=== PATIENT | female | born 1950 | race Caucasian/White ===

== ENCOUNTER → 2018-01-22 14:17 | Outpatient (CLI) | payer MEDICARE, OTHER, SELFPAY ==
--- NOTE | 2018-01-22 | DI.CT.S_ITS ---
PROCEDURE: CT HEAD/BRAIN WO CON INDICATIONS: CONTUSION WITH INTACT SKIN SURFACE TECHNIQUE: Noncontrast 4.5 mm thick angled axial sections acquired from the foramen magnum to the vertex, with coronal and sagittal reformats. For radiation dose reduction, the following was used: automated exposure control, adjustment of mA and/or kV according to patient size. COMPARISON: [facility], CT, HEAD WITHOUT CONTRAST, 11/08/2010, 9:05. FINDINGS: Image quality: Excellent. CSF spaces: Basal cisterns are patent. No extra-axial fluid collections. The ventricles are symmetric in size and shape. Brain: No intracranial bleeds or masses. There is cerebral volume loss for age, with resultant ventricular and sulcal prominence. There are periventricular and deep white matter chronic small vessel ischemic changes. There is intracranial internal carotid artery atherosclerosis. Skull and face: Calvarium and visualized facial bones appear intact, without suspicious lesions. Sinuses: Visualized sinuses and mastoids are clear. IMPRESSION: No acute intracranial hemorrhage. No displaced calvarial fracture can be seen. Note is made of age-appropriate brain parenchymal volume loss and chronic small vessel ischemic changes. Dictated by: Shantanu Valera M.D. on 01/22/2018 at 13:45 Approved by: Shantanu Valera M.D. on 01/22/2018 at 13:46
--- NOTE | 2018-01-22 | DI.CT.S_ITS ---
PROCEDURE: CT FACIAL BONES WO CON INDICATIONS: CONTUSION WITH INTACT SKIN SURFACE TECHNIQUE: Noncontrast 2.5 mm thick axial images acquired from the mandible through the frontal sinuses, with coronal and sagittal reformatting. For radiation dose reduction, the following was used: automated exposure control, adjustment of mA and/or kV according to patient size. COMPARISON: [facility], CT, CT HEAD/BRAIN WO CON, 01/22/2018, 14:26. FINDINGS: Image quality: Excellent. Bones and teeth: Orbital wall on the left is intact but the floor of the right orbit has sustained a significant traumatic injury, with blowout fracture deviating the floor and inferior aspect of the medial wall of the right orbit inferiorly and slightly posteriorly into the right maxillary sinus. The right orbital floor is displaced inferiorly and medially and posteriorly, by a maximum of 8 mm in each direction. The right maxillary sinus cavity contains complete opacification by heterogeneous material some of which is high density and likely blood products in this clinical circumstance. Sinus kumar elsewhere show no fracture or deformity. Nasal bones and septum are intact. Visualized portions of the mandible demonstrate no fractures or subluxation. Zygomatic arches are intact. Pterygoid plates are intact. Visualized portions of the skull base and auditory canals are intact. Sinuses: Paranasal sinuses are aerated except that the right maxillary sinus, discussed above, without air-fluid levels, mucosal thickening, or mucoceles. Mastoid air cells are aerated. Soft tissues: No edema, masses, or fluid collections. No enlarged lymph nodes. No soft tissue lacerations or debris. Vascular: Visualized vascular structures appear normal in the absence of contrast. Bony vascular foramina and canals are intact. IMPRESSION: Significant orbital blowout fracture on the right involving the inferior aspect of the medial wall contiguously extending into the floor of the right orbit, deviated both inferiorly, posteriorly and slightly medially by up to 8 mm. Complete opacification of the right maxillary sinus by heterogeneous material including high density content indicates likelihood of blood products and clot within the sinus cavity. No additional traumatic injury to the facial bones is seen elsewhere. The right globe and lens appear intact. A retro-bulbar hemorrhage is not found at the right orbit. Dictated by: Frederic Ching M.D. on 01/22/2018 at 15:11 Approved by: Frederic Ching M.D. on 01/22/2018 at 15:20
== END ==
PROVIDERS: Family Provider Specialist; PCP Family Medicine; Visit Provider Family Medicine
DX: S00.93XA Contusion of unspecified part of head, initial encounter (principal)
CPT/HCPCS: 70450; 70486

== ENCOUNTER → 2018-09-30 09:13 | Outpatient (CLI) | payer MEDICARE, OTHER, SELFPAY ==
--- NOTE | 2018-09-30 | DI.CT.S_ITS ---
PROCEDURE: CT FACIAL BONES W CON INDICATIONS: RIGHT ORBITAL FRACTURE TECHNIQUE: After the administration of intravenous contrast, 2.5 mm axial sections acquired from the mid-neck to the frontal sinuses, with coronal and sagittal reformats. For radiation dose reduction, the following was used: automated exposure control, adjustment of mA and/or kV according to patient size. COMPARISON: [facility], CT, CT FACIAL BONES WO [facility], 01/22/2018, 14:26. FINDINGS: Image quality: Excellent. Soft tissues: No edema, masses, or fluid collections. No enlarged lymph nodes. Vascular: Visualized vascular structures appear patent throughout. Bony vascular foramina and canals appear normal. Bones: An old right orbital floor blow-out fracture is noted. There is slight inferior displacement of the orbital fat. No evidence for entrapment of the extraorbital muscles. No acute facial fractures. No bony erosions or destruction. Visualized portions of the skull base and auditory canals also appear normal. Sinuses: There is mild right extra sinus mucosal thickening. Mastoid air cells are aerated. IMPRESSION: 1. Old right orbital floor fracture. No evidence for entrapment of orbital contents. 2. Mild right maxillary sinus mucosal thickening. Dictated by: Gretta Hart M.D. on 09/30/2018 at 12:21 Approved by: Gretta Hart M.D. on 10/01/2018 at 8:04
== END ==
PROVIDERS: Family Provider Specialist; PCP Family Medicine; Visit Provider Family Medicine
DX: S02.31XD Fracture of orbital floor, right side, subsequent encounter for fracture with routine healing (principal); J32.0 Chronic maxillary sinusitis
CPT/HCPCS: 70487; Q9967

== ENCOUNTER → 2018-10-08 10:14 | Outpatient (CLI) | payer MEDICARE, OTHER, SELFPAY ==
--- NOTE | 2018-10-08 | DI.MG.S_ITS ---
BILATERAL DIGITAL SCREENING MAMMOGRAM 3D/2D WITH CAD: 10/08/2018 CLINICAL: Routine screening. Comparison is made to exams dated: 01/18/2017 mammogram, 09/06/2015 mammogram - [facility], and 08/16/2014 mammogram - [facility]. There are scattered fibroglandular elements in both breasts. Current study was also evaluated with a Computer Aided Detection (CAD) system. No significant masses, calcifications, or other findings are seen in either breast. There has been no significant interval change. IMPRESSION: NEGATIVE There is no mammographic evidence of malignancy. A 1 year screening mammogram is recommended. This exam was interpreted at Station ID: [id number]. NOTE: For mammograms, a report in lay terms will be sent to the patient. Approximately 15% of breast malignancies will not be visualized mammographically. In the management of a palpable breast mass, a negative mammogram must not discourage biopsy of a clinically suspicious lesion. Electronically Signed By: Gina moffett/jayleen:10/08/2018 11:07:11 copy to: Jef Hinds letter sent: Normal Exam ACR BI-RADS Category 1: Negative 3341F
== END ==
PROVIDERS: Family Provider Specialist; PCP Family Medicine; Visit Provider Specialist
DX: Z12.31 Encounter for screening mammogram for malignant neoplasm of breast (principal)
CPT/HCPCS: 77063; 77067

== ENCOUNTER → 2019-09-29 08:26 | Outpatient (CLI) | payer MEDICARE, OTHER, SELFPAY ==
[2019-09-29 09:18] LABS: Add Manual Diff / Slide Review NO; Basophils Absolute Auto 0 /uL (0-100); Basophils Percent Auto 0.8 % (0-2); Eosinophils Absolute Auto 500 /uL (0-450); Eosinophils Percent Auto 10.1 % (2-4); Hematocrit 39.8 % (36-46); Hemoglobin 13.5 g/dL (12.0-16.0); Lymphocytes Absolute Auto 1500 /uL (1100-4500); Lymphocytes Percent Auto 32.8 % (25-40); Mean Corpuscular Hemoglobin 30.1 PG (26-34); Mean Corpuscular Volume 88.4 fL (80-100); Monocytes Absolute Auto 500 /uL (0-900); Monocytes Percent Auto 10.2 % (3-14); Neutrophils Absolute Auto 2200 /uL (1500-7000); Neutrophils Percent Auto 46.1 % (50-75); Platelet Count 213 X10^3/uL (150-400); Red Cell Distribution Width 14.1 % (11.6-14.8); White Blood Cell Count 4.7 X10^3/uL (4.5-11.0)
[2019-09-29 09:29] LABS: Alanine Aminotransferase 15 IU/L (<35); Albumin 3.9 g/dL (3.5-5.0); Albumin Globulin Ratio 1.4 (1.0-2.8); Alkaline Phosphatase 73 U/L (38-126); Aspartate Aminotransferase 25 IU/L (14-36); BUN Creatinine Ratio 18.6 (6-22); Bilirubin Total 1.1 mg/dL (0.2-1.3); Blood Urea Nitrogen 13 mg/dL (7-17); Calcium 9.8 mg/dL (8.4-10.2); Carbon Dioxide 28 mmol/L (22-32); Chloride 109 mmol/L (98-107); Cholesterol 179 mg/dL (140-199); Estimated Glomerular Filt Rate > 60.0 mL/min (>60); Globulin 2.7 g/dL (1.7-4.1); Glucose 97 mg/dL (80-110); HDL Cholesterol 60 mg/dL (40-60); HEMOLYSIS < 15 (0-50); LDL Cholesterol Calculated 94 mg/dL (<100); Potassium 4.1 mmol/L (3.4-5.1); Sodium 142 mmol/L (137-145); Total Protein 6.6 g/dL (6.3-8.2); Triglycerides 126 mg/dL (35-150)
[2019-09-29 10:15] LABS: Vitamin B12 586 pg/mL (239-931)
[2019-09-29 14:50] LABS: Folate > 20.0 ng/mL (2.76-20.0)
== END ==
PROVIDERS: Family Provider Specialist; PCP Family Medicine; Visit Provider Family Medicine
DX: E78.00 Pure hypercholesterolemia, unspecified (principal); E78.5 Hyperlipidemia, unspecified; I80.00 Phlebitis and thrombophlebitis of superficial vessels of unspecified lower extremity; R03.0 Elevated blood-pressure reading, without diagnosis of hypertension; Z79.899 Other long term (current) drug therapy
CPT/HCPCS: 36415; 80053; 80061; 82607; 82746; 85025

== ENCOUNTER → 2019-10-12 10:55 | Outpatient (CLI) | payer MEDICARE, OTHER, SELFPAY ==
--- NOTE | 2019-10-12 | DI.MG.S_ITS ---
BILATERAL DIGITAL SCREENING MAMMOGRAM 3D/2D WITH CAD: 10/12/2019 CLINICAL: Routine screening. Comparison is made to exams dated: 10/08/2018 mammogram, 07/22/2017 mammogram, 01/29/2017 mammogram, and 01/18/2017 mammogram - [facility]. There are scattered fibroglandular elements in both breasts. Current study was also evaluated with a Computer Aided Detection (CAD) system. There is an oval low density focal asymmetry with an indistinct and circumscribed margin in the right breast at 10 o'clock anterior depth. No other significant masses, calcifications, or other findings are seen in either breast. IMPRESSION: INCOMPLETE: NEEDS ADDITIONAL IMAGING EVALUATION The oval low density focal asymmetry in the right breast is indeterminate. Mediolateral and spot compression views as well as additional views with possible ultrasound are recommended. This exam was interpreted at Station ID: [id number]. NOTE: For mammograms, a report in lay terms will be sent to the patient. Approximately 15% of breast malignancies will not be visualized mammographically. In the management of a palpable breast mass, a negative mammogram must not discourage biopsy of a clinically suspicious lesion. Electronically Signed By: Misbah barton/jayleen:10/12/2019 14:35:01 copy to: Jef Hinds letter sent: Additional Imaging Needed ACR BI-RADS Category 0: Incomplete 3340F
== END ==
PROVIDERS: Family Provider Specialist; PCP Family Medicine; Referring Provider Specialist; Visit Provider Specialist
DX: Z12.31 Encounter for screening mammogram for malignant neoplasm of breast (principal)
CPT/HCPCS: 77063; 77067

== ENCOUNTER → 2019-10-26 08:02 | Outpatient (CLI) | payer MEDICARE, OTHER, SELFPAY ==
--- NOTE | 2019-10-26 08:03 | DI.US.S_ITS ---
ULTRASOUND OF RIGHT BREAST: 10/26/2019 CLINICAL: Additional evaluation requested from prior study. Comparison is made to exams dated: 10/26/2019 mammogram, 10/12/2019 mammogram, 10/08/2018 mammogram, 01/18/2017 mammogram, 09/06/2015 mammogram - [facility], and 08/16/2014 mammogram - [facility]. Color flow and real-time ultrasound of the right breast were performed. Pastor scale images of the real-time examination were reviewed. There is a 0.4 cm x 0.2 cm x 0.1 cm oval mass with a circumscribed margin in the right breast at 3 o'clock middle depth 3 cm from the nipple. This oval mass is hypoechoic with no posterior acoustic shadowing or enhancement. Color flow imaging demonstrates that there is no vascularity present. There also is a 0.5 cm x 0.5 cm x 0.3 cm oval mass with a circumscribed margin in the right breast at 10 o'clock middle depth. This oval mass is hypoechoic. This correlates with mammography findings. Color flow imaging demonstrates that there is no vascularity present. IMPRESSION: PROBABLY BENIGN The 0.4 cm x 0.2 cm x 0.1 cm oval mass in the right breast at 3 o'clock middle depth resembles a lymph node and is probably benign. The 0.5 cm x 0.5 cm x 0.3 cm oval mass in the right breast at 10 o'clock middle depth resembles a lymph node and is probably benign. A follow-up right mammogram and an ultrasound in 6 months is recommended to demonstrate stability. This exam was interpreted at Station ID: [id number]. Electronically Signed By: Madi Reid M.D. at/:10/26/2019 17:44:43 copy to: Jef Hinds letter sent: Followup Recommended Ultrasound BI-RADS: 3 Probably benign
--- NOTE | 2019-10-26 08:03 | DI.MG.S_ITS ---
UNILATERAL RIGHT DIGITAL DIAGNOSTIC MAMMOGRAM 3D/2D: 10/26/2019 Comparison is made to exams dated: 10/12/2019 mammogram, 10/08/2018 mammogram, and 01/18/2017 mammogram - [facility]. There are scattered fibroglandular elements in right breast. There is a 0.5 cm low density focal asymmetry with an indistinct and circumscribed margin in the right breast at 10 o'clock anterior depth. This is less prominent and not definitely seen on the lateral view today. No other significant masses or calcifications are seen in the breast. IMPRESSION: INCOMPLETE: NEEDS ADDITIONAL IMAGING EVALUATION The 0.5 cm low density focal asymmetry in the right breast is indeterminate. An ultrasound is recommended. An ultrasound is recommended for further evaluation and is scheduled to immediately follow this study. This exam was interpreted at Station ID: [id number]. NOTE: For mammograms, a report in lay terms will be sent to the patient. Approximately 15% of breast malignancies will not be visualized mammographically. In the management of a palpable breast mass, a negative mammogram must not discourage biopsy of a clinically suspicious lesion. Electronically Signed By: Madi Reid M.D. aty/:10/26/2019 08:29:22 copy to: Jef MUNROE BI-RADS Category 0: Incomplete [id number]
== END ==
PROVIDERS: Family Provider Family Medicine; PCP Family Medicine; Referring Provider Specialist; Visit Provider Specialist
DX: R92.8 Other abnormal and inconclusive findings on diagnostic imaging of breast (principal); N63.15 Unspecified lump in the right breast, overlapping quadrants; N63.11 Unspecified lump in the right breast, upper outer quadrant
CPT/HCPCS: 76642; 77065; G0279

== ENCOUNTER 2019-11-19 08:15 | Outpatient (RCR) | payer MEDICARE, OTHER, SELFPAY ==
--- NOTE | 2019-10-30 17:54 | PT.OIE ---
Current Diagnoses Other specific arthropathies, not elsewhere classified, multiple sites (10/30/19) Pain in right hip (10/30/19) Pain in left knee (10/30/19) Past Surgical History (Last Reviewed 01/09/18 @ 17:39 by Ivan Alonso DO) Status post appendectomy Status post endometrial ablation Visit Care Team Role Provider Type Jef Hinds MD Attending Provider Physician Family Provider Primary Care Provider Referring Provider Specialty: Family Practice Address: [address] [place] [address], [address], [place], [address] Email: Physical Therapy Initial Evaluation PT-OP-A Visit Information Start: 10/30/19 17:07 Freq: Status: Active Protocol: Document 10/30/19 15:16 HH (Rec: 10/30/19 17:54 [email or web address]) Out-Patient Physical Therapy Visit Information Visit Information Visit Type Initial Evaluation Visit Start Time 15:16 Visit Stop Time 16:00 Total Visit Minutes 44 Visit Number 09/27 Number of MEDICAL OR SURGICAL INSTRUMENT MAKER Visits 0 Evaluation Information Evaluation Date 10/30/19 Precautions Precautions multiple falls varicose veins PT-OP-B Current Condition Start: 10/30/19 17:07 Freq: Status: Active Protocol: Document 10/30/19 15:16 HH (Rec: 10/30/19 17:54 [email or web address]) Current Condition History of Current Condition Onset Date a year ago Current Complaints B knee pain R>L, R hip pain, multiple falls History of Current Condition Pt is a 69yo female presented to the clinic with primariy c/ o multiple falls, B knee pain R>L and R hip pain. Pt reports she had falls 4-5 times a year that caused multiple injuries who caught her foot on the floor/ stairs. She broke her orbital bone from a fall last year, along with a concussion. Pt also stated her knee pain started a year ago and has been having difficulty bending and straighten her R knee. She reports she does has OA based on what her MD told her. Pt used to walk 2-3 miles 2 to 3 times a week and enjoy walking on the beach but not now since her hx of falls. (Pt 's last fall was 2 weeks ago) Treatment Goals Patient/Caregiver Goals 1. To be able to go for a 2-3 miles walk 2-3 times a week 2. To be able to walk on the beach again 3. To improve her balance Prior Functional Status Baseline Function- ADL's Independent Baseline Function- Mobility Independent Personal Factors Other Personal Factors That May Effect previous TBI Therapy/Recovery PT-OP-C Subjective Start: 10/30/19 17:07 Freq: Status: Active Protocol: Document 10/30/19 15:16 HH (Rec: 10/30/19 17:54 [email or web address]) OP-PT Subjective Patient Comments Patient Comments I dont know why i tripped my foot all the time. Patient Questionnaires Lower Extremity Functional Scale LEFS Score 61 LEFS Impairment 20 to 39% Impaired (Score 48- 62) OP-PT Pain Assessment Location B knee Pain Location Details knee medial joint line Intensity 4 Scale Used Numeric (1 - 10) Description Aching,Pressure Frequency Frequent Pain Aggravating Factors Activity,Exercise,Walking Pain Alleviating Factors Inactivity,Lying Supine PT-OP-D Balance Start: 10/30/19 17:07 Freq: Status: Active Protocol: Document 10/30/19 15:16 HH (Rec: 10/30/19 17:54 [email or web address]) Balance Tests Single Limb Standing Single Limb- Right 37 Single Limb- Left 35 Other Other Balance Tests Performed Pt reports unsteady and give out sensation while SLS on RLE PT-OP-F Manual Assessment Start: 10/30/19 17:07 Freq: Status: Active Protocol: Document 10/30/19 15:16 HH (Rec: 10/30/19 17:54 [email or web address]) Manual Assessments Soft Tissue Assessment Soft Tissue Mobility Assessment tenderness to pressure at R medial joint line PT-OP-G Mobility & Gait Start: 10/30/19 17:07 Freq: Status: Active Protocol: Document 10/30/19 15:16 HH (Rec: 10/30/19 17:54 [email or web address]) OP Gait Assessment Gait Deviations General Gait Pattern Decreased Stride Length, Decreased Feet Clearance Factors Limiting Gait Function Factors Limiting Gait Function Limited Range of Motion,Pain Comments Gait Comments Pt shows lack of full R knee extension during loarding response, along with decreased DF compared to L during initial contact. PT-OP-H Neuro Start: 10/30/19 17:07 Freq: Status: Active Protocol: Document 10/30/19 15:16 HH (Rec: 10/30/19 17:54 [email or web address]) Deep Tendon Reflex & Clonus Assessment Deep Tendon Reflex Bilateral Achilles Deep Tendon Reflex 2+ Normal Bilateral Patellar Deep Tendon Reflex 2+ Normal PT-OP-J Posture/Palpation/Skin Start: 10/30/19 17:07 Freq: Status: Active Protocol: Document 10/30/19 15:16 (Rec: 10/30/19 17:54 [email or web address]) Posture Evaluation Position Standing Evaluation View Anterior Weight Distribution Weight Shifted Left,Decreased Wt.Bear on (R) Knee Posture (R) Excess Flexion Ankle/Foot Posture (R) Pronated,(R) Forefoot Abducted Skin Assessment Edema Assessment Left Leg Edema Type Non-Pitting Edema Degree 2+ Edema Appearance Firm Subjective Edema Description Pain,Tightness Comments significant non-pitting edema above mid davis at L gastronemius complex. Pt reports she has cellulitis before and likes to wear compression socks PT-OP-K Range of Motion Start: 10/30/19 17:07 Freq: Status: Active Protocol: Document 10/30/19 15:16 (Rec: 10/30/19 17:54 [email or web address]) Hip Goniometric Range of Motion Hip Right Active Hip ROM WFL Yes Testing Position Supine Flexion w/Knee Flexed 100 Internal Rotation 30 External Rotation 35 Left Active Hip ROM WFL Yes Testing Position Supine Flexion w/Knee Flexed 110 Internal Rotation 37 External Rotation 35 Hip ROM Limitations Hip ROM Limitations Pain Comments reports of R hip pain during end range flexion, ER and IR Knee Goniometric Range of Motion Knee Left Knee ROM WFL Yes Patient Position Supine Flexion Active (degrees) 110 Extension Active (degrees) 0 Right Knee ROM WFL No Patient Position Supine Flexion Active (degrees) 100 Extension Active (degrees) 9 Knee ROM Limitations Knee ROM Limitations Soft Tissue Tightness,Pain, Swelling PT-OP-L Special Tests Start: 10/30/19 17:07 Freq: Status: Active Protocol: Document 10/30/19 15:16 (Rec: 10/30/19 17:54 [email or web address]) Special Tests Hip Special Tests FADDIR Test Results +VE R Comments pinching pain at end range Scour Test Test Results +VE R Comments pinching pain ROJELIO Test Results +VE R Comments pinching pain at end range Knee Special Tests Apley's Compression Test Results +VE R Comments medial joint line Varus- 25 Degrees Test Results -ve B Varus- 0 Degrees Test Results -ve B Valgus- 0 Degrees Test Results +VE R Comments medial joint line Valgus- 25 Degrees Test Results +VE R Comments medial joint line PT-OP-M Strength Start: 10/30/19 17:07 Freq: Status: Active Protocol: Document 10/30/19 15:16 (Rec: 10/30/19 17:54 [email or web address]) Hip Strength Hip Manual Muscle Testing Right Flexion (L2) 4+ Good+ Extension (S1) 4+ Good+ Abduction 4+ Good+ Adduction 4+ Good+ Left Flexion (L2) 4+ Good+ Extension (S1) 4+ Good+ Abduction 4+ Good+ Knee Strength Knee Manual Muscle Testing Right Flexion (S2) 4 Good Extension (L3) 4 Good Reason Not Measured Pain Left Flexion (S2) 4+ Good+ Extension (L3) 4+ Good+ Ankle/Foot Strength Ankle and Foot Manual Muscle Testing Right Dorsiflexion (L4) 4+ Good+ Plantarflexion (S1) 5 Normal Inversion 5 Normal Eversion (S1) 5 Normal Left Dorsiflexion (L4) 5 Normal Plantarflexion (S1) 5 Normal Inversion 5 Normal Eversion (S1) 5 Normal PT-OP-Q Treatments Start: 10/30/19 17:07 Freq: Status: Active Protocol: Document 10/30/19 15:16 (Rec: 10/30/19 17:54 [email or web address]) Therapeutic Exercises Sitting Exercises rolling pin Sitting Exercise Name R hamstrings, quad, L calf Comments self massage Self-Care/Home Management Treatment Education Patient Education Home Exercise Program,Joint Protection,Safety Other Education education to not wear tight sock which increases fluid accumulation at L lower leg. Also discussed the likelihood to develope PE. PT-OP-T Assessment and Plan Start: 10/30/19 17:07 Freq: Status: Active Protocol: Document 10/30/19 15:16 (Rec: 10/30/19 17:54 [email or web address]) Physical Therapy Assessment Rehab Potential Rehabilitation Potential Excellent Evaluation Complexity Number of Personal Factors/Comorbidities 1-2 Number of Body Systems Impaired 1-2 Clinical Presentation at Evaluation Stable Impairments Impairments Activity Tolerance,Balance, Edema,Functional Activities, Functional Mobility,Gait,Pain, Posture,ROM,Soft Tissue Mobility,Strength Goals falls Impairment Pt has multiple falls during the year Day Care Provider Goal (LTG) Pt will not have a fall/ close to fall episode > 2 months to reduce fall risks LTG Duration 8 weeks return to hobbies Impairment unable to walk 2-3 miles / on the beach Short Term Goal (STG) Pt will be able to walk 1 mile with knee pain no more than 3 /10 STG Duration 4 weeks Alf Goal (LTG) Pt will be able to walk 3 mile 2-3x/week with knee pain no more than 2/10, along being able to walk on the beach as well knee ROM Impairment pt's R knee AROM = 8-100 Short Term Goal (STG) pt will reach R knee AROM 5- 110 degrees. STG Duration 4 weeks Alf Goal (LTG) Pt will reach R knee AROM 3- 115 degrees to optimize her gait mechanics with reduce R foot drag. LTG Duration 8 weeks LEFS Impairment 61 Short Term Goal (STG) Pt scores will score 66 for LEFS STG Duration 4 weeks Alf Goal (LTG) pt will score >70 for LEFS to improve her quality of life. LTG Duration 8 weeks Assessment Summary Assessment Pt is a 69yo female presented to the clinic with primariy c/ o multiple falls, B knee pain R>L and R hip pain. Upon assessment, pt presents no neurologica symptoms for foot drop and she has close to symmetrical strength for hip, knee and ankles. However, pt has limited R knee extension who demonstrates reduced R heel strike/ R DF during initial contact/ loading response compared to L during gait analysis, which possibly contribute to her fall risks. Special tests including ROJELIO, FADDIR, scour and valgus stress tests shows positive findings which indicate OA pathology. In addition, pt has significant non pitting edema on L lower calf possibly due to her previous cellulitis/ use of compression socks. Educated pt to perform self massage in a proximal direction to reduce edema and muscle tightness. Pt will benefit from skilled therapy to address aforementioned impairments to improve her gait mechanics to reduce her fall risks. Physical Therapy Plan Frequency and Duration Frequency of Treatment 2x/Week Duration of Treatment 8 weeks Plan of Care Start Date 10/30/19 Plan of Care End Date 12/29/19 Therapeutic Interventions Therapeutic Interventions Balance Training,Gait Training ,Home Exercise Program,Joint Mobilizations,Manual Therapy, Neuromuscular Re-education, Patient/Caregiver Education, Self-Care/Home Management,Soft Tissue Mobilization,Taping, Therapeutic Activities, Therapeutic Exercises Modalities Cold Pack/Ice Massage,Electric Stimulation,Hot Packs, Infrared Therapy Next Visit Focus/Plan Next Note Type Treatment Note Next Visit Plan check LLE edema, manual therapy on pt's R HS, hip adductors TKE and flexion training, joint mob if needed HEP with images
--- NOTE | 2019-11-04 16:05 | PT.OTN ---
Current Diagnoses Other specific arthropathies, not elsewhere classified, multiple sites (11/04/19) Pain in right hip (11/04/19) Pain in left knee (11/04/19) Physical Therapy Treatment Note PT-OP-A Visit Information Start: 10/30/19 17:07 Freq: Status: Active Protocol: Document 11/04/19 15:18 HH (Rec: 11/04/19 16:05 [email or web address]) Out-Patient Physical Therapy Visit Information Visit Information Visit Type Treatment Note Visit Start Time 15:18 Visit Stop Time 16:00 Total Visit Minutes 42 Visit Number 10/28 Number of LINE INSTALLER Visits 0 PT-OP-B Current Condition Start: 10/30/19 17:07 Freq: Status: Active Protocol: Document 10/30/19 15:16 HH (Rec: 10/30/19 17:54 [email or web address]) Current Condition History of Current Condition Onset Date a year ago Current Complaints B knee pain R>L, R hip pain, multiple falls History of Current Condition Pt is a 69yo female presented to the clinic with primariy c/ o multiple falls, B knee pain R>L and R hip pain. Pt reports she had falls 4-5 times a year that caused multiple injuries who caught her foot on the floor/ stairs. She broke her orbital bone from a fall last year, along with a concussion. Pt also stated her knee pain started a year ago and has been having difficulty bending and straighten her R knee. She reports she does has OA based on what her MD told her. Pt used to walk 2-3 miles 2 to 3 times a week and enjoy walking on the beach but not now since her hx of falls. (Pt 's last fall was 2 weeks ago) Treatment Goals Patient/Caregiver Goals 1. To be able to go for a 2-3 miles walk 2-3 times a week 2. To be able to walk on the beach again 3. To improve her balance Prior Functional Status Baseline Function- ADL's Independent Baseline Function- Mobility Independent Personal Factors Other Personal Factors That May Effect previous TBI Therapy/Recovery PT-OP-C Subjective Start: 10/30/19 17:07 Freq: Status: Active Protocol: Document 11/04/19 15:18 HH (Rec: 11/04/19 16:05 [id number]) OP-PT Subjective Patient Comments Patient Comments My knee got abit sore after i walked quite a bit today. PT-OP-D Balance Start: 10/30/19 17:07 Freq: Status: Active Protocol: Document 10/30/19 15:16 HH (Rec: 10/30/19 17:54 [email or web address]) Balance Tests Single Limb Standing Single Limb- Right 37 Single Limb- Left 35 Other Other Balance Tests Performed Pt reports unsteady and give out sensation while SLS on RLE PT-OP-F Manual Assessment Start: 10/30/19 17:07 Freq: Status: Active Protocol: Document 10/30/19 15:16 HH (Rec: 10/30/19 17:54 [email or web address]) Manual Assessments Soft Tissue Assessment Soft Tissue Mobility Assessment tenderness to pressure at R medial joint line PT-OP-G Mobility & Gait Start: 10/30/19 17:07 Freq: Status: Active Protocol: Document 10/30/19 15:16 HH (Rec: 10/30/19 17:54 [email or web address]) OP Gait Assessment Gait Deviations General Gait Pattern Decreased Stride Length, Decreased Feet Clearance Factors Limiting Gait Function Factors Limiting Gait Function Limited Range of Motion,Pain Comments Gait Comments Pt shows lack of full R knee extension during loarding response, along with decreased DF compared to L during initial contact. PT-OP-H Neuro Start: 10/30/19 17:07 Freq: Status: Active Protocol: Document 10/30/19 15:16 HH (Rec: 10/30/19 17:54 [email or web address]) Deep Tendon Reflex & Clonus Assessment Deep Tendon Reflex Bilateral Achilles Deep Tendon Reflex 2+ Normal Bilateral Patellar Deep Tendon Reflex 2+ Normal PT-OP-J Posture/Palpation/Skin Start: 10/30/19 17:07 Freq: Status: Active Protocol: Document 10/30/19 15:16 HH (Rec: 10/30/19 17:54 [email or web address]) Posture Evaluation Position Standing Evaluation View Anterior Weight Distribution Weight Shifted Left,Decreased Wt.Bear on (R) Knee Posture (R) Excess Flexion Ankle/Foot Posture (R) Pronated,(R) Forefoot Abducted Skin Assessment Edema Assessment Left Leg Edema Type Non-Pitting Edema Degree 2+ Edema Appearance Firm Subjective Edema Description Pain,Tightness Comments significant non-pitting edema above mid davis at L gastronemius complex. Pt reports she has cellulitis before and likes to wear compression socks PT-OP-K Range of Motion Start: 10/30/19 17:07 Freq: Status: Active Protocol: Document 10/30/19 15:16 (Rec: 10/30/19 17:54 [email or web address]) Hip Goniometric Range of Motion Hip Right Active Hip ROM WFL Yes Testing Position Supine Flexion w/Knee Flexed 100 Internal Rotation 30 External Rotation 35 Left Active Hip ROM WFL Yes Testing Position Supine Flexion w/Knee Flexed 110 Internal Rotation 37 External Rotation 35 Hip ROM Limitations Hip ROM Limitations Pain Comments reports of R hip pain during end range flexion, ER and IR Knee Goniometric Range of Motion Knee Left Knee ROM WFL Yes Patient Position Supine Flexion Active (degrees) 110 Extension Active (degrees) 0 Right Knee ROM WFL No Patient Position Supine Flexion Active (degrees) 100 Extension Active (degrees) 9 Knee ROM Limitations Knee ROM Limitations Soft Tissue Tightness,Pain, Swelling PT-OP-L Special Tests Start: 10/30/19 17:07 Freq: Status: Active Protocol: Document 10/30/19 15:16 (Rec: 10/30/19 17:54 [email or web address]) Special Tests Hip Special Tests FADDIR Test Results +VE R Comments pinching pain at end range Scour Test Test Results +VE R Comments pinching pain ROJELIO Test Results +VE R Comments pinching pain at end range Knee Special Tests Apley's Compression Test Results +VE R Comments medial joint line Varus- 25 Degrees Test Results -ve B Varus- 0 Degrees Test Results -ve B Valgus- 0 Degrees Test Results +VE R Comments medial joint line Valgus- 25 Degrees Test Results +VE R Comments medial joint line PT-OP-M Strength Start: 10/30/19 17:07 Freq: Status: Active Protocol: Document 10/30/19 15:16 (Rec: 10/30/19 17:54 [email or web address]) Hip Strength Hip Manual Muscle Testing Right Flexion (L2) 4+ Good+ Extension (S1) 4+ Good+ Abduction 4+ Good+ Adduction 4+ Good+ Left Flexion (L2) 4+ Good+ Extension (S1) 4+ Good+ Abduction 4+ Good+ Knee Strength Knee Manual Muscle Testing Right Flexion (S2) 4 Good Extension (L3) 4 Good Reason Not Measured Pain Left Flexion (S2) 4+ Good+ Extension (L3) 4+ Good+ Ankle/Foot Strength Ankle and Foot Manual Muscle Testing Right Dorsiflexion (L4) 4+ Good+ Plantarflexion (S1) 5 Normal Inversion 5 Normal Eversion (S1) 5 Normal Left Dorsiflexion (L4) 5 Normal Plantarflexion (S1) 5 Normal Inversion 5 Normal Eversion (S1) 5 Normal PT-OP-Q Treatments Start: 10/30/19 17:07 Freq: Status: Active Protocol: Document 11/04/19 15:18 (Rec: 11/04/19 16:05 [id number]) Therapeutic Exercises Supine Exercises R TKE Supine Exercise Name towel under ankle Side right Reps/Minutes 5 sec hold x10 supine heel slide Supine Exercise Name with towel underneath Side right Reps/Minutes 12 x2 Sitting Exercises rolling pin Sitting Exercise Name R hamstrings, lateral quad, peroneals, L calf Comments self massage Standing Exercises marching in place Standing Exercise Name w/o support Side bilateral Comments with ankle DF Manual Therapy Treatment Soft Tissue Mobilization knee joint Body Location proximal stroke direction Mobilization Type Sustained Pressure,Trigger Point Release Intensity/Depth Moderate Body Position Supine Comments noticeable joint effusion peroneals Body Location bilateral Mobilization Type Rolling,Sustained Pressure, Trigger Point Release Intensity/Depth Moderate Body Position Prone L calf Body Location proximal stroke direction Mobilization Type Rolling,Sustained Pressure, Trigger Point Release Body Position Prone quads Body Location lateral quad Mobilization Type Sustained Pressure,Trigger Point Release Intensity/Depth Moderate Body Position Supine PT-OP-T Assessment and Plan Start: 10/30/19 17:07 Freq: Status: Active Protocol: Document 11/04/19 15:18 (Rec: 11/04/19 16:05 [id number]) Physical Therapy Assessment Goals falls Impairment Pt has multiple falls during the year Nursing Home Goal (LTG) Pt will not have a fall/ close to fall episode > 2 months to reduce fall risks LTG Duration 8 weeks return to hobbies Impairment unable to walk 2-3 miles / on the beach Short Term Goal (STG) Pt will be able to walk 1 mile with knee pain no more than 3 /10 STG Duration 4 weeks Nursing Home Goal (LTG) Pt will be able to walk 3 mile 2-3x/week with knee pain no more than 2/10, along being able to walk on the beach as well knee ROM Impairment pt's R knee AROM = 8-100 Short Term Goal (STG) pt will reach R knee AROM 5- 110 degrees. STG Duration 4 weeks Electric Meter Repairer Goal (LTG) Pt will reach R knee AROM 3- 115 degrees to optimize her gait mechanics with reduce R foot drag. LTG Duration 8 weeks LEFS Impairment 61 Short Term Goal (STG) Pt scores will score 66 for LEFS STG Duration 4 weeks Nursing Home Goal (LTG) pt will score >70 for LEFS to improve her quality of life. LTG Duration 8 weeks Assessment Summary Assessment Pt has significant improvements with active knee flexion and extension. There;s noticeable increased muscle tension in lateral quad and peroneals which limits pt's terminal knee ext. Pt was able to improve heel strike at the end of session Physical Therapy Plan Next Visit Focus/Plan Next Note Type Treatment Note Next Visit Plan check LLE edema, manual therapy on pt's R HS, hip adductors TKE and flexion training, joint mob if needed HEP with images
--- NOTE | 2019-11-06 16:05 | PT.OTN ---
Current Diagnoses Other specific arthropathies, not elsewhere classified, multiple sites (11/06/19) Pain in right hip (11/06/19) Pain in left knee (11/06/19) Physical Therapy Treatment Note PT-OP-A Visit Information Start: 10/30/19 17:07 Freq: Status: Active Protocol: Document 11/06/19 16:01 HH (Rec: 11/06/19 16:05 [email or web address]) Out-Patient Physical Therapy Visit Information Visit Information Visit Type Treatment Note Visit Start Time 15:12 Visit Stop Time 16:00 Total Visit Minutes 48 Visit Number 11/25 Number of CHEMICAL HANDLER Visits 0 PT-OP-B Current Condition Start: 10/30/19 17:07 Freq: Status: Active Protocol: Document 10/30/19 15:16 HH (Rec: 10/30/19 17:54 HH [email or web address]) Current Condition History of Current Condition Onset Date a year ago Current Complaints B knee pain R>L, R hip pain, multiple falls History of Current Condition Pt is a 69yo female presented to the clinic with primariy c/ o multiple falls, B knee pain R>L and R hip pain. Pt reports she had falls 4-5 times a year that caused multiple injuries who caught her foot on the floor/ stairs. She broke her orbital bone from a fall last year, along with a concussion. Pt also stated her knee pain started a year ago and has been having difficulty bending and straighten her R knee. She reports she does has OA based on what her MD told her. Pt used to walk 2-3 miles 2 to 3 times a week and enjoy walking on the beach but not now since her hx of falls. (Pt 's last fall was 2 weeks ago) Treatment Goals Patient/Caregiver Goals 1. To be able to go for a 2-3 miles walk 2-3 times a week 2. To be able to walk on the beach again 3. To improve her balance Prior Functional Status Baseline Function- ADL's Independent Baseline Function- Mobility Independent Personal Factors Other Personal Factors That May Effect previous TBI Therapy/Recovery PT-OP-C Subjective Start: 10/30/19 17:07 Freq: Status: Active Protocol: Document 11/06/19 16:01 HH (Rec: 11/06/19 16:05 [email or web address]) OP-PT Subjective Patient Comments Patient Comments My knee got sore from last time but my knee is getting straighter and walking better with my heel strike. Patient Reported Progress Improving PT-OP-D Balance Start: 10/30/19 17:07 Freq: Status: Active Protocol: Document 10/30/19 15:16 HH (Rec: 10/30/19 17:54 [email or web address]) Balance Tests Single Limb Standing Single Limb- Right 37 Single Limb- Left 35 Other Other Balance Tests Performed Pt reports unsteady and give out sensation while SLS on RLE PT-OP-F Manual Assessment Start: 10/30/19 17:07 Freq: Status: Active Protocol: Document 10/30/19 15:16 HH (Rec: 10/30/19 17:54 [email or web address]) Manual Assessments Soft Tissue Assessment Soft Tissue Mobility Assessment tenderness to pressure at R medial joint line PT-OP-G Mobility & Gait Start: 10/30/19 17:07 Freq: Status: Active Protocol: Document 10/30/19 15:16 HH (Rec: 10/30/19 17:54 [email or web address]) OP Gait Assessment Gait Deviations General Gait Pattern Decreased Stride Length, Decreased Feet Clearance Factors Limiting Gait Function Factors Limiting Gait Function Limited Range of Motion,Pain Comments Gait Comments Pt shows lack of full R knee extension during loarding response, along with decreased DF compared to L during initial contact. PT-OP-H Neuro Start: 10/30/19 17:07 Freq: Status: Active Protocol: Document 10/30/19 15:16 HH (Rec: 10/30/19 17:54 [email or web address]) Deep Tendon Reflex & Clonus Assessment Deep Tendon Reflex Bilateral Achilles Deep Tendon Reflex 2+ Normal Bilateral Patellar Deep Tendon Reflex 2+ Normal PT-OP-J Posture/Palpation/Skin Start: 10/30/19 17:07 Freq: Status: Active Protocol: Document 10/30/19 15:16 HH (Rec: 10/30/19 17:54 [email or web address]) Posture Evaluation Position Standing Evaluation View Anterior Weight Distribution Weight Shifted Left,Decreased Wt.Bear on (R) Knee Posture (R) Excess Flexion Ankle/Foot Posture (R) Pronated,(R) Forefoot Abducted Skin Assessment Edema Assessment Left Leg Edema Type Non-Pitting Edema Degree 2+ Edema Appearance Firm Subjective Edema Description Pain,Tightness Comments significant non-pitting edema above mid davis at L gastronemius complex. Pt reports she has cellulitis before and likes to wear compression socks PT-OP-K Range of Motion Start: 10/30/19 17:07 Freq: Status: Active Protocol: Document 10/30/19 15:16 (Rec: 10/30/19 17:54 [email or web address]) Hip Goniometric Range of Motion Hip Right Active Hip ROM WFL Yes Testing Position Supine Flexion w/Knee Flexed 100 Internal Rotation 30 External Rotation 35 Left Active Hip ROM WFL Yes Testing Position Supine Flexion w/Knee Flexed 110 Internal Rotation 37 External Rotation 35 Hip ROM Limitations Hip ROM Limitations Pain Comments reports of R hip pain during end range flexion, ER and IR Knee Goniometric Range of Motion Knee Left Knee ROM WFL Yes Patient Position Supine Flexion Active (degrees) 110 Extension Active (degrees) 0 Right Knee ROM WFL No Patient Position Supine Flexion Active (degrees) 100 Extension Active (degrees) 9 Knee ROM Limitations Knee ROM Limitations Soft Tissue Tightness,Pain, Swelling PT-OP-L Special Tests Start: 10/30/19 17:07 Freq: Status: Active Protocol: Document 10/30/19 15:16 (Rec: 10/30/19 17:54 [email or web address]) Special Tests Hip Special Tests FADDIR Test Results +VE R Comments pinching pain at end range Scour Test Test Results +VE R Comments pinching pain ROJELIO Test Results +VE R Comments pinching pain at end range Knee Special Tests Apley's Compression Test Results +VE R Comments medial joint line Varus- 25 Degrees Test Results -ve B Varus- 0 Degrees Test Results -ve B Valgus- 0 Degrees Test Results +VE R Comments medial joint line Valgus- 25 Degrees Test Results +VE R Comments medial joint line PT-OP-M Strength Start: 10/30/19 17:07 Freq: Status: Active Protocol: Document 10/30/19 15:16 (Rec: 10/30/19 17:54 [email or web address]) Hip Strength Hip Manual Muscle Testing Right Flexion (L2) 4+ Good+ Extension (S1) 4+ Good+ Abduction 4+ Good+ Adduction 4+ Good+ Left Flexion (L2) 4+ Good+ Extension (S1) 4+ Good+ Abduction 4+ Good+ Knee Strength Knee Manual Muscle Testing Right Flexion (S2) 4 Good Extension (L3) 4 Good Reason Not Measured Pain Left Flexion (S2) 4+ Good+ Extension (L3) 4+ Good+ Ankle/Foot Strength Ankle and Foot Manual Muscle Testing Right Dorsiflexion (L4) 4+ Good+ Plantarflexion (S1) 5 Normal Inversion 5 Normal Eversion (S1) 5 Normal Left Dorsiflexion (L4) 5 Normal Plantarflexion (S1) 5 Normal Inversion 5 Normal Eversion (S1) 5 Normal PT-OP-Q Treatments Start: 10/30/19 17:07 Freq: Status: Active Protocol: Document 11/06/19 16:01 (Rec: 11/06/19 16:05 [email or web address]) Cardio Equipment Recumbent Bicycle Duration (Minutes) 8 Resistance 1 Therapeutic Exercises Supine Exercises R TKE Supine Exercise Name towel under ankle Side right Reps/Minutes 5 sec hold x10 supine heel slide Supine Exercise Name with towel underneath Side right Reps/Minutes 12 x2 Manual Therapy Treatment Soft Tissue Mobilization knee joint Body Location proximal stroke direction Mobilization Type Sustained Pressure,Trigger Point Release Intensity/Depth Moderate Body Position Supine Comments noticeable joint effusion peroneals Body Location bilateral Mobilization Type Rolling,Sustained Pressure, Trigger Point Release Intensity/Depth Moderate Body Position Prone L calf Body Location proximal stroke direction Mobilization Type Rolling,Sustained Pressure, Trigger Point Release Body Position Prone quads Body Location lateral quad Mobilization Type Sustained Pressure,Trigger Point Release Intensity/Depth Moderate Body Position Supine PT-OP-T Assessment and Plan Start: 10/30/19 17:07 Freq: Status: Active Protocol: Document 11/06/19 16:01 (Rec: 11/06/19 16:05 [email or web address]) Physical Therapy Assessment Goals falls Impairment Pt has multiple falls during the year Correction Goal (LTG) Pt will not have a fall/ close to fall episode > 2 months to reduce fall risks LTG Duration 8 weeks return to hobbies Impairment unable to walk 2-3 miles / on the beach Short Term Goal (STG) Pt will be able to walk 1 mile with knee pain no more than 3 /10 STG Duration 4 weeks Correction Goal (LTG) Pt will be able to walk 3 mile 2-3x/week with knee pain no more than 2/10, along being able to walk on the beach as well knee ROM Impairment pt's R knee AROM = 8-100 Short Term Goal (STG) pt will reach R knee AROM 5- 110 degrees. STG Duration 4 weeks Internet Sales Manager Goal (LTG) Pt will reach R knee AROM 3- 115 degrees to optimize her gait mechanics with reduce R foot drag. LTG Duration 8 weeks LEFS Impairment 61 Short Term Goal (STG) Pt scores will score 66 for LEFS STG Duration 4 weeks Correction Goal (LTG) pt will score >70 for LEFS to improve her quality of life. LTG Duration 8 weeks Assessment Summary Assessment pt has reduced edema on L calf , better tolerance to pressure on quad and calves. Improved heel toe gait noticed before tx as well. Cont manual therapy on improved tkE and flexion. Pt's knee flexion was 2 finger tips away from L knee flexion. Added recumbent bike ex today.
--- NOTE | 2019-11-11 14:32 | PT.OTN ---
Current Diagnoses Other specific arthropathies, not elsewhere classified, multiple sites (11/11/19) Pain in right hip (11/11/19) Pain in left knee (11/11/19) Physical Therapy Treatment Note PT-OP-A Visit Information Start: 10/30/19 17:07 Freq: Status: Active Protocol: Document 11/11/19 13:47 HH (Rec: 11/11/19 14:32 [id number]) Out-Patient Physical Therapy Visit Information Visit Information Visit Type Treatment Note Visit Start Time 13:47 Visit Stop Time 14:30 Total Visit Minutes 43 Visit Number 12/26 Number of DIRECTOR APPAREL Visits 0 PT-OP-B Current Condition Start: 10/30/19 17:07 Freq: Status: Active Protocol: Document 10/30/19 15:16 HH (Rec: 10/30/19 17:54 HH [email or web address]) Current Condition History of Current Condition Onset Date a year ago Current Complaints B knee pain R>L, R hip pain, multiple falls History of Current Condition Pt is a 69yo female presented to the clinic with primariy c/ o multiple falls, B knee pain R>L and R hip pain. Pt reports she had falls 4-5 times a year that caused multiple injuries who caught her foot on the floor/ stairs. She broke her orbital bone from a fall last year, along with a concussion. Pt also stated her knee pain started a year ago and has been having difficulty bending and straighten her R knee. She reports she does has OA based on what her MD told her. Pt used to walk 2-3 miles 2 to 3 times a week and enjoy walking on the beach but not now since her hx of falls. (Pt 's last fall was 2 weeks ago) Treatment Goals Patient/Caregiver Goals 1. To be able to go for a 2-3 miles walk 2-3 times a week 2. To be able to walk on the beach again 3. To improve her balance Prior Functional Status Baseline Function- ADL's Independent Baseline Function- Mobility Independent Personal Factors Other Personal Factors That May Effect previous TBI Therapy/Recovery PT-OP-C Subjective Start: 10/30/19 17:07 Freq: Status: Active Protocol: Document 11/11/19 13:47 HH (Rec: 11/11/19 14:32 HH [id number]) OP-PT Subjective Patient Comments Patient Comments I have some soreness on my R knee recently but not painful. Getting out of bed and put weight on my R side does not hurt as much. But i do notice there's some tightness at my L calf. Patient Reported Progress Improving PT-OP-D Balance Start: 10/30/19 17:07 Freq: Status: Active Protocol: Document 10/30/19 15:16 HH (Rec: 10/30/19 17:54 [email or web address]) Balance Tests Single Limb Standing Single Limb- Right 37 Single Limb- Left 35 Other Other Balance Tests Performed Pt reports unsteady and give out sensation while SLS on RLE PT-OP-F Manual Assessment Start: 10/30/19 17:07 Freq: Status: Active Protocol: Document 10/30/19 15:16 HH (Rec: 10/30/19 17:54 [email or web address]) Manual Assessments Soft Tissue Assessment Soft Tissue Mobility Assessment tenderness to pressure at R medial joint line PT-OP-G Mobility & Gait Start: 10/30/19 17:07 Freq: Status: Active Protocol: Document 10/30/19 15:16 HH (Rec: 10/30/19 17:54 [email or web address]) OP Gait Assessment Gait Deviations General Gait Pattern Decreased Stride Length, Decreased Feet Clearance Factors Limiting Gait Function Factors Limiting Gait Function Limited Range of Motion,Pain Comments Gait Comments Pt shows lack of full R knee extension during loarding response, along with decreased DF compared to L during initial contact. PT-OP-H Neuro Start: 10/30/19 17:07 Freq: Status: Active Protocol: Document 10/30/19 15:16 HH (Rec: 10/30/19 17:54 [email or web address]) Deep Tendon Reflex & Clonus Assessment Deep Tendon Reflex Bilateral Achilles Deep Tendon Reflex 2+ Normal Bilateral Patellar Deep Tendon Reflex 2+ Normal PT-OP-J Posture/Palpation/Skin Start: 10/30/19 17:07 Freq: Status: Active Protocol: Document 10/30/19 15:16 HH (Rec: 10/30/19 17:54 [email or web address]) Posture Evaluation Position Standing Evaluation View Anterior Weight Distribution Weight Shifted Left,Decreased Wt.Bear on (R) Knee Posture (R) Excess Flexion Ankle/Foot Posture (R) Pronated,(R) Forefoot Abducted Skin Assessment Edema Assessment Left Leg Edema Type Non-Pitting Edema Degree 2+ Edema Appearance Firm Subjective Edema Description Pain,Tightness Comments significant non-pitting edema above mid davis at L gastronemius complex. Pt reports she has cellulitis before and likes to wear compression socks PT-OP-K Range of Motion Start: 10/30/19 17:07 Freq: Status: Active Protocol: Document 10/30/19 15:16 (Rec: 10/30/19 17:54 [email or web address]) Hip Goniometric Range of Motion Hip Right Active Hip ROM WFL Yes Testing Position Supine Flexion w/Knee Flexed 100 Internal Rotation 30 External Rotation 35 Left Active Hip ROM WFL Yes Testing Position Supine Flexion w/Knee Flexed 110 Internal Rotation 37 External Rotation 35 Hip ROM Limitations Hip ROM Limitations Pain Comments reports of R hip pain during end range flexion, ER and IR Knee Goniometric Range of Motion Knee Left Knee ROM WFL Yes Patient Position Supine Flexion Active (degrees) 110 Extension Active (degrees) 0 Right Knee ROM WFL No Patient Position Supine Flexion Active (degrees) 100 Extension Active (degrees) 9 Knee ROM Limitations Knee ROM Limitations Soft Tissue Tightness,Pain, Swelling PT-OP-L Special Tests Start: 10/30/19 17:07 Freq: Status: Active Protocol: Document 10/30/19 15:16 (Rec: 10/30/19 17:54 [email or web address]) Special Tests Hip Special Tests FADDIR Test Results +VE R Comments pinching pain at end range Scour Test Test Results +VE R Comments pinching pain ROJELIO Test Results +VE R Comments pinching pain at end range Knee Special Tests Apley's Compression Test Results +VE R Comments medial joint line Varus- 25 Degrees Test Results -ve B Varus- 0 Degrees Test Results -ve B Valgus- 0 Degrees Test Results +VE R Comments medial joint line Valgus- 25 Degrees Test Results +VE R Comments medial joint line PT-OP-M Strength Start: 10/30/19 17:07 Freq: Status: Active Protocol: Document 10/30/19 15:16 (Rec: 10/30/19 17:54 [email or web address]) Hip Strength Hip Manual Muscle Testing Right Flexion (L2) 4+ Good+ Extension (S1) 4+ Good+ Abduction 4+ Good+ Adduction 4+ Good+ Left Flexion (L2) 4+ Good+ Extension (S1) 4+ Good+ Abduction 4+ Good+ Knee Strength Knee Manual Muscle Testing Right Flexion (S2) 4 Good Extension (L3) 4 Good Reason Not Measured Pain Left Flexion (S2) 4+ Good+ Extension (L3) 4+ Good+ Ankle/Foot Strength Ankle and Foot Manual Muscle Testing Right Dorsiflexion (L4) 4+ Good+ Plantarflexion (S1) 5 Normal Inversion 5 Normal Eversion (S1) 5 Normal Left Dorsiflexion (L4) 5 Normal Plantarflexion (S1) 5 Normal Inversion 5 Normal Eversion (S1) 5 Normal PT-OP-Q Treatments Start: 10/30/19 17:07 Freq: Status: Active Protocol: Document 11/11/19 13:47 HH (Rec: 11/11/19 14:32 [id number]) Cardio Equipment Recumbent Bicycle Duration (Minutes) 8 Resistance 5 Therapeutic Exercises Supine Exercises R TKE Supine Exercise Name towel under ankle Side right Reps/Minutes 5 sec hold x10 supine heel slide Supine Exercise Name with towel underneath Side right Reps/Minutes 12 x2 Prone Exercises HS curl Side right Equipment Used 5lbs ankle weight Reps/Minutes 10 x 2 Standing Exercises R TKE Side right Equipment Used with level 1 band Reps/Minutes 10 x 2 Comments reports of pain at knee cap. Manual Therapy Treatment Soft Tissue Mobilization knee joint Body Location proximal stroke direction Mobilization Type Sustained Pressure,Trigger Point Release Intensity/Depth Moderate Body Position Supine Comments noticeable joint effusion peroneals Body Location bilateral Mobilization Type Rolling,Sustained Pressure, Trigger Point Release Intensity/Depth Moderate Body Position Prone L calf Body Location proximal stroke direction Mobilization Type Rolling,Sustained Pressure, Trigger Point Release Body Position Prone Comments noticed increased soft tissue tightness at gastrosoleus complex today. quads Body Location lateral quad Mobilization Type Sustained Pressure,Trigger Point Release Intensity/Depth Moderate Body Position Supine PT-OP-T Assessment and Plan Start: 10/30/19 17:07 Freq: Status: Active Protocol: Document 11/11/19 13:47 HH (Rec: 11/11/19 14:32 [id number]) Physical Therapy Assessment Goals falls Impairment Pt has multiple falls during the year [facility] Goal (LTG) Pt will not have a fall/ close to fall episode > 2 months to reduce fall risks LTG Duration 8 weeks return to hobbies Impairment unable to walk 2-3 miles / on the beach Short Term Goal (STG) Pt will be able to walk 1 mile with knee pain no more than 3 /10 STG Duration 4 weeks Nnp Goal (LTG) Pt will be able to walk 3 mile 2-3x/week with knee pain no more than 2/10, along being able to walk on the beach as well knee ROM Impairment pt's R knee AROM = 8-100 Short Term Goal (STG) pt will reach R knee AROM 5- 110 degrees. STG Duration 4 weeks Nnp Goal (LTG) Pt will reach R knee AROM 3- 115 degrees to optimize her gait mechanics with reduce R foot drag. LTG Duration 8 weeks LEFS Impairment 61 Short Term Goal (STG) Pt scores will score 66 for LEFS STG Duration 4 weeks Nnp Goal (LTG) pt will score >70 for LEFS to improve her quality of life. LTG Duration 8 weeks Assessment Summary Assessment Pt cont to improve. Her knee AROM went up to 5- 132 degrees . Pt does report pain with standing RTKE. Will cont focus on ROM and strengtehning.
--- NOTE | 2019-11-13 16:15 | PT.OTN ---
Current Diagnoses Other specific arthropathies, not elsewhere classified, multiple sites (11/13/19) Pain in right hip (11/13/19) Pain in left knee (11/13/19) Physical Therapy Treatment Note PT-OP-A Visit Information Start: 10/30/19 17:07 Freq: Status: Active Protocol: Document 11/13/19 15:22 HH (Rec: 11/13/19 16:15 [id number]) Out-Patient Physical Therapy Visit Information Visit Information Visit Type Treatment Note Visit Start Time 15:22 Visit Stop Time 16:02 Total Visit Minutes 40 Visit Number 01/25 Number of TOOL MAKER BENCH Visits 0 PT-OP-B Current Condition Start: 10/30/19 17:07 Freq: Status: Active Protocol: Document 10/30/19 15:16 HH (Rec: 10/30/19 17:54 [email or web address]) Current Condition History of Current Condition Onset Date a year ago Current Complaints B knee pain R>L, R hip pain, multiple falls History of Current Condition Pt is a 69yo female presented to the clinic with primariy c/ o multiple falls, B knee pain R>L and R hip pain. Pt reports she had falls 4-5 times a year that caused multiple injuries who caught her foot on the floor/ stairs. She broke her orbital bone from a fall last year, along with a concussion. Pt also stated her knee pain started a year ago and has been having difficulty bending and straighten her R knee. She reports she does has OA based on what her MD told her. Pt used to walk 2-3 miles 2 to 3 times a week and enjoy walking on the beach but not now since her hx of falls. (Pt 's last fall was 2 weeks ago) Treatment Goals Patient/Caregiver Goals 1. To be able to go for a 2-3 miles walk 2-3 times a week 2. To be able to walk on the beach again 3. To improve her balance Prior Functional Status Baseline Function- ADL's Independent Baseline Function- Mobility Independent Personal Factors Other Personal Factors That May Effect previous TBI Therapy/Recovery PT-OP-C Subjective Start: 10/30/19 17:07 Freq: Status: Active Protocol: Document 11/13/19 15:22 HH (Rec: 11/13/19 16:15 [id number]) OP-PT Subjective Patient Comments Patient Comments My right knee ached yesterday after last treatment and i wasnt able to walk with a nice heel strike. But im doing good today. Patient Reported Progress Same PT-OP-D Balance Start: 10/30/19 17:07 Freq: Status: Active Protocol: Document 10/30/19 15:16 HH (Rec: 10/30/19 17:54 [email or web address]) Balance Tests Single Limb Standing Single Limb- Right 37 Single Limb- Left 35 Other Other Balance Tests Performed Pt reports unsteady and give out sensation while SLS on RLE PT-OP-F Manual Assessment Start: 10/30/19 17:07 Freq: Status: Active Protocol: Document 10/30/19 15:16 HH (Rec: 10/30/19 17:54 [email or web address]) Manual Assessments Soft Tissue Assessment Soft Tissue Mobility Assessment tenderness to pressure at R medial joint line PT-OP-G Mobility & Gait Start: 10/30/19 17:07 Freq: Status: Active Protocol: Document 10/30/19 15:16 HH (Rec: 10/30/19 17:54 [email or web address]) OP Gait Assessment Gait Deviations General Gait Pattern Decreased Stride Length, Decreased Feet Clearance Factors Limiting Gait Function Factors Limiting Gait Function Limited Range of Motion,Pain Comments Gait Comments Pt shows lack of full R knee extension during loarding response, along with decreased DF compared to L during initial contact. PT-OP-H Neuro Start: 10/30/19 17:07 Freq: Status: Active Protocol: Document 10/30/19 15:16 HH (Rec: 10/30/19 17:54 [email or web address]) Deep Tendon Reflex & Clonus Assessment Deep Tendon Reflex Bilateral Achilles Deep Tendon Reflex 2+ Normal Bilateral Patellar Deep Tendon Reflex 2+ Normal PT-OP-J Posture/Palpation/Skin Start: 10/30/19 17:07 Freq: Status: Active Protocol: Document 10/30/19 15:16 HH (Rec: 10/30/19 17:54 [email or web address]) Posture Evaluation Position Standing Evaluation View Anterior Weight Distribution Weight Shifted Left,Decreased Wt.Bear on (R) Knee Posture (R) Excess Flexion Ankle/Foot Posture (R) Pronated,(R) Forefoot Abducted Skin Assessment Edema Assessment Left Leg Edema Type Non-Pitting Edema Degree 2+ Edema Appearance Firm Subjective Edema Description Pain,Tightness Comments significant non-pitting edema above mid davis at L gastronemius complex. Pt reports she has cellulitis before and likes to wear compression socks PT-OP-K Range of Motion Start: 10/30/19 17:07 Freq: Status: Active Protocol: Document 10/30/19 15:16 HH (Rec: 10/30/19 17:54 [email or web address]) Hip Goniometric Range of Motion Hip Right Active Hip ROM WFL Yes Testing Position Supine Flexion w/Knee Flexed 100 Internal Rotation 30 External Rotation 35 Left Active Hip ROM WFL Yes Testing Position Supine Flexion w/Knee Flexed 110 Internal Rotation 37 External Rotation 35 Hip ROM Limitations Hip ROM Limitations Pain Comments reports of R hip pain during end range flexion, ER and IR Knee Goniometric Range of Motion Knee Left Knee ROM WFL Yes Patient Position Supine Flexion Active (degrees) 110 Extension Active (degrees) 0 Right Knee ROM WFL No Patient Position Supine Flexion Active (degrees) 100 Extension Active (degrees) 9 Knee ROM Limitations Knee ROM Limitations Soft Tissue Tightness,Pain, Swelling PT-OP-L Special Tests Start: 10/30/19 17:07 Freq: Status: Active Protocol: Document 10/30/19 15:16 (Rec: 10/30/19 17:54 [email or web address]) Special Tests Hip Special Tests FADDIR Test Results +VE R Comments pinching pain at end range Scour Test Test Results +VE R Comments pinching pain ROJELIO Test Results +VE R Comments pinching pain at end range Knee Special Tests Apley's Compression Test Results +VE R Comments medial joint line Varus- 25 Degrees Test Results -ve B Varus- 0 Degrees Test Results -ve B Valgus- 0 Degrees Test Results +VE R Comments medial joint line Valgus- 25 Degrees Test Results +VE R Comments medial joint line PT-OP-M Strength Start: 10/30/19 17:07 Freq: Status: Active Protocol: Document 10/30/19 15:16 (Rec: 10/30/19 17:54 [email or web address]) Hip Strength Hip Manual Muscle Testing Right Flexion (L2) 4+ Good+ Extension (S1) 4+ Good+ Abduction 4+ Good+ Adduction 4+ Good+ Left Flexion (L2) 4+ Good+ Extension (S1) 4+ Good+ Abduction 4+ Good+ Knee Strength Knee Manual Muscle Testing Right Flexion (S2) 4 Good Extension (L3) 4 Good Reason Not Measured Pain Left Flexion (S2) 4+ Good+ Extension (L3) 4+ Good+ Ankle/Foot Strength Ankle and Foot Manual Muscle Testing Right Dorsiflexion (L4) 4+ Good+ Plantarflexion (S1) 5 Normal Inversion 5 Normal Eversion (S1) 5 Normal Left Dorsiflexion (L4) 5 Normal Plantarflexion (S1) 5 Normal Inversion 5 Normal Eversion (S1) 5 Normal PT-OP-Q Treatments Start: 10/30/19 17:07 Freq: Status: Active Protocol: Document 11/13/19 15:22 (Rec: 11/13/19 16:15 [id number]) Gym Equipment Shuttle Rebound leg press Exercise Details unilateral Reps/Duration #37 x 12 x 2 on R, #75 x 10 on L Comments pain for #50 lbs on R Therapeutic Exercises Supine Exercises supine heel slide Supine Exercise Name with towel underneath Side right Reps/Minutes 12 x2 Prone Exercises HS curl Side right Equipment Used 5lbs ankle weight Reps/Minutes 12 x2 Standing Exercises R TKE Side right Equipment Used with level 1 band Reps/Minutes 10 x 2 Comments reports of pain at knee Educate pt to stop before pain Manual Therapy Treatment Soft Tissue Mobilization knee joint Body Location proximal stroke direction Mobilization Type Sustained Pressure,Trigger Point Release Intensity/Depth Moderate Body Position Supine Comments noticeable joint effusion L calf Body Location proximal stroke direction Mobilization Type Rolling,Sustained Pressure, Trigger Point Release Body Position Prone Comments noticed increased soft tissue tightness at gastrosoleus complex today. quads Body Location lateral quad Mobilization Type Sustained Pressure,Trigger Point Release Intensity/Depth Moderate Body Position Supine PT-OP-T Assessment and Plan Start: 10/30/19 17:07 Freq: Status: Active Protocol: Document 11/13/19 15:22 (Rec: 11/13/19 16:15 [id number]) Physical Therapy Assessment Goals falls Impairment Pt has multiple falls during the year [facility] Goal (LTG) Pt will not have a fall/ close to fall episode > 2 months to reduce fall risks LTG Duration 8 weeks return to hobbies Impairment unable to walk 2-3 miles / [place] the beach Short Term Goal (STG) Pt will be able to walk 1 mile with knee pain no more than 3 /10 STG Duration 4 weeks Technical Applications Scientist Goal (LTG) Pt will be able to walk 3 mile 2-3x/week with knee pain no more than 2/10, along being [place] walk [place] the beach as well knee ROM Impairment pt's R knee AROM = 8-100 Short Term Goal (STG) pt will reach R knee AROM 5- 110 degrees. STG Duration 4 weeks Technical Applications Scientist Goal (LTG) Pt will reach R knee AROM 3- 115 degrees to optimize her gait mechanics with reduce R foot drag. LTG Duration 8 weeks LEFS Impairment 61 Short Term Goal (STG) Pt scores will score 66 for LEFS STG Duration 4 weeks [facility] Goal (LTG) pt will score >70 for LEFS to improve her quality of life. LTG Duration 8 weeks Assessment Summary Assessment Pt cont to improve with knee AROM with less discomfort. Cont HS curl, standing knee extension. Added leg press today for strengthening. Also educated her to do ROM ex before her daily walk to improve gait efficiency. Physical Therapy Plan Next Visit Focus/Plan Next Note Type Treatment Note Next Visit Plan L HS curl standing TKE recumbent bike leg press single leg activities. gait training
--- NOTE | 2019-11-19 09:06 | PT.OTN ---
Current Diagnoses Other specific arthropathies, not elsewhere classified, multiple sites (11/19/19) Pain in right hip (11/19/19) Pain in left knee (11/19/19) Physical Therapy Treatment Note PT-OP-A Visit Information Start: 10/30/19 17:07 Freq: Status: Active Protocol: Document 11/19/19 08:19 HH (Rec: 11/19/19 09:06 [id number]) Out-Patient Physical Therapy Visit Information Visit Information Visit Type Treatment Note Visit Start Time 08:19 Visit Stop Time 16:02 Total Visit Minutes 40 Visit Number 01/25 Number of BUCKET TURNER Visits 0 PT-OP-B Current Condition Start: 10/30/19 17:07 Freq: Status: Active Protocol: Document 10/30/19 15:16 HH (Rec: 10/30/19 17:54 [email or web address]) Current Condition History of Current Condition Onset Date a year ago Current Complaints B knee pain R>L, R hip pain, multiple falls History of Current Condition Pt is a 69yo female presented to the clinic with primariy c/ o multiple falls, B knee pain R>L and R hip pain. Pt reports she had falls 4-5 times a year that caused multiple injuries who caught her foot on the floor/ stairs. She broke her orbital bone from a fall last year, along with a concussion. Pt also stated her knee pain started a year ago and has been having difficulty bending and straighten her R knee. She reports she does has OA based on what her MD told her. Pt used to walk 2-3 miles 2 to 3 times a week and enjoy walking on the beach but not now since her hx of falls. (Pt 's last fall was 2 weeks ago) Treatment Goals Patient/Caregiver Goals 1. To be able to go for a 2-3 miles walk 2-3 times a week 2. To be able to walk on the beach again 3. 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 My knee is getting straighter and easier to walk normally. I did a 2miles walk yesterday and it does not bother me. Patient Reported Progress Improving PT-OP-D Balance Start: 10/30/19 17:07 Freq: Status: Active Protocol: Document 10/30/19 15:16 HH (Rec: 10/30/19 17:54 [email or web address]) Balance Tests Single Limb Standing Single Limb- Right 37 Single Limb- Left 35 Other Other Balance Tests Performed Pt reports unsteady and give out sensation while SLS on RLE PT-OP-F Manual Assessment Start: 10/30/19 17:07 Freq: Status: Active Protocol: Document 10/30/19 15:16 HH (Rec: 10/30/19 17:54 [email or web address]) Manual Assessments Soft Tissue Assessment Soft Tissue Mobility Assessment tenderness to pressure at R medial joint line PT-OP-G Mobility & Gait Start: 10/30/19 17:07 Freq: Status: Active Protocol: Document 10/30/19 15:16 HH (Rec: 10/30/19 17:54 [email or web address]) OP Gait Assessment Gait Deviations General Gait Pattern Decreased Stride Length, Decreased Feet Clearance Factors Limiting Gait Function Factors Limiting Gait Function Limited Range of Motion,Pain Comments Gait Comments Pt shows lack of full R knee extension during loarding response, along with decreased DF compared to L during initial contact. PT-OP-H Neuro Start: 10/30/19 17:07 Freq: Status: Active Protocol: Document 10/30/19 15:16 HH (Rec: 10/30/19 17:54 [email or web address]) Deep Tendon Reflex & Clonus Assessment Deep Tendon Reflex Bilateral Achilles Deep Tendon Reflex 2+ Normal Bilateral Patellar Deep Tendon Reflex 2+ Normal PT-OP-J Posture/Palpation/Skin Start: 10/30/19 17:07 Freq: Status: Active Protocol: Document 10/30/19 15:16 HH (Rec: 10/30/19 17:54 [email or web address]) Posture Evaluation Position Standing Evaluation View Anterior Weight Distribution Weight Shifted Left,Decreased Wt.Bear on (R) Knee Posture (R) Excess Flexion Ankle/Foot Posture (R) Pronated,(R) Forefoot Abducted Skin Assessment Edema Assessment Left Leg Edema Type Non-Pitting Edema Degree 2+ Edema Appearance Firm Subjective Edema Description Pain,Tightness Comments significant non-pitting edema above mid davis at L gastronemius complex. Pt reports she has cellulitis before and likes to wear compression socks PT-OP-K Range of Motion Start: 10/30/19 17:07 Freq: Status: Active Protocol: Document 10/30/19 15:16 (Rec: 10/30/19 17:54 [email or web address]) Hip Goniometric Range of Motion Hip Right Active Hip ROM WFL Yes Testing Position Supine Flexion w/Knee Flexed 100 Internal Rotation 30 External Rotation 35 Left Active Hip ROM WFL Yes Testing Position Supine Flexion w/Knee Flexed 110 Internal Rotation 37 External Rotation 35 Hip ROM Limitations Hip ROM Limitations Pain Comments reports of R hip pain during end range flexion, ER and IR Knee Goniometric Range of Motion Knee Left Knee ROM WFL Yes Patient Position Supine Flexion Active (degrees) 110 Extension Active (degrees) 0 Right Knee ROM WFL No Patient Position Supine Flexion Active (degrees) 100 Extension Active (degrees) 9 Knee ROM Limitations Knee ROM Limitations Soft Tissue Tightness,Pain, Swelling PT-OP-L Special Tests Start: 10/30/19 17:07 Freq: Status: Active Protocol: Document 10/30/19 15:16 (Rec: 10/30/19 17:54 [email or web address]) Special Tests Hip Special Tests FADDIR Test Results +VE R Comments pinching pain at end range Scour Test Test Results +VE R Comments pinching pain ROJELIO Test Results +VE R Comments pinching pain at end range Knee Special Tests Apley's Compression Test Results +VE R Comments medial joint line Varus- 25 Degrees Test Results -ve B Varus- 0 Degrees Test Results -ve B Valgus- 0 Degrees Test Results +VE R Comments medial joint line Valgus- 25 Degrees Test Results +VE R Comments medial joint line PT-OP-M Strength Start: 10/30/19 17:07 Freq: Status: Active Protocol: Document 10/30/19 15:16 (Rec: 10/30/19 17:54 [email or web address]) Hip Strength Hip Manual Muscle Testing Right Flexion (L2) 4+ Good+ Extension (S1) 4+ Good+ Abduction 4+ Good+ Adduction 4+ Good+ Left Flexion (L2) 4+ Good+ Extension (S1) 4+ Good+ Abduction 4+ Good+ Knee Strength Knee Manual Muscle Testing Right Flexion (S2) 4 Good Extension (L3) 4 Good Reason Not Measured Pain Left Flexion (S2) 4+ Good+ Extension (L3) 4+ Good+ Ankle/Foot Strength Ankle and Foot Manual Muscle Testing Right Dorsiflexion (L4) 4+ Good+ Plantarflexion (S1) 5 Normal Inversion 5 Normal Eversion (S1) 5 Normal Left Dorsiflexion (L4) 5 Normal Plantarflexion (S1) 5 Normal Inversion 5 Normal Eversion (S1) 5 Normal PT-OP-Q Treatments Start: 10/30/19 17:07 Freq: Status: Active Protocol: Document 11/19/19 08:19 (Rec: 11/19/19 09:06 [id number]) Cardio Equipment Recumbent Bicycle Duration (Minutes) 8 Resistance 6 Gym Equipment Shuttle Rebound leg press Exercise Details unilateral Reps/Duration 50# x 2 mins x 2set each side Comments no pain noted. Therapeutic Exercises Prone Exercises HS curl Prone Exercise Name pillow underneath thigh Side right Equipment Used 5lbs ankle weight Reps/Minutes 2 mins x 2 Standing Exercises R TKE Standing Exercise Name with alvaro, LLE step over and alternate Side bilateral Equipment Used with level 1 band Reps/Minutes 10 x 2 Comments reports of pain at knee Educate pt to stop before pain Manual Therapy Treatment Soft Tissue Mobilization knee joint Body Location proximal stroke direction Mobilization Type Sustained Pressure,Trigger Point Release Intensity/Depth Moderate Body Position Supine Comments noticeable joint effusion L calf Body Location proximal stroke direction Mobilization Type Rolling,Sustained Pressure, Trigger Point Release Body Position Prone Comments noticed increased soft tissue tightness at gastrosoleus complex today. quads Body Location lateral quad Mobilization Type Sustained Pressure,Trigger Point Release Intensity/Depth Moderate Body Position Supine PT-OP-T Assessment and Plan Start: 10/30/19 17:07 Freq: Status: Active Protocol: Document 11/19/19 08:19 (Rec: 11/19/19 09:06 [id number]) Physical Therapy Assessment Goals falls Impairment Pt has multiple falls during the year [employer] Goal (LTG) Pt will not have a fall/ close to fall episode > 2 months to reduce fall risks LTG Duration 8 weeks return to hobbies Impairment unable to walk 2-3 miles / on the beach Short Term Goal (STG) Pt will be able to walk 1 mile with knee pain no more than 3 /10 STG Duration 4 weeks Intermediate Goal (LTG) Pt will be able to walk 3 mile 2-3x/week with knee pain no more than 2/10, along being able to walk on the beach as well knee ROM Impairment pt's R knee AROM = 8-100 Short Term Goal (STG) pt will reach R knee AROM 5- 110 degrees. STG Duration 4 weeks Intermediate Goal (LTG) Pt will reach R knee AROM 3- 115 degrees to optimize her gait mechanics with reduce R foot drag. LTG Duration 8 weeks LEFS Impairment 61 Short Term Goal (STG) Pt scores will score 66 for LEFS STG Duration 4 weeks Intermediate Goal (LTG) pt will score >70 for LEFS to improve her quality of life. LTG Duration 8 weeks Assessment Summary Assessment Pt has significant improved tissue extensibility on L calf and reduced pain at end range AROM. She has improved activity tolerance and amb distance. Added step over with resistive band. Physical Therapy Plan Next Visit Focus/Plan Next Note Type Treatment Note Next Visit Plan L HS curl standing TKE recumbent bike leg press single leg activities. single leg balance gait training
--- NOTE | 2020-05-12 09:35 | PT.OPDS ---
Current Diagnoses Other specific arthropathies, not elsewhere classified, multiple sites (11/19/19) Pain in right hip (11/19/19) Pain in left knee (11/19/19) Visit Care Team Role Provider Type Jef Hinds MD Attending Provider Physician Family Provider Primary Care Provider Referring Provider Specialty: Family Practice Address: [address] [place] [address], [address], [place], [address] Email: Visit Number Visit Number 01/25 Discharge Summary PT-OP-T Assessment and Plan Start: 10/30/19 17:07 Freq: Status: Active Protocol: Document 05/12/20 09:34 (Rec: 05/12/20 09:35 [id number]) Physical Therapy Assessment Assessment Summary Assessment Pt was doing well during COVID and did not need therapy anymore. D/C from therapy
== END 2020-05-13 08:26 ==
LOC: PHYS 08:15
PROVIDERS: Family Provider Family Medicine; PCP Family Medicine; Referring Provider Family Medicine; Visit Provider Family Medicine
DX: M25.551 Pain in right hip (principal); M25.562 Pain in left knee; M12.89 Other specific arthropathies, not elsewhere classified, multiple sites
CPT/HCPCS: 97110; 97140; 97161; 97535

== ENCOUNTER → 2020-04-15 09:22 | Outpatient (CLI) | payer MEDICARE, OTHER, SELFPAY ==
--- NOTE | 2020-04-15 09:25 | DI.MG.S_ITS ---
UNILATERAL RIGHT DIGITAL DIAGNOSTIC MAMMOGRAM 3D/2D SHORT-TERM FOLLOW-UP: 04/15/2020 CLINICAL: Patient returns for a 6 month follow up of the right breast. Comparison is made to exams dated: 10/26/2019 mammogram, 10/12/2019 mammogram, and 10/08/2018 mammogram - [facility]. There are scattered fibroglandular elements in right breast. Unchanged 5 mm focal asymmetry in the right breast at 10 o'clock anterior depth. This is consistent with a benign intramammary lymph node. No other significant masses or calcifications are seen in the breast. IMPRESSION: BENIGN Unchanged benign intramammary lymph node. There is no mammographic evidence of malignancy. A 1 year screening mammogram is recommended. This exam was interpreted at Station ID: [id number]. NOTE: For mammograms, a report in lay terms will be sent to the patient. Approximately 15% of breast malignancies will not be visualized mammographically. In the management of a palpable breast mass, a negative mammogram must not discourage biopsy of a clinically suspicious lesion. Electronically Signed By: Xavi Virk M.D. jr/:04/15/2020 10:11:29 copy to: Jef Hinds letter sent: Normal Exam ACR BI-RADS Category 2: Benign Finding(s) [id number]
== END ==
PROVIDERS: Family Provider Family Medicine; PCP Family Medicine; Referring Provider Specialist; Visit Provider Specialist
DX: R92.8 Other abnormal and inconclusive findings on diagnostic imaging of breast (principal); N64.89 Other specified disorders of breast
CPT/HCPCS: 77065; G0279

== ENCOUNTER → 2020-04-15 09:27 | Outpatient (CLI) | payer MEDICARE, OTHER, SELFPAY | PROVIDERS: Family Provider Family Medicine; PCP Family Medicine; Referring Provider Orthopaedic Surgery; Visit Provider Orthopaedic Surgery | DX: Z01.818 Encounter for other preprocedural examination (principal) | CPT/HCPCS: 93005 ==

== ENCOUNTER → 2020-05-13 09:44 | Outpatient (CLI) | payer MEDICARE, OTHER, SELFPAY ==
[2020-05-13 11:36] LABS: Add Manual Diff / Slide Review NO; Basophils Absolute Auto 0 /uL (0-100); Basophils Percent Auto 0.5 % (0-2); Eosinophils Absolute Auto 100 /uL (0-450); Eosinophils Percent Auto 2.2 % (2-4); Hematocrit 40.7 % (36-46); Hemoglobin 13.2 g/dL (12.0-16.0); Lymphocytes Absolute Auto 1800 /uL (1100-4500); Lymphocytes Percent Auto 36.6 % (25-40); Mean Corpuscular HGB Conc 32.4 % (30-36); Mean Corpuscular Volume 89.6 fL (80-100); Monocytes Absolute Auto 500 /uL (0-900); Monocytes Percent Auto 9.7 % (3-14); Neutrophils Absolute Auto 2500 /uL (1500-7000); Platelet Count 194 X10^3/uL (150-400); Red Blood Cell Count 4.54 X10^6/uL (4.0-5.2); Red Cell Distribution Width 14.1 % (11.6-14.8); White Blood Cell Count 4.8 X10^3/uL (4.5-11.0)
[2020-05-13 12:00] LABS: Carbon Dioxide 28 mmol/L (22-32); Chloride 106 mmol/L (98-107); HEMOLYSIS < 15 (0-50); Potassium 4.3 mmol/L (3.4-5.1); Sodium 139 mmol/L (137-145)
== END ==
PROVIDERS: Family Provider Family Medicine; PCP Family Medicine; Referring Provider Orthopaedic Surgery; Visit Provider Orthopaedic Surgery
DX: M25.561 Pain in right knee (principal); E87.8 Other disorders of electrolyte and fluid balance, not elsewhere classified
CPT/HCPCS: 36415; 80051; 85025

== ENCOUNTER → 2020-06-13 13:37 | Outpatient (CLI) | payer MEDICARE, OTHER, SELFPAY ==
[2020-06-14 07:41] LABS: COVID19 Sendout Not Detected (Not Detect)
== END ==
PROVIDERS: Family Provider Family Medicine; PCP Family Medicine; Visit Provider Physician Assistant
DX: Z11.59 Encounter for screening for other viral diseases (principal)
CPT/HCPCS: 87635

== ENCOUNTER 2020-06-17 16:44 | Observation (INO) | payer MEDICARE, OTHER, SELFPAY ==
[2020-06-16] VITALS (12 sets, daily range): BP systolic 104–160; BP diastolic 56–83; PULSE 59–80; RESP 10–63; TEMP 35.6–36.6; O2SAT 97–100; BMI 30.3
--- NOTE | 2020-06-16 06:00 | DI.RAD.S_ITS ---
PROCEDURE: XR KNEE RT 1TO2V INDICATIONS: post op films TECHNIQUE: 2 I view(s) of the knee acquired. COMPARISON: [facility], , KNEE 3V LEFT, 12/20/2015, 13:27. FINDINGS: Bones: Patient is status post knee joint arthroplasty. Hardware components are in expected positions. Visualized bony structures are intact. Soft tissues: Overlying postoperative changes are noted. IMPRESSION: Status post total knee arthroplasty. Dictated by: Gina Harris M.D. on 06/16/2020 at 15:04 Approved by: Gina Harris M.D. on 06/16/2020 at 15:05
[2020-06-16] MEDS: PREGABALIN 75 MG CAPSULE PO (08:41)
[2020-06-16] MEDS: ACETAMINOPHEN 325 MG TABLET 975 MG PO (08:41)
[2020-06-16] MEDS: CELECOXIB 200 MG CAPSULE PO (08:41)
--- NOTE | 2020-06-16 09:51 | PM.PREOP ---
Pre-operative Note COVID-19 COVID-19 status: Negative Result date/Date tested (Pos, Neg/Pending): 06/13/20 Interval Note History & Physical reviewed/Exam performed by Physician: Yes Changes to H&P: No
--- NOTE | 2020-06-16 09:51 | PM.OP.1 ---
Operative Date/Time/Diagnoses Date of procedure: 06/16/20 Time of procedure: 12:37 Pre-op diagnosis: Right knee osteoarthritis Post-op diagnosis: same Procedure & Clinicians Procedure: Right total knee arthroplasty Same procedure as scheduled: Yes Indications: The patient presents today for total knee arthroplasty after failure of conservative treatment. The nature of the procedure including the risks and benefits, alternatives, postoperative course and expected outcome were discussed and all questions answered. Consent was obtained. Operative site confirmed and marked. Surgeon: Misbah Rowell Personnel Generalist Manager: Prudence Golden Anesthesia Type: General, Spinal, Peripheral nerve block and Local Operative Notes Closure Type: primary Specimen(s): none sent Prosthetic devices, grafts, tissues, transplants, or devices: [employer]ylee BCS: 5 femoral component, 5 tibial component, 9 mm BCS polyethylene tray and 35 x 7.5 mm round patella Applied: implant(s) Estimated Blood Loss (mL): 5 Blood products transfused: none Tourniquet time (min): 60 Procedure in detail: The patient was taken to the operative suite and placed under anesthesia. The patient was given prophylactic antibiotics prior to surgery. The patient was also given tranexamic acid, 1 g, just prior to surgery for postoperative hemostasis. The lateral knee was prepped and the joint injected with 20 mL of 1% Lidocaine with epinephrine. The knee was then prepped and draped in usual sterile fashion. The leg was exsanguinated with an Esmarch dressing and the tourniquet raised to 250 torr. A 15 cm anterior incision was made. Next a medial trivector arthrotomy was made. The extensor mechanism was marked to ensure accurate repair. Initial exposing dissection was carried out medially and laterally. The knee was then flexed and the intramedullary femoral guide rosa elena placed. The distal femoral cut was made in 6? of valgus at the +0 position. The femoral size was measured and the appropriate cutting block was then placed and the anterior, posterior and chamfer cuts made. The intramedullary tibial alignment rosa elena was then placed. The guide was set to remove approximately 10 mm from the less affected lateral side. The proximal tibial cut was then made with an oscillating saw. All meniscus and bony debris was then removed. Posterior femoral osteophytes removed with a curved osteotome. Flexion extension gaps were checked. No specific balancing was required other than routine exposure and removal of osteophytes. The soft tissues were then injected with a combination of 20 mL of half percent Marcaine with epinephrine and 20 mL of Exparel. The trial components were then placed. The knee was then extended and the patellar thickness was measured and a cut made removing approximately 7-8 mm of bone. The patella was then sized and drilled. Some excess lateral bone was excised and the patellofemoral ligament released. The knee went into full extension and flexion beyond 130?. There was excellent medial-lateral balance throughout motion. Patellar tracking was excellent. The trial components were removed and the knee was cleansed with Pulsavac irrigation and dried. The final components were cemented with high viscosity vacuum mixed bone cement with antibiotics. The joint was filled with a dilute Betadine solution. The knee was held in extension and the patellar clamped until the cement was adequately cured. The knee was then irrigated. The extensor mechanism was closed with 5 interrupted #1 Vicryl sutures and a running Quill suture at approximately 90 degrees of flexion. The joint was then injected with a combination of 1 g of tranexamic acid and 20 mL of quarter percent Marcaine with epinephrine. The subcutaneous tissue was closed with 2 0 Vicryl. The skin was closed with absorbable subcuticular sutures and surgical adhesive. An Aquacel dressing and Yan wrap were then applied. The patient tolerated the procedure well and was returned to recovery room in good condition. Complications: none Post-operative Condition: stable Disposition: PACU Plan for aftercare: [facility] Protocol.
[2020-06-16] MEDS: LACTATED RINGERS 1,000 ML 42 ML IV ×2 (10:00→12:09)
[2020-06-16] MEDS: MIDAZOLAM 2 MG/2 ML VIAL IV (10:22)
[2020-06-16] MEDS: fentaNYL 100 MCG/2 ML INJ 50 MCG IV (10:22)
--- NOTE | 2020-06-16 10:36 | SUR.PREOP ---
Block start time [1025] . Monitoring initiated and maintained throughout procedure. Oxygen and medications given per anesthesiologist instructions. Patient remained stable throughout procedure, no adverse reactions noted. Block end time [1035].
--- NOTE | 2020-06-16 10:41 | SUR.PREOP ---
Pt ready for surgery . She hooked up to monitor and is awaiting RN. pt vital signs are stable at pulse 52, \bP 126/70 and o2 sat 97 % on O2 at 2 liters. No complaints voiced.
[2020-06-16] MEDS: CEFAZOLIN 2 GM/100 ML FROZ.PIGGY IV ×2 (10:50→19:10)
--- NOTE | 2020-06-16 10:56 | SUR.OPER ---
Supine on padded OR bed. Pillow under head, arms secured on padded armboards <90 degree abduction. Safety belt across torso. Non-operative leg secured with tape over blanket over lower leg. Operative leg secured in DeMayo/Zac positioner. Foam padded brace at thigh of operative leg.
[2020-06-16] MEDS: LIDOCAINE 1% W/EPI 20 ML INJ (11:25)
[2020-06-16] MEDS: TRANEXAMIC ACID 1,000 MG VIAL 1000 MG INJ (11:30)
[2020-06-16] MEDS: SODIUM CHLORIDE IRRIG SOLUTION 250 ML, POVIDONE-IODINE SPONGE STICKS 1 APPLIC IRR (11:40)
[2020-06-16] MEDS: BUPIVACAINE 0.25% W/ EPI (PF) 40 ML, BUPIVACAINE LIPOSOME 266 MG, SODIUM CHLORIDE 0.9% ... INJ (11:40)
[2020-06-16] MEDS: BUPIVACAINE 0.25% W/ EPI (PF) 20 ML, TRANEXAMIC ACID 1,000 MG, SODIUM CHLORIDE 0.9% 10 ML INJ (11:41)
--- NOTE | 2020-06-16 13:47 | PC.NURSE ---
Day shift: Pt on AC unit from PACU at approx 1330. Oriented to room and call light. VS WNL. RA 98%. Denies chest pain. C/o headache and Pt is drinking coffee for that. Bed alarm is on.
[2020-06-16] MEDS: LACTATED RINGERS 1,000 ML 100 ML IV (14:23)
[2020-06-16] MEDS: IBUPROFEN 400 MG TABLET PO ×3 (14:28→20:35)
[2020-06-16] MEDS: ACETAMINOPHEN 325 MG TABLET 650 MG PO ×2 (14:28→20:35)
[2020-06-16] MEDS: OXYCODONE IR 5 MG TABLET PO ×2 (17:14→21:57)
[2020-06-16] MEDS: ASPIRIN EC 81 MG TABLET PO (20:35)
[2020-06-16] MEDS: DOCUSATE 100 MG CAPSULE PO (20:35)
[2020-06-17] VITALS (9 sets, daily range): BP systolic 95–132; BP diastolic 47–77; PULSE 59–93; RESP 16–20; TEMP 36.3–37; O2SAT 94–99
[2020-06-17] MEDS: LACTATED RINGERS 1,000 ML 100 ML IV (00:22)
[2020-06-17] MEDS: OXYCODONE IR 10 MG TABLET PO ×2 (01:10→08:25)
[2020-06-17] MEDS: IBUPROFEN 400 MG TABLET PO ×6 (01:10→20:58)
[2020-06-17] MEDS: CEFAZOLIN 2 GM/100 ML FROZ.PIGGY IV (03:16)
[2020-06-17 06:13] LABS: Hematocrit 35.3 % (36-46); Hemoglobin 11.6 g/dL (12.0-16.0)
[2020-06-17] MEDS: ASPIRIN EC 81 MG TABLET PO ×2 (08:25→20:58)
[2020-06-17] MEDS: ACETAMINOPHEN 325 MG TABLET 650 MG PO ×3 (08:25→20:57)
[2020-06-17] MEDS: DOCUSATE 100 MG CAPSULE PO ×2 (08:25→20:58)
[2020-06-17] MEDS: ATORVASTATIN 20 MG TABLET 10 MG PO (08:26)
--- NOTE | 2020-06-17 09:07 | PM.PN.1 ---
Subjective Subjective Date Patient Seen: 06/17/20 Time Patient Seen: 09:07 Interval history: 70 year old female who is POD#1 s/p right TKA with Dr. Rowell. Pain has been controlled with Oxycodone. She has been up to bedside commode. No nausea/vomiting. No complaints. Exam Vital Signs (past 8 hours): - 06/17/20 01:13 06/17/20 04:06 06/17/20 07:10 Temperature 97.7 F 97.3 F L 97.3 F L Pulse Rate 68 60 79 Respiratory Rate 16 16 19 Blood Pressure 114/67 97/55 L 107/59 L Pulse Oximetry 94 96 99 06/17/20 08:20 Temperature Pulse Rate 72 Respiratory Rate Blood Pressure 105/69 Pulse Oximetry Oxygen Delivery Method Room Air Oxygen Flow Rate 0 Narrative Exam Narrative: 70 year old female resting in bed, alert and oriented. Aquacel dressing in place is intact. Moderate drainage to distal incision so dressing removed. No active drainage with flexion/extension of the knee or palpation. New dressing applied. Sensation intact in distal extremity. Calf is soft. Objective Labs Result Diagrams: 06/17/20 05:42 Labs: Laboratory Results - last 24 hr 06/17/20 05:42 Hgb 11.6 L Hct 35.3 L Assessment & Plan Assessment & Plan narrative: Patient doing well after TKA. ASA 81mg BID for DVT prophylaxis. She will work with PT today. Discharge to home later today if cleared by PT.
--- NOTE | 2020-06-17 11:09 | PC.NURSE ---
Addendum entered by Alena Vora R.N. 06/17/20 15:41: On second PT session, patient became symptomatic wh OOB, systolic BP decrease to mid 80's, symptoms resolved at rest. LEAH Siddiqi made aware, order obtained for 1L Bolus Normal Saline and DC order cancelled until stable for discharge. Original Note: Day shift note: Patient c/o dizziness when up OOB with PT, BP decreased systolic high 80's and 90's. Prudence LYNN made aware. Patient sitting in chair post PT session, asymptomatic. BP 94/40 MAP 73, HR 74. Patient states her normal BP baseline is systolic 100-105. Encouraging PO fluid intake, Voiding, QS.
--- NOTE | 2020-06-17 11:31 | PT.IIE ---
Current Diagnoses Unilateral primary osteoarthritis, right knee (06/16/20) Surgery Performed Operation Date: 06/16/20 10:15 Actual Procedures p Total Knee Arthroplasty(Right) - Misbah Rowell MD Surgical History (Last Updated 06/09/20 @ 10:07 by Cathleen Dallas RN) Status post appendectomy Status post endometrial ablation Medical History (Last Updated 06/09/20 @ 10:10 by Cathleen Dallas RN) Arthritis (Acute) HLD (hyperlipidemia) (Acute) Nerve damage (Acute) Osteoarthritis (Acute) Uterine cyst (Acute) Varicose veins of both lower extremities (Acute) Physical Therapy Inpatient Evaluation/Re-Eval M1 PT/OT-IP Prior Functional Status Start: 06/17/20 08:24 Freq: NEEDED Status: Active Protocol: Document 06/17/20 11:10 DE (Rec: 06/17/20 11:19 DE [id number]) Medical Review Prior Functional Status Medical History Reviewed Yes Diet/Fluid Consistency Regular Communication WNL. No deficit noted. Able to make needs known. Mobility and Gait Prior to the surgery, pt reports she was IND for home and community ammbulation without any AD. Pt reports she was very active and able to walk a mile with her . Activities of Daily Living and IADL's Pt was IND for all ADLs. Prior Functional Level (Other details) Denies any falls within the last 6 months. Social History Household Members spouse Living Arrangements House Number of Floors (Floors) One Floor Number of Stairs To Enter/Railing? 2 steps inside the house with a grab bar on the R side going up. 0 ALTAF. Home Environment High Toilet,Built-In Shower Seat Home Equipment Front Wheel Walker,Straight Cane,Raised Toilet Seat w/ Armrests,Hand Held Shower,Grab Bars In Shower Employment Status Retired Additional Social History Comment Pt reports she has lots of family members live closeby who are able help if needed. Pt's daugher is going to stay at her home for 2 weeks to assist. M2 PT-IP Current Condition Start: 06/17/20 08:24 Freq: NEEDED Status: Active Protocol: Document 06/17/20 11:10 HH (Rec: 06/17/20 11:28 [id number]) Physical Therapy Current Condition Current Condition Evaluation Date 06/17/20 Treatment Diagnosis R TKA, difficulty in walking Onset Date 06/16/20 Weight Bearing Status Weight Bearing Status Weight Bear as Tolerated M3 PT-IP Subjective Start: 06/17/20 08:24 Freq: NEEDED Status: Active Protocol: Document 06/17/20 11:10 (Rec: 06/17/20 11:28 [id number]) Subjective Physical Therapy Visit Type Type Initial Evaluation Visit Start Time 09:15 Visit Stop Time 10:05 Total Visit Minutes 55 Notes attended session. co- tx with SPT Misbah Number of MISSION PLANNER Visits 0 Physical Therapy Visit Comments Patient Comments My R knee is sore today. Patient Goals To regain mobility and strength and be safe to return home with Therapy Pain Assessment Pain When Pain Assessed During Mobility Pain Present Pain Present Pain Reported Location Right Knee Intensity 7 Scale Used Jones-Stone (Faces) Description Aching,With Movement Pain Behaviors Facial Grimacing,Guarding Pain Management Techniques Timing of Activity with Medications M4 PT-IP Mobility and Gait Start: 06/17/20 08:24 Freq: NEEDED Status: Active Protocol: Document 06/17/20 11:10 (Rec: 06/17/20 11:28 [id number]) PT-Bed Mobility Assessment Supine to Sit Supine to Sit Minimal Assistance,Bedrails Scooting Scooting to Edge of Bed Contact Guard Assistance PT-Transfer Assessment Sit to and From Stand Sit to and from Stand Contact Guard Assistance,Use of Upper Extremities Equipment Transfer Assistive Device Gait Belt,Front Wheeled Walker Orthotic/Prosthetic Devices or Brace: No Transfers Transfer Destination Bed,Chair Transfer Technique Stand Step Pivot Transfer Ability Level of Assist Contact Guard Assistance,Use of Upper Extremities Comments Mobility Comments Pt was in bed upon PT and SPT arrival. at bedside. Pt c/o soreness at R knee. Practiced supine quad set to warm up but with increased pain noted. She then instructed to use L ankle to lift her RLE to R EOB. Pt used L bed rail to pull up to long sit position then pivoted herself to R side slowly. She was able to scoot to EOB CGA. Pt then stood up by pushing UEs off from bed with CGA. Pt stood with minimal WB on RLE d /t pain. Practiced lateral weight shift but pt then felt dizzy and requested to sit down. Her BP at 90/40, 88/44, 95/40 at 2mins interval. But she reported improved symptoms and agreed to stand up again and mobilize to bedside chair. Pt stood up with CGA then started step to pattern with FWW. Pt amb around the foot of bed slowly but safely with CGA. She then c/o increase dizziness and requested to sit down. Pt then needed verbal cues for sequencing for step pivot transfer to chair d/t increased disorientation. Pt sat down with UE to descend. She appeared somewhat pale and c/o hot flashes. Trendelenberg position initiated and BP was at 105/60 . Pt took approx 2 mins to reorient and symptoms resolved . Educated pt to sit upright for BP management. Call light placed within reach. Gait Assessment Gait Gait Assistance Required: Contact Guard Assist Distance (Feet) 8 Able to Maintain Weight Bearing Status Yes During Gait Assistive Devices Assistive Device Gait Belt,Front Wheeled Walker Orthotic/Prosthetic Devices or Brace: No Gait Deviations General Gait Pattern Antalgic,Decreased Stride Length,Decreased Feet Clearance,Step-to Gait Factors Limiting Gait Function Factors Limiting Gait Function Decreased Activity Tolerance, Decreased Strength,Limited Range of Motion,Pain,Poor Balance Comments Gait Comments see mobility comments. Stair Climbing Assessment Comments Stair Climbing Comments did not assess d/t hypotension PT-Balance Assessment Sitting Balance and Reactions Static Sitting Balance Ability Normal Dynamic Sitting Balance Ability Normal Standing Balance and Reactions Static Standing Balance Ability Good Dynamic Standing Balance Ability Fair Device Used FWW M5 PT-IP Objective Assessments Start: 06/17/20 08:24 Freq: NEEDED Status: Active Protocol: Document 06/17/20 11:10 (Rec: 06/17/20 11:28 [id number]) Orientation Orientation/Cognition Level of Alertness Alert Orientation Name,Age,Birthday,Month,Date, Year,Day of Week,Place, Situation Language Function Ability No Deficits Noted Safety Awareness Understands Safety Issues Memory Description No Deficits Noted Gross Range of Motion Upper Extremity ROM Assessment Within Functional Limits Lower Extremity ROM Assessment Right Impaired Impairments flexion up to 90degrees extension approx ~12-15 degrees Strength Upper Extremity Strength Assessment Within Functional Limits Lower Extremity Strength Assessment Right Impaired Hip 4/5 Knee 3-/5 Sensation Assessment Sensation Gross Sensation WNL Muscle Tone Muscle Tone WNL Yes M6 PT-IP Treatment Start: 06/17/20 08:24 Freq: NEEDED Status: Active Protocol: Document 06/17/20 11:10 (Rec: 06/17/20 11:28 [id number]) Physical Therapy Treatment Exercises Exercises Ankle Pumps,Gluteal Sets,Quad Sets,Heel Slides Education Education Provided Precautions,Weight Bearing Status,Post-Op Packet,Safety M7 PT-IP Assessment and Plan Start: 06/17/20 08:24 Freq: NEEDED Status: Active Protocol: Document 06/17/20 11:10 (Rec: 06/17/20 11:28 [id number]) PT Summary Assessment and Plan Potential Rehabilitation Potential Good Status of Condition at Evaluation Evolving Summary Impairments Pain,ROM,Strength,Balance,Bed Mobility,Transfers,Gait, Activity Tolerance Assessment Summary This is a low complexity evaluation for this 70yo female POD1 R TKA. pt's PLOF = completely independent and acitve without AD but amb with a limp d/t lack of R knee extension. Upon assessment, pt 's mobility was limited by pain and orthostatic hypotension. She was staying at 90s/40s during session and needed to initiate trendelenberg position in chair after ambulating 8 ft with FWW d/t close to pass out episode. Will cont assess pt's progress to determine d/ c planning. But expect pt to be dc home with dtr and assistance once she is medically stable. Goals Bed Mobility Goal Standby Assistance Transfer Goal Standby Assistance,Front Wheeled Walker Gait Goal Standby Assistance,Front Wheel Walker Gait Distance 100 Other Goals 2STE with R rail to living room Days to Meet Goals 3 Frequency of Treatment Frequency Of Treatment Twice a Day Treatment Plan Physical Therapy Treatment Plan Bed Mobility Training,Transfer Training,Gait Training, Therapeutic Exercise,Balance Retraining,Post Op Education, Discharge Planning,Hot or Cold Pack,Neuromuscular Re-ed Other Recommendations and Next Treatment check vitals Focus knee extension mobility as niya 2STE with R rail Recommendations To Nursing Amount of Assist Needed 1 Person Assist Discharge Recommendations PT Discharge Recommendations Home with Assistance, Outpatient PT Transportation Needs at Discharge Private Vehicle
[2020-06-17] MEDS: OXYCODONE IR 5 MG TABLET PO ×3 (12:48→21:47)
--- NOTE | 2020-06-17 13:48 | CM.IDA ---
Initial DCP Assessment Note Pt is a 70 yo female, resident of [place], now POD#1 from Rt knee surgery w/ Dr Rowell PCP: Jef Hinds Payer: [employer] Reviewed chart, pt discussed in multidisciplinary rounds this morning. Therapy has cleared pt for return home w/family to assist and pt has planned for home, DC order from Ortho has already been initiated this morning. Attempted to meet w/patient and she had just had a near syncopal episode and was resting. Patient still plans to return home w/her spouse. PT Sanju has cleared for home, need to complete afternoon session to know if patient would benefit from HH vs outpatient f/u No needs expected from DC planning team, will remain available in case patient would benefit from HH referral DAMARIS Tran
[2020-06-17] MEDS: SODIUM CHLORIDE 0.9% 1,000 ML 1000 ML IV (15:32)
[2020-06-17] MEDS: HYDROMORPHONE 2 MG TABLET PO (23:33)
[2020-06-18] MEDS: IBUPROFEN 400 MG TABLET PO ×4 (00:23→12:35)
[2020-06-18] MEDS: OXYCODONE IR 10 MG TABLET PO ×2 (05:08→09:53)
[2020-06-18 05:21] VITALS: BP 138/67; PULSE 81; RESP 16; TEMP 36.6; O2SAT 94
[2020-06-18 08:00] VITALS: BP 121/47; PULSE 74; RESP 18; TEMP 36.4; O2SAT 96
[2020-06-18 08:21] VITALS: PULSE 82; RESP 16; O2SAT 97
[2020-06-18] MEDS: ACETAMINOPHEN 325 MG TABLET 650 MG PO ×2 (09:52→12:34)
[2020-06-18] MEDS: DOCUSATE 100 MG CAPSULE PO (09:52)
[2020-06-18] MEDS: ASPIRIN EC 81 MG TABLET PO (09:52)
[2020-06-18] MEDS: ATORVASTATIN 20 MG TABLET 10 MG PO (09:53)
--- NOTE | 2020-06-18 10:14 | PM.DS.1 ---
History of Present Illness History of Present Illness Date Patient Seen: 06/18/20 Time Patient Seen: 10:14 Chief complaint: Total Right Knee Arthroplasty *OBP* Narrative: The patient presents today for total knee arthroplasty after failure of conservative treatment. The nature of the procedure including the risks and benefits, alternatives, postoperative course and expected outcome were discussed and all questions answered. Consent was obtained. Operative site confirmed and marked. Discharge Providers Provider Discharge Date: 06/18/20 Primary care physician: Jef Hinds MD Consults: 06/16/20 13:46 Consult to Discharge Planning Routine Comment: Consult to Physical Therapy Evaluate & Treat Comment: Physician Instructions: postop TKA protocol Consult to Respiratory Therapy Evaluate & Treat Comment: Physician Instructions: Evaluate and treat Discharge provider: Inna Linton PA-C Summary Hospital Course Discharge Diagnosis: s/p right total knee arthroplasty Hyperlipidemia Hospital Course: Ivana was admitted for right total knee arthroplasty with Dr. Rowell. Patient was hypotensive postop day 1. She had some pain control issues but is now well managed oxycodone 10 mg. She is eating and voiding prior to discharge. Dressing on knee with CDI. She worked with physical therapy throughout her stay. She has outpatient physical therapy set up. She has all her medications at home. Status at Discharge Functional status at discharge: uses cane/walker Exam Vital Signs (past 8 hours): - 06/18/20 05:21 06/18/20 08:00 06/18/20 08:21 Temperature 97.9 F 97.6 F Pulse Rate 81 74 82 Respiratory Rate 16 18 16 Blood Pressure 138/67 121/47 L Pulse Oximetry 94 96 97 Oxygen Delivery Method Room Air Oxygen Flow Rate 0 Narrative Exam Narrative: Patient lying in bed in no acute distress. She is alert oriented x3. Calves are soft, compressible, nontender bilaterally. She is able to actively dorsiflex and plantar flex. Dorsalis pedis pulses 2+. Sensation intact light touch throughout bilateral lower extremities. Dressing on the right knee is CDI. She has no complaints this morning. Objective Labs Result Diagrams: 06/17/20 05:42 Discharge Plan Discharge Plan Patient Disposition: Home Discharge comment: home after PT Discharge Med Rec/Prescriptions Prescriptions: New acetaminophen 325 mg Tablet 650 mg PO TID Qty: 40 RF: 0 aspirin 81 mg Tablet,Delayed Release (Dr/Ec) 81 mg PO BID Qty: 40 RF: 0 docusate sodium [DOK] 100 mg Capsule 100 mg PO BID Qty: 40 RF: 0 oxycodone 5 mg Tablet 5 mg PO Q3HR PRN (Reason: Pain, Moderate (4-6)) Qty: 60 RF: 0 Continued atorvastatin 10 mg tablet 10 mg PO QDAY RF: 0 calcium carbonate [Calcium 500] 500 mg calcium (1,250 mg) Tablet 1 tab PO QDAY RF: 0 EPINEPHRINE (ADRENACLICK) 0.3 mg IJ PRN PRN (Reason: Allergic reactions) RF: 0 ibuprofen 200 mg Tablet 200 mg PO Q6H PRN (Reason: Pain) RF: 0 Discontinued aspirin 81 MG tablet,delayed release (DR/EC) 81 mg PO QDAY Qty: 0 RF: 0 Follow up/Referrals: Misbah Rowell MD [Physician] - 2 Weeks (Please call Dr. Rowell's office to confirm/schedule your follow up appointment.) Jef Hinds MD [Primary Care Provider] - Discharge Orders: Discharge (Order); Ordered 06/18/20 Ordered By: Inna Linton Provider Discharge Instructions Diet: Regular Activity: Progress weight-bearing and activity as tolerated. Daily PE range of motion exercises. Cold/Heat Therapy: May ice the knee for 20 minutes at a time if needed for pain. Skin/Wound/Dressing Care Report to your healthcare provider any signs of infection, such as:: chills, fever, increased pain, unusual drainage and unusual redness Dressing: May leave dressing in place until follow-up. May shower over dressing. Visit Report/Discharge Packet Instructions: How to Choose and Use a Walker, DI for Knee Replacement, DI for Constipation, How to Prevent Falls, DI for Prescription Opioid Use Discharge Data Primary Care Provider: Jef Hinds Attending Provider: Misbah Rowell
--- NOTE | 2020-06-18 10:41 | PT.IPTN ---
Current Diagnoses Unilateral primary osteoarthritis, right knee (06/16/20) Surgery Performed Operation Date: 06/16/20 10:15 Actual Procedures p Total Knee Arthroplasty(Right) - Misbah Rowell MD Physical Therapy Treatment Note M2 PT-IP Current Condition Start: 06/17/20 08:24 Freq: NEEDED Status: Active Protocol: Document 06/17/20 11:10 HH (Rec: 06/17/20 11:28 HH [id number]) Physical Therapy Current Condition Current Condition Evaluation Date 06/17/20 Treatment Diagnosis R TKA, difficulty in walking Onset Date 06/16/20 Weight Bearing Status Weight Bearing Status Weight Bear as Tolerated M3 PT-IP Subjective Start: 06/17/20 08:24 Freq: NEEDED Status: Active Protocol: Document 06/18/20 10:18 KS (Rec: 06/18/20 11:58 KS [id number]) Subjective Physical Therapy Visit Type Type Treatment Note Visit Start Time 10:18 Visit Stop Time 10:41 Total Visit Minutes 23 Number of APPLIED EXERCISE PHYSIOLOGIST Visits 1 Physical Therapy Visit Comments Patient Comments Pt agreebale to work w/ therapy. Patient Goals To regain mobility and strength and be safe to return home with Therapy Pain Assessment Pain When Pain Assessed During Mobility Pain Present Pain Present Pain Reported Location Right Knee Scale Used no number given Description Aching,With Movement Pain Behaviors Guarding Pain Management Techniques Re-positioning,Timing of Activity with Medications M4 PT-IP Mobility and Gait Start: 06/17/20 08:24 Freq: NEEDED Status: Active Protocol: Document 06/18/20 10:18 KS (Rec: 06/18/20 11:58 KS [id number]) PT-Bed Mobility Assessment Supine to Sit Supine to Sit Standby Assistance,1 Person Assistance Sit to Supine Sit to Supine Standby Assistance,1 Person Assistance Scooting Scooting to Edge of Bed Standby Assistance PT-Transfer Assessment Sit to and From Stand Sit to and from Stand Standby Assistance,1 Person Assistance,Use of Upper Extremities Equipment Transfer Assistive Device Gait Belt,Front Wheeled Walker Orthotic/Prosthetic Devices or Brace: No Transfers Transfer Destination Bed Transfer Technique pt ambulated w/ FWW Transfer Ability Level of Assist Contact Guard Assistance,Use of Upper Extremities Comments Mobility Comments Pt in bed upon arrival from therapy. SBA for sup<>sit w/ HOB flat and SBA for scooting to EOB as well as sit<>stand w / FWW w/ cues to push off of bed when standing. Pt then ambulated ~50 ft to stairs and ascended/descended 3 steps w/ BUE using L rail for support and cues for sequencing SBA. Pt then ambulated additional 90ft w/ FWW and cues for quad activation and heel toe walking. She then returned to room and was able to get into bed SBA w/ use of gait belt to self assist RLE. Pt stated she has raised toilet and grab bar at home and her daughter will be providing assistance as needed. Pt has outpatient therapy set up for next week and agrees to complete LE strengthening exercises in post op folder. Pt states she feels ready to go home today. Gait Assessment Gait Gait Assistance Required: Standby Assistance,1 Person Assist Distance (Feet) 150 Able to Maintain Weight Bearing Status Yes During Gait Assistive Devices Assistive Device Gait Belt,Front Wheeled Walker Orthotic/Prosthetic Devices or Brace: No Gait Deviations General Gait Pattern Antalgic,Decreased Stride Length,Decreased Feet Clearance Factors Limiting Gait Function Factors Limiting Gait Function Decreased Activity Tolerance, Decreased Strength,Limited Range of Motion,Pain,Poor Balance Comments Gait Comments Please refer to mobility section for details. Stair Climbing Assessment Evaluation Level of Assist On Stairs Standby Assistance,1 Person Assistance Devices Stair Climbing Assistive Devices Left Railing Technique/Endurance Stair Climbing Direction Ascend and Descend Stair Climbing Technique Step to Step Number of Steps Climbed 3 Stair Climbing Set # Repetitions (reps) 1 Comments Stair Climbing Comments Pt ascended/descended 3 steps w/ L rail and SBA w/ cues for leg sequencing. Pt used BUE for support on L rail. PT-Balance Assessment Sitting Balance and Reactions Static Sitting Balance Ability Normal Dynamic Sitting Balance Ability Normal Standing Balance and Reactions Static Standing Balance Ability Good Dynamic Standing Balance Ability Good Device Used FWW M5 PT-IP Objective Assessments Start: 06/17/20 08:24 Freq: NEEDED Status: Active Protocol: Document 06/17/20 11:10 (Rec: 06/17/20 11:28 [id number]) Orientation Orientation/Cognition Level of Alertness Alert Orientation Name,Age,Birthday,Month,Date, Year,Day of Week,Place, Situation Language Function Ability No Deficits Noted Safety Awareness Understands Safety Issues Memory Description No Deficits Noted Gross Range of Motion Upper Extremity ROM Assessment Within Functional Limits Lower Extremity ROM Assessment Right Impaired Impairments flexion up to 90degrees extension approx ~12-15 degrees Strength Upper Extremity Strength Assessment Within Functional Limits Lower Extremity Strength Assessment Right Impaired Hip 4/5 Knee 3-/5 Sensation Assessment Sensation Gross Sensation WNL Muscle Tone Muscle Tone WNL Yes M6 PT-IP Treatment Start: 06/17/20 08:24 Freq: NEEDED Status: Active Protocol: Document 06/18/20 10:18 KS (Rec: 06/18/20 11:58 KS [id number]) Physical Therapy Treatment Exercises Exercises Ankle Pumps,Gluteal Sets,Quad Sets,Heel Slides Education Education Provided Precautions,Weight Bearing Status,Safety M7 PT-IP Assessment and Plan Start: 06/17/20 08:24 Freq: NEEDED Status: Active Protocol: Document 06/18/20 10:18 KS (Rec: 06/18/20 11:58 KS [id number]) PT Summary Assessment and Plan Potential Rehabilitation Potential Good Status of Condition at Evaluation Evolving Summary Impairments Pain,ROM,Strength,Balance,Bed Mobility,Transfers,Gait, Activity Tolerance Progress Towards Goals Progressing Toward Goals Assessment Summary Pt was SBA w/ cues for bed mobility, transfers, gait, and stair training this AM. She was able to tolerate ~150 ft ambulation w/ FWW w/ cues for quad activation and heel toe walking. She ascended/ descended # steps w/ L rail w/ BUE for support and performed bed mobility w/ SBA and LLE assisting RLE into bed, demonstrated use of gait belt for LLE self assist as well. Pt will benefit from outpatient rehab, which she has set up for next week. Pt stated she feels safe to return home w/ and daugther to support her if needed. Goals Bed Mobility Goal Standby Assistance Transfer Goal Standby Assistance,Front Wheeled Walker Gait Goal Standby Assistance,Front Wheel Walker Gait Distance 100 Other Goals 2STE with R rail to living room Days to Meet Goals 3 Frequency of Treatment Frequency Of Treatment Twice a Day Treatment Plan Physical Therapy Treatment Plan Bed Mobility Training,Transfer Training,Gait Training, Therapeutic Exercise,Balance Retraining,Post Op Education, Discharge Planning,Hot or Cold Pack,Neuromuscular Re-ed Other Recommendations and Next Treatment check vitals Focus knee extension mobility as niya 2STE with R rail Recommendations To Nursing Amount of Assist Needed 1 Person Assist Discharge Recommendations PT Discharge Recommendations Home with Assistance,Home Health,Outpatient PT Transportation Needs at Discharge Private Vehicle
--- NOTE | 2020-06-18 11:16 | CM.DPC ---
DCP Discharge Home Per Ortho PA, pt medically stable to d/c home today with no identified barriers to discharge. Per PT, recommending safe d/c home with assist and outpt PT. Per RN, no concerns noted at this time. Plan: Patient to d/c home today via spouse POV and outpt PT and no SW needs at this time. DAMARIS Caballero
[2020-06-18] MEDS: HYDROMORPHONE 2 MG TABLET PO (12:35)
--- NOTE | 2020-06-18 13:48 | PC.NURSE ---
Discharge: Pt feels ready to d/c home. Pain in control w/oxy. Worked with PT and was considered safe to go home. Understands her total knee precautions. Tolerates diet w/out problems. Vds w/out diff. No bm yet and reviewed information for constipation, exercise, diet, over the counter remedies. Rx given. Reviewed d/c packet. Questions answered. Pt d/c home via auto w/spouse. Voiced no concerns at the time of discharge.
== END 2020-06-18 12:35 | disposition home or self-care (01) ==
LOC: OR 06-20 07:39 → AC 06-20 07:39
PROVIDERS: Admitting Provider Orthopaedic Surgery; Family Provider Family Medicine; PCP Family Medicine; Referring Provider Orthopaedic Surgery; Visit Provider Orthopaedic Surgery
PROC: 0SRC0JZ Replacement of Right Knee Joint with Synthetic Substitute, Open Approach (ICD-10-PCS; CPT 27447; principal; 2020-06-16 10:15)
DX: M17.11 Unilateral primary osteoarthritis, right knee (principal); E66.9 Obesity, unspecified; E78.5 Hyperlipidemia, unspecified; Z68.30 Body mass index [BMI] 30.0-30.9, adult
CPT/HCPCS: 27447; 36415; 64450; 73560; 85014; 85018; 97110; 97116; 97161; 97530; C1776; G0378; C9290; J0690; J2250; J2704; J3010

== ENCOUNTER 2020-09-08 10:30 | Outpatient (RCR) | payer MEDICARE, OTHER, SELFPAY ==
--- NOTE | 2020-04-18 18:00 | PT.OIE ---
Current Diagnoses Unilateral primary osteoarthritis, right knee (04/18/20) Pain in right knee (04/18/20) Stiffness of right knee, not elsewhere classified (04/18/20) Muscle weakness (generalized) (04/18/20) Other abnormalities of gait and mobility (04/18/20) Past Surgical History (Last Reviewed 01/09/18 @ 17:39 by Ivan Alonso DO) Status post appendectomy Status post endometrial ablation Visit Care Team Role Provider Type Jef Hinds MD Family Provider Physician Primary Care Provider Specialty: Family Practice Address: [address], [address], [place], [address] Email: Misbah Rowell MD Attending Provider Physician Referring Provider Specialty: Orthopedic Surgery Address: [address] [place] [address], [id number] Email: [email or web address] Initial Evaluation PT-OP-A Visit Information Start: 04/18/20 10:34 Freq: Status: Active Protocol: Document 04/18/20 10:36 LRN (Rec: 04/18/20 11:24 LRN [id number]) Out-Patient Physical Therapy Visit Information Visit Information Visit Type Initial Evaluation Visit Start Time 10:36 Visit Stop Time 11:23 Total Visit Minutes 47 Visit Number 1 Evaluation Information Evaluation Date 04/18/20 Precautions Precautions History of falls, arthritis PT-OP-B Current Condition Start: 04/18/20 10:34 Freq: Status: Active Protocol: Document 04/18/20 10:36 LRN (Rec: 04/18/20 11:24 LRN [id number]) Current Condition History of Current Condition Onset Date Osteoarthritis for 1 yr, planned R TKA surgery 2019. Current Complaints R knee pain and weakness, PT for pre-op visit. History of Current Condition Pre-op PT vist for R TKA on . Doesn't have walker or raised toilet seat, but does have a cane. Not ever used a walker. Can't straighten the R knee all the way because it is blocked. Prior Treatments and Tests PT 4-5 sessions prior to COVID 19 Pandemic and achieved improved knee mobility, but because of the pandemic was not able to maintain improvements. Treatment Goals Patient/Caregiver Goals Pre-op information. Prior Functional Status Baseline Function- ADL's Independent Baseline Function- Mobility Independent Baseline Function- Gait Independent with mild limp due to limited R knee mobility. Baseline Function- Other Not able to get up/down on floor. Current Functional Impairments (Reported) Functional Limitations- ADL's R knee pain worsens as day progresses. Limited by rotation at the knee or walking uphill due to pain and instability with balance. 2 steps in house with history of catching R toe because not lifting high enough going up the steps. Can't lift leg to put pants on. Must use hands to transfer sit to stand. Functional Limitations- Mobility/Gait Walking is painful, only able to walk up to a mile on even ground and slow gait. Functional Limitations- Other Occasionally rolling over the knee gets stuck and is painful . Personal Factors Other Personal Factors That May Effect Has spouse at home to help Therapy/Recovery after surgery. PT-OP-C Subjective Start: 04/18/20 10:34 Freq: Status: Active Protocol: Document 04/18/20 10:36 LRN (Rec: 04/18/20 11:24 LRN [id number]) Patient Questionnaires Lower Extremity Functional Scale LEFS Score 27 LEFS Impairment 60 to 79% Impaired (Score 17- 31) OP-PT Pain Assessment Pain Assessment Grid Paper Pain Assessment Grid Completed Yes Location Right Knee Pain Location Details R knee medial joint line and anterior knee Intensity 5 Scale Used Numeric (0 - 10) Description Aching,Sharp Description- Other Ache constant Pain Duration Sharp stabbing pain if moves wrong, short in duration B knee Pain Location Details knee medial joint line and anterior knee PT-OP-D Balance Start: 04/18/20 10:36 Freq: Status: Active Protocol: Document 04/18/20 10:36 LRN (Rec: 04/18/20 11:24 LRN [id number]) Balance Tests Romberg Romberg 60 Single Limb Standing Single Limb- Right 27 Single Limb- Left 60 PT-OP-E Functional Tests Start: 04/18/20 10:36 Freq: Status: Active Protocol: Document 04/18/20 10:36 LRN (Rec: 04/18/20 11:24 LRN [id number]) Functional Tests Timed Up and Go (TUG) Score 16 Comments No AD, uses hands to sit<> stand TUG Impairment Rating 60 to <80% Impaired (Score 16- 17) PT-OP-F Manual Assessment Start: 04/18/20 10:36 Freq: Status: Active Protocol: Document 04/18/20 10:36 LRN (Rec: 04/18/20 20:09 LRN [id number]) Manual Assessments Soft Tissue Assessment Soft Tissue Mobility Assessment Tender to pressure at R medial joint line and anterior knee region. PT-OP-G Mobility & Gait Start: 04/18/20 10:36 Freq: Status: Active Protocol: Document 04/18/20 10:36 LRN (Rec: 04/18/20 20:09 LRN [id number]) OP Mobility Evaluation Bed Mobility Rolling Independent Supine to and from Sit Independent Transfers Sit to Stand Independent, holds her R leg out in front and uses hands to push off to stand, but not to sit. OP Gait Assessment Gait Gait Assistance Required: Independent Distance (Feet) 120 Able to Maintain Weight Bearing Status Yes During Gait Assistive Devices Assistive Device None Orthotic/Prosthetic Devices or Brace: No Gait Deviations General Gait Pattern Decreased Stride Length, Decreased Feet Clearance Factors Limiting Gait Function Factors Limiting Gait Function Limited Range of Motion,Pain Stair Climbing Evaluation Evaluation Level of Assist On Stairs Independent Devices Stair Climbing Assistive Devices None Technique/Endurance Stair Climbing Direction Ascend and Descend Stair Climbing Technique Step Over Step Number of Steps Climbed 4 Stair Climbing Set # Repetitions (reps) 2 PT-OP-K Range of Motion Start: 04/18/20 10:36 Freq: Status: Active Protocol: Document 04/18/20 10:36 LRN (Rec: 04/18/20 20:09 LR [id number]) Knee Goniometric Range of Motion Knee Left Patient Position Supine Flexion Active (degrees) 131 Extension Active (degrees) 0 Right Patient Position Supine Flexion Active (degrees) 117 Extension Active (degrees) 10 Knee ROM Limitations Knee ROM Limitations Contracture,Pain Comments R knee active ext (see above) lacks 10 deg's to neutral. PT-OP-M Strength Start: 04/18/20 10:34 Freq: Status: Active Protocol: Document 04/18/20 10:36 LRN (Rec: 04/18/20 20:09 LR [id number]) Hip Strength Hip Manual Muscle Testing Right Flexion (L2) 3 Fair Extension (S1) 5 Normal Abduction 5 Normal Adduction 5 Normal Left Flexion (L2) 3 Fair Extension (S1) 5 Normal Abduction 3 Fair Adduction 5 Normal Knee Strength Knee Manual Muscle Testing Left Flexion (S2) 5 Normal Extension (L3) 5 Normal Right Flexion (S2) 4+ Good+ Extension (L3) 3+ Fair+ Ankle/Foot Strength Ankle and Foot Manual Muscle Testing Right Reason Not Measured WFL Left Reason Not Measured WFL PT-OP-Q Treatments Start: 04/18/20 10:34 Freq: Status: Active Protocol: Document 04/18/20 10:36 LRN (Rec: 04/18/20 11:24 LRN [id number]) Self-Care/Home Management Treatment Education Patient Education Body Mechanics,Home Exercise Program,Joint Protection, Safety PT-OP-T Assessment and Plan Start: 04/18/20 10:34 Freq: Status: Active Protocol: Document 04/18/20 10:36 LRN (Rec: 04/18/20 20:09 LRN [id number]) Physical Therapy Assessment Rehab Potential Rehabilitation Potential Good Evaluation Complexity Number of Personal Factors/Comorbidities 1-2 Number of Body Systems Impaired 3 Clinical Presentation at Evaluation Stable Impairments Impairments Balance,Pain,ROM,Strength Goals Durable medical goods Impairment Pt lacks knowledge of appropriate Asst devices needed post-op Short Term Goal (STG) Pt will be educated in post op needs for ambulatory assistive device and raised toilet seat. STG Duration 04/18/20 (04/18/20: MET GOAL) HEP Impairment Pt lacks appropriate HEP pre- op & post-op R TKA. Short Term Goal (STG) Pt will be educated in a pre- op TKA home ex program. STG Duration 04/18/20 (04/18/20: MET GOAL) Prison Goal (LTG) Pt will be independent in a self care HEP for advancement in strength, ROM, balance of the RLE for safe and independent care and function. LTG Duration 07/17/20 Transfers Impairment Lacks proper knowledge of proper transfer sit to stand w /post-op condition. Short Term Goal (STG) Pt will be educated and independent w/proper transfer sit <> stand transfer appropriate for a post-op R TKA. STG Duration 04/18/20 (04/18/20: MET GOAL) Stair amb Impairment Pt has difficulty with stair ambulation without railing. Short Term Goal (STG) Pt will be educated in step to gait for safe post-op R TKA stair ambulation. STG Duration 04/18/20 (04/18/20: MET GOAL) Gait with walker Impairment Pt lacks knowledge of proper gait with FWW. Short Term Goal (STG) Pt will be able to demonstrate proper use of a walker with partial weightbearing in RLE for proper post-op gait with walker. STG Duration 04/18/20 (04/18/20: MET GOAL) Strength Impairment Decreased R knee strength (Ext 3+/5, Flex 4+/5) Short Term Goal (STG) Improve R knee strength post operatively to 4/5. STG Duration 07/08/20 Prison Goal (LTG) Improve R knee strength post operatively to 5/5 with pt able to ambulate stairs with a normal gait pattern without use of railing. LTG Duration 07/17/20 knee ROM Impairment R knee AROM = 10-117 Short Term Goal (STG) Improve R knee AROM 5-120 degrees. STG Duration 07/08/20 Prison Goal (LTG) Pt will reach R knee AROM 0- 125 degrees to improve her gait mechanics with reduced R foot drag and normal ambulation on stairs. LTG Duration 07/17/20 LEFS Impairment LEFS score of 27 Short Term Goal (STG) Pt will improve LEFS score to pre op score of 27/80. STG Duration 07/08/20 Plate Washer Goal (LTG) Pt will improve LEFS score > 30 to demonstrate improved functional ability. LTG Duration 07/17/20 Progress Towards Goals Progress Comments Pre-operative goals achieved. Assessment Summary Assessment Pt presents for pre-op R TKA evaluation and treatment. The pt has a good understanding of the durable medical equipment that she will need post surgery. She was able to demonstrate proper transfer from a chair and on/off of the plinth and a good understanding of SYD precautions. She showed good understanding of TKA exercises issued. She ambulates with a normal gait pattern but could demonstrate a step to gait as expected she will have immediately post-operatively, using a FWW. She ambulates safely on stairs with a step to gait, but may need spouse assist due to lack of railing at her stairs. The pt is expected to do well with post- op therapy although she is starting with a lack of R knee mobility and weakness. Th pt is expected to [facility] to [facility] for her post- op physical therapy and will make appointments tomorrow. Physical Therapy Plan Frequency and Duration Frequency of Treatment 2x/Week Plan of Care Start Date 04/18/20 Plan of Care End Date 07/17/20 Therapeutic Interventions Therapeutic Interventions Balance Training,Gait Training ,Home Exercise Program,Joint Mobilizations,Manual Therapy, Neuromuscular Re-education, Patient/Caregiver Education, Self-Care/Home Management,Soft Tissue Mobilization,Taping, Therapeutic Activities, Therapeutic Exercises Modalities Cold Pack/Ice Massage,Hot Packs Next Visit Focus/Plan Next Note Type Progress Note Next Visit Plan Assess post-op R TKA condition with goals updated for her post-op condition.
--- NOTE | 2020-04-20 18:12 | PT.OIE ---
Current Diagnoses Unilateral primary osteoarthritis, right knee (04/18/20) Pain in right knee (04/18/20) Stiffness of right knee, not elsewhere classified (04/18/20) Muscle weakness (generalized) (04/18/20) Other abnormalities of gait and mobility (04/18/20) Past Surgical History (Last Reviewed 01/09/18 @ 17:39 by Ivan Alonso DO) Status post appendectomy Status post endometrial ablation Visit Care Team Role Provider Type Jef Hinds MD Family Provider Physician Primary Care Provider Specialty: Family Practice Address: [address], [address], [place], [address] Email: Misbah Rowell MD Attending Provider Physician Referring Provider Specialty: Orthopedic Surgery Address: [address] [place] [address], [id number] Email: Physical Therapy Initial Evaluation PT-OP-A Visit Information Start: 04/18/20 10:34 Freq: Status: Active Protocol: Document 04/18/20 10:36 LRN (Rec: 04/18/20 11:24 LRN [id number]) Out-Patient Physical Therapy Visit Information Visit Information Visit Type Initial Evaluation Visit Start Time 10:36 Visit Stop Time 11:23 Total Visit Minutes 47 Visit Number 1 Evaluation Information Evaluation Date 04/18/20 Precautions Precautions History of falls, arthritis PT-OP-B Current Condition Start: 04/18/20 10:34 Freq: Status: Active Protocol: Document 04/18/20 10:36 LRN (Rec: 04/18/20 11:24 LRN [id number]) Current Condition History of Current Condition Onset Date Osteoarthritis for 1 yr, planned R TKA surgery 2019. Current Complaints R knee pain and weakness, PT for pre-op visit. History of Current Condition Pre-op PT vist for R TKA on . Doesn't have walker or raised toilet seat, but does have a cane. Not ever used a walker. Can't straighten the R knee all the way because it is blocked. Prior Treatments and Tests PT 4-5 sessions prior to COVID 19 Pandemic and achieved improved knee mobility, but because of the pandemic was not able to maintain improvements. Treatment Goals Patient/Caregiver Goals Pre-op information. Prior Functional Status Baseline Function- ADL's Independent Baseline Function- Mobility Independent Baseline Function- Gait Independent with mild limp due to limited R knee mobility. Baseline Function- Other Not able to get up/down on floor. Current Functional Impairments (Reported) Functional Limitations- ADL's R knee pain worsens as day progresses. Limited by rotation at the knee or walking uphill due to pain and instability with balance. 2 steps in house with history of catching R toe because not lifting high enough going up the steps. Can't lift leg to put pants on. Must use hands to transfer sit to stand. Functional Limitations- Mobility/Gait Walking is painful, only able to walk up to a mile on even ground and slow gait. Functional Limitations- Other Occasionally rolling over the knee gets stuck and is painful . Personal Factors Other Personal Factors That May Effect Has spouse at home to help Therapy/Recovery after surgery. PT-OP-C Subjective Start: 04/18/20 10:34 Freq: Status: Active Protocol: Document 04/18/20 10:36 LRN (Rec: 04/18/20 11:24 LRN [id number]) Patient Questionnaires Lower Extremity Functional Scale LEFS Score 27 LEFS Impairment 60 to 79% Impaired (Score 17- 31) OP-PT Pain Assessment Pain Assessment Grid Paper Pain Assessment Grid Completed Yes Location Right Knee Pain Location Details R knee medial joint line and anterior knee Intensity 5 Scale Used Numeric (0 - 10) Description Aching,Sharp Description- Other Ache constant Pain Duration Sharp stabbing pain if moves wrong, short in duration B knee Pain Location Details knee medial joint line and anterior knee PT-OP-D Balance Start: 04/18/20 10:36 Freq: Status: Active Protocol: Document 04/18/20 10:36 LRN (Rec: 04/18/20 11:24 LRN [id number]) Balance Tests Romberg Romberg 60 Single Limb Standing Single Limb- Right 27 Single Limb- Left 60 PT-OP-E Functional Tests Start: 04/18/20 10:36 Freq: Status: Active Protocol: Document 04/18/20 10:36 LRN (Rec: 04/18/20 11:24 LRN [id number]) Functional Tests Timed Up and Go (TUG) Score 16 Comments No AD, uses hands to sit<> stand TUG Impairment Rating 60 to <80% Impaired (Score 16- 17) PT-OP-F Manual Assessment Start: 04/18/20 10:36 Freq: Status: Active Protocol: Document 04/18/20 10:36 LRN (Rec: 04/18/20 20:09 LRN [id number]) Manual Assessments Soft Tissue Assessment Soft Tissue Mobility Assessment Tender to pressure at R medial joint line and anterior knee region. PT-OP-G Mobility & Gait Start: 04/18/20 10:36 Freq: Status: Active Protocol: Document 04/18/20 10:36 LRN (Rec: 04/18/20 20:09 LRN [id number]) OP Mobility Evaluation Bed Mobility Rolling Independent Supine to and from Sit Independent Transfers Sit to Stand Independent, holds her R leg out in front and uses hands to push off to stand, but not to sit. OP Gait Assessment Gait Gait Assistance Required: Independent Distance (Feet) 120 Able to Maintain Weight Bearing Status Yes During Gait Assistive Devices Assistive Device None Orthotic/Prosthetic Devices or Brace: No Gait Deviations General Gait Pattern Decreased Stride Length, Decreased Feet Clearance Factors Limiting Gait Function Factors Limiting Gait Function Limited Range of Motion,Pain Stair Climbing Evaluation Evaluation Level of Assist On Stairs Independent Devices Stair Climbing Assistive Devices None Technique/Endurance Stair Climbing Direction Ascend and Descend Stair Climbing Technique Step Over Step Number of Steps Climbed 4 Stair Climbing Set # Repetitions (reps) 2 PT-OP-K Range of Motion Start: 04/18/20 10:36 Freq: Status: Active Protocol: Document 04/18/20 10:36 LRN (Rec: 04/18/20 20:09 LR [id number]) Knee Goniometric Range of Motion Knee Left Patient Position Supine Flexion Active (degrees) 131 Extension Active (degrees) 0 Right Patient Position Supine Flexion Active (degrees) 117 Extension Active (degrees) 10 Knee ROM Limitations Knee ROM Limitations Contracture,Pain Comments R knee active ext (see above) lacks 10 deg's to neutral. PT-OP-M Strength Start: 04/18/20 10:34 Freq: Status: Active Protocol: Document 04/18/20 10:36 LRN (Rec: 04/18/20 20:09 LR [id number]) Hip Strength Hip Manual Muscle Testing Right Flexion (L2) 3 Fair Extension (S1) 5 Normal Abduction 5 Normal Adduction 5 Normal Left Flexion (L2) 3 Fair Extension (S1) 5 Normal Abduction 3 Fair Adduction 5 Normal Knee Strength Knee Manual Muscle Testing Left Flexion (S2) 5 Normal Extension (L3) 5 Normal Right Flexion (S2) 4+ Good+ Extension (L3) 3+ Fair+ Ankle/Foot Strength Ankle and Foot Manual Muscle Testing Right Reason Not Measured WFL Left Reason Not Measured WFL PT-OP-Q Treatments Start: 04/18/20 10:34 Freq: Status: Active Protocol: Document 04/18/20 10:36 LRN (Rec: 04/18/20 11:24 LRN [id number]) Self-Care/Home Management Treatment Education Patient Education Body Mechanics,Home Exercise Program,Joint Protection, Safety PT-OP-T Assessment and Plan Start: 04/18/20 10:34 Freq: Status: Active Protocol: Document 04/18/20 10:36 LRN (Rec: 04/18/20 20:09 LRN [id number]) Physical Therapy Assessment Rehab Potential Rehabilitation Potential Good Evaluation Complexity Number of Personal Factors/Comorbidities 1-2 Number of Body Systems Impaired 3 Clinical Presentation at Evaluation Stable Impairments Impairments Balance,Pain,ROM,Strength Goals Durable medical goods Impairment Pt lacks knowledge of appropriate Asst devices needed post-op Short Term Goal (STG) Pt will be educated in post op needs for ambulatory assistive device and raised toilet seat. STG Duration 04/18/20 (04/18/20: MET GOAL) HEP Impairment Pt lacks appropriate HEP pre- op & post-op R TKA. Short Term Goal (STG) Pt will be educated in a pre- op TKA home ex program. STG Duration 04/18/20 (04/18/20: MET GOAL) Nursing Home Goal (LTG) Pt will be independent in a self care HEP for advancement in strength, ROM, balance of the RLE for safe and independent care and function. LTG Duration 07/17/20 Transfers Impairment Lacks proper knowledge of proper transfer sit to stand w /post-op condition. Short Term Goal (STG) Pt will be educated and independent w/proper transfer sit <> stand transfer appropriate for a post-op R TKA. STG Duration 04/18/20 (04/18/20: MET GOAL) Stair amb Impairment Pt has difficulty with stair ambulation without railing. Short Term Goal (STG) Pt will be educated in step to gait for safe post-op R TKA stair ambulation. STG Duration 04/18/20 (04/18/20: MET GOAL) Gait with walker Impairment Pt lacks knowledge of proper gait with FWW. Short Term Goal (STG) Pt will be able to demonstrate proper use of a walker with partial weightbearing in RLE for proper post-op gait with walker. STG Duration 04/18/20 (04/18/20: MET GOAL) Strength Impairment Decreased R knee strength (Ext 3+/5, Flex 4+/5) Short Term Goal (STG) Improve R knee strength post operatively to 4/5. STG Duration 07/08/20 Nursing Home Goal (LTG) Improve R knee strength post operatively to 5/5 with pt able to ambulate stairs with a normal gait pattern without use of railing. LTG Duration 07/17/20 knee ROM Impairment R knee AROM = 10-117 Short Term Goal (STG) Improve R knee AROM 5-120 degrees. STG Duration 07/08/20 Nursing Home Goal (LTG) Pt will reach R knee AROM 0- 125 degrees to improve her gait mechanics with reduced R foot drag and normal ambulation on stairs. LTG Duration 07/17/20 LEFS Impairment LEFS score of 27 Short Term Goal (STG) Pt will improve LEFS score to pre op score of 27/80. STG Duration 07/08/20 Graphic Coordinator Goal (LTG) Pt will improve LEFS score > 30 to demonstrate improved functional ability. LTG Duration 07/17/20 Progress Towards Goals Progress Comments Pre-operative goals achieved. Assessment Summary Assessment Pt presents for pre-op R TKA evaluation and treatment. The pt has a good understanding of the durable medical equipment that she will need post surgery. She was able to demonstrate proper transfer from a chair and on/off of the plinth and a good understanding of SYD precautions. She showed good understanding of TKA exercises issued. She ambulates with a normal gait pattern but could demonstrate a step to gait as expected she will have immediately post-operatively, using a FWW. She ambulates safely on stairs with a step to gait, but may need spouse assist due to lack of railing at her stairs. The pt is expected to do well with post- op therapy although she is starting with a lack of R knee mobility and weakness. Th pt is expected to return to [facility] for her post- op physical therapy and will make appointments tomorrow. Physical Therapy Plan Frequency and Duration Frequency of Treatment 2x/Week Plan of Care Start Date 04/18/20 Plan of Care End Date 07/17/20 Therapeutic Interventions Therapeutic Interventions Balance Training,Gait Training ,Home Exercise Program,Joint Mobilizations,Manual Therapy, Neuromuscular Re-education, Patient/Caregiver Education, Self-Care/Home Management,Soft Tissue Mobilization,Taping, Therapeutic Activities, Therapeutic Exercises Modalities Cold Pack/Ice Massage,Hot Packs Next Visit Focus/Plan Next Note Type Progress Note Next Visit Plan Assess post-op R TKA condition with goals updated for her post-op condition.
--- NOTE | 2020-06-21 16:52 | PT.OIE ---
Current Diagnoses Unilateral primary osteoarthritis, right knee (06/21/20) Pain in right knee (06/21/20) Stiffness of right knee, not elsewhere classified (06/21/20) Muscle weakness (generalized) (06/21/20) Other abnormalities of gait and mobility (06/21/20) Past Medical History (Last Updated 06/09/20 @ 10:10 by Cathleen Dallas RN) Arthritis (Acute) HLD (hyperlipidemia) (Acute) Nerve damage (Acute) Osteoarthritis (Acute) Uterine cyst (Acute) Varicose veins of both lower extremities (Acute) Past Surgical History (Last Updated 06/09/20 @ 10:07 by Cathleen Dallas RN) Status post appendectomy Status post endometrial ablation Visit Care Team Role Provider Type Jef Hinds MD Family Provider Physician Primary Care Provider Specialty: Family Practice Address: [address] [place] [address], [address], [place], [address] Email: Misbah Rowell MD Attending Provider Physician Referring Provider Specialty: Orthopedic Surgery Address: [address] [place] [address], [address] Email: [email or web address] Physical Therapy Initial Evaluation PT-OP-A Visit Information Start: 04/18/20 10:34 Freq: Status: Active Protocol: Document 06/21/20 15:06 LRN (Rec: 06/21/20 16:52 LRN [id number]) Out-Patient Physical Therapy Visit Information Visit Information Visit Type Re-Evaluation Visit Start Time 15:06 Visit Stop Time 15:52 Total Visit Minutes 46 Visit Number 2 Evaluation Information Evaluation Date 06/21/20 Precautions Precautions History of falls, arthritis PT-OP-B Current Condition Start: 04/18/20 10:34 Freq: Status: Active Protocol: Document 06/21/20 15:06 LRN (Rec: 06/21/20 16:52 LRN [id number]) Current Condition History of Current Condition Onset Date 06/16/20 Current Complaints R knee swollen and achy pain after exercise History of Current Condition 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 Walking with FWW and can full WB on RLE for brief time. Prior Treatments and Tests Acute care PT. Future Testing and Treatments Planned Next MD visit 06/23/20. Treatment Goals Patient/Caregiver Goals Pt goal is to be able to walk without walker & hurting, possibly beach, 1 miles. STG: Gait independently without SBA. 2 Steps without assist with pole for UE support. Goal: Independent transfer in /out of bed. Drive independently Prior Functional Status Baseline Function- ADL's Independent Baseline Function- Mobility Independent Baseline Function- Gait Independent with mild limp due to limited R knee mobility. Baseline Function- Other Not able to get up/down on floor. Current Functional Impairments (Reported) Functional Limitations- ADL's Stairs one step at a time using a vertical pole. Dresses self, toilets self, Needs assist into bed after exercises. Functional Limitations- Mobility/Gait Walks with SBA around the house. Personal Factors Other Personal Factors That May Effect Dizziness on sitting from Therapy/Recovery supine. Age. Has spouse and daughter at home to help after surgery. PT-OP-C Subjective Start: 04/18/20 10:34 Freq: Status: Active Protocol: Document 06/21/20 15:06 LRN (Rec: 06/21/20 16:52 LRN [id number]) OP-PT Subjective Patient Comments Patient Comments After surgery the pain radiating up and down the leg is resolved and hip pain resolved. OP-PT Pain Assessment Location Right Knee Pain Location Details R knee generally Intensity 5 Scale Used Numeric (0 - 10) Description Aching Description- Other No pain when static positioning Other Pain Alleviating Factors 1 oxycodone every 5 hrs PT-OP-D Balance Start: 04/18/20 10:36 Freq: Status: Active Protocol: Document 06/21/20 15:06 LRN (Rec: 06/21/20 16:52 LRN [id number]) Balance Tests Single Limb Standing Single Limb- Right 1 sec Other Other Balance Tests Performed Standing balance: Rhomberg modified: Feet as close together as Valgus knees allow : 60 secs. PT-OP-E Functional Tests Start: 04/18/20 10:36 Freq: Status: Active Protocol: Document 06/21/20 15:06 LRN (Rec: 06/21/20 16:52 LRN [id number]) Functional Tests Timed Up and Go (TUG) Score 22 Comments FWW, use of hands to transfer TUG Impairment Rating 100% Impaired (Score 20) PT-OP-F Manual Assessment Start: 04/18/20 10:36 Freq: Status: Active Protocol: Document 06/21/20 15:06 LRN (Rec: 06/21/20 16:52 LRN [id number]) Manual Assessments Soft Tissue Assessment Soft Tissue Mobility Assessment Moderate plus swelling in R LE . No pitting edema noted. PT-OP-G Mobility & Gait Start: 04/18/20 10:36 Freq: Status: Active Protocol: Document 06/21/20 15:06 LRN (Rec: 06/21/20 16:52 LRN [id number]) OP Mobility Evaluation Bed Mobility Rolling Independent Supine to and from Sit Independent. Pt got dizzy on sitting. OP Gait Assessment Gait Gait Assistance Required: Standby Assistance Distance (Feet) 120 Able to Maintain Weight Bearing Status Yes During Gait Assistive Devices Assistive Device Front Wheeled Walker Gait Deviations General Gait Pattern Antalgic,Decreased Stride Length Factors Limiting Gait Function Factors Limiting Gait Function Decreased Activity Tolerance, Decreased Strength Stair Climbing Evaluation Evaluation Level of Assist On Stairs Standby Assistance Technique/Endurance Stair Climbing Direction Ascend and Descend Stair Climbing Technique Step to Step Comments Stair Climbing Comments Stair ability per patient and spouse. Assist of vertical pole. PT-OP-K Range of Motion Start: 04/18/20 10:36 Freq: Status: Active Protocol: Document 06/21/20 15:06 LRN (Rec: 06/21/20 16:52 LRN [id number]) Knee Goniometric Range of Motion Knee Left Knee ROM WFL Yes Patient Position Supine Flexion Active (degrees) 130 Extension Active (degrees) 0 Comments Sitting AROM: 0-114 deg's ( Flex limited by table supports ) Right Knee ROM WFL No Patient Position Supine Flexion Active (degrees) 96 Extension Active (degrees) 15 Comments Sitin-93 deg's AROM PT-OP-M Strength Start: 04/18/20 10:34 Freq: Status: Active Protocol: Document 06/21/20 15:06 LRN (Rec: 06/21/20 16:52 LRN [id number]) Hip Strength Hip Manual Muscle Testing Right Flexion (L2) 2 Poor Abduction 2 Poor Adduction 2 Poor Left Flexion (L2) 3 Fair Extension (S1) 5 Normal Abduction 3 Fair Adduction 5 Normal Knee Strength Knee Manual Muscle Testing Left Flexion (S2) 5 Normal Extension (L3) 5 Normal Right Flexion (S2) 3- Fair- Extension (L3) 2+ Poor+ Ankle/Foot Strength Ankle and Foot Manual Muscle Testing Right Comments WNL Left Comments WNL PT-OP-Q Treatments Start: 04/18/20 10:34 Freq: Status: Active Protocol: Document 06/21/20 15:06 LRN (Rec: 06/21/20 16:52 LRN [id number]) Therapeutic Exercises Supine Exercises SLR Supine Exercise Name Indep & Assisted SLR Side right Reps/Minutes 2' Quad Sets Supine Exercise Name Quad Sets Side right Reps/Minutes 2' Ankle Pumps Supine Exercise Name Ankle Pumps Side right Reps/Minutes 2' Self-Care/Home Management Treatment Education Other Education Discussed pt's questions she brought in regarding use of walker, how long will need to use walker, how much assist does she need. Swelling and normal responses of R knee with exercise. Discussed ex's what she needs to do and how often. Reviewed HEP (see exercise) PT-OP-T Assessment and Plan Start: 04/18/20 10:34 Freq: Status: Active Protocol: Document 06/21/20 15:06 LRN (Rec: 06/21/20 16:52 LRN [id number]) Physical Therapy Assessment Rehab Potential Rehabilitation Potential Good Evaluation Complexity Number of Personal Factors/Comorbidities 1-2 Number of Body Systems Impaired 4 or More Clinical Presentation at Evaluation Evolving Impairments Impairments Activity Tolerance,Balance, Functional Mobility,Gait,Pain, Posture,ROM,Soft Tissue Mobility,Strength,Transfers Goals TUG Impairment TUG score 22 secs, indicating 100% impaired Short Term Goal (STG) TUG score 16 secs (60< 80% impaired) STG Duration 08/01/20 Assisted Goal (LTG) TUG score of 11 secs (1<20% impaired) LTG Duration 09/19/20 HEP Impairment Pt lacks appropriate post-op R TKA HEP. Vice President Of Consulting Services Goal (LTG) Pt will be independent in a self care HEP for advancement in strength, ROM, balance of the RLE for safe and independent care and function. LTG Duration 09/19/20 Transfers Impairment Pt requires assist with transfers (sit<>stand & in/out of bed after exer) Short Term Goal (STG) Pt will be able to transfer in /out of bed after exercise without assist. STG Duration 07/11/20 [employer]ing [employer] Goal (LTG) Pt will be able to transfer up /down from a chair without use of UE's. LTG Duration 09/19/20 Stair amb Impairment Pt has step to step gait on stairs with use of hand pole assist Short Term Goal (STG) Pt will be independent & safe for step to step ambulation with use of a hand pole. STG Duration 07/11/20 [employer]ing [employer] Goal (LTG) Pt will be independent & safe with step over step ambulation with use of a hand pole. LTG Duration 09/19/20 Gait with walker Impairment Pt requires SBA with use of FWW Short Term Goal (STG) Pt will be independent walking with use of FWW. STG Duration 07/01/20 Assisted Goal (LTG) Pt will be able to walk without use assistive device safely. LTG Duration 09/19/20 Strength Impairment Decreased R knee strength (Ext 2+/5, Flex 3-/5) Short Term Goal (STG) Improve R knee strength to 4+/ 5 with pt able to ambulate without an assistive device and on stairs with a normal gait pattern without use of railing. STG Duration 08/01/20 Assisted Goal (LTG) Improve R knee strength post operatively to 5/5 with pt able to return to driving. LTG Duration 09/19/20 knee ROM Impairment R knee AROM: 15-96 Short Term Goal (STG) Improve R knee AROM 7-115 deg' s with pt able to start a self home program of ex on her recumbent stepper/bike. STG Duration 07/19/20 Assisted Goal (LTG) Improve R knee AROM to 0-125 deg's to improve gait mechanics on level and for a normal stairs gait pattern. LTG Duration 09/19/20 LEFS Impairment LEFS score Short Term Goal (STG) Pt will improve LEFS score to pre-op score of 27/80. STG Duration 07/17/20 Assisted Goal (LTG) Pt will improve LEFS score > 30 to demonstrate improved functional ability. LTG Duration 09/19/20 Assessment Summary Assessment Pt presents to therapy post operative R TKA surgery with SBA for gait with FWW, ability to lift leg onto plinth with difficulty, decreased R knee AROM and moderate plus swelling in the entire LE (no pitting edema noted). Temp of the leg is mildly increased. Pt does have pain with compression of the lower leg, but there is no redness or increase temperature and she has been being active with exercises and mobility; therefore pain is probably due to moderate plus swelling. Pt will benefit from skilled physical therapy to improve function and independence with gait and daily activities. Physical Therapy Plan Frequency and Duration Frequency of Treatment 2x/Week Plan of Care Start Date 06/21/20 Plan of Care End Date 09/19/20 Therapeutic Interventions Therapeutic Interventions Balance Training,Gait Training ,Home Exercise Program,Joint Mobilizations,Manual Therapy, Neuromuscular Re-education, Patient/Caregiver Education, Self-Care/Home Management,Soft Tissue Mobilization,Taping, Therapeutic Activities, Therapeutic Exercises Modalities Cold Pack/Ice Massage,Hot Packs Next Visit Focus/Plan Next Note Type Treatment Note Next Visit Plan Check on results of pt MD visit and monitor R lower leg for circulatory dysfunction ( Homans). Continue R TKA rehab . Start with teaching spouse lymphatic massage, end with ROM and strengthening exercises. Progress ROM, strength, and independence with gait, stairs and home program.
--- NOTE | 2020-06-23 15:00 | PT.OTN ---
Current Diagnoses Unilateral primary osteoarthritis, right knee (06/23/20) Pain in right knee (06/23/20) Stiffness of right knee, not elsewhere classified (06/23/20) Muscle weakness (generalized) (06/23/20) Other abnormalities of gait and mobility (06/23/20) Physical Therapy Treatment Note PT-OP-A Visit Information Start: 04/18/20 10:34 Freq: Status: Active Protocol: Document 06/23/20 14:16 LRN (Rec: 06/23/20 14:58 LRN [id number]) Out-Patient Physical Therapy Visit Information Visit Information Visit Type Treatment Note Visit Start Time 14:16 Visit Stop Time 14:56 Total Visit Minutes 40 Visit Number 3 Evaluation Information Evaluation Date 06/21/20 Precautions Precautions History of falls, arthritis PT-OP-B Current Condition Start: 04/18/20 10:34 Freq: Status: Active Protocol: Document 06/21/20 15:06 LRN (Rec: 06/21/20 16:52 LRN [id number]) Current Condition History of Current Condition Onset Date 06/16/20 Current Complaints R knee swollen and achy pain after exercise History of Current Condition 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 Walking with FWW and can full WB on RLE for brief time. Prior Treatments and Tests Acute care PT. Future Testing and Treatments Planned Next MD visit 06/23/20. Treatment Goals Patient/Caregiver Goals Pt goal is to be able to walk without walker & hurting, possibly beach, 1 miles. STG: Gait independently without SBA. 2 Steps without assist with pole for UE support. Goal: Independent transfer in /out of bed. Drive independently Prior Functional Status Baseline Function- ADL's Independent Baseline Function- Mobility Independent Baseline Function- Gait Independent with mild limp due to limited R knee mobility. Baseline Function- Other Not able to get up/down on floor. Current Functional Impairments (Reported) Functional Limitations- ADL's Stairs one step at a time using a vertical pole. Dresses self, toilets self, Needs assist into bed after exercises. Functional Limitations- Mobility/Gait Walks with SBA around the house. Personal Factors Other Personal Factors That May Effect Dizziness on sitting from Therapy/Recovery supine. Age. Has spouse and daughter at home to help after surgery. PT-OP-C Subjective Start: 08/10/20 10:34 Freq: Status: Active Protocol: Document 06/23/20 14:16 LRN (Rec: 06/23/20 14:58 LRN [id number]) OP-PT Subjective Patient Comments Patient Comments Saw MD today, got a new wrap, said everything looked good and healing well. Swelling is normal. Next appt with PA next week Tues to remove adhesives. PT-OP-D Balance Start: 04/18/20 10:36 Freq: Status: Active Protocol: Document 06/21/20 15:06 LRN (Rec: 06/21/20 16:52 LRN [id number]) Balance Tests Single Limb Standing Single Limb- Right 1 sec Other Other Balance Tests Performed Standing balance: Rhomberg modified: Feet as close together as Valgus knees allow : 60 secs. PT-OP-E Functional Tests Start: 04/18/20 10:36 Freq: Status: Active Protocol: Document 06/21/20 15:06 LRN (Rec: 06/21/20 16:52 LRN [id number]) Functional Tests Timed Up and Go (TUG) Score 22 Comments FWW, use of hands to transfer TUG Impairment Rating 100% Impaired (Score 20) PT-OP-F Manual Assessment Start: 04/18/20 10:36 Freq: Status: Active Protocol: Document 06/21/20 15:06 LRN (Rec: 06/21/20 16:52 LRN [id number]) Manual Assessments Soft Tissue Assessment Soft Tissue Mobility Assessment Moderate plus swelling in R LE . No pitting edema noted. PT-OP-G Mobility & Gait Start: 04/18/20 10:36 Freq: Status: Active Protocol: Document 06/21/20 15:06 LRN (Rec: 06/21/20 16:52 LRN [id number]) OP Mobility Evaluation Bed Mobility Rolling Independent Supine to and from Sit Independent. Pt got dizzy on sitting. OP Gait Assessment Gait Gait Assistance Required: Standby Assistance Distance (Feet) 120 Able to Maintain Weight Bearing Status Yes During Gait Assistive Devices Assistive Device Front Wheeled Walker Gait Deviations General Gait Pattern Antalgic,Decreased Stride Length Factors Limiting Gait Function Factors Limiting Gait Function Decreased Activity Tolerance, Decreased Strength Stair Climbing Evaluation Evaluation Level of Assist On Stairs Standby Assistance Technique/Endurance Stair Climbing Direction Ascend and Descend Stair Climbing Technique Step to Step Comments Stair Climbing Comments Stair ability per patient and spouse. Assist of vertical pole. PT-OP-K Range of Motion Start: 04/18/20 10:36 Freq: Status: Active Protocol: Document 06/23/20 14:16 LRN (Rec: 06/23/20 14:58 LRN [id number]) Knee Goniometric Range of Motion Knee Right Knee ROM WFL No Patient Position Supine Flexion Active (degrees) 99 Extension Active (degrees) 8 PT-OP-M Strength Start: 04/18/20 10:34 Freq: Status: Active Protocol: Document 06/21/20 15:06 LRN (Rec: 06/21/20 16:52 LRN [id number]) Hip Strength Hip Manual Muscle Testing Right Flexion (L2) 2 Poor Abduction 2 Poor Adduction 2 Poor Left Flexion (L2) 3 Fair Extension (S1) 5 Normal Abduction 3 Fair Adduction 5 Normal Knee Strength Knee Manual Muscle Testing Left Flexion (S2) 5 Normal Extension (L3) 5 Normal Right Flexion (S2) 3- Fair- Extension (L3) 2+ Poor+ Ankle/Foot Strength Ankle and Foot Manual Muscle Testing Right Comments WNL Left Comments WNL PT-OP-Q Treatments Start: 04/18/20 10:34 Freq: Status: Active Protocol: Document 06/23/20 14:16 LRN (Rec: 06/23/20 14:58 LRN [id number]) Therapeutic Exercises Supine Exercises BKFO Supine Exercise Name Benny BKFO Side bilateral Reps/Minutes 10x Comments 5x with lymph ex SLR Supine Exercise Name Indep & Assisted SLR Side right Reps/Minutes 5x Comments 5x with lymph ex.Extra time to determine max tolerance. Ankle Pumps Supine Exercise Name Ankle IV/EV Side right Reps/Minutes 10x Comments 5x with lymph ex. Extra time to deter tolerance R TKE Supine Exercise Name R SAQ Side right Reps/Minutes 11x Comments 5x with lymph ex. Extra time to deter tolerance supine heel slide Supine Exercise Name Heel slides Side right Reps/Minutes 10x Comments 5x with lymph ex Self-Care/Home Management Treatment Education Patient Education Home Exercise Program Other Education 20' of Educated, shown and performance of self care lymph massage program with training to spouse on pt's R LE. Activities Self-Care/Home Management Activities Issued & reviewed with pt & spouse, LE lymph massage, Lymph ex for s/p TKA, and Do's /Don'ts of lymph massage. PT-OP-T Assessment and Plan Start: 04/18/20 10:34 Freq: Status: Active Protocol: Document 06/23/20 14:16 LRN (Rec: 06/23/20 14:58 LRN [id number]) Physical Therapy Assessment Goals TUG Impairment TUG score 22 secs, indicating 100% impaired Short Term Goal (STG) TUG score 16 secs (60< 80% impaired) STG Duration 08/01/20 Supervisory Historian Goal (LTG) TUG score of 11 secs (1<20% impaired) LTG Duration 09/19/20 HEP Impairment Pt lacks appropriate post-op R TKA HEP. Supervisory Historian Goal (LTG) Pt will be independent in a self care HEP for advancement in strength, ROM, balance of the RLE for safe and independent care and function. LTG Duration 09/19/20 Transfers Impairment Pt requires assist with transfers (sit<>stand & in/out of bed after exer) Short Term Goal (STG) Pt will be able to transfer in /out of bed after exercise without assist. STG Duration 07/11/20 Supervisory Historian Goal (LTG) Pt will be able to transfer up /down from a chair without use of UE's. LTG Duration 09/19/20 Stair amb Impairment Pt has step to step gait on stairs with use of hand pole assist Short Term Goal (STG) Pt will be independent & safe for step to step ambulation with use of a hand pole. STG Duration 07/11/20 Supervisory Historian Goal (LTG) Pt will be independent & safe with step over step ambulation with use of a hand pole. LTG Duration 09/19/20 Gait with walker Impairment Pt requires SBA with use of FWW Short Term Goal (STG) Pt will be independent walking with use of FWW. STG Duration 07/01/20 Halfway Goal (LTG) Pt will be able to walk without use assistive device safely. LTG Duration 09/19/20 Strength Impairment Decreased R knee strength (Ext 2+/5, Flex 3-/5) Short Term Goal (STG) Improve R knee strength to 4+/ 5 with pt able to ambulate without an assistive device and on stairs with a normal gait pattern without use of railing. STG Duration 08/01/20 Halfway Goal (LTG) Improve R knee strength post operatively to 5/5 with pt able to return to driving. LTG Duration 09/19/20 knee ROM Impairment R knee AROM: 15-96 Short Term Goal (STG) Improve R knee AROM 7-115 deg' s with pt able to start a self home program of ex on her recumbent stepper/bike. STG Duration 07/19/20 Supervisory Historian Goal (LTG) Improve R knee AROM to 0-125 deg's to improve gait mechanics on level and for a normal stairs gait pattern. LTG Duration 09/19/20 LEFS Impairment LEFS score Short Term Goal (STG) Pt will improve LEFS score to pre-op score of 27/80. STG Duration 07/17/20 Supervisory Historian Goal (LTG) Pt will improve LEFS score > 30 to demonstrate improved functional ability. LTG Duration 09/19/20 Progress Towards Goals Progress Comments R knee AROM in supine improved from 15-96 to 8-99 deg's mobility. Assessment Summary Assessment Pt & spouse appear to have a good understanding of the home program of lymph massage to be started once the JAMEEL wrap, zipper bandage has been removed. Supine AROM improved . Physical Therapy Plan Frequency and Duration Frequency of Treatment 2x/Week Plan of Care Start Date 06/21/20 Plan of Care End Date 09/19/20 Next Visit Focus/Plan Next Note Type Treatment Note Next Visit Plan Continue R TKA rehab for ROM and strengthening exercises. Progress ROM, strength, and independence with gait, stairs and home program.
--- NOTE | 2020-06-27 16:12 | PT.OTN ---
Current Diagnoses Unilateral primary osteoarthritis, right knee (06/27/20) Pain in right knee (06/27/20) Stiffness of right knee, not elsewhere classified (06/27/20) Muscle weakness (generalized) (06/27/20) Other abnormalities of gait and mobility (06/27/20) Physical Therapy Treatment Note PT-OP-A Visit Information Start: 04/18/20 10:34 Freq: Status: Active Protocol: Document 06/27/20 15:06 LRN (Rec: 06/27/20 16:04 LRN [id number]) Out-Patient Physical Therapy Visit Information Visit Information Visit Type Treatment Note Visit Start Time 15:06 Visit Stop Time 15:45 Total Visit Minutes 39 Visit Number 4 Evaluation Information Evaluation Date 06/21/20 Precautions Precautions History of falls, arthritis PT-OP-B Current Condition Start: 04/18/20 10:34 Freq: Status: Active Protocol: Document 06/21/20 15:06 LRN (Rec: 06/21/20 16:52 LRN [id number]) Current Condition History of Current Condition Onset Date 06/16/20 Current Complaints R knee swollen and achy pain after exercise History of Current Condition 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 Walking with FWW and can full WB on RLE for brief time. Prior Treatments and Tests Acute care PT. Future Testing and Treatments Planned Next MD visit 06/23/20. Treatment Goals Patient/Caregiver Goals Pt goal is to be able to walk without walker & hurting, possibly beach, 1 miles. STG: Gait independently without SBA. 2 Steps without assist with pole for UE support. Goal: Independent transfer in /out of bed. Drive independently Prior Functional Status Baseline Function- ADL's Independent Baseline Function- Mobility Independent Baseline Function- Gait Independent with mild limp due to limited R knee mobility. Baseline Function- Other Not able to get up/down on floor. Current Functional Impairments (Reported) Functional Limitations- ADL's Stairs one step at a time using a vertical pole. Dresses self, toilets self, Needs assist into bed after exercises. Functional Limitations- Mobility/Gait Walks with SBA around the house. Personal Factors Other Personal Factors That May Effect Dizziness on sitting from Therapy/Recovery supine. Age. Has spouse and daughter at home to help after surgery. PT-OP-C Subjective Start: 08/10/20 10:34 Freq: Status: Active Protocol: Document 06/27/20 15:06 LRN (Rec: 06/27/20 16:04 LRN [id number]) OP-PT Subjective Patient Comments Patient Comments States the wrap was removed. Leg has not been cold. States she doesn't use the walker in her home, only outside. She has a cane. PT-OP-D Balance Start: 04/18/20 10:36 Freq: Status: Active Protocol: Document 06/21/20 15:06 LRN (Rec: 06/21/20 16:52 LRN [id number]) Balance Tests Single Limb Standing Single Limb- Right 1 sec Other Other Balance Tests Performed Standing balance: Rhomberg modified: Feet as close together as Valgus knees allow : 60 secs. PT-OP-E Functional Tests Start: 04/18/20 10:36 Freq: Status: Active Protocol: Document 06/27/20 15:06 LRN (Rec: 06/27/20 16:04 LRN [id number]) Functional Tests Timed Up and Go (TUG) Score 16.5 Comments Use of hands, no AD TUG Impairment Rating 60 to <80% Impaired (Score 16- 17) PT-OP-F Manual Assessment Start: 04/18/20 10:36 Freq: Status: Active Protocol: Document 06/21/20 15:06 LRN (Rec: 06/21/20 16:52 LRN [id number]) Manual Assessments Soft Tissue Assessment Soft Tissue Mobility Assessment Moderate plus swelling in R LE . No pitting edema noted. PT-OP-G Mobility & Gait Start: 04/18/20 10:36 Freq: Status: Active Protocol: Document 06/27/20 15:06 LRN (Rec: 06/27/20 16:04 LRN [id number]) OP Gait Assessment Gait Gait Assistance Required: Standby Assistance Able to Maintain Weight Bearing Status Yes During Gait Assistive Devices Assistive Device Straight Cane Gait Deviations General Gait Pattern Decreased Stride Length Factors Limiting Gait Function Factors Limiting Gait Function Incoordination Comments Gait Comments Pt is independent with use of FWW and tends to carry walker; therefore pt is more safe with SPC. Stair Climbing Evaluation Evaluation Level of Assist On Stairs Independent Devices Stair Climbing Assistive Devices Straight Cane,Right Railing Technique/Endurance Stair Climbing Direction Ascend Stair Climbing Technique Step Over Step Number of Steps Climbed 4 Comments Stair Climbing Comments Pt descends with L railing/SPC /Independent/Normal trunk positioning/Step to step gait. PT-OP-K Range of Motion Start: 04/18/20 10:36 Freq: Status: Active Protocol: Document 06/23/20 14:16 LRN (Rec: 06/23/20 14:58 LRN [id number]) Knee Goniometric Range of Motion Knee Right Knee ROM WFL No Patient Position Supine Flexion Active (degrees) 99 Extension Active (degrees) 8 PT-OP-M Strength Start: 04/18/20 10:34 Freq: Status: Active Protocol: Document 06/21/20 15:06 LRN (Rec: 06/21/20 16:52 LRN [id number]) Hip Strength Hip Manual Muscle Testing Right Flexion (L2) 2 Poor Abduction 2 Poor Adduction 2 Poor Left Flexion (L2) 3 Fair Extension (S1) 5 Normal Abduction 3 Fair Adduction 5 Normal Knee Strength Knee Manual Muscle Testing Left Flexion (S2) 5 Normal Extension (L3) 5 Normal Right Flexion (S2) 3- Fair- Extension (L3) 2+ Poor+ Ankle/Foot Strength Ankle and Foot Manual Muscle Testing Right Comments WNL Left Comments WNL PT-OP-Q Treatments Start: 04/18/20 10:34 Freq: Status: Active Protocol: Document 06/27/20 15:06 LRN (Rec: 06/27/20 16:04 LRN [id number]) Therapeutic Exercises Supine Exercises BKFO Side bilateral Reps/Minutes 10x, 5x Comments Pt needed training for proper movement/breathing w/ex SLR Supine Exercise Name Indep & Assisted SLR Side right Reps/Minutes 8x Comments Extra time for training of proper breathing Quad Sets Supine Exercise Name QS Equipment Used Hand towel roll under ankle Reps/Minutes 10 hold & 5 hold x 5 each R TKE Supine Exercise Name R SAQ Side right Reps/Minutes 10 x, 5x supine heel slide Supine Exercise Name Heel slides Side right Reps/Minutes 5 hold, 10x, 5x Gait Training Gait Activity Stair Ambulation Description Gait on Stairs Device Used 1 rail & with/without SPC Level of Assistance V. cuing Distance/Duration 8' Treatment Focus Normal trunk posture, proper use of cane, proper sequencing Comments Pt tended to turn to the 1 railing assisted side for ascending descending. Not able to keep trunk in neutral unless using cane. Pt took several practice runs before understanding proper turnk posture with step to step gait . Gait on level Description Gait with SPC, Gait without assistive device Device Used SPC, none Level of Assistance V. cuing Surface Level Distance/Duration 7' Treatment Focus Normal gait with use of SPC, Safe gait without AD Manual Therapy Treatment Soft Tissue Mobilization LE lymph massage Body Location LE lymph massage Mobilization Type Manual Lymphatic Drainage Body Position Supine Comments RLE elevated on bolster PT-OP-R Modalities Start: 04/18/20 10:34 Freq: Status: Active Protocol: Document 06/27/20 15:06 LRN (Rec: 06/27/20 16:04 LRN [id number]) Hot Pack/Cold Pack Treatment Cold Pack Patient Position Supine PT-OP-T Assessment and Plan Start: 04/18/20 10:34 Freq: Status: Active Protocol: Document 06/27/20 15:06 LRN (Rec: 06/27/20 16:04 LRN [id number]) Physical Therapy Assessment Goals TUG Impairment TUG score 22 secs, indicating 100% impaired Short Term Goal (STG) TUG score 16 secs (60< 80% impaired) STG Duration 08/01/20 (06/27/20: Improving TUG score 16.5 secs) Longterm Goal (LTG) TUG score of 11 secs (1<20% impaired) LTG Duration 09/19/20 HEP Impairment Pt lacks appropriate post-op R TKA HEP. Longterm Goal (LTG) Pt will be independent in a self care HEP for advancement in strength, ROM, balance of the RLE for safe and independent care and function. LTG Duration 09/19/20 Transfers Impairment Pt requires assist with transfers (sit<>stand & in/out of bed after exer) Short Term Goal (STG) Pt will be able to transfer in /out of bed after exercise without assist. STG Duration 07/11/20 Roller Turner Goal (LTG) Pt will be able to transfer up /down from a chair without use of UE's. LTG Duration 09/19/20 Stair amb Impairment Pt has step to step gait on stairs with use of hand pole assist Short Term Goal (STG) Pt will be independent & safe for step to step ambulation with use of a hand pole. STG Duration 07/11/20 (06/27/20: MET GOAL) Longterm Goal (LTG) Pt will be independent & safe with step over step ambulation with use of a hand pole. LTG Duration 09/19/20 Gait with walker Impairment Pt requires SBA with use of FWW Short Term Goal (STG) Pt will be independent walking with use of FWW. STG Duration 07/01/20 (06/27/20: MET GOAL ) Roller Turner Goal (LTG) Pt will be able to walk without use assistive device safely. LTG Duration 09/19/20 Strength Impairment Decreased R knee strength (Ext 2+/5, Flex 3-/5) Short Term Goal (STG) Improve R knee strength to 4+/ 5 with pt able to ambulate without an assistive device and on stairs with a normal gait pattern without use of railing. STG Duration 08/01/20 Longterm Goal (LTG) Improve R knee strength post operatively to 5/5 with pt able to return to driving. LTG Duration 09/19/20 knee ROM Impairment R knee AROM: 15-96 Short Term Goal (STG) Improve R knee AROM 7-115 deg' s with pt able to start a self home program of ex on her recumbent stepper/bike. STG Duration 07/19/20 Roller Turner Goal (LTG) Improve R knee AROM to 0-125 deg's to improve gait mechanics on level and for a normal stairs gait pattern. LTG Duration 09/19/20 LEFS Impairment LEFS score Short Term Goal (STG) Pt will improve LEFS score to pre-op score of 27/80. STG Duration 07/17/20 Longterm Goal (LTG) Pt will improve LEFS score > 30 to demonstrate improved functional ability. LTG Duration 09/19/20 Progress Towards Goals Progress Comments TUG score is 16.5 secs of 60< 80% impaired(previously was 22 secs, 100% impaired). Pt is independent with step to step gait on stairs ascending /descending with 1 rail, but with trunk turned to rail side . She feels much more stable with 1 rail and SPC and is able to ambulate down steps in normal trunk posture. Assessment Summary Assessment Pt progressing very well. She is having minimal pain although she is quite severe in swelling of the lower leg. Pt has a minimal to no palpable pedal pulse. Refilling of color in toes is good and she has no redness and increased temp in supine in the posterior lower leg. She has some redness around the healing incision as to be expected. Pt appeared to have a good understanding of gait with SPC, although review will be needed. Se is safe for ambulation without an assistive device in her home. SPC needed outside her home. Her stability with gait has improved per TUG scores. Physical Therapy Plan Frequency and Duration Frequency of Treatment 2x/Week Plan of Care Start Date 06/21/20 Plan of Care End Date 09/19/20 Next Visit Focus/Plan Next Note Type Treatment Note Next Visit Plan R TKA rehabilitation. Review/assess gait with SPC on level and stairs. Progress ROM & measure, add standing strengthening ex's, review gait w/cane, progress stairs and home program when appropriate. HEP: Benny BKFO, standing R knee ex's.
--- NOTE | 2020-06-30 14:16 | PT.OTN ---
Current Diagnoses Unilateral primary osteoarthritis, right knee (06/30/20) Pain in right knee (06/30/20) Stiffness of right knee, not elsewhere classified (06/30/20) Muscle weakness (generalized) (06/30/20) Other abnormalities of gait and mobility (06/30/20) Physical Therapy Treatment Note PT-OP-A Visit Information Start: 04/18/20 10:34 Freq: Status: Active Protocol: Document 06/30/20 13:35 LRN (Rec: 06/30/20 14:14 LRN [id number]) Out-Patient Physical Therapy Visit Information Visit Information Visit Type Treatment Note Visit Start Time 13:35 Visit Stop Time 14:14 Total Visit Minutes 39 Visit Number 5 Evaluation Information Evaluation Date 06/21/20 Precautions Precautions History of falls, arthritis PT-OP-B Current Condition Start: 04/18/20 10:34 Freq: Status: Active Protocol: Document 06/21/20 15:06 LRN (Rec: 06/21/20 16:52 LRN [id number]) Current Condition History of Current Condition Onset Date 06/16/20 Current Complaints R knee swollen and achy pain after exercise History of Current Condition 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 Walking with FWW and can full WB on RLE for brief time. Prior Treatments and Tests Acute care PT. Future Testing and Treatments Planned Next MD visit 06/23/20. Treatment Goals Patient/Caregiver Goals Pt goal is to be able to walk without walker & hurting, possibly beach, 1 miles. STG: Gait independently without SBA. 2 Steps without assist with pole for UE support. Goal: Independent transfer in /out of bed. Drive independently Prior Functional Status Baseline Function- ADL's Independent Baseline Function- Mobility Independent Baseline Function- Gait Independent with mild limp due to limited R knee mobility. Baseline Function- Other Not able to get up/down on floor. Current Functional Impairments (Reported) Functional Limitations- ADL's Stairs one step at a time using a vertical pole. Dresses self, toilets self, Needs assist into bed after exercises. Functional Limitations- Mobility/Gait Walks with SBA around the house. Personal Factors Other Personal Factors That May Effect Dizziness on sitting from Therapy/Recovery supine. Age. Has spouse and daughter at home to help after surgery. PT-OP-C Subjective Start: 08/10/20 10:34 Freq: Status: Active Protocol: Document 06/30/20 13:35 LRN (Rec: 06/30/20 14:14 LRN [id number]) OP-PT Subjective Patient Comments Patient Comments Tape is off of knee. States she was checked for circulation in the R lower leg and it was good. Saw LEAH Golden and was told her knee looks good. She is to watch the lateral bottom of the healed scar for increased readness. Doing LE lymph massage. PT-OP-D Balance Start: 04/18/20 10:36 Freq: Status: Active Protocol: Document 06/21/20 15:06 LRN (Rec: 06/21/20 16:52 LRN [id number]) Balance Tests Single Limb Standing Single Limb- Right 1 sec Other Other Balance Tests Performed Standing balance: Rhomberg modified: Feet as close together as Valgus knees allow : 60 secs. PT-OP-E Functional Tests Start: 04/18/20 10:36 Freq: Status: Active Protocol: Document 06/27/20 15:06 LRN (Rec: 06/27/20 16:04 LRN [id number]) Functional Tests Timed Up and Go (TUG) Score 16.5 Comments Use of hands, no AD TUG Impairment Rating 60 to <80% Impaired (Score 16- 17) PT-OP-F Manual Assessment Start: 04/18/20 10:36 Freq: Status: Active Protocol: Document 06/21/20 15:06 LRN (Rec: 06/21/20 16:52 LRN [id number]) Manual Assessments Soft Tissue Assessment Soft Tissue Mobility Assessment Moderate plus swelling in R LE . No pitting edema noted. PT-OP-G Mobility & Gait Start: 04/18/20 10:36 Freq: Status: Active Protocol: Document 06/27/20 15:06 LRN (Rec: 06/27/20 16:04 LRN [id number]) OP Gait Assessment Gait Gait Assistance Required: Standby Assistance Able to Maintain Weight Bearing Status Yes During Gait Assistive Devices Assistive Device Straight Cane Gait Deviations General Gait Pattern Decreased Stride Length Factors Limiting Gait Function Factors Limiting Gait Function Incoordination Comments Gait Comments Pt is independent with use of FWW and tends to carry walker; therefore pt is more safe with SPC. Stair Climbing Evaluation Evaluation Level of Assist On Stairs Independent Devices Stair Climbing Assistive Devices Straight Cane,Right Railing Technique/Endurance Stair Climbing Direction Ascend Stair Climbing Technique Step Over Step Number of Steps Climbed 4 Comments Stair Climbing Comments Pt descends with L railing/SPC /Independent/Normal trunk positioning/Step to step gait. PT-OP-K Range of Motion Start: 04/18/20 10:36 Freq: Status: Active Protocol: Document 06/30/20 13:35 LRN (Rec: 06/30/20 14:14 LRN [id number]) Knee Goniometric Range of Motion Knee Right Knee ROM WFL No Patient Position Supine Flexion Active (degrees) 110 Extension Active (degrees) 5 PT-OP-M Strength Start: 04/18/20 10:34 Freq: Status: Active Protocol: Document 06/21/20 15:06 LRN (Rec: 06/21/20 16:52 LRN [id number]) Hip Strength Hip Manual Muscle Testing Right Flexion (L2) 2 Poor Abduction 2 Poor Adduction 2 Poor Left Flexion (L2) 3 Fair Extension (S1) 5 Normal Abduction 3 Fair Adduction 5 Normal Knee Strength Knee Manual Muscle Testing Left Flexion (S2) 5 Normal Extension (L3) 5 Normal Right Flexion (S2) 3- Fair- Extension (L3) 2+ Poor+ Ankle/Foot Strength Ankle and Foot Manual Muscle Testing Right Comments WNL Left Comments WNL PT-OP-Q Treatments Start: 04/18/20 10:34 Freq: Status: Active Protocol: Document 06/30/20 13:35 LRN (Rec: 06/30/20 14:14 LRN [id number]) Cardio Equipment Recumbent Bicycle Duration (Minutes) 6 Resistance 0 Seat Position 7 Therapeutic Exercises Supine Exercises BKFO Supine Exercise Name Benny BKFO Side bilateral Reps/Minutes 10x 2 SLR Supine Exercise Name Indep SLR Side right Reps/Minutes 10x Comments Extra time for training of proper breathing Quad Sets Supine Exercise Name QS Equipment Used Hand towel roll under ankle Reps/Minutes 10 hold & 5 hold x 5 each R TKE Supine Exercise Name R SAQ Side right Reps/Minutes 10 x 2 supine heel slide Supine Exercise Name Heel slides on & off TBall Side right Reps/Minutes 5 hold, 10x each Standing Exercises Hip AD Standing Exercise Name Hip AD Side bilateral Reps/Minutes 5x each Comments Extra time to determine max rep Hip Ext Standing Exercise Name Hip Ext Side bilateral Reps/Minutes 5x each Comments Extra time to determine max rep Hip AB Standing Exercise Name Hip AB Side bilateral Reps/Minutes 10x each Comments Extra time for max tolerance marching in place Standing Exercise Name March Side bilateral Reps/Minutes 5x each Gait Training Gait Activity Stair Ambulation Description Gait on Stairs Device Used 1 rail & with/without SPC Level of Assistance V. cuing Distance/Duration 3' Treatment Focus Normal trunk posture, proper use of cane, proper sequencing Comments Pt tended to turn to the 1 railing assisted side for ascending descending. Not able to keep trunk in neutral unless using cane. Pt took several practice runs before understanding proper turnk posture with step to step gait . Gait on level Description Gait with SPC, Gait without assistive device Device Used SPC, none Level of Assistance V. cuing Surface Level Distance/Duration 5' Treatment Focus Normal gait with use of SPC, Safe gait without AD PT-OP-R Modalities Start: 04/18/20 10:34 Freq: Status: Active Protocol: Document 06/27/20 15:06 LRN (Rec: 06/27/20 16:04 LRN [id number]) Hot Pack/Cold Pack Treatment Cold Pack Patient Position Supine PT-OP-T Assessment and Plan Start: 04/18/20 10:34 Freq: Status: Active Protocol: Document 06/30/20 13:35 LRN (Rec: 06/30/20 14:14 LRN [id number]) Physical Therapy Assessment Goals TUG Impairment TUG score 22 secs, indicating 100% impaired Short Term Goal (STG) TUG score 16 secs (60< 80% impaired) STG Duration 08/01/20 (06/27/20: Improving TUG score 16.5 secs) Manager Of Procurement Goal (LTG) TUG score of 11 secs (1<20% impaired) LTG Duration 09/19/20 HEP Impairment Pt lacks appropriate post-op R TKA HEP. Manager Of Procurement Goal (LTG) Pt will be independent in a self care HEP for advancement in strength, ROM, balance of the RLE for safe and independent care and function. LTG Duration 09/19/20 Transfers Impairment Pt requires assist with transfers (sit<>stand & in/out of bed after exer) Short Term Goal (STG) Pt will be able to transfer in /out of bed after exercise without assist. STG Duration 07/11/20 Manager Of Procurement Goal (LTG) Pt will be able to transfer up /down from a chair without use of UE's. LTG Duration 09/19/20 Stair amb Impairment Pt has step to step gait on stairs with use of hand pole assist Short Term Goal (STG) Pt will be independent & safe for step to step ambulation with use of a hand pole. STG Duration 07/11/20 (06/27/20: MET GOAL) Correction Goal (LTG) Pt will be independent & safe with step over step ambulation with use of a hand pole. LTG Duration 09/19/20 Gait with walker Impairment Pt requires SBA with use of FWW Short Term Goal (STG) Pt will be independent walking with use of FWW. STG Duration 07/01/20 (06/27/20: MET GOAL ) Manager Of Procurement Goal (LTG) Pt will be able to walk without use assistive device safely. LTG Duration 09/19/20 Strength Impairment Decreased R knee strength (Ext 2+/5, Flex 3-/5) Short Term Goal (STG) Improve R knee strength to 4+/ 5 with pt able to ambulate without an assistive device and on stairs with a normal gait pattern without use of railing. STG Duration 08/01/20 Manager Of Procurement Goal (LTG) Improve R knee strength post operatively to 5/5 with pt able to return to driving. LTG Duration 09/19/20 knee ROM Impairment R knee AROM: 15-96 Short Term Goal (STG) Improve R knee AROM 7-115 deg' s with pt able to start a self home program of ex on her recumbent stepper/bike. STG Duration 07/19/20 Manager Of Procurement Goal (LTG) Improve R knee AROM to 0-125 deg's to improve gait mechanics on level and for a normal stairs gait pattern. LTG Duration 09/19/20 LEFS Impairment LEFS score Short Term Goal (STG) Pt will improve LEFS score to pre-op score of 27/80. STG Duration 07/17/20 Manager Of Procurement Goal (LTG) Pt will improve LEFS score > 30 to demonstrate improved functional ability. LTG Duration 09/19/20 Progress Towards Goals Progress Comments Improved R knee AROM: 5-110 Assessment Summary Assessment Pt needed stair training due to improper use of cane on stairs. Pt was able to amb correctly with a step to step gait after training. Pt gait pattern on level is slow but normal with use of cane. Physical Therapy Plan Frequency and Duration Frequency of Treatment 2x/Week Plan of Care Start Date 06/21/20 Plan of Care End Date 09/19/20 Next Visit Focus/Plan Next Note Type Treatment Note Next Visit Plan Cont R TKA rehabilitation. Add standing hamstring curl. Progress ROM & measure, review standing strengthening ex's, progress stairs and home program when appropriate. HEP: Benny BKFO, standing R knee ex's.
--- NOTE | 2020-07-05 16:28 | PT.OTN ---
Current Diagnoses Unilateral primary osteoarthritis, right knee (07/05/20) Pain in right knee (07/05/20) Stiffness of right knee, not elsewhere classified (07/05/20) Muscle weakness (generalized) (07/05/20) Other abnormalities of gait and mobility (07/05/20) Physical Therapy Treatment Note PT-OP-A Visit Information Start: 04/18/20 10:34 Freq: Status: Active Protocol: Document 07/05/20 12:12 LRN (Rec: 07/05/20 14:23 LRN [id number]) Out-Patient Physical Therapy Visit Information Visit Information Visit Type Treatment Note Visit Start Time 13:35 Visit Stop Time 14:17 Total Visit Minutes 42 Visit Number 6 Evaluation Information Evaluation Date 06/21/20 Precautions Precautions History of falls, arthritis PT-OP-B Current Condition Start: 04/18/20 10:34 Freq: Status: Active Protocol: Document 06/21/20 15:06 LRN (Rec: 06/21/20 16:52 LRN [id number]) Current Condition History of Current Condition Onset Date 06/16/20 Current Complaints R knee swollen and achy pain after exercise History of Current Condition 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 Walking with FWW and can full WB on RLE for brief time. Prior Treatments and Tests Acute care PT. Future Testing and Treatments Planned Next MD visit 06/23/20. Treatment Goals Patient/Caregiver Goals Pt goal is to be able to walk without walker & hurting, possibly beach, 1 miles. STG: Gait independently without SBA. 2 Steps without assist with pole for UE support. Goal: Independent transfer in /out of bed. Drive independently Prior Functional Status Baseline Function- ADL's Independent Baseline Function- Mobility Independent Baseline Function- Gait Independent with mild limp due to limited R knee mobility. Baseline Function- Other Not able to get up/down on floor. Current Functional Impairments (Reported) Functional Limitations- ADL's Stairs one step at a time using a vertical pole. Dresses self, toilets self, Needs assist into bed after exercises. Functional Limitations- Mobility/Gait Walks with SBA around the house. Personal Factors Other Personal Factors That May Effect Dizziness on sitting from Therapy/Recovery supine. Age. Has spouse and daughter at home to help after surgery. PT-OP-C Subjective Start: 08/10/20 10:34 Freq: Status: Active Protocol: Document 07/05/20 12:12 LRN (Rec: 07/05/20 14:23 LRN [id number]) OP-PT Subjective Patient Comments Patient Comments States she is fighting depression a little. States she is able to go full revolution on her home recumbent bike with the seat far back. Having pain in lateral L knee where swelling is still present. States this morning was the first time feet felt the same in her shoes, so notes swelling is down in the LLE. PT-OP-D Balance Start: 04/18/20 10:36 Freq: Status: Active Protocol: Document 06/21/20 15:06 LRN (Rec: 06/21/20 16:52 LRN [id number]) Balance Tests Single Limb Standing Single Limb- Right 1 sec Other Other Balance Tests Performed Standing balance: Rhomberg modified: Feet as close together as Valgus knees allow : 60 secs. PT-OP-E Functional Tests Start: 04/18/20 10:36 Freq: Status: Active Protocol: Document 06/27/20 15:06 LRN (Rec: 06/27/20 16:04 LRN [id number]) Functional Tests Timed Up and Go (TUG) Score 16.5 Comments Use of hands, no AD TUG Impairment Rating 60 to <80% Impaired (Score 16- 17) PT-OP-F Manual Assessment Start: 04/18/20 10:36 Freq: Status: Active Protocol: Document 06/21/20 15:06 LRN (Rec: 06/21/20 16:52 LRN [id number]) Manual Assessments Soft Tissue Assessment Soft Tissue Mobility Assessment Moderate plus swelling in R LE . No pitting edema noted. PT-OP-G Mobility & Gait Start: 04/18/20 10:36 Freq: Status: Active Protocol: Document 06/27/20 15:06 LRN (Rec: 06/27/20 16:04 LRN [id number]) OP Gait Assessment Gait Gait Assistance Required: Standby Assistance Able to Maintain Weight Bearing Status Yes During Gait Assistive Devices Assistive Device Straight Cane Gait Deviations General Gait Pattern Decreased Stride Length Factors Limiting Gait Function Factors Limiting Gait Function Incoordination Comments Gait Comments Pt is independent with use of FWW and tends to carry walker; therefore pt is more safe with SPC. Stair Climbing Evaluation Evaluation Level of Assist On Stairs Independent Devices Stair Climbing Assistive Devices Straight Cane,Right Railing Technique/Endurance Stair Climbing Direction Ascend Stair Climbing Technique Step Over Step Number of Steps Climbed 4 Comments Stair Climbing Comments Pt descends with L railing/SPC /Independent/Normal trunk positioning/Step to step gait. PT-OP-K Range of Motion Start: 04/18/20 10:36 Freq: Status: Active Protocol: Document 07/05/20 12:12 LRN (Rec: 07/05/20 14:23 LRN [id number]) Knee Goniometric Range of Motion Knee Right Knee ROM WFL No Patient Position Supine Flexion Active (degrees) 117 Flexion Passive (degrees) 117 Extension Active (degrees) 16 Extension Passive (degrees) 3 Comments R knee flexion on T-Ball passively is 95 deg's. PT-OP-M Strength Start: 04/18/20 10:34 Freq: Status: Active Protocol: Document 06/21/20 15:06 LRN (Rec: 06/21/20 16:52 LRN [id number]) Hip Strength Hip Manual Muscle Testing Right Flexion (L2) 2 Poor Abduction 2 Poor Adduction 2 Poor Left Flexion (L2) 3 Fair Extension (S1) 5 Normal Abduction 3 Fair Adduction 5 Normal Knee Strength Knee Manual Muscle Testing Left Flexion (S2) 5 Normal Extension (L3) 5 Normal Right Flexion (S2) 3- Fair- Extension (L3) 2+ Poor+ Ankle/Foot Strength Ankle and Foot Manual Muscle Testing Right Comments WNL Left Comments WNL PT-OP-Q Treatments Start: 04/18/20 10:34 Freq: Status: Active Protocol: Document 07/05/20 12:12 LRN (Rec: 07/05/20 14:23 LRN [id number]) Cardio Equipment Bicycle (Upright) Duration (Minutes) 6 Resistance 0 Seat Position 5 Therapeutic Exercises Supine Exercises R TKE Supine Exercise Name R SAQ Side right Reps/Minutes 10 x 2 supine heel slide Supine Exercise Name Heel slides on & off TBall Side right Reps/Minutes 5 hold, 10x each Standing Exercises Knee flex Standing Exercise Name Alternating Knee flex keeping knees somewhat together Side right Reps/Minutes 3' Hip AD Standing Exercise Name Hip AD Side bilateral Reps/Minutes 15x each Comments Extra time to determine max rep Hip Ext Standing Exercise Name Hip Ext Side bilateral Reps/Minutes 15x each Comments Extra time to determine max rep Hip AB Standing Exercise Name Hip AB Side bilateral Reps/Minutes 16x each Comments Extra time for max tolerance marching in place Standing Exercise Name March Side bilateral Reps/Minutes 20x each Gait Training Gait Activity Gait on level Description Gait without assistive device Device Used SPC, none Level of Assistance V. cuing Surface Level Distance/Duration 5' Treatment Focus Normal gait with use of SPC, Safe gait without AD Manual Therapy Treatment Soft Tissue Mobilization knee joint Body Location R knee scar and adjacent soft tissue Mobilization Type Myofascial Release,Other Intensity/Depth Superficial Body Position Supine Taping K-tape Body Location K-tape R knee Treatment Focus Decrease edema Type of Tape Kinesio Tape Skin Inspection Good Self-Care/Home Management Treatment Education Other Education Pt educated in self scar and soft tissue mob. Pt educated in proper removal of K-tape. Pt educated that tape can stay on for 5 days and in safe removal. Pt instructed in removal with signs of allergic reaction. PT-OP-R Modalities Start: 04/18/20 10:34 Freq: Status: Active Protocol: Document 06/27/20 15:06 LRN (Rec: 06/27/20 16:04 LRN [id number]) Hot Pack/Cold Pack Treatment Cold Pack Patient Position Supine PT-OP-T Assessment and Plan Start: 04/18/20 10:34 Freq: Status: Active Protocol: Document 07/05/20 12:12 LRN (Rec: 07/05/20 14:23 LRN [id number]) Physical Therapy Assessment Goals TUG Impairment TUG score 22 secs, indicating 100% impaired Short Term Goal (STG) TUG score 16 secs (60< 80% impaired) STG Duration 08/01/20 (06/27/20: Improving TUG score 16.5 secs) [facility] Goal (LTG) TUG score of 11 secs (1<20% impaired) LTG Duration 09/19/20 HEP Impairment Pt lacks appropriate post-op R TKA HEP. [facility] Goal (LTG) Pt will be independent in a self care HEP for advancement in strength, ROM, balance of the RLE for safe and independent care and function. LTG Duration 09/19/20 Transfers Impairment Pt requires assist with transfers (sit<>stand & in/out of bed after exer) Short Term Goal (STG) Pt will be able to transfer in /out of bed after exercise without assist. STG Duration 07/11/20 (07/05/20: MET GOAL) [facility] Goal (LTG) Pt will be able to transfer up /down from a chair without use of UE's. LTG Duration 09/19/20 Stair amb Impairment Pt has step to step gait on stairs with use of hand pole assist Short Term Goal (STG) Pt will be independent & safe for step to step ambulation with use of a hand pole. STG Duration 07/11/20 (06/27/20: MET GOAL) [facility] Goal (LTG) Pt will be independent & safe with step over step ambulation with use of a hand pole. LTG Duration 09/19/20 Gait with walker Impairment Pt requires SBA with use of FWW Short Term Goal (STG) Pt will be independent walking with use of FWW. STG Duration 07/01/20 (06/27/20: MET GOAL ) [facility] Goal (LTG) Pt will be able to walk without use assistive device safely. LTG Duration 09/19/20 Strength Impairment Decreased R knee strength (Ext 2+/5, Flex 3-/5) Short Term Goal (STG) Improve R knee strength to 4+/ 5 with pt able to ambulate without an assistive device and on stairs with a normal gait pattern without use of railing. STG Duration 08/01/20 Agricultural Service Worker Goal (LTG) Improve R knee strength post operatively to 5/5 with pt able to return to driving. LTG Duration 09/19/20 knee ROM Impairment R knee AROM: 15-96 Short Term Goal (STG) Improve R knee AROM 7-115 deg' s with pt able to start a self home program of ex on her recumbent stepper/bike. (07/05/20: Pt has started using her home recumbent bike. AROM is 15-117 deg's) STG Duration 07/19/20 (07/05/20: Improving) [facility] Goal (LTG) Improve R knee AROM to 0-125 deg's to improve gait mechanics on level and for a normal stairs gait pattern. LTG Duration 09/19/20 LEFS Impairment LEFS score Short Term Goal (STG) Pt will improve LEFS score to pre-op score of 27/80. STG Duration 07/17/20 Agricultural Service Worker Goal (LTG) Pt will improve LEFS score > 30 to demonstrate improved functional ability. LTG Duration 09/19/20 Progress Towards Goals Progress Comments Transfer short term goal: MET . Pt is able to transfer on/ off plinth table without assist for RLE. Assessment Summary Assessment Pt improving in strength as noted with increased tolerance of ex's. R knee AROM is improving. Physical Therapy Plan Frequency and Duration Frequency of Treatment 2x/Week Plan of Care Start Date 06/21/20 Plan of Care End Date 09/19/20 Next Visit Focus/Plan Next Note Type Treatment Note Next Visit Plan Cont R TKA rehabilitation. Improve medial quad strength for improved active knee extension ROM. HEP: Benny BKFO , standing R knee ex's. Progress ROM & measure, progress endurance of standing strengthening ex's, progress stairs and home program when appropriate.
--- NOTE | 2020-07-08 15:20 | PT.OTN ---
Current Diagnoses Unilateral primary osteoarthritis, right knee (07/08/20) Pain in right knee (07/08/20) Stiffness of right knee, not elsewhere classified (07/08/20) Muscle weakness (generalized) (07/08/20) Other abnormalities of gait and mobility (07/08/20) Physical Therapy Treatment Note PT-OP-A Visit Information Start: 04/18/20 10:34 Freq: Status: Active Protocol: Document 07/08/20 14:32 SP (Rec: 07/08/20 16:05 SP [id number]) Out-Patient Physical Therapy Visit Information Visit Information Visit Type Treatment Note Visit Start Time 14:32 Visit Stop Time 15:20 Total Visit Minutes 48 Visit Number 7 Number of [employer] INSTALLER Visits 1 PT-OP-B Current Condition Start: 04/18/20 10:34 Freq: Status: Active Protocol: Document 06/21/20 15:06 LRN (Rec: 06/21/20 16:52 LRN [id number]) Current Condition History of Current Condition Onset Date 06/16/20 Current Complaints R knee swollen and achy pain after exercise History of Current Condition 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 Walking with FWW and can full WB on RLE for brief time. Prior Treatments and Tests Acute care PT. Future Testing and Treatments Planned Next MD visit 06/23/20. Treatment Goals Patient/Caregiver Goals Pt goal is to be able to walk without walker & hurting, possibly beach, 1 miles. STG: Gait independently without SBA. 2 Steps without assist with pole for UE support. Goal: Independent transfer in /out of bed. Drive independently Prior Functional Status Baseline Function- ADL's Independent Baseline Function- Mobility Independent Baseline Function- Gait Independent with mild limp due to limited R knee mobility. Baseline Function- Other Not able to get up/down on floor. Current Functional Impairments (Reported) Functional Limitations- ADL's Stairs one step at a time using a vertical pole. Dresses self, toilets self, Needs assist into bed after exercises. Functional Limitations- Mobility/Gait Walks with SBA around the house. Personal Factors Other Personal Factors That May Effect Dizziness on sitting from Therapy/Recovery supine. Age. Has spouse and daughter at home to help after surgery. PT-OP-C Subjective Start: 04/18/20 10:34 Freq: Status: Active Protocol: Document 07/08/20 14:32 SP (Rec: 07/08/20 16:05 SP [id number]) OP-PT Subjective Patient Comments Patient Comments Pt arrived using SPC today in E. Pt reported was really sore for 2 days after last tx and sleeping was even harder, had to take the tape off due to too much pressure on her knee by end of day. PT-OP-D Balance Start: 04/18/20 10:36 Freq: Status: Active Protocol: Document 06/21/20 15:06 LRN (Rec: 06/21/20 16:52 LRN [id number]) Balance Tests Single Limb Standing Single Limb- Right 1 sec Other Other Balance Tests Performed Standing balance: Rhomberg modified: Feet as close together as Valgus knees allow : 60 secs. PT-OP-E Functional Tests Start: 04/18/20 10:36 Freq: Status: Active Protocol: Document 06/27/20 15:06 LRN (Rec: 06/27/20 16:04 LRN [id number]) Functional Tests Timed Up and Go (TUG) Score 16.5 Comments Use of hands, no AD TUG Impairment Rating 60 to <80% Impaired (Score 16- 17) PT-OP-F Manual Assessment Start: 04/18/20 10:36 Freq: Status: Active Protocol: Document 06/21/20 15:06 LRN (Rec: 06/21/20 16:52 LRN [id number]) Manual Assessments Soft Tissue Assessment Soft Tissue Mobility Assessment Moderate plus swelling in R LE . No pitting edema noted. PT-OP-G Mobility & Gait Start: 04/18/20 10:36 Freq: Status: Active Protocol: Document 06/27/20 15:06 LRN (Rec: 06/27/20 16:04 LRN [id number]) OP Gait Assessment Gait Gait Assistance Required: Standby Assistance Able to Maintain Weight Bearing Status Yes During Gait Assistive Devices Assistive Device Straight Cane Gait Deviations General Gait Pattern Decreased Stride Length Factors Limiting Gait Function Factors Limiting Gait Function Incoordination Comments Gait Comments Pt is independent with use of FWW and tends to carry walker; therefore pt is more safe with SPC. Stair Climbing Evaluation Evaluation Level of Assist On Stairs Independent Devices Stair Climbing Assistive Devices Straight Cane,Right Railing Technique/Endurance Stair Climbing Direction Ascend Stair Climbing Technique Step Over Step Number of Steps Climbed 4 Comments Stair Climbing Comments Pt descends with L railing/SPC /Independent/Normal trunk positioning/Step to step gait. PT-OP-K Range of Motion Start: 04/18/20 10:36 Freq: Status: Active Protocol: Document 07/08/20 14:32 SP (Rec: 07/08/20 16:09 SP [id number]) Knee Goniometric Range of Motion Knee Right Knee ROM WFL No Patient Position Supine Flexion Active (degrees) 120 Flexion Passive (degrees) 124 Extension Active (degrees) 1 Extension Passive (degrees) 2 Comments R knee slide on table flex, ext ankle on rolled towel PT-OP-M Strength Start: 04/18/20 10:34 Freq: Status: Active Protocol: Document 06/21/20 15:06 LRN (Rec: 06/21/20 16:52 LRN [id number]) Hip Strength Hip Manual Muscle Testing Right Flexion (L2) 2 Poor Abduction 2 Poor Adduction 2 Poor Left Flexion (L2) 3 Fair Extension (S1) 5 Normal Abduction 3 Fair Adduction 5 Normal Knee Strength Knee Manual Muscle Testing Left Flexion (S2) 5 Normal Extension (L3) 5 Normal Right Flexion (S2) 3- Fair- Extension (L3) 2+ Poor+ Ankle/Foot Strength Ankle and Foot Manual Muscle Testing Right Comments WNL Left Comments WNL PT-OP-Q Treatments Start: 04/18/20 10:34 Freq: Status: Active Protocol: Document 07/08/20 14:32 SP (Rec: 07/08/20 16:05 SP [id number]) Cardio Equipment Bicycle (Upright) Duration (Minutes) 6 Resistance 0 Seat Position 5 Other (requires hand step stool) Therapeutic Exercises Supine Exercises Quad Sets Supine Exercise Name QS Side right Equipment Used Hand towel roll under ankle Reps/Minutes 10 hold & 5 hold x 5 each & quick flick patella tracting supine heel slide Supine Exercise Name Heel slides on & off TBall Side right Reps/Minutes 5 hold, 10x each Comments cued slow pacing, for stability Prone Exercises HS curl Prone Exercise Name rolled towel underneath thigh Side right Equipment Used AROM Reps/Minutes x2 Comments stopped due to snapping at medial distal HS and gastroc Sitting Exercises rolling pin Sitting Exercise Name gental quad, adductor, ITB, HS and gastroc Equipment Used add HEP- gave HO Reps/Minutes 1 min total Comments good tolerance and found beneficial Standing Exercises resisted R knee flexion Standing Exercise Name intially ant knee recruitment discomfort, none post cues Side right Resistance TB #1 Equipment Used chair Reps/Minutes x10 Comments cued thigh fully supported ( deep & proper height), good feedback. Manual Therapy Treatment Soft Tissue Mobilization scar mob Body Location R knee Mobilization Type Other Intensity/Depth Moderate Body Position Supine Comments good tolerance: manual and instruction self. Joint Mobilizations patella mob Joint R Direction med, lat, inf, sup Grade I Body Position Supine Reps/Duration 1 min Taping K-tape Body Location K-tape R knee Treatment Focus Decrease edema Type of Tape Kinesio Tape Skin Inspection Good Comments basket weave superior lateral patella- slight/gentle stretch PT-OP-R Modalities Start: 04/18/20 10:34 Freq: Status: Active Protocol: Document 06/27/20 15:06 LRN (Rec: 06/27/20 16:04 LRN [id number]) Hot Pack/Cold Pack Treatment Cold Pack Patient Position Supine PT-OP-T Assessment and Plan Start: 04/18/20 10:34 Freq: Status: Active Protocol: Document 07/08/20 14:32 SP (Rec: 07/08/20 16:05 SP [id number]) Physical Therapy Assessment Goals TUG Impairment TUG score 22 secs, indicating 100% impaired Short Term Goal (STG) TUG score 16 secs (60< 80% impaired) STG Duration 08/01/20 (06/27/20: Improving TUG score 16.5 secs) M[employer] Reader Inspector Goal (LTG) TUG score of 11 secs (1<20% impaired) LTG Duration 09/19/20 HEP Impairment Pt lacks appropriate post-op R TKA HEP. [employer] Reader Inspector Goal (LTG) Pt will be independent in a self care HEP for advancement in strength, ROM, balance of the RLE for safe and independent care and function. LTG Duration 09/19/20 Transfers Impairment Pt requires assist with transfers (sit<>stand & in/out of bed after exer) Short Term Goal (STG) Pt will be able to transfer in /out of bed after exercise without assist. STG Duration 07/11/20 (07/05/20: MET GOAL) Group Home Goal (LTG) Pt will be able to transfer up /down from a chair without use of UE's. LTG Duration 09/19/20 Stair amb Impairment Pt has step to step gait on stairs with use of hand pole assist Short Term Goal (STG) Pt will be independent & safe for step to step ambulation with use of a hand pole. STG Duration 07/11/20 (06/27/20: MET GOAL) M[employer] Reader Inspector Goal (LTG) Pt will be independent & safe with step over step ambulation with use of a hand pole. LTG Duration 09/19/20 Gait with walker Impairment Pt requires SBA with use of FWW Short Term Goal (STG) Pt will be independent walking with use of FWW. STG Duration 07/01/20 (06/27/20: MET GOAL ) M[employer] Reader Inspector Goal (LTG) Pt will be able to walk without use assistive device safely. LTG Duration 09/19/20 Strength Impairment Decreased R knee strength (Ext 2+/5, Flex 3-/5) Short Term Goal (STG) Improve R knee strength to 4+/ 5 with pt able to ambulate without an assistive device and on stairs with a normal gait pattern without use of railing. STG Duration 08/01/20 Group Home Goal (LTG) Improve R knee strength post operatively to 5/5 with pt able to return to driving. LTG Duration 09/19/20 knee ROM Impairment R knee AROM: 15-96 Short Term Goal (STG) Improve R knee AROM 7-115 deg' s with pt able to start a self home program of ex on her recumbent stepper/bike. (07/05/20: Pt has started using her home recumbent bike. AROM is 15-117 deg's) STG Duration 07/19/20 (07/05/20: Improving) M[employer] Reader Inspector Goal (LTG) Improve R knee AROM to 0-125 deg's to improve gait mechanics on level and for a normal stairs gait pattern. LTG Duration 09/19/20 LEFS Impairment LEFS score Short Term Goal (STG) Pt will improve LEFS score to pre-op score of 27/80. STG Duration 07/17/20 Group Home Goal (LTG) Pt will improve LEFS score > 30 to demonstrate improved functional ability. LTG Duration 09/19/20 Assessment Summary Assessment Pt improving in R knee flexion gained 3 deg flexion AROM, 7 deg PROM flexion (slide foot on table with shoe donned), 2 deg extension AROM. Reviewed few HEP today. Focused on K taping and extra time spent problem solving snapping during R knee flexion/ext leg over ball. PT Germain assessed and reported possibly just gastroc/ HS tendons rolling over each other during eccentric return flex> ext foot propped on ball and prone eccentric flexion, Pt reported no pain just annoying and wasn't sure if should be concerned. No snapping during resisted seated HS curl and report of feeling good HS muscle work. Added rolling pin to adductors , quad, hs, calf end of tx for decreased tightness reported with good results. Basket weave lateral superior patella to allow lymph circulation, no adverse affects, very gentle/light tension/ stretch. Physical Therapy Plan Frequency and Duration Frequency of Treatment 2x/Week Plan of Care Start Date 06/21/20 Plan of Care End Date 09/19/20 Therapeutic Interventions Therapeutic Interventions Balance Training,Gait Training ,Home Exercise Program,Joint Mobilizations,Manual Therapy, Neuromuscular Re-education, Patient/Caregiver Education, Self-Care/Home Management,Soft Tissue Mobilization,Taping, Therapeutic Activities, Therapeutic Exercises Modalities Cold Pack/Ice Massage,Hot Packs Next Visit Focus/Plan Next Note Type Treatment Note Next Visit Plan Assess response to basket weave K taping, HS curl resistance and progress in ROM at home. Cont R TKA rehabilitation. Improve medial quad strength for improved active knee extension ROM. HEP: Benny BKFO , standing R knee ex's. Progress ROM & measure, progress endurance of standing strengthening ex's, progress stairs and home program when appropriate.
--- NOTE | 2020-07-12 14:32 | PT.OTN ---
Current Diagnoses Unilateral primary osteoarthritis, right knee (07/12/20) Pain in right knee (07/12/20) Stiffness of right knee, not elsewhere classified (07/12/20) Muscle weakness (generalized) (07/12/20) Other abnormalities of gait and mobility (07/12/20) Physical Therapy Treatment Note PT-OP-A Visit Information Start: 04/18/20 10:34 Freq: Status: Active Protocol: Document 07/12/20 13:49 SP (Rec: 07/12/20 16:13 SP [id number]) Out-Patient Physical Therapy Visit Information Visit Information Visit Type Treatment Note Visit Start Time 13:49 Visit Stop Time 14:32 Total Visit Minutes 43 Visit Number 8 Number of COORDINATE MEASURING MACHINE OPERATOR Visits 2 PT-OP-B Current Condition Start: 04/18/20 10:34 Freq: Status: Active Protocol: Document 06/21/20 15:06 LRN (Rec: 06/21/20 16:52 LRN [id number]) Current Condition History of Current Condition Onset Date 06/16/20 Current Complaints R knee swollen and achy pain after exercise History of Current Condition 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 Walking with FWW and can full WB on RLE for brief time. Prior Treatments and Tests Acute care PT. Future Testing and Treatments Planned Next MD visit 06/23/20. Treatment Goals Patient/Caregiver Goals Pt goal is to be able to walk without walker & hurting, possibly beach, 1 miles. STG: Gait independently without SBA. 2 Steps without assist with pole for UE support. Goal: Independent transfer in /out of bed. Drive independently Prior Functional Status Baseline Function- ADL's Independent Baseline Function- Mobility Independent Baseline Function- Gait Independent with mild limp due to limited R knee mobility. Baseline Function- Other Not able to get up/down on floor. Current Functional Impairments (Reported) Functional Limitations- ADL's Stairs one step at a time using a vertical pole. Dresses self, toilets self, Needs assist into bed after exercises. Functional Limitations- Mobility/Gait Walks with SBA around the house. Personal Factors Other Personal Factors That May Effect Dizziness on sitting from Therapy/Recovery supine. Age. Has spouse and daughter at home to help after surgery. PT-OP-C Subjective Start: 04/18/20 10:34 Freq: Status: Active Protocol: Document 07/12/20 13:49 SP (Rec: 07/12/20 16:13 SP [id number]) OP-PT Subjective Patient Comments Patient Comments Pt stated doing better, stiff today walking but can walk a little without cane. At times when walks though gets nervous because the R knee wants to bend backwards and hurts. Pt reported sees Dr Rowell this Saturday and will be asking why experiencing the tendon- like popping over medial distal gastroc/HS during eccentric knee flexion standing, prone and supine over ball. It doesn't hurt at first but does get irritating if doing to many reps. Pt stated basket weave taping stayed on until yesterday,not sure did anything but didn't make her knee hurt like prior taping. PT-OP-D Balance Start: 04/18/20 10:36 Freq: Status: Active Protocol: Document 06/21/20 15:06 LRN (Rec: 06/21/20 16:52 LRN [id number]) Balance Tests Single Limb Standing Single Limb- Right 1 sec Other Other Balance Tests Performed Standing balance: Rhomberg modified: Feet as close together as Valgus knees allow : 60 secs. PT-OP-E Functional Tests Start: 04/18/20 10:36 Freq: Status: Active Protocol: Document 06/27/20 15:06 LRN (Rec: 06/27/20 16:04 LRN [id number]) Functional Tests Timed Up and Go (TUG) Score 16.5 Comments Use of hands, no AD TUG Impairment Rating 60 to <80% Impaired (Score 16- 17) PT-OP-F Manual Assessment Start: 04/18/20 10:36 Freq: Status: Active Protocol: Document 06/21/20 15:06 LRN (Rec: 06/21/20 16:52 LRN [id number]) Manual Assessments Soft Tissue Assessment Soft Tissue Mobility Assessment Moderate plus swelling in R LE . No pitting edema noted. PT-OP-G Mobility & Gait Start: 04/18/20 10:36 Freq: Status: Active Protocol: Document 06/27/20 15:06 LRN (Rec: 06/27/20 16:04 LRN [id number]) OP Gait Assessment Gait Gait Assistance Required: Standby Assistance Able to Maintain Weight Bearing Status Yes During Gait Assistive Devices Assistive Device Straight Cane Gait Deviations General Gait Pattern Decreased Stride Length Factors Limiting Gait Function Factors Limiting Gait Function Incoordination Comments Gait Comments Pt is independent with use of FWW and tends to carry walker; therefore pt is more safe with SPC. Stair Climbing Evaluation Evaluation Level of Assist On Stairs Independent Devices Stair Climbing Assistive Devices Straight Cane,Right Railing Technique/Endurance Stair Climbing Direction Ascend Stair Climbing Technique Step Over Step Number of Steps Climbed 4 Comments Stair Climbing Comments Pt descends with L railing/SPC /Independent/Normal trunk positioning/Step to step gait. PT-OP-K Range of Motion Start: 04/18/20 10:36 Freq: Status: Active Protocol: Document 07/08/20 14:32 SP (Rec: 07/08/20 16:09 SP [id number]) Knee Goniometric Range of Motion Knee Right Knee ROM WFL No Patient Position Supine Flexion Active (degrees) 120 Flexion Passive (degrees) 124 Extension Active (degrees) 1 Extension Passive (degrees) 2 Comments R knee slide on table flex, ext ankle on rolled towel PT-OP-M Strength Start: 04/18/20 10:34 Freq: Status: Active Protocol: Document 06/21/20 15:06 LRN (Rec: 06/21/20 16:52 LRN [id number]) Hip Strength Hip Manual Muscle Testing Right Flexion (L2) 2 Poor Abduction 2 Poor Adduction 2 Poor Left Flexion (L2) 3 Fair Extension (S1) 5 Normal Abduction 3 Fair Adduction 5 Normal Knee Strength Knee Manual Muscle Testing Left Flexion (S2) 5 Normal Extension (L3) 5 Normal Right Flexion (S2) 3- Fair- Extension (L3) 2+ Poor+ Ankle/Foot Strength Ankle and Foot Manual Muscle Testing Right Comments WNL Left Comments WNL PT-OP-Q Treatments Start: 04/18/20 10:34 Freq: Status: Active Protocol: Document 07/12/20 13:49 SP (Rec: 07/12/20 16:13 SP [id number]) Cardio Equipment Bicycle (Upright) Duration (Minutes) 8 Resistance 2 Seat Position 5 Other able to get on normally today Therapeutic Exercises Supine Exercises SAQ Side right Equipment Used rolled towel under knee Reps/Minutes x10 2 sec hold Comments no pain small range Quad Sets Supine Exercise Name QS Side right Equipment Used Hand towel roll under ankle Reps/Minutes 10 hold & 5 hold x 5 each & quick flick patella tracting supine heel slide Supine Exercise Name Heel slides on table & off TBall Side right Reps/Minutes few reps then stopped due to unstable knee (hyper) extension feeling Comments decreased stability today Sitting Exercises LAQ Side right Resistance AROM Reps/Minutes x10 pause 1 sec end range Comments no pain, Mid quad tightening as would expect knee flexion Side right Resistance AROM Equipment Used on carpet w/ parachute material Reps/Minutes x15 Comments no pain or tendon popping resisted R knee flexion Sitting Exercise Name See standing prior tx. Resistance TB #1 Equipment Used chair Comments adverse reaction at home vs PT so stopped and come back to later Standing Exercises Knee flex Standing Exercise Name Alternating Knee flex keeping knees somewhat together Side right Reps/Minutes x5 Comments popping eccentric medial post R knee so stopped Hip AD Standing Exercise Name Hip AD Side right Reps/Minutes 15x Hip Ext Standing Exercise Name Hip Ext Side right Reps/Minutes 15x Hip AB Standing Exercise Name Hip AB Side right Reps/Minutes 15x marching in place Standing Exercise Name March Side right Reps/Minutes 20x Gait Training Gait Activity Gait on level Description Gait without assistive device Device Used SPC, none Level of Assistance V. cuing knee flexion, heel toe Surface Level Distance/Duration 50 ft Treatment Focus Normal gait with use of SPC Manual Therapy Treatment Soft Tissue Mobilization regrograde massage Body Location R knee Mobilization Type Myofascial Release,Other Intensity/Depth Moderate Body Position Supine Comments decrease pitting edema. scar mob Body Location R knee Mobilization Type Other Intensity/Depth Moderate Body Position Supine Comments good tolerance PT-OP-R Modalities Start: 04/18/20 10:34 Freq: Status: Active Protocol: Document 06/27/20 15:06 LRN (Rec: 06/27/20 16:04 LRN [id number]) Hot Pack/Cold Pack Treatment Cold Pack Patient Position Supine PT-OP-T Assessment and Plan Start: 04/18/20 10:34 Freq: Status: Active Protocol: Document 07/12/20 13:49 SP (Rec: 07/12/20 16:13 SP [id number]) Physical Therapy Assessment Goals TUG Impairment TUG score 22 secs, indicating 100% impaired Short Term Goal (STG) TUG score 16 secs (60< 80% impaired) STG Duration 08/01/20 (06/27/20: Improving TUG score 16.5 secs) Cans Vacuum Tester Goal (LTG) TUG score of 11 secs (1<20% impaired) LTG Duration 09/19/20 HEP Impairment Pt lacks appropriate post-op R TKA HEP. Cans Vacuum Tester Goal (LTG) Pt will be independent in a self care HEP for advancement in strength, ROM, balance of the RLE for safe and independent care and function. LTG Duration 09/19/20 Transfers Impairment Pt requires assist with transfers (sit<>stand & in/out of bed after exer) Short Term Goal (STG) Pt will be able to transfer in /out of bed after exercise without assist. STG Duration 07/11/20 (07/05/20: MET GOAL) Cans Vacuum Tester Goal (LTG) Pt will be able to transfer up /down from a chair without use of UE's. LTG Duration 09/19/20 Stair amb Impairment Pt has step to step gait on stairs with use of hand pole assist Short Term Goal (STG) Pt will be independent & safe for step to step ambulation with use of a hand pole. STG Duration 07/11/20 (06/27/20: MET GOAL) Assisted Goal (LTG) Pt will be independent & safe with step over step ambulation with use of a hand pole. LTG Duration 09/19/20 Gait with walker Impairment Pt requires SBA with use of FWW Short Term Goal (STG) Pt will be independent walking with use of FWW. STG Duration 07/01/20 (06/27/20: MET GOAL ) Assisted Goal (LTG) Pt will be able to walk without use assistive device safely. LTG Duration 09/19/20 Strength Impairment Decreased R knee strength (Ext 2+/5, Flex 3-/5) Short Term Goal (STG) Improve R knee strength to 4+/ 5 with pt able to ambulate without an assistive device and on stairs with a normal gait pattern without use of railing. STG Duration 08/01/20 Cans Vacuum Tester Goal (LTG) Improve R knee strength post operatively to 5/5 with pt able to return to driving. LTG Duration 09/19/20 knee ROM Impairment R knee AROM: 15-96 Short Term Goal (STG) Improve R knee AROM 7-115 deg' s with pt able to start a self home program of ex on her recumbent stepper/bike. (07/05/20: Pt has started using her home recumbent bike. AROM is 15-117 deg's) STG Duration 07/19/20 (07/05/20: Improving) Cans Vacuum Tester Goal (LTG) Improve R knee AROM to 0-125 deg's to improve gait mechanics on level and for a normal stairs gait pattern. LTG Duration 09/19/20 LEFS Impairment LEFS score Short Term Goal (STG) Pt will improve LEFS score to pre-op score of 27/80. STG Duration 07/17/20 Cans Vacuum Tester Goal (LTG) Pt will improve LEFS score > 30 to demonstrate improved functional ability. LTG Duration 09/19/20 Progress Towards Goals Progress Comments Pt unable to tolerate WB RLE during LLE standing ex for > 2 -3 reps due to increased pain but finds is helpful for strengthening durign those reps though, instructed ok to perform if limit to pain free. Assessment Summary Assessment Pt was not able to tolerated resisted HS curl with Tb #1 at home since last tx stating became painful even thought no popping so stopped, DC'd today for now. No concerns during AROM sitting, CKC supine so added to HEP along with post op review of LAQ, SAQ, quad set with towel roll under knee. Pt requested use of towel roll under knee to sleep better, feels unstable when sleeping like going in opposite direction. 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 Pt will follow up with ortho next week . Cued when leaving to walk knee flexion and heel toe with improvement in lateral lean performed when arrived, noted improved ROM and decreased swelling post manual and ex today and educated to perform self or ask to assist circulation return and elevate periodically. Physical Therapy Plan Frequency and Duration Frequency of Treatment 2x/Week Plan of Care Start Date 06/21/20 Plan of Care End Date 09/19/20 Therapeutic Interventions Therapeutic Interventions Balance Training,Gait Training ,Home Exercise Program,Joint Mobilizations,Manual Therapy, Neuromuscular Re-education, Patient/Caregiver Education, Self-Care/Home Management,Soft Tissue Mobilization,Taping, Therapeutic Activities, Therapeutic Exercises Modalities Cold Pack/Ice Massage,Hot Packs Next Visit Focus/Plan Next Note Type Treatment Note Next Visit Plan Assess response to manual retro grade massage for edema, AROM knee flexion no resistance and HEP review. Cont R TKA rehabilitation. Improve medial quad strength for improved active knee extension ROM. HEP: Benny BKFO , standing R knee ex's. Progress ROM & measure, progress endurance of standing strengthening ex's, progress stairs and home program when appropriate.
--- NOTE | 2020-07-14 14:31 | PT.OTN ---
Current Diagnoses Unilateral primary osteoarthritis, right knee (07/14/20) Pain in right knee (07/14/20) Stiffness of right knee, not elsewhere classified (07/14/20) Muscle weakness (generalized) (07/14/20) Other abnormalities of gait and mobility (07/14/20) Physical Therapy Treatment Note PT-OP-A Visit Information Start: 04/18/20 10:34 Freq: Status: Active Protocol: Document 07/14/20 13:48 SP (Rec: 07/14/20 16:22 SP [id number]) Out-Patient Physical Therapy Visit Information Visit Information Visit Type Treatment Note Visit Start Time 13:48 Visit Stop Time 14:31 Total Visit Minutes 43 Visit Number 9 Number of BOTTLER Visits 3 PT-OP-B Current Condition Start: 04/18/20 10:34 Freq: Status: Active Protocol: Document 06/21/20 15:06 LRN (Rec: 06/21/20 16:52 LRN [id number]) Current Condition History of Current Condition Onset Date 06/16/20 Current Complaints R knee swollen and achy pain after exercise History of Current Condition 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 Walking with FWW and can full WB on RLE for brief time. Prior Treatments and Tests Acute care PT. Future Testing and Treatments Planned Next MD visit 06/23/20. Treatment Goals Patient/Caregiver Goals Pt goal is to be able to walk without walker & hurting, possibly beach, 1 miles. STG: Gait independently without SBA. 2 Steps without assist with pole for UE support. Goal: Independent transfer in /out of bed. Drive independently Prior Functional Status Baseline Function- ADL's Independent Baseline Function- Mobility Independent Baseline Function- Gait Independent with mild limp due to limited R knee mobility. Baseline Function- Other Not able to get up/down on floor. Current Functional Impairments (Reported) Functional Limitations- ADL's Stairs one step at a time using a vertical pole. Dresses self, toilets self, Needs assist into bed after exercises. Functional Limitations- Mobility/Gait Walks with SBA around the house. Personal Factors Other Personal Factors That May Effect Dizziness on sitting from Therapy/Recovery supine. Age. Has spouse and daughter at home to help after surgery. PT-OP-C Subjective Start: 04/18/20 10:34 Freq: Status: Active Protocol: Document 07/14/20 13:48 SP (Rec: 07/14/20 16:22 SP [id number]) OP-PT Subjective Patient Comments Patient Comments Pt stated I am pretty sore today over front of R knee and occasionally medial R knee on proximal tibia and distal femur, not sure why. Pt stated see orthopedic PT-OP-D Balance Start: 04/18/20 10:36 Freq: Status: Active Protocol: Document 06/21/20 15:06 LRN (Rec: 06/21/20 16:52 LRN [id number]) Balance Tests Single Limb Standing Single Limb- Right 1 sec Other Other Balance Tests Performed Standing balance: Rhomberg modified: Feet as close together as Valgus knees allow : 60 secs. PT-OP-E Functional Tests Start: 04/18/20 10:36 Freq: Status: Active Protocol: Document 06/27/20 15:06 LRN (Rec: 06/27/20 16:04 LRN [id number]) Functional Tests Timed Up and Go (TUG) Score 16.5 Comments Use of hands, no AD TUG Impairment Rating 60 to <80% Impaired (Score 16- 17) PT-OP-F Manual Assessment Start: 04/18/20 10:36 Freq: Status: Active Protocol: Document 06/21/20 15:06 LRN (Rec: 06/21/20 16:52 LRN [id number]) Manual Assessments Soft Tissue Assessment Soft Tissue Mobility Assessment Moderate plus swelling in R LE . No pitting edema noted. PT-OP-G Mobility & Gait Start: 04/18/20 10:36 Freq: Status: Active Protocol: Document 06/27/20 15:06 LRN (Rec: 06/27/20 16:04 LRN [id number]) OP Gait Assessment Gait Gait Assistance Required: Standby Assistance Able to Maintain Weight Bearing Status Yes During Gait Assistive Devices Assistive Device Straight Cane Gait Deviations General Gait Pattern Decreased Stride Length Factors Limiting Gait Function Factors Limiting Gait Function Incoordination Comments Gait Comments Pt is independent with use of FWW and tends to carry walker; therefore pt is more safe with SPC. Stair Climbing Evaluation Evaluation Level of Assist On Stairs Independent Devices Stair Climbing Assistive Devices Straight Cane,Right Railing Technique/Endurance Stair Climbing Direction Ascend Stair Climbing Technique Step Over Step Number of Steps Climbed 4 Comments Stair Climbing Comments Pt descends with L railing/SPC /Independent/Normal trunk positioning/Step to step gait. PT-OP-K Range of Motion Start: 04/18/20 10:36 Freq: Status: Active Protocol: Document 07/08/20 14:32 SP (Rec: 07/08/20 16:09 SP [id number]) Knee Goniometric Range of Motion Knee Right Knee ROM WFL No Patient Position Supine Flexion Active (degrees) 120 Flexion Passive (degrees) 124 Extension Active (degrees) 1 Extension Passive (degrees) 2 Comments R knee slide on table flex, ext ankle on rolled towel PT-OP-M Strength Start: 04/18/20 10:34 Freq: Status: Active Protocol: Document 06/21/20 15:06 LRN (Rec: 06/21/20 16:52 LRN [id number]) Hip Strength Hip Manual Muscle Testing Right Flexion (L2) 2 Poor Abduction 2 Poor Adduction 2 Poor Left Flexion (L2) 3 Fair Extension (S1) 5 Normal Abduction 3 Fair Adduction 5 Normal Knee Strength Knee Manual Muscle Testing Left Flexion (S2) 5 Normal Extension (L3) 5 Normal Right Flexion (S2) 3- Fair- Extension (L3) 2+ Poor+ Ankle/Foot Strength Ankle and Foot Manual Muscle Testing Right Comments WNL Left Comments WNL PT-OP-Q Treatments Start: 04/18/20 10:34 Freq: Status: Active Protocol: Document 07/14/20 13:48 SP (Rec: 07/14/20 16:22 SP [id number]) Cardio Equipment Bicycle (Upright) Duration (Minutes) 8 Resistance 0 Seat Position 5 Other used stool to get on/off bike Gym Equipment Shuttle Recovery unilateral squat Details cued stop before full ext and >90 deg flexion Resistance 36# L, 25# R Shuttle Recovery Platform Stable Reps/Time x10 Bilateral Squats Details cued stop before full ext and >90 deg flexion Resistance 50>62# Shuttle Recovery Platform Stable Reps/Time x15 Therapeutic Exercises Standing Exercises sit to stand Standing Exercise Name UE use as needed for now Resistance 18 chair Reps/Minutes x3 Comments cue hip hinge, feet under pelvis calf raises Side bilateral Resistance AROM Equipment Used rail Reps/Minutes x10 Comments cued soft knee step up/down Standing Exercise Name hold after today until stronger, stable Side right Resistance AROM Equipment Used 6 step, //bar Reps/Minutes x5 Comments to much anterior knee pain concentric/eccentric Knee flex Standing Exercise Name Alternating Knee flex keeping knees somewhat together Side right Reps/Minutes x8 Comments popping eccentric medial post R knee not hurt but annoying R TKE Side bilateral Equipment Used evel 1 band Reps/Minutes 10 x 2 Comments cued not full extension and quad facilitaion pause PT-OP-R Modalities Start: 04/18/20 10:34 Freq: Status: Active Protocol: Document 06/27/20 15:06 LRN (Rec: 06/27/20 16:04 LRN [id number]) Hot Pack/Cold Pack Treatment Cold Pack Patient Position Supine PT-OP-T Assessment and Plan Start: 04/18/20 10:34 Freq: Status: Active Protocol: Document 07/14/20 13:48 SP (Rec: 07/14/20 16:22 SP [id number]) Physical Therapy Assessment Goals TUG Impairment TUG score 22 secs, indicating 100% impaired Short Term Goal (STG) TUG score 16 secs (60< 80% impaired) STG Duration 08/01/20 (06/27/20: Improving TUG score 16.5 secs) Custodial Goal (LTG) TUG score of 11 secs (1<20% impaired) LTG Duration 09/19/20 HEP Impairment Pt lacks appropriate post-op R TKA HEP. Custodial Goal (LTG) Pt will be independent in a self care HEP for advancement in strength, ROM, balance of the RLE for safe and independent care and function. LTG Duration 09/19/20 Transfers Impairment Pt requires assist with transfers (sit<>stand & in/out of bed after exer) Short Term Goal (STG) Pt will be able to transfer in /out of bed after exercise without assist. STG Duration 07/11/20 (07/05/20: MET GOAL) Pan Shaker Goal (LTG) Pt will be able to transfer up /down from a chair without use of UE's. LTG Duration 09/19/20 Stair amb Impairment Pt has step to step gait on stairs with use of hand pole assist Short Term Goal (STG) Pt will be independent & safe for step to step ambulation with use of a hand pole. STG Duration 07/11/20 (06/27/20: MET GOAL) Pan Shaker Goal (LTG) Pt will be independent & safe with step over step ambulation with use of a hand pole. LTG Duration 09/19/20 Gait with walker Impairment Pt requires SBA with use of FWW Short Term Goal (STG) Pt will be independent walking with use of FWW. STG Duration 07/01/20 (06/27/20: MET GOAL ) Custodial Goal (LTG) Pt will be able to walk without use assistive device safely. LTG Duration 09/19/20 Strength Impairment Decreased R knee strength (Ext 2+/5, Flex 3-/5) Short Term Goal (STG) Improve R knee strength to 4+/ 5 with pt able to ambulate without an assistive device and on stairs with a normal gait pattern without use of railing. STG Duration 08/01/20 Custodial Goal (LTG) Improve R knee strength post operatively to 5/5 with pt able to return to driving. LTG Duration 09/19/20 knee ROM Impairment R knee AROM: 15-96 Short Term Goal (STG) Improve R knee AROM 7-115 deg' s with pt able to start a self home program of ex on her recumbent stepper/bike. (07/05/20: Pt has started using her home recumbent bike. AROM is 15-117 deg's) STG Duration 07/19/20 (07/05/20: Improving) Pan Shaker Goal (LTG) Improve R knee AROM to 0-125 deg's to improve gait mechanics on level and for a normal stairs gait pattern. LTG Duration 09/19/20 LEFS Impairment LEFS score Short Term Goal (STG) Pt will improve LEFS score to pre-op score of 27/80. STG Duration 07/17/20 Custodial Goal (LTG) Pt will improve LEFS score > 30 to demonstrate improved functional ability. LTG Duration 09/19/20 Assessment Summary Assessment Pt still has swelling med/lat/superior R knee but improving, did also find a stitch in inferior surgical site, instructed to let physician take of at appt Saturday. Pt felt improvement in strength, little sore after sit to stands due increased knee flexion instructed to limit for knee comfort. Added TKE and calf raises to HEP with good results feedback. Stated to be cautious of knee pop/snapping feeling medial distal HS/ prox med gastroc area. Pt will discuss with ortho on Mon F/U appt. Pt improving gait quality no AD today, increase knee flexion normalizing phases. Physical Therapy Plan Frequency and Duration Frequency of Treatment 2x/Week Plan of Care Start Date 06/21/20 Plan of Care End Date 09/19/20 Therapeutic Interventions Therapeutic Interventions Balance Training,Gait Training ,Home Exercise Program,Joint Mobilizations,Manual Therapy, Neuromuscular Re-education, Patient/Caregiver Education, Self-Care/Home Management,Soft Tissue Mobilization,Taping, Therapeutic Activities, Therapeutic Exercises Modalities Cold Pack/Ice Massage,Hot Packs Next Visit Focus/Plan Next Note Type Treatment Note Next Visit Plan Assess reponse to TKE, calf raises, sit to stands, assessment of step ups but stopped due to WB anterior knee pain. Cont R TKA rehabilitation. Improve medial quad strength for improved active knee extension ROM. HEP: Benny BKFO , standing R knee ex's. Progress ROM & measure, progress endurance of standing strengthening ex's, progress stairs and home program when appropriate.
--- NOTE | 2020-07-19 16:18 | PT.OTN ---
Current Diagnoses Unilateral primary osteoarthritis, right knee (07/19/20) Pain in right knee (07/19/20) Stiffness of right knee, not elsewhere classified (07/19/20) Muscle weakness (generalized) (07/19/20) Other abnormalities of gait and mobility (07/19/20) Physical Therapy Treatment Note PT-OP-A Visit Information Start: 04/18/20 10:34 Freq: Status: Active Protocol: Document 07/19/20 15:09 LRN (Rec: 07/19/20 16:08 LRN [id number]) Out-Patient Physical Therapy Visit Information Visit Information Visit Type Progress Note Visit Start Time 15:09 Visit Stop Time 15:49 Total Visit Minutes 40 Visit Number 10 Evaluation Information Evaluation Date 06/21/20 Precautions Precautions History of falls, arthritis PT-OP-B Current Condition Start: 04/18/20 10:34 Freq: Status: Active Protocol: Document 06/21/20 15:06 LRN (Rec: 06/21/20 16:52 LRN [id number]) Current Condition History of Current Condition Onset Date 06/16/20 Current Complaints R knee swollen and achy pain after exercise History of Current Condition 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 Walking with FWW and can full WB on RLE for brief time. Prior Treatments and Tests Acute care PT. Future Testing and Treatments Planned Next MD visit 06/23/20. Treatment Goals Patient/Caregiver Goals Pt goal is to be able to walk without walker & hurting, possibly beach, 1 miles. STG: Gait independently without SBA. 2 Steps without assist with pole for UE support. Goal: Independent transfer in /out of bed. Drive independently Prior Functional Status Baseline Function- ADL's Independent Baseline Function- Mobility Independent Baseline Function- Gait Independent with mild limp due to limited R knee mobility. Baseline Function- Other Not able to get up/down on floor. Current Functional Impairments (Reported) Functional Limitations- ADL's Stairs one step at a time using a vertical pole. Dresses self, toilets self, Needs assist into bed after exercises. Functional Limitations- Mobility/Gait Walks with SBA around the house. Personal Factors Other Personal Factors That May Effect Dizziness on sitting from Therapy/Recovery supine. Age. Has spouse and daughter at home to help after surgery. PT-OP-C Subjective Start: 08/10/20 10:34 Freq: Status: Active Protocol: Document 07/19/20 15:09 LRN (Rec: 07/19/20 16:08 LRN [id number]) OP-PT Subjective Patient Comments Patient Comments Saw yesterday and was told to cont PT. No problems noted , everything looks good. Was told the popping behind the knee was just the ligaments getting into position. Patient Questionnaires Lower Extremity Functional Scale LEFS Score 45 LEFS Impairment 40 to 59% Impaired (Score 32- 47) OP-PT Pain Assessment Pain Assessment Grid Paper Pain Assessment Grid Completed Yes Location Right Knee Pain Location Details R medial knee Intensity 3 Scale Used Numeric (0 - 10) PT-OP-D Balance Start: 04/18/20 10:36 Freq: Status: Active Protocol: Document 06/21/20 15:06 LRN (Rec: 06/21/20 16:52 LRN [id number]) Balance Tests Single Limb Standing Single Limb- Right 1 sec Other Other Balance Tests Performed Standing balance: Rhomberg modified: Feet as close together as Valgus knees allow : 60 secs. PT-OP-E Functional Tests Start: 04/18/20 10:36 Freq: Status: Active Protocol: Document 07/19/20 15:09 LRN (Rec: 07/19/20 16:08 LRN [id number]) Functional Tests Timed Up and Go (TUG) Score 13 TUG Impairment Rating 20 to <40% Impaired (Score 12- 13) PT-OP-F Manual Assessment Start: 04/18/20 10:36 Freq: Status: Active Protocol: Document 06/21/20 15:06 LRN (Rec: 06/21/20 16:52 LRN [id number]) Manual Assessments Soft Tissue Assessment Soft Tissue Mobility Assessment Moderate plus swelling in R LE . No pitting edema noted. PT-OP-G Mobility & Gait Start: 04/18/20 10:36 Freq: Status: Active Protocol: Document 07/19/20 15:09 LRN (Rec: 07/19/20 16:08 LRN [id number]) OP Gait Assessment Gait Gait Assistance Required: Independent Assistive Devices Assistive Device None Gait Deviations General Gait Pattern Antalgic Factors Limiting Gait Function Factors Limiting Gait Function Decreased Strength,Limited Range of Motion,Pain Stair Climbing Evaluation Evaluation Level of Assist On Stairs Independent Devices Stair Climbing Assistive Devices Left Railing,Right Railing Technique/Endurance Stair Climbing Direction Ascend Stair Climbing Technique Step Over Step Number of Steps Climbed 4 PT-OP-K Range of Motion Start: 04/18/20 10:36 Freq: Status: Active Protocol: Document 07/19/20 15:09 LRN (Rec: 07/19/20 16:08 LRN [id number]) Knee Goniometric Range of Motion Knee Right Patient Position Supine Flexion Active (degrees) 116 Flexion Passive (degrees) 117 Extension Active (degrees) 5 Extension Passive (degrees) 4 Comments SAQ knee ext: lacking 5 degs. PT-OP-M Strength Start: 04/18/20 10:34 Freq: Status: Active Protocol: Document 06/21/20 15:06 LRN (Rec: 06/21/20 16:52 LRN [id number]) Hip Strength Hip Manual Muscle Testing Right Flexion (L2) 2 Poor Abduction 2 Poor Adduction 2 Poor Left Flexion (L2) 3 Fair Extension (S1) 5 Normal Abduction 3 Fair Adduction 5 Normal Knee Strength Knee Manual Muscle Testing Left Flexion (S2) 5 Normal Extension (L3) 5 Normal Right Flexion (S2) 3- Fair- Extension (L3) 2+ Poor+ Ankle/Foot Strength Ankle and Foot Manual Muscle Testing Right Comments WNL Left Comments WNL PT-OP-Q Treatments Start: 04/18/20 10:34 Freq: Status: Active Protocol: Document 07/19/20 15:09 LRN (Rec: 07/19/20 16:08 LRN [id number]) Cardio Equipment Bicycle (Upright) Duration (Minutes) 9 Resistance 0 Seat Position 5 Other used stool to get on/off bike Therapeutic Exercises Sitting Exercises LAQ Side right Resistance AROM Reps/Minutes x15 pause 1 sec end range Comments no pain, Mid quad tightening as would expect knee flexion Side right Resistance AROM Equipment Used on carpet w/ parachute material Reps/Minutes x15 Comments no pain or tendon popping Standing Exercises sit to stand Standing Exercise Name Sit to stand Side bilateral Reps/Minutes 5x calf raises Standing Exercise Name Heel raises Side bilateral Resistance AROM Equipment Used independent standing Reps/Minutes 28x R TKE Standing Exercise Name CKC knee ext Side bilateral Equipment Used Lev 1 band Reps/Minutes 13x Comments cued not full extension and quad facilitaion pause Gait Training Gait Activity Stair Ambulation Description Stair ambulation Device Used Railing Level of Assistance Mod self assist to pull self up stairs with R leg leading Distance/Duration 4 - 6 steps Treatment Focus Quad strengthening Comments Pt ambulates single steps on descent. Gait on level Description Gait 20' with turn 1/2 way Device Used None Level of Assistance No use of hands Surface Level Treatment Focus Stability with gait Comments TUG 13.3 secs. PT-OP-R Modalities Start: 04/18/20 10:34 Freq: Status: Active Protocol: Document 06/27/20 15:06 LRN (Rec: 06/27/20 16:04 LRN [id number]) Hot Pack/Cold Pack Treatment Cold Pack Patient Position Supine PT-OP-T Assessment and Plan Start: 04/18/20 10:34 Freq: Status: Active Protocol: Document 07/19/20 15:09 LRN (Rec: 07/19/20 16:08 LRN [id number]) Physical Therapy Assessment Rehab Potential Rehabilitation Potential Good Evaluation Complexity Number of Personal Factors/Comorbidities 1-2 Number of Body Systems Impaired 4 or More Clinical Presentation at Evaluation Evolving Impairments Impairments Activity Tolerance,Balance, Functional Mobility,Gait,Pain, Posture,ROM,Soft Tissue Mobility,Strength,Transfers Goals TUG Impairment TUG score 22 secs, indicating 100% impaired Short Term Goal (STG) TUG score 16 secs (60< 80% impaired) (07/19/20: TUG score is 13 secs) STG Duration 08/01/20 (07/19/20: MET GOAL ) Snf Goal (LTG) TUG score of 11 secs (1<20% impaired) LTG Duration 09/19/20 HEP Impairment Pt lacks appropriate post-op R TKA HEP. Generating Station Mechanic Goal (LTG) Pt will be independent in a self care HEP for advancement in strength, ROM, balance of the RLE for safe and independent care and function. LTG Duration 09/19/20 (07/19/20: Progressing) Transfers Impairment Pt requires assist with transfers (sit<>stand & in/out of bed after exer) Short Term Goal (STG) Pt will be able to transfer in /out of bed after exercise without assist. STG Duration 07/11/20 (07/05/20: MET GOAL) Generating Station Mechanic Goal (LTG) Pt will be able to transfer up /down from a chair without use of UE's. LTG Duration 09/19/20 (07/19/20: MET GOAL) Stair amb Impairment Pt has step to step gait on stairs with use of hand pole assist Short Term Goal (STG) Pt will be independent & safe for step to step ambulation with use of a hand pole. STG Duration 07/11/20 (06/27/20: MET GOAL) Generating Station Mechanic Goal (LTG) Pt will be independent & safe with step over step ambulation with use of a hand pole. LTG Duration 09/19/20 Gait with walker Impairment Pt requires SBA with use of FWW Short Term Goal (STG) Pt will be independent walking with use of FWW. STG Duration 07/01/20 (06/27/20: MET GOAL ) Snf Goal (LTG) Pt will be able to walk without use assistive device safely. LTG Duration 09/19/20 (07/19/20: MET GOAL ) Strength Impairment Decreased R knee strength (Ext 2+/5, Flex 3-/5) Short Term Goal (STG) Improve R knee strength to 4+/ 5 with pt able to ambulate without an assistive device and on stairs with a normal gait pattern without use of railing. (07/19/20: R knee ext: 3+/5, Flex 4+/5, pt able to walk without an assistive device, assist needed for ascending, single step for descending). STG Duration 08/01/20 (07/19/20: Improving) Snf Goal (LTG) Improve R knee strength post operatively to 5/5 with pt able to return to driving. LTG Duration 09/19/20 knee ROM Impairment R knee AROM: 15-96 Short Term Goal (STG) Improve R knee AROM 7-115 deg' s with pt able to start a self home program of ex on her recumbent stepper/bike. (07/19/20: Supine: AROM is 5- 116 deg's) STG Duration 07/19/20 (07/19/20: MET GOAL ) Generating Station Mechanic Goal (LTG) Improve R knee AROM to 0-125 deg's to improve gait mechanics on level and for a normal stairs gait pattern. LTG Duration 09/19/20 LEFS Impairment LEFS score Short Term Goal (STG) Pt will improve LEFS score to pre-op score of 27/80. (07/19/20: MET GOAL, LEFS score is 45/80) STG Duration 07/17/20 (07/19/20: MET GOAL ) Generating Station Mechanic Goal (LTG) Pt will improve LEFS score > 63 to demonstrate improved functional ability. LTG Duration 09/19/20 Progress Towards Goals Progress Comments TUG score 13.3 secs (20<40% impaired), was most recently assessed as 16 secs (60<80% impaired). R knee ROM snd strength is improving. Transfer & Gait with Walker: MET GOALS. Assessment Summary Assessment Anterior R knee pain limiting Knee ext, CKC knee ext strengthening and gait on stairs. R anterior knee pain appears to be due to swelling at the knee as her activity level has increased; therefore pt is to ice more at home. Pt decreased R knee AROM and strength is also limiting stair ambulation ability. Her stability with gait has improved per TUG score of 13.3 secs (was 22 secs). Pt will benefit from continuing R TKA rehab to return pt to normal gait on level and stairs and to improve R knee AROM and strength. Physical Therapy Plan Frequency and Duration Frequency of Treatment 2x/Week Plan of Care Start Date 06/21/20 Plan of Care End Date 09/19/20 Therapeutic Interventions Therapeutic Interventions Balance Training,Gait Training ,Home Exercise Program,Joint Mobilizations,Manual Therapy, Neuromuscular Re-education, Patient/Caregiver Education, Self-Care/Home Management,Soft Tissue Mobilization,Taping, Therapeutic Activities, Therapeutic Exercises Modalities Cold Pack/Ice Massage,Hot Packs Next Visit Focus/Plan Next Note Type Treatment Note Next Visit Plan Add/Assess tolerance to CKC knee ext on Shuttle recovery for strengthening for use of RLE for driving. Cont R TKA rehabilitation. Improve medial quad strength for improved active knee extension ROM (due to 5 deg ext lag). HEP: Benny BKFO, standing R knee ex's. Progress R knee ROM, strength & endurance with standing strengthening ex's, progress stairs and home program when appropriate. End Cryocuff if pt not heading straight home.
--- NOTE | 2020-07-22 08:57 | PT.OTN ---
Current Diagnoses Unilateral primary osteoarthritis, right knee (07/22/20) Pain in right knee (07/22/20) Stiffness of right knee, not elsewhere classified (07/22/20) Muscle weakness (generalized) (07/22/20) Other abnormalities of gait and mobility (07/22/20) Physical Therapy Treatment Note PT-OP-A Visit Information Start: 04/18/20 10:34 Freq: Status: Active Protocol: Document 07/22/20 08:15 LRN (Rec: 07/22/20 08:56 LRN [id number]) Out-Patient Physical Therapy Visit Information Visit Information Visit Type Treatment Note Visit Start Time 08:15 Visit Stop Time 08:55 Total Visit Minutes 40 Visit Number 11 Evaluation Information Evaluation Date 06/21/20 Precautions Precautions History of falls, arthritis PT-OP-B Current Condition Start: 04/18/20 10:34 Freq: Status: Active Protocol: Document 06/21/20 15:06 LRN (Rec: 06/21/20 16:52 LRN [id number]) Current Condition History of Current Condition Onset Date 06/16/20 Current Complaints R knee swollen and achy pain after exercise History of Current Condition 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 Walking with FWW and can full WB on RLE for brief time. Prior Treatments and Tests Acute care PT. Future Testing and Treatments Planned Next MD visit 06/23/20. Treatment Goals Patient/Caregiver Goals Pt goal is to be able to walk without walker & hurting, possibly beach, 1 miles. STG: Gait independently without SBA. 2 Steps without assist with pole for UE support. Goal: Independent transfer in /out of bed. Drive independently Prior Functional Status Baseline Function- ADL's Independent Baseline Function- Mobility Independent Baseline Function- Gait Independent with mild limp due to limited R knee mobility. Baseline Function- Other Not able to get up/down on floor. Current Functional Impairments (Reported) Functional Limitations- ADL's Stairs one step at a time using a vertical pole. Dresses self, toilets self, Needs assist into bed after exercises. Functional Limitations- Mobility/Gait Walks with SBA around the house. Personal Factors Other Personal Factors That May Effect Dizziness on sitting from Therapy/Recovery supine. Age. Has spouse and daughter at home to help after surgery. PT-OP-C Subjective Start: 08/10/20 10:34 Freq: Status: Active Protocol: Document 07/22/20 08:15 LRN (Rec: 07/22/20 08:56 LRN [id number]) OP-PT Subjective Patient Comments Patient Comments Pt states she drove to therapy and states she was feeling a little unconfident. R knee is stiff first in the morning, but it works out as she walks. Now she finds she can stand longer 1.5 hrs before sitting to rest (used to be 30'). PT-OP-D Balance Start: 04/18/20 10:36 Freq: Status: Active Protocol: Document 06/21/20 15:06 LRN (Rec: 06/21/20 16:52 LRN [id number]) Balance Tests Single Limb Standing Single Limb- Right 1 sec Other Other Balance Tests Performed Standing balance: Rhomberg modified: Feet as close together as Valgus knees allow : 60 secs. PT-OP-E Functional Tests Start: 04/18/20 10:36 Freq: Status: Active Protocol: Document 07/19/20 15:09 LRN (Rec: 07/19/20 16:08 LRN [id number]) Functional Tests Timed Up and Go (TUG) Score 13 TUG Impairment Rating 20 to <40% Impaired (Score 12- 13) PT-OP-F Manual Assessment Start: 04/18/20 10:36 Freq: Status: Active Protocol: Document 06/21/20 15:06 LRN (Rec: 06/21/20 16:52 LRN [id number]) Manual Assessments Soft Tissue Assessment Soft Tissue Mobility Assessment Moderate plus swelling in R LE . No pitting edema noted. PT-OP-G Mobility & Gait Start: 04/18/20 10:36 Freq: Status: Active Protocol: Document 07/19/20 15:09 LRN (Rec: 07/19/20 16:08 LRN [id number]) OP Gait Assessment Gait Gait Assistance Required: Independent Assistive Devices Assistive Device None Gait Deviations General Gait Pattern Antalgic Factors Limiting Gait Function Factors Limiting Gait Function Decreased Strength,Limited Range of Motion,Pain Stair Climbing Evaluation Evaluation Level of Assist On Stairs Independent Devices Stair Climbing Assistive Devices Left Railing,Right Railing Technique/Endurance Stair Climbing Direction Ascend Stair Climbing Technique Step Over Step Number of Steps Climbed 4 PT-OP-K Range of Motion Start: 04/18/20 10:36 Freq: Status: Active Protocol: Document 07/22/20 08:15 LRN (Rec: 07/22/20 08:56 LRN [id number]) Knee Goniometric Range of Motion Knee Right Patient Position Supine Flexion Active (degrees) 122 Flexion Passive (degrees) 122 Extension Active (degrees) 3 Comments SAQ knee ext: lacking 3 degs. PT-OP-M Strength Start: 04/18/20 10:34 Freq: Status: Active Protocol: Document 06/21/20 15:06 LRN (Rec: 06/21/20 16:52 LRN [id number]) Hip Strength Hip Manual Muscle Testing Right Flexion (L2) 2 Poor Abduction 2 Poor Adduction 2 Poor Left Flexion (L2) 3 Fair Extension (S1) 5 Normal Abduction 3 Fair Adduction 5 Normal Knee Strength Knee Manual Muscle Testing Left Flexion (S2) 5 Normal Extension (L3) 5 Normal Right Flexion (S2) 3- Fair- Extension (L3) 2+ Poor+ Ankle/Foot Strength Ankle and Foot Manual Muscle Testing Right Comments WNL Left Comments WNL PT-OP-Q Treatments Start: 04/18/20 10:34 Freq: Status: Active Protocol: Document 07/22/20 08:15 LRN (Rec: 07/22/20 08:56 LRN [id number]) Cardio Equipment Bicycle (Upright) Duration (Minutes) 10 Resistance 2 Seat Position 5 for 5' lowering to seat 4 for 5' Other used stool to get on/off bike Therapeutic Exercises Supine Exercises SAQ Supine Exercise Name SAQ Side right Resistance 1# Reps/Minutes 15x, 6x Comments Quad pain limits reps. Quad Sets Supine Exercise Name Quad Sets Side right Reps/Minutes 3', 10 hold x 6 supine heel slide Supine Exercise Name AAROM, AROM on T-Ball, Supine knee hangs Side right Equipment Used Strap for AAROM, Small Blue T- Ball for AROM. Reps/Minutes 7' Comments L knee flex - 122 deg's. Sitting Exercises LAQ Sitting Exercise Name Knee ext strengthening Side right Resistance 1# Reps/Minutes 10x 2, pause 1 sec end range Comments no pain knee flexion Sitting Exercise Name Knee flex strengthening Side right Resistance Lev 1 TB Reps/Minutes 10x 2 Comments no pain or tendon popping PT-OP-R Modalities Start: 04/18/20 10:34 Freq: Status: Active Protocol: Document 06/27/20 15:06 LRN (Rec: 06/27/20 16:04 LRN [id number]) Hot Pack/Cold Pack Treatment Cold Pack Patient Position Supine PT-OP-T Assessment and Plan Start: 04/18/20 10:34 Freq: Status: Active Protocol: Document 07/22/20 08:15 LRN (Rec: 07/22/20 08:56 LRN [id number]) Physical Therapy Assessment Goals HEP Impairment Pt lacks appropriate post-op R TKA HEP. Jail Goal (LTG) Pt will be independent in a self care HEP for advancement in strength, ROM, balance of the RLE for safe and independent care and function. LTG Duration 09/19/20 (07/19/20: Progressing) Transfers Impairment Pt requires assist with transfers (sit<>stand & in/out of bed after exer) Short Term Goal (STG) Pt will be able to transfer in /out of bed after exercise without assist. STG Duration 07/11/20 (07/05/20: MET GOAL) Jail Goal (LTG) Pt will be able to transfer up /down from a chair without use of UE's. LTG Duration 09/19/20 (07/19/20: MET GOAL) Stair amb Impairment Pt has step to step gait on stairs with use of hand pole assist Short Term Goal (STG) Pt will be independent & safe for step to step ambulation with use of a hand pole. STG Duration 07/11/20 (06/27/20: MET GOAL) Jail Goal (LTG) Pt will be independent & safe with step over step ambulation with use of a hand pole. LTG Duration 09/19/20 Gait with walker Impairment Pt requires SBA with use of FWW Short Term Goal (STG) Pt will be independent walking with use of FWW. STG Duration 07/01/20 (06/27/20: MET GOAL ) Product Builder Goal (LTG) Pt will be able to walk without use assistive device safely. LTG Duration 09/19/20 (07/19/20: MET GOAL ) Strength Impairment Decreased R knee strength (Ext 2+/5, Flex 3-/5) Short Term Goal (STG) Improve R knee strength to 4+/ 5 with pt able to ambulate without an assistive device and on stairs with a normal gait pattern without use of railing. (07/19/20: R knee ext: 3+/5, Flex 4+/5, pt able to walk without an assistive device, assist needed for ascending, single step for descending). STG Duration 08/01/20 (07/19/20: Improving) Product Builder Goal (LTG) Improve R knee strength post operatively to 5/5 with pt able to return to driving. LTG Duration 09/19/20 knee ROM Impairment R knee AROM: 15-96 Short Term Goal (STG) Improve R knee AROM 7-115 deg' s with pt able to start a self home program of ex on her recumbent stepper/bike. (07/19/20: Supine: AROM is 5- 116 deg's) STG Duration 07/19/20 (07/19/20: MET GOAL ) Product Builder Goal (LTG) Improve R knee AROM to 0-125 deg's to improve gait mechanics on level and for a normal stairs gait pattern. LTG Duration 09/19/20 LEFS Impairment LEFS score Short Term Goal (STG) Pt will improve LEFS score to pre-op score of 27/80. (07/19/20: MET GOAL, LEFS score is 45/80) STG Duration 07/17/20 (07/19/20: MET GOAL ) Product Builder Goal (LTG) Pt will improve LEFS score > 63 to demonstrate improved functional ability. LTG Duration 09/19/20 Progress Towards Goals Progress Comments R knee AROM improved to 3-122 deg's from 5-116 degs. Assessment Summary Assessment Improved R knee AROM. Strength tolerance is good with pt able to tolerate resistance with strengthening. Physical Therapy Plan Frequency and Duration Frequency of Treatment 2x/Week Plan of Care Start Date 06/21/20 Plan of Care End Date 09/19/20 Next Visit Focus/Plan Next Note Type Treatment Note Next Visit Plan After Bike & stretching, Add/ Assess tolerance to CKC knee ext on Shuttle recovery for strengthening for use of RLE for driving. Cont R TKA rehabilitation. Improve medial quad strength for improved active knee extension ROM (due to 3 deg ext lag). HEP: Benny BKFO, standing R knee ex's. Progress R knee ROM, strength & endurance with standing strengthening ex's, progress stairs and home program when appropriate. End Cryoc[employer] if pt not heading straight home.
--- NOTE | 2020-07-26 10:30 | PT.OTN ---
Current Diagnoses Unilateral primary osteoarthritis, right knee (07/26/20) Pain in right knee (07/26/20) Stiffness of right knee, not elsewhere classified (07/26/20) Muscle weakness (generalized) (07/26/20) Other abnormalities of gait and mobility (07/26/20) Physical Therapy Treatment Note PT-OP-A Visit Information Start: 04/18/20 10:34 Freq: Status: Active Protocol: Document 07/26/20 09:37 MA (Rec: 07/26/20 09:48 MA [id number]) Out-Patient Physical Therapy Visit Information Visit Information Visit Type Treatment Note Visit Start Time 08:58 Visit Stop Time 09:37 Total Visit Minutes 39 Visit Number 12 Number of SPLITTING MACHINE OPERATOR HELPER Visits 1 PT-OP-B Current Condition Start: 04/18/20 10:34 Freq: Status: Active Protocol: Document 06/21/20 15:06 LRN (Rec: 06/21/20 16:52 LRN [id number]) Current Condition History of Current Condition Onset Date 06/16/20 Current Complaints R knee swollen and achy pain after exercise History of Current Condition 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 Walking with FWW and can full WB on RLE for brief time. Prior Treatments and Tests Acute care PT. Future Testing and Treatments Planned Next MD visit 06/23/20. Treatment Goals Patient/Caregiver Goals Pt goal is to be able to walk without walker & hurting, possibly beach, 1 miles. STG: Gait independently without SBA. 2 Steps without assist with pole for UE support. Goal: Independent transfer in /out of bed. Drive independently Prior Functional Status Baseline Function- ADL's Independent Baseline Function- Mobility Independent Baseline Function- Gait Independent with mild limp due to limited R knee mobility. Baseline Function- Other Not able to get up/down on floor. Current Functional Impairments (Reported) Functional Limitations- ADL's Stairs one step at a time using a vertical pole. Dresses self, toilets self, Needs assist into bed after exercises. Functional Limitations- Mobility/Gait Walks with SBA around the house. Personal Factors Other Personal Factors That May Effect Dizziness on sitting from Therapy/Recovery supine. Age. Has spouse and daughter at home to help after surgery. PT-OP-C Subjective Start: 04/18/20 10:34 Freq: Status: Active Protocol: Document 07/26/20 09:37 MA (Rec: 07/26/20 09:48 MA [id number]) OP-PT Subjective Patient Comments Patient Comments Pt states she walked .5 mile on Saturday and was quite sore after. She has not been icing her knee anymore because there isn't much swelling. PT-OP-D Balance Start: 04/18/20 10:36 Freq: Status: Active Protocol: Document 06/21/20 15:06 LRN (Rec: 06/21/20 16:52 LRN [id number]) Balance Tests Single Limb Standing Single Limb- Right 1 sec Other Other Balance Tests Performed Standing balance: Rhomberg modified: Feet as close together as Valgus knees allow : 60 secs. PT-OP-E Functional Tests Start: 04/18/20 10:36 Freq: Status: Active Protocol: Document 07/19/20 15:09 LRN (Rec: 07/19/20 16:08 LRN [id number]) Functional Tests Timed Up and Go (TUG) Score 13 TUG Impairment Rating 20 to <40% Impaired (Score 12- 13) PT-OP-F Manual Assessment Start: 04/18/20 10:36 Freq: Status: Active Protocol: Document 06/21/20 15:06 LRN (Rec: 06/21/20 16:52 LRN [id number]) Manual Assessments Soft Tissue Assessment Soft Tissue Mobility Assessment Moderate plus swelling in R LE . No pitting edema noted. PT-OP-G Mobility & Gait Start: 04/18/20 10:36 Freq: Status: Active Protocol: Document 07/19/20 15:09 LRN (Rec: 07/19/20 16:08 LRN [id number]) OP Gait Assessment Gait Gait Assistance Required: Independent Assistive Devices Assistive Device None Gait Deviations General Gait Pattern Antalgic Factors Limiting Gait Function Factors Limiting Gait Function Decreased Strength,Limited Range of Motion,Pain Stair Climbing Evaluation Evaluation Level of Assist On Stairs Independent Devices Stair Climbing Assistive Devices Left Railing,Right Railing Technique/Endurance Stair Climbing Direction Ascend Stair Climbing Technique Step Over Step Number of Steps Climbed 4 PT-OP-K Range of Motion Start: 04/18/20 10:36 Freq: Status: Active Protocol: Document 07/22/20 08:15 LRN (Rec: 07/22/20 08:56 LRN [id number]) Knee Goniometric Range of Motion Knee Right Patient Position Supine Flexion Active (degrees) 122 Flexion Passive (degrees) 122 Extension Active (degrees) 3 Comments SAQ knee ext: lacking 3 degs. PT-OP-M Strength Start: 04/18/20 10:34 Freq: Status: Active Protocol: Document 06/21/20 15:06 LRN (Rec: 06/21/20 16:52 LRN [id number]) Hip Strength Hip Manual Muscle Testing Right Flexion (L2) 2 Poor Abduction 2 Poor Adduction 2 Poor Left Flexion (L2) 3 Fair Extension (S1) 5 Normal Abduction 3 Fair Adduction 5 Normal Knee Strength Knee Manual Muscle Testing Left Flexion (S2) 5 Normal Extension (L3) 5 Normal Right Flexion (S2) 3- Fair- Extension (L3) 2+ Poor+ Ankle/Foot Strength Ankle and Foot Manual Muscle Testing Right Comments WNL Left Comments WNL PT-OP-Q Treatments Start: 04/18/20 10:34 Freq: Status: Active Protocol: Document 07/26/20 09:37 MA (Rec: 07/26/20 09:48 MA [id number]) Cardio Equipment Recumbent Elliptical (Biodex) Duration (Minutes) 6 Resistance 2 Gym Equipment Shuttle Recovery unilateral squat Resistance 25lb Reps/Time 2x10 R Bilateral Squats Resistance 50 lb Reps/Time 1x10 Therapeutic Exercises Sitting Exercises LAQ Sitting Exercise Name Knee ext strengthening Side right Resistance 1# Reps/Minutes 10x 2, pause 1 sec end range Comments no pain knee flexion Sitting Exercise Name Knee flex strengthening Side right Resistance Lev 1 TB Reps/Minutes 10x 2 Comments no pain or tendon popping Standing Exercises step downs Standing Exercise Name eccentric lower Side right Equipment Used 4 step/2 step Reps/Minutes 2x5 Comments 4 had incresaed discomfrot over anterior kneecap so moved to 2 Gait Training Gait Activity Stair Ambulation Description 4 stairs Device Used Railing Level of Assistance SBA Distance/Duration 2x 6 steps Treatment Focus eccentric lower Comments reciprocal steps PT-OP-R Modalities Start: 04/18/20 10:34 Freq: Status: Active Protocol: Document 06/27/20 15:06 LRN (Rec: 06/27/20 16:04 LRN [id number]) Hot Pack/Cold Pack Treatment Cold Pack Patient Position Supine PT-OP-T Assessment and Plan Start: 04/18/20 10:34 Freq: Status: Active Protocol: Document 07/26/20 09:37 MA (Rec: 07/26/20 09:48 MA [id number]) Physical Therapy Assessment Goals TUG Impairment TUG score 22 secs, indicating 100% impaired Short Term Goal (STG) TUG score 16 secs (60< 80% impaired) (07/19/20: TUG score is 13 secs) STG Duration 08/01/20 (07/19/20: MET GOAL ) Snf Goal (LTG) TUG score of 11 secs (1<20% impaired) LTG Duration 09/19/20 HEP Impairment Pt lacks appropriate post-op R TKA HEP. Wheel And Pinion Inspector Goal (LTG) Pt will be independent in a self care HEP for advancement in strength, ROM, balance of the RLE for safe and independent care and function. LTG Duration 09/19/20 (07/19/20: Progressing) Transfers Impairment Pt requires assist with transfers (sit<>stand & in/out of bed after exer) Short Term Goal (STG) Pt will be able to transfer in /out of bed after exercise without assist. STG Duration 07/11/20 (07/05/20: MET GOAL) Wheel And Pinion Inspector Goal (LTG) Pt will be able to transfer up /down from a chair without use of UE's. LTG Duration 09/19/20 (07/19/20: MET GOAL) Stair amb Impairment Pt has step to step gait on stairs with use of hand pole assist Short Term Goal (STG) Pt will be independent & safe for step to step ambulation with use of a hand pole. STG Duration 07/11/20 (06/27/20: MET GOAL) Snf Goal (LTG) Pt will be independent & safe with step over step ambulation with use of a hand pole. LTG Duration 09/19/20 Gait with walker Impairment Pt requires SBA with use of FWW Short Term Goal (STG) Pt will be independent walking with use of FWW. STG Duration 07/01/20 (06/27/20: MET GOAL ) Snf Goal (LTG) Pt will be able to walk without use assistive device safely. LTG Duration 09/19/20 (07/19/20: MET GOAL ) Strength Impairment Decreased R knee strength (Ext 2+/5, Flex 3-/5) Short Term Goal (STG) Improve R knee strength to 4+/ 5 with pt able to ambulate without an assistive device and on stairs with a normal gait pattern without use of railing. (07/19/20: R knee ext: 3+/5, Flex 4+/5, pt able to walk without an assistive device, assist needed for ascending, single step for descending). STG Duration 08/01/20 (07/19/20: Improving) Snf Goal (LTG) Improve R knee strength post operatively to 5/5 with pt able to return to driving. LTG Duration 09/19/20 knee ROM Impairment R knee AROM: 15-96 Short Term Goal (STG) Improve R knee AROM 7-115 deg' s with pt able to start a self home program of ex on her recumbent stepper/bike. (07/19/20: Supine: AROM is 5- 116 deg's) STG Duration 07/19/20 (07/19/20: MET GOAL ) Snf Goal (LTG) Improve R knee AROM to 0-125 deg's to improve gait mechanics on level and for a normal stairs gait pattern. LTG Duration 09/19/20 LEFS Impairment LEFS score Short Term Goal (STG) Pt will improve LEFS score to pre-op score of 27/80. (07/19/20: MET GOAL, LEFS score is 45/80) STG Duration 07/17/20 (07/19/20: MET GOAL ) Snf Goal (LTG) Pt will improve LEFS score > 63 to demonstrate improved functional ability. LTG Duration 09/19/20 Assessment Summary Assessment Pt had good form on shuttle recover. Was aware that she needed to avoid a lateral tracking of her knee during flexion. During stair training pt tends to drop knee medially and adduct LLE due to R HS weakness. Worked on eccentric HS R with step downs off 4 step but pt had increased knee pain so moved to a 2 step. Physical Therapy Plan Frequency and Duration Frequency of Treatment 2x/Week Plan of Care Start Date 06/21/20 Plan of Care End Date 09/19/20 Next Visit Focus/Plan Next Note Type Treatment Note Next Visit Plan After bike continue with shuttle recovery 25# RLE. Work on exercises to improve descending RLE on stairs. Improve medial quad strength for achieving terminal knee extension
--- NOTE | 2020-07-29 16:33 | PT.OTN ---
Current Diagnoses Unilateral primary osteoarthritis, right knee (07/29/20) Pain in right knee (07/29/20) Stiffness of right knee, not elsewhere classified (07/29/20) Muscle weakness (generalized) (07/29/20) Other abnormalities of gait and mobility (07/29/20) Physical Therapy Treatment Note PT-OP-A Visit Information Start: 04/18/20 10:34 Freq: Status: Active Protocol: Document 07/29/20 09:05 LRN (Rec: 07/29/20 09:49 LRN [id number]) Out-Patient Physical Therapy Visit Information Visit Information Visit Type Treatment Note Visit Start Time 09:05 Visit Stop Time 09:46 Total Visit Minutes 41 Visit Number 13 Evaluation Information Evaluation Date 06/21/20 Precautions Precautions History of falls, arthritis PT-OP-B Current Condition Start: 04/18/20 10:34 Freq: Status: Active Protocol: Document 06/21/20 15:06 LRN (Rec: 06/21/20 16:52 LRN [id number]) Current Condition History of Current Condition Onset Date 06/16/20 Current Complaints R knee swollen and achy pain after exercise History of Current Condition 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 Walking with FWW and can full WB on RLE for brief time. Prior Treatments and Tests Acute care PT. Future Testing and Treatments Planned Next MD visit 06/23/20. Treatment Goals Patient/Caregiver Goals Pt goal is to be able to walk without walker & hurting, possibly beach, 1 miles. STG: Gait independently without SBA. 2 Steps without assist with pole for UE support. Goal: Independent transfer in /out of bed. Drive independently Prior Functional Status Baseline Function- ADL's Independent Baseline Function- Mobility Independent Baseline Function- Gait Independent with mild limp due to limited R knee mobility. Baseline Function- Other Not able to get up/down on floor. Current Functional Impairments (Reported) Functional Limitations- ADL's Stairs one step at a time using a vertical pole. Dresses self, toilets self, Needs assist into bed after exercises. Functional Limitations- Mobility/Gait Walks with SBA around the house. Personal Factors Other Personal Factors That May Effect Dizziness on sitting from Therapy/Recovery supine. Age. Has spouse and daughter at home to help after surgery. 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 Overall having a lot less pain. Has walked every other day ~1/2 mile and own pace. After biking pain across top and sides. Is sleeping better, not waking with every movement or if positioned in same place too long. Steps getting easier, can go up/down every other foot. PT-OP-D Balance Start: 04/18/20 10:36 Freq: Status: Active Protocol: Document 06/21/20 15:06 LRN (Rec: 06/21/20 16:52 LRN [id number]) Balance Tests Single Limb Standing Single Limb- Right 1 sec Other Other Balance Tests Performed Standing balance: Rhomberg modified: Feet as close together as Valgus knees allow : 60 secs. PT-OP-E Functional Tests Start: 04/18/20 10:36 Freq: Status: Active Protocol: Document 07/19/20 15:09 LRN (Rec: 07/19/20 16:08 LRN [id number]) Functional Tests Timed Up and Go (TUG) Score 13 TUG Impairment Rating 20 to <40% Impaired (Score 12- 13) PT-OP-F Manual Assessment Start: 04/18/20 10:36 Freq: Status: Active Protocol: Document 06/21/20 15:06 LRN (Rec: 06/21/20 16:52 LRN [id number]) Manual Assessments Soft Tissue Assessment Soft Tissue Mobility Assessment Moderate plus swelling in R LE . No pitting edema noted. PT-OP-G Mobility & Gait Start: 04/18/20 10:36 Freq: Status: Active Protocol: Document 07/19/20 15:09 LRN (Rec: 07/19/20 16:08 LRN [id number]) OP Gait Assessment Gait Gait Assistance Required: Independent Assistive Devices Assistive Device None Gait Deviations General Gait Pattern Antalgic Factors Limiting Gait Function Factors Limiting Gait Function Decreased Strength,Limited Range of Motion,Pain Stair Climbing Evaluation Evaluation Level of Assist On Stairs Independent Devices Stair Climbing Assistive Devices Left Railing,Right Railing Technique/Endurance Stair Climbing Direction Ascend Stair Climbing Technique Step Over Step Number of Steps Climbed 4 PT-OP-K Range of Motion Start: 04/18/20 10:36 Freq: Status: Active Protocol: Document 07/29/20 09:05 LRN (Rec: 07/29/20 16:32 LRN [id number]) Knee Goniometric Range of Motion Knee Right Patient Position Supine Flexion Active (degrees) 123 Extension Active (degrees) 3 Comments SAQ knee ext: lacking 3 degs. PT-OP-M Strength Start: 04/18/20 10:34 Freq: Status: Active Protocol: Document 06/21/20 15:06 LRN (Rec: 06/21/20 16:52 LRN [id number]) Hip Strength Hip Manual Muscle Testing Right Flexion (L2) 2 Poor Abduction 2 Poor Adduction 2 Poor Left Flexion (L2) 3 Fair Extension (S1) 5 Normal Abduction 3 Fair Adduction 5 Normal Knee Strength Knee Manual Muscle Testing Left Flexion (S2) 5 Normal Extension (L3) 5 Normal Right Flexion (S2) 3- Fair- Extension (L3) 2+ Poor+ Ankle/Foot Strength Ankle and Foot Manual Muscle Testing Right Comments WNL Left Comments WNL PT-OP-Q Treatments Start: 04/18/20 10:34 Freq: Status: Active Protocol: Document 07/29/20 09:05 LRN (Rec: 07/29/20 09:49 LRN [id number]) Cardio Equipment Bicycle (Upright) Duration (Minutes) 10 Resistance 2 Seat Position 5 for 5' lowering to seat 4 for 5' Other used stool to get on/off bike Therapeutic Exercises Supine Exercises Quad Sets Supine Exercise Name Quad Sets Side right Equipment Used Pillow under ankle Reps/Minutes 3', 10 hold x 6 supine heel slide Supine Exercise Name AAROM, AROM on T-Ball, Supine knee hangs Side right Equipment Used Strap for AAROM, Small Blue T- Ball for AROM. Reps/Minutes 7' Comments L knee flex - 122 deg's. Prone Exercises HS curl Prone Exercise Name Hamstring curl Side right Resistance 1# Reps/Minutes 10x, 5x without weight Sitting Exercises LAQ Sitting Exercise Name Knee ext strengthening Side right Resistance 1# Reps/Minutes 10x 2, pause 1 sec end range Comments no pain knee flexion Sitting Exercise Name Knee flex ROM & strengthening Side right Resistance Lev 1 TB Reps/Minutes 15x 1 Comments no pain or tendon popping Manual Therapy Treatment Soft Tissue Mobilization scar mob Body Location Scar and surrounding soft tissue mob Mobilization Type Myofascial Release,Strumming Intensity/Depth Superficial Body Position Supine Comments Very tight tissues in flexion Self-Care/Home Management Treatment Education Patient Education Home Exercise Program Activities Self-Care/Home Management Activities Reviewed with pt focus of HEP next week of end-range ext & flex and knee flex strengthening, gait step over step on stairs. PT-OP-R Modalities Start: 04/18/20 10:34 Freq: Status: Active Protocol: Document 06/27/20 15:06 LRN (Rec: 06/27/20 16:04 LRN [id number]) Hot Pack/Cold Pack Treatment Cold Pack Patient Position Supine PT-OP-T Assessment and Plan Start: 04/18/20 10:34 Freq: Status: Active Protocol: Document 07/29/20 09:05 LRN (Rec: 07/29/20 09:49 LRN [id number]) Physical Therapy Assessment Goals TUG Impairment TUG score 22 secs, indicating 100% impaired Short Term Goal (STG) TUG score 16 secs (60< 80% impaired) (07/19/20: TUG score is 13 secs) STG Duration 08/01/20 (07/19/20: MET GOAL ) Care Home Goal (LTG) TUG score of 11 secs (1<20% impaired) LTG Duration 09/19/20 HEP Impairment Pt lacks appropriate post-op R TKA HEP. Care Home Goal (LTG) Pt will be independent in a self care HEP for advancement in strength, ROM, balance of the RLE for safe and independent care and function. LTG Duration 09/19/20 (07/19/20: Progressing) Transfers Impairment Pt requires assist with transfers (sit<>stand & in/out of bed after exer) Short Term Goal (STG) Pt will be able to transfer in /out of bed after exercise without assist. STG Duration 07/11/20 (07/05/20: MET GOAL) Mineral Surveyor Goal (LTG) Pt will be able to transfer up /down from a chair without use of UE's. LTG Duration 09/19/20 (07/19/20: MET GOAL) Stair amb Impairment Pt has step to step gait on stairs with use of hand pole assist Short Term Goal (STG) Pt will be independent & safe for step to step ambulation with use of a hand pole. STG Duration 07/11/20 (06/27/20: MET GOAL) Care Home Goal (LTG) Pt will be independent & safe with step over step ambulation with use of a hand pole. LTG Duration 09/19/20 Gait with walker Impairment Pt requires SBA with use of FWW Short Term Goal (STG) Pt will be independent walking with use of FWW. STG Duration 07/01/20 (06/27/20: MET GOAL ) Care Home Goal (LTG) Pt will be able to walk without use assistive device safely. LTG Duration 09/19/20 (07/19/20: MET GOAL ) Strength Impairment Decreased R knee strength (Ext 2+/5, Flex 3-/5) Short Term Goal (STG) Improve R knee strength to 4+/ 5 with pt able to ambulate without an assistive device and on stairs with a normal gait pattern without use of railing. (07/19/20: R knee ext: 3+/5, Flex 4+/5, pt able to walk without an assistive device, assist needed for ascending, single step for descending). STG Duration 08/01/20 (07/19/20: Improving) Care Home Goal (LTG) Improve R knee strength post operatively to 5/5 with pt able to return to driving. LTG Duration 09/19/20 knee ROM Impairment R knee AROM: 15-96 Short Term Goal (STG) Improve R knee AROM 7-115 deg' s with pt able to start a self home program of ex on her recumbent stepper/bike. (07/19/20: Supine: AROM is 5- 116 deg's) STG Duration 07/19/20 (07/19/20: MET GOAL ) Care Home Goal (LTG) Improve R knee AROM to 0-125 deg's to improve gait mechanics on level and for a normal stairs gait pattern. (07/29/20: R knee AROM improved to 3-123 deg's) LTG Duration 09/19/20 (07/29/20: Improving) LEFS Impairment LEFS score Short Term Goal (STG) Pt will improve LEFS score to pre-op score of 27/80. (07/19/20: MET GOAL, LEFS score is 45/80) STG Duration 07/17/20 (07/19/20: MET GOAL ) Mineral Surveyor Goal (LTG) Pt will improve LEFS score > 63 to demonstrate improved functional ability. LTG Duration 09/19/20 Progress Towards Goals Progress Comments R knee AROM improved to 3-123 deg's from 3-122 degs. Assessment Summary Assessment Pt needs to focus on improving knee flex ROM and now strength. Physical Therapy Plan Frequency and Duration Frequency of Treatment 2x/Week Plan of Care Start Date 06/21/20 Plan of Care End Date 09/19/20 Next Visit Focus/Plan Next Note Type Treatment Note Next Visit Plan Add knee flex strengthening. Work on exercises (knee flexion ROM) to improve descending RLE on stairs. Improve medial quad strength for achieving terminal knee extension
--- NOTE | 2020-08-11 16:21 | PT.OTN ---
Current Diagnoses Unilateral primary osteoarthritis, right knee (08/11/20) Pain in right knee (08/11/20) Stiffness of right knee, not elsewhere classified (08/11/20) Muscle weakness (generalized) (08/11/20) Other abnormalities of gait and mobility (08/11/20) Physical Therapy Treatment Note PT-OP-A Visit Information Start: 04/18/20 10:34 Freq: Status: Active Protocol: Document 08/11/20 15:25 LRN (Rec: 08/11/20 16:20 LRN [id number]) Out-Patient Physical Therapy Visit Information Visit Information Visit Type Treatment Note Visit Start Time 15:25 Visit Stop Time 16:05 Total Visit Minutes 40 Visit Number 14 Evaluation Information Evaluation Date 06/21/20 Precautions Precautions History of falls, arthritis PT-OP-B Current Condition Start: 04/18/20 10:34 Freq: Status: Active Protocol: Document 06/21/20 15:06 LRN (Rec: 06/21/20 16:52 LRN [id number]) Current Condition History of Current Condition Onset Date 06/16/20 Current Complaints R knee swollen and achy pain after exercise History of Current Condition 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 Walking with FWW and can full WB on RLE for brief time. Prior Treatments and Tests Acute care PT. Future Testing and Treatments Planned Next MD visit 06/23/20. Treatment Goals Patient/Caregiver Goals Pt goal is to be able to walk without walker & hurting, possibly beach, 1 miles. STG: Gait independently without SBA. 2 Steps without assist with pole for UE support. Goal: Independent transfer in /out of bed. Drive independently Prior Functional Status Baseline Function- ADL's Independent Baseline Function- Mobility Independent Baseline Function- Gait Independent with mild limp due to limited R knee mobility. Baseline Function- Other Not able to get up/down on floor. Current Functional Impairments (Reported) Functional Limitations- ADL's Stairs one step at a time using a vertical pole. Dresses self, toilets self, Needs assist into bed after exercises. Functional Limitations- Mobility/Gait Walks with SBA around the house. Personal Factors Other Personal Factors That May Effect Dizziness on sitting from Therapy/Recovery supine. Age. Has spouse and daughter at home to help after surgery. PT-OP-C Subjective Start: 04/18/20 10:34 Freq: Status: Active Protocol: Document 08/11/20 15:25 LRN (Rec: 08/11/20 16:20 LRN [id number]) OP-PT Subjective Patient Comments Patient Comments Spouse notices she is walking faster. States she has most problem going down stairs. Waking at night due to knee pain when turning. PT-OP-D Balance Start: 04/18/20 10:36 Freq: Status: Active Protocol: Document 06/21/20 15:06 LRN (Rec: 06/21/20 16:52 LRN [id number]) Balance Tests Single Limb Standing Single Limb- Right 1 sec Other Other Balance Tests Performed Standing balance: Rhomberg modified: Feet as close together as Valgus knees allow : 60 secs. PT-OP-E Functional Tests Start: 04/18/20 10:36 Freq: Status: Active Protocol: Document 07/19/20 15:09 LRN (Rec: 07/19/20 16:08 LRN [id number]) Functional Tests Timed Up and Go (TUG) Score 13 TUG Impairment Rating 20 to <40% Impaired (Score 12- 13) PT-OP-F Manual Assessment Start: 04/18/20 10:36 Freq: Status: Active Protocol: Document 06/21/20 15:06 LRN (Rec: 06/21/20 16:52 LRN [id number]) Manual Assessments Soft Tissue Assessment Soft Tissue Mobility Assessment Moderate plus swelling in R LE . No pitting edema noted. PT-OP-G Mobility & Gait Start: 04/18/20 10:36 Freq: Status: Active Protocol: Document 07/19/20 15:09 LRN (Rec: 07/19/20 16:08 LRN [id number]) OP Gait Assessment Gait Gait Assistance Required: Independent Assistive Devices Assistive Device None Gait Deviations General Gait Pattern Antalgic Factors Limiting Gait Function Factors Limiting Gait Function Decreased Strength,Limited Range of Motion,Pain Stair Climbing Evaluation Evaluation Level of Assist On Stairs Independent Devices Stair Climbing Assistive Devices Left Railing,Right Railing Technique/Endurance Stair Climbing Direction Ascend Stair Climbing Technique Step Over Step Number of Steps Climbed 4 PT-OP-K Range of Motion Start: 04/18/20 10:36 Freq: Status: Active Protocol: Document 08/11/20 15:25 LRN (Rec: 08/11/20 16:20 LRN [id number]) Knee Goniometric Range of Motion Knee Right Patient Position Supine Flexion Active (degrees) 127 Comments PROM: Extension: Lacking 3 degs. Flex 126 deg's PT-OP-M Strength Start: 04/18/20 10:34 Freq: Status: Active Protocol: Document 06/21/20 15:06 LRN (Rec: 06/21/20 16:52 LRN [id number]) Hip Strength Hip Manual Muscle Testing Right Flexion (L2) 2 Poor Abduction 2 Poor Adduction 2 Poor Left Flexion (L2) 3 Fair Extension (S1) 5 Normal Abduction 3 Fair Adduction 5 Normal Knee Strength Knee Manual Muscle Testing Left Flexion (S2) 5 Normal Extension (L3) 5 Normal Right Flexion (S2) 3- Fair- Extension (L3) 2+ Poor+ Ankle/Foot Strength Ankle and Foot Manual Muscle Testing Right Comments WNL Left Comments WNL PT-OP-Q Treatments Start: 04/18/20 10:34 Freq: Status: Active Protocol: Document 08/11/20 15:25 LRN (Rec: 08/11/20 16:20 LRN [id number]) Cardio Equipment Bicycle (Upright) Duration (Minutes) 8 Resistance 2 Seat Position 5 for 4' lowering to seat 4 for 4' Other used stool to get on/off bike Therapeutic Exercises Supine Exercises supine heel slide Supine Exercise Name Assisted Heel slides Side right Equipment Used Strap for AAROM Reps/Minutes 7' Comments L knee flex ROM taken - 127 deg's. Prone Exercises HS curl Prone Exercise Name Hamstring curl Side right Resistance 0# Reps/Minutes 10x each with foot in neutral, IV, EV Comments Popping at medial posterior knee. Sitting Exercises LAQ Sitting Exercise Name Knee ext strengthening Side right Resistance 2#, 1# Reps/Minutes 15x each Comments no pain, R knee ROM taken knee flexion Sitting Exercise Name Knee flex strengthening Side right Resistance Lev 1 & Lev 2 TB Reps/Minutes 15x each Comments no pain or tendon popping PT-OP-R Modalities Start: 04/18/20 10:34 Freq: Status: Active Protocol: Document 06/27/20 15:06 LRN (Rec: 06/27/20 16:04 LRN [id number]) Hot Pack/Cold Pack Treatment Cold Pack Patient Position Supine PT-OP-T Assessment and Plan Start: 04/18/20 10:34 Freq: Status: Active Protocol: Document 08/11/20 15:25 LRN (Rec: 08/11/20 16:20 LRN [id number]) Physical Therapy Assessment Goals TUG Impairment TUG score 22 secs, indicating 100% impaired Short Term Goal (STG) TUG score 16 secs (60< 80% impaired) (07/19/20: TUG score is 13 secs) STG Duration 08/01/20 (07/19/20: MET GOAL ) Laboratory Veterinarian Goal (LTG) TUG score of 11 secs (1<20% impaired) LTG Duration 09/19/20 HEP Impairment Pt lacks appropriate post-op R TKA HEP. Laboratory Veterinarian Goal (LTG) Pt will be independent in a self care HEP for advancement in strength, ROM, balance of the RLE for safe and independent care and function. LTG Duration 09/19/20 (07/19/20: Progressing) Transfers Impairment Pt requires assist with transfers (sit<>stand & in/out of bed after exer) Short Term Goal (STG) Pt will be able to transfer in /out of bed after exercise without assist. STG Duration 07/11/20 (07/05/20: MET GOAL) Prison Goal (LTG) Pt will be able to transfer up /down from a chair without use of UE's. LTG Duration 09/19/20 (07/19/20: MET GOAL) Stair amb Impairment Pt has step to step gait on stairs with use of hand pole assist Short Term Goal (STG) Pt will be independent & safe for step to step ambulation with use of a hand pole. STG Duration 07/11/20 (06/27/20: MET GOAL) Prison Goal (LTG) Pt will be independent & safe with step over step ambulation with use of a hand pole. LTG Duration 09/19/20 Gait with walker Impairment Pt requires SBA with use of FWW Short Term Goal (STG) Pt will be independent walking with use of FWW. STG Duration 07/01/20 (06/27/20: MET GOAL ) Laboratory Veterinarian Goal (LTG) Pt will be able to walk without use assistive device safely. LTG Duration 09/19/20 (07/19/20: MET GOAL ) Strength Impairment Decreased R knee strength (Ext 2+/5, Flex 3-/5) Short Term Goal (STG) Improve R knee strength to 4+/ 5 with pt able to ambulate without an assistive device and on stairs with a normal gait pattern without use of railing. (07/19/20: R knee ext: 3+/5, Flex 4+/5, pt able to walk without an assistive device, assist needed for ascending, single step for descending). STG Duration 08/01/20 (07/19/20: Improving) Prison Goal (LTG) Improve R knee strength post operatively to 5/5 with pt able to return to driving. LTG Duration 09/19/20 knee ROM Impairment R knee AROM: 15-96 Short Term Goal (STG) Improve R knee AROM 7-115 deg' s with pt able to start a self home program of ex on her recumbent stepper/bike. (07/19/20: Supine: AROM is 5- 116 deg's) STG Duration 07/19/20 (07/19/20: MET GOAL ) Prison Goal (LTG) Improve R knee AROM to 0-125 deg's to improve gait mechanics on level and for a normal stairs gait pattern. (07/29/20: R knee AROM improved to 3-123 deg's) LTG Duration 09/19/20 (08/11/20: AROM 3- 127 degs) LEFS Impairment LEFS score Short Term Goal (STG) Pt will improve LEFS score to pre-op score of 27/80. (07/19/20: MET GOAL, LEFS score is 45/80) STG Duration 07/17/20 (07/19/20: MET GOAL ) Prison Goal (LTG) Pt will improve LEFS score > 63 to demonstrate improved functional ability. LTG Duration 09/19/20 Progress Towards Goals Progress Comments R knee AROM improved flexion to 127 deg's from 122 deg's. Ext lag of 3 degs still present. Assessment Summary Assessment Improved R knee flexion. Ext still limited. Good tolerance to strengthening. Physical Therapy Plan Frequency and Duration Frequency of Treatment 2x/Week Plan of Care Start Date 06/21/20 Plan of Care End Date 09/19/20 Next Visit Focus/Plan Next Note Type Treatment Note Next Visit Plan Progress R knee strengthening & medial Quad strength. Work on exercises (knee flexion ROM ) to improve descending RLE on stairs.
--- NOTE | 2020-08-16 15:54 | PT.OTN ---
Current Diagnoses Unilateral primary osteoarthritis, right knee (08/16/20) Pain in right knee (08/16/20) Stiffness of right knee, not elsewhere classified (08/16/20) Muscle weakness (generalized) (08/16/20) Other abnormalities of gait and mobility (08/16/20) Physical Therapy Treatment Note PT-OP-A Visit Information Start: 04/18/20 10:34 Freq: Status: Active Protocol: Document 08/16/20 15:03 LRN (Rec: 08/16/20 15:53 LRN [id number]) Out-Patient Physical Therapy Visit Information Visit Information Visit Type Treatment Note Visit Note 4 after PN Visit Start Time 15:03 Visit Stop Time 14:43 Total Visit Minutes 40 Visit Number 15 Evaluation Information Evaluation Date 06/21/20 Precautions Precautions History of falls, arthritis PT-OP-B Current Condition Start: 04/18/20 10:34 Freq: Status: Active Protocol: Document 06/21/20 15:06 LRN (Rec: 06/21/20 16:52 LRN [id number]) Current Condition History of Current Condition Onset Date 06/16/20 Current Complaints R knee swollen and achy pain after exercise History of Current Condition 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 Walking with FWW and can full WB on RLE for brief time. Prior Treatments and Tests Acute care PT. Future Testing and Treatments Planned Next MD visit 06/23/20. Treatment Goals Patient/Caregiver Goals Pt goal is to be able to walk without walker & hurting, possibly beach, 1 miles. STG: Gait independently without SBA. 2 Steps without assist with pole for UE support. Goal: Independent transfer in /out of bed. Drive independently Prior Functional Status Baseline Function- ADL's Independent Baseline Function- Mobility Independent Baseline Function- Gait Independent with mild limp due to limited R knee mobility. Baseline Function- Other Not able to get up/down on floor. Current Functional Impairments (Reported) Functional Limitations- ADL's Stairs one step at a time using a vertical pole. Dresses self, toilets self, Needs assist into bed after exercises. Functional Limitations- Mobility/Gait Walks with SBA around the house. Personal Factors Other Personal Factors That May Effect Dizziness on sitting from Therapy/Recovery supine. Age. Has spouse and daughter at home to help after surgery. PT-OP-C Subjective Start: 04/18/20 10:34 Freq: Status: Active Protocol: Document 08/16/20 15:03 LRN (Rec: 08/16/20 15:53 LRN [id number]) OP-PT Subjective Patient Comments Patient Comments States she had posterior R knee pain with prone knee flexion, was able to move ankle (rotated foot out) to minimize pain. States with supine knee flexion first few reps had catch pain in posterior knee. PT-OP-D Balance Start: 04/18/20 10:36 Freq: Status: Active Protocol: Document 06/21/20 15:06 LRN (Rec: 06/21/20 16:52 LRN [id number]) Balance Tests Single Limb Standing Single Limb- Right 1 sec Other Other Balance Tests Performed Standing balance: Rhomberg modified: Feet as close together as Valgus knees allow : 60 secs. PT-OP-E Functional Tests Start: 04/18/20 10:36 Freq: Status: Active Protocol: Document 07/19/20 15:09 LRN (Rec: 07/19/20 16:08 LRN [id number]) Functional Tests Timed Up and Go (TUG) Score 13 TUG Impairment Rating 20 to <40% Impaired (Score 12- 13) PT-OP-F Manual Assessment Start: 04/18/20 10:36 Freq: Status: Active Protocol: Document 06/21/20 15:06 LRN (Rec: 06/21/20 16:52 LRN [id number]) Manual Assessments Soft Tissue Assessment Soft Tissue Mobility Assessment Moderate plus swelling in R LE . No pitting edema noted. PT-OP-G Mobility & Gait Start: 04/18/20 10:36 Freq: Status: Active Protocol: Document 07/19/20 15:09 LRN (Rec: 07/19/20 16:08 LRN [id number]) OP Gait Assessment Gait Gait Assistance Required: Independent Assistive Devices Assistive Device None Gait Deviations General Gait Pattern Antalgic Factors Limiting Gait Function Factors Limiting Gait Function Decreased Strength,Limited Range of Motion,Pain Stair Climbing Evaluation Evaluation Level of Assist On Stairs Independent Devices Stair Climbing Assistive Devices Left Railing,Right Railing Technique/Endurance Stair Climbing Direction Ascend Stair Climbing Technique Step Over Step Number of Steps Climbed 4 PT-OP-K Range of Motion Start: 08/10/20 10:36 Freq: Status: Active Protocol: Document 08/16/20 15:03 LRN (Rec: 08/16/20 15:53 LRN [id number]) Knee Goniometric Range of Motion Knee Right Patient Position Supine Flexion Active (degrees) 127 Extension Active (degrees) 0 Comments Prior to ROM ex flexion was 127 degs. Sitting knee ext: 0 degs. PT-OP-M Strength Start: 04/18/20 10:34 Freq: Status: Active Protocol: Document 06/21/20 15:06 LRN (Rec: 06/21/20 16:52 LRN [id number]) Hip Strength Hip Manual Muscle Testing Right Flexion (L2) 2 Poor Abduction 2 Poor Adduction 2 Poor Left Flexion (L2) 3 Fair Extension (S1) 5 Normal Abduction 3 Fair Adduction 5 Normal Knee Strength Knee Manual Muscle Testing Left Flexion (S2) 5 Normal Extension (L3) 5 Normal Right Flexion (S2) 3- Fair- Extension (L3) 2+ Poor+ Ankle/Foot Strength Ankle and Foot Manual Muscle Testing Right Comments WNL Left Comments WNL PT-OP-Q Treatments Start: 04/18/20 10:34 Freq: Status: Active Protocol: Document 08/16/20 15:03 LRN (Rec: 08/16/20 15:53 LRN [id number]) Cardio Equipment Bicycle (Upright) Duration (Minutes) 9 Resistance 2>3 Seat Position 5 for 4' lowering to seat 4 for 5' Other used stool to get on/off bike Gym Equipment Cable Column (Body Solid) Leg Extension Details Seat : 2 holes showing, wheel @ hole 3 Resistance 10# Reps/Time 10x Leg Curl Details Seat : 2 holes showing, wheel @ hole 14 Resistance 20# Reps/Time 10x Shuttle Recovery unilateral squat Details Full and shallow squat Resistance 25#, 37# Shuttle Recovery Platform Stable Reps/Time 10x each Bilateral Squats Details Benny Squat Resistance 50 lb Shuttle Recovery Platform Stable Reps/Time 15x Therapeutic Exercises Supine Exercises supine heel slide Supine Exercise Name Assisted Heel slides Side right Equipment Used Strap for AAROM Reps/Minutes 7' Comments L knee flex ROM taken - 127 deg's. Prone Exercises HS curl Prone Exercise Name Hamstring curl w/end-range stretch Side right Resistance 0# Reps/Minutes 10x each with foot in neutral, IV, EV Comments Popping at medial posterior knee. Standing Exercises Shallow step lunge Standing Exercise Name SLS R during fwd lung LLE. Reps/Minutes 1' Self-Care/Home Management Treatment Education Patient Education Home Exercise Program Activities Self-Care/Home Management Activities I/S pt to practice SLS right to fwd lunge with LLE. PT-OP-R Modalities Start: 04/18/20 10:34 Freq: Status: Active Protocol: Document 06/27/20 15:06 LRN (Rec: 06/27/20 16:04 LRN [id number]) Hot Pack/Cold Pack Treatment Cold Pack Patient Position Supine PT-OP-T Assessment and Plan Start: 04/18/20 10:34 Freq: Status: Active Protocol: Document 08/16/20 15:03 LRN (Rec: 08/16/20 15:53 LRN [id number]) Physical Therapy Assessment Goals TUG Impairment TUG score 22 secs, indicating 100% impaired Short Term Goal (STG) TUG score 16 secs (60< 80% impaired) (07/19/20: TUG score is 13 secs) STG Duration 08/01/20 (07/19/20: MET GOAL ) Mcc Goal (LTG) TUG score of 11 secs (1<20% impaired) LTG Duration 09/19/20 HEP Impairment Pt lacks appropriate post-op R TKA HEP. Mcc Goal (LTG) Pt will be independent in a self care HEP for advancement in strength, ROM, balance of the RLE for safe and independent care and function. LTG Duration 09/19/20 (07/19/20: Progressing) Transfers Impairment Pt requires assist with transfers (sit<>stand & in/out of bed after exer) Short Term Goal (STG) Pt will be able to transfer in /out of bed after exercise without assist. STG Duration 07/11/20 (07/05/20: MET GOAL) Mcc Goal (LTG) Pt will be able to transfer up /down from a chair without use of UE's. LTG Duration 09/19/20 (07/19/20: MET GOAL) Stair amb Impairment Pt has step to step gait on stairs with use of hand pole assist Short Term Goal (STG) Pt will be independent & safe for step to step ambulation with use of a hand pole. STG Duration 07/11/20 (06/27/20: MET GOAL) Aerographer Goal (LTG) Pt will be independent & safe with step over step ambulation with use of a hand pole. LTG Duration 09/19/20 Gait with walker Impairment Pt requires SBA with use of FWW Short Term Goal (STG) Pt will be independent walking with use of FWW. STG Duration 07/01/20 (06/27/20: MET GOAL ) Aerographer Goal (LTG) Pt will be able to walk without use assistive device safely. LTG Duration 09/19/20 (07/19/20: MET GOAL ) Strength Impairment Decreased R knee strength (Ext 2+/5, Flex 3-/5) Short Term Goal (STG) Improve R knee strength to 4+/ 5 with pt able to ambulate without an assistive device and on stairs with a normal gait pattern without use of railing. (07/19/20: R knee ext: 3+/5, Flex 4+/5, pt able to walk without an assistive device, assist needed for ascending, single step for descending). STG Duration 08/01/20 (07/19/20: Improving) Aerographer Goal (LTG) Improve R knee strength post operatively to 5/5 with pt able to return to driving. LTG Duration 09/19/20 knee ROM Impairment R knee AROM: 15-96 Short Term Goal (STG) Improve R knee AROM 7-115 deg' s with pt able to start a self home program of ex on her recumbent stepper/bike. (07/19/20: Supine: AROM is 5- 116 deg's) STG Duration 07/19/20 (07/19/20: MET GOAL ) Aerographer Goal (LTG) Improve R knee AROM to 0-125 deg's to improve gait mechanics on level and for a normal stairs gait pattern. (07/29/20: R knee AROM improved to 3-123 deg's) LTG Duration 09/19/20 (08/11/20: AROM 3- 127 degs) LEFS Impairment LEFS score Short Term Goal (STG) Pt will improve LEFS score to pre-op score of 27/80. (07/19/20: MET GOAL, LEFS score is 45/80) STG Duration 07/17/20 (07/19/20: MET GOAL ) Aerographer Goal (LTG) Pt will improve LEFS score > 63 to demonstrate improved functional ability. LTG Duration 09/19/20 Progress Towards Goals Progress Comments Strengthening felt for 0-30 deg's R knee ext with new exercises. Assessment Summary Assessment Pt has full active R knee ext, no change with active R knee flexion. Weak with 0-45 deg's Ecc contraction R knee hindering step over step gait on stairs. Physical Therapy Plan Frequency and Duration Frequency of Treatment 2x/Week Plan of Care Start Date 06/21/20 Plan of Care End Date 09/19/20 Next Visit Focus/Plan Next Note Type Treatment Note Next Visit Plan Progress R knee strengthening & medial Quad strength. Work on exercises (knee flexion ROM increase a couple degrees) to improve descending RLE on stairs.
--- NOTE | 2020-08-18 16:22 | PT.OTN ---
Current Diagnoses Unilateral primary osteoarthritis, right knee (08/18/20) Pain in right knee (08/18/20) Stiffness of right knee, not elsewhere classified (08/18/20) Muscle weakness (generalized) (08/18/20) Other abnormalities of gait and mobility (08/18/20) Physical Therapy Treatment Note PT-OP-A Visit Information Start: 04/18/20 10:34 Freq: Status: Active Protocol: Document 08/18/20 15:03 LRN (Rec: 08/18/20 16:11 LRN [id number]) Out-Patient Physical Therapy Visit Information Visit Information Visit Type Treatment Note Visit Note 5 after PN Visit Start Time 15:03 Visit Stop Time 15:48 Total Visit Minutes 45 Visit Number 16 Evaluation Information Evaluation Date 06/21/20 Precautions Precautions History of falls, arthritis PT-OP-B Current Condition Start: 04/18/20 10:34 Freq: Status: Active Protocol: Document 06/21/20 15:06 LRN (Rec: 06/21/20 16:52 LRN [id number]) Current Condition History of Current Condition Onset Date 06/16/20 Current Complaints R knee swollen and achy pain after exercise History of Current Condition 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 Walking with FWW and can full WB on RLE for brief time. Prior Treatments and Tests Acute care PT. Future Testing and Treatments Planned Next MD visit 06/23/20. Treatment Goals Patient/Caregiver Goals Pt goal is to be able to walk without walker & hurting, possibly beach, 1 miles. STG: Gait independently without SBA. 2 Steps without assist with pole for UE support. Goal: Independent transfer in /out of bed. Drive independently Prior Functional Status Baseline Function- ADL's Independent Baseline Function- Mobility Independent Baseline Function- Gait Independent with mild limp due to limited R knee mobility. Baseline Function- Other Not able to get up/down on floor. Current Functional Impairments (Reported) Functional Limitations- ADL's Stairs one step at a time using a vertical pole. Dresses self, toilets self, Needs assist into bed after exercises. Functional Limitations- Mobility/Gait Walks with SBA around the house. Personal Factors Other Personal Factors That May Effect Dizziness on sitting from Therapy/Recovery supine. Age. Has spouse and daughter at home to help after surgery. PT-OP-C Subjective Start: 04/18/20 10:34 Freq: Status: Active Protocol: Document 08/18/20 15:03 LRN (Rec: 08/18/20 16:11 LRN [id number]) OP-PT Subjective Patient Comments Patient Comments Stiff this morning. States most difficult thing is that she can't stand as long as she 'd like to doing activities. Practicing going up/down stairs. Hurts across the knee . After last session her R knee was less sore rebecca up/ down stairs. R knee pain decreased after STM from 6-7 to 2-3/10. Patient Questionnaires Lower Extremity Functional Scale LEFS Score 42 LEFS Impairment 40 to 59% Impaired (Score 32- 47) PT-OP-D Balance Start: 04/18/20 10:36 Freq: Status: Active Protocol: Document 06/21/20 15:06 LRN (Rec: 06/21/20 16:52 LRN [id number]) Balance Tests Single Limb Standing Single Limb- Right 1 sec Other Other Balance Tests Performed Standing balance: Rhomberg modified: Feet as close together as Valgus knees allow : 60 secs. PT-OP-E Functional Tests Start: 04/18/20 10:36 Freq: Status: Active Protocol: Document 07/19/20 15:09 LRN (Rec: 07/19/20 16:08 LRN [id number]) Functional Tests Timed Up and Go (TUG) Score 13 TUG Impairment Rating 20 to <40% Impaired (Score 12- 13) PT-OP-F Manual Assessment Start: 04/18/20 10:36 Freq: Status: Active Protocol: Document 06/21/20 15:06 LRN (Rec: 06/21/20 16:52 LRN [id number]) Manual Assessments Soft Tissue Assessment Soft Tissue Mobility Assessment Moderate plus swelling in R LE . No pitting edema noted. PT-OP-G Mobility & Gait Start: 04/18/20 10:36 Freq: Status: Active Protocol: Document 07/19/20 15:09 LRN (Rec: 07/19/20 16:08 LRN [id number]) OP Gait Assessment Gait Gait Assistance Required: Independent Assistive Devices Assistive Device None Gait Deviations General Gait Pattern Antalgic Factors Limiting Gait Function Factors Limiting Gait Function Decreased Strength,Limited Range of Motion,Pain Stair Climbing Evaluation Evaluation Level of Assist On Stairs Independent Devices Stair Climbing Assistive Devices Left Railing,Right Railing Technique/Endurance Stair Climbing Direction Ascend Stair Climbing Technique Step Over Step Number of Steps Climbed 4 PT-OP-K Range of Motion Start: 04/18/20 10:36 Freq: Status: Active Protocol: Document 08/18/20 15:03 LRN (Rec: 08/18/20 16:11 LRN [id number]) Knee Goniometric Range of Motion Knee Right Patient Position Supine Flexion Active (degrees) 127 Extension Active (degrees) 0 Comments Sitting knee ext: WNL (0 deg's ) PT-OP-M Strength Start: 04/18/20 10:34 Freq: Status: Active Protocol: Document 06/21/20 15:06 LRN (Rec: 06/21/20 16:52 LRN [id number]) Hip Strength Hip Manual Muscle Testing Right Flexion (L2) 2 Poor Abduction 2 Poor Adduction 2 Poor Left Flexion (L2) 3 Fair Extension (S1) 5 Normal Abduction 3 Fair Adduction 5 Normal Knee Strength Knee Manual Muscle Testing Left Flexion (S2) 5 Normal Extension (L3) 5 Normal Right Flexion (S2) 3- Fair- Extension (L3) 2+ Poor+ Ankle/Foot Strength Ankle and Foot Manual Muscle Testing Right Comments WNL Left Comments WNL PT-OP-Q Treatments Start: 04/18/20 10:34 Freq: Status: Active Protocol: Document 08/18/20 15:03 LRN (Rec: 08/18/20 16:11 LRN [id number]) Cardio Equipment Bicycle (Upright) Duration (Minutes) 10 Resistance 2>3 Seat Position 4 Other used stool to get on/off bike Gym Equipment Cable Column (Body Solid) Leg Extension Details Seat : 2 holes showing, wheel @ hole 3 Resistance 10# Reps/Time 10x Leg Curl Details Seat : 2 holes showing, wheel @ hole 14 Resistance 22.5# Reps/Time 10x, 8x, 8x Shuttle Recovery unilateral squat Details 90/90 squat, & shallow squat Resistance 25#, 37# Shuttle Recovery Platform Stable Reps/Time 15x each wgt in 90/90, 25#x1 shallow squat due to pn limiting Bilateral Squats Details Benny Squat Resistance 50 lb Shuttle Recovery Platform Stable Reps/Time 15x Therapeutic Exercises Sitting Exercises LAQ Sitting Exercise Name knee ext Side right Comments ROM: full knee ext Gait Training Gait Activity Stair Ambulation Description Descending stairs Device Used 2 Railing Treatment Focus Control & painfree as possible Comments Pt had pain in supralateral patellar tendon rated 7/10, after STM was 3/10. Manual Therapy Treatment Soft Tissue Mobilization R Lateral Quad Body Location R supralateral patellar tendon Mobilization Type Cross-Friction,Strumming, Sustained Pressure Intensity/Depth Moderate Body Position Supine PT-OP-R Modalities Start: 04/18/20 10:34 Freq: Status: Active Protocol: Document 06/27/20 15:06 LRN (Rec: 06/27/20 16:04 LRN [id number]) Hot Pack/Cold Pack Treatment Cold Pack Patient Position Supine PT-OP-T Assessment and Plan Start: 04/18/20 10:34 Freq: Status: Active Protocol: Document 08/18/20 15:03 LRN (Rec: 08/18/20 16:11 LRN [id number]) Physical Therapy Assessment Goals TUG Impairment TUG score 22 secs, indicating 100% impaired Short Term Goal (STG) TUG score 16 secs (60< 80% impaired) (07/19/20: TUG score is 13 secs) STG Duration 08/01/20 (07/19/20: MET GOAL ) Longterm Goal (LTG) TUG score of 11 secs (1<20% impaired) LTG Duration 09/19/20 HEP Impairment Pt lacks appropriate post-op R TKA HEP. Longterm Goal (LTG) Pt will be independent in a self care HEP for advancement in strength, ROM, balance of the RLE for safe and independent care and function. LTG Duration 09/19/20 (07/19/20: Progressing) Transfers Impairment Pt requires assist with transfers (sit<>stand & in/out of bed after exer) Short Term Goal (STG) Pt will be able to transfer in /out of bed after exercise without assist. STG Duration 07/11/20 (07/05/20: MET GOAL) Longterm Goal (LTG) Pt will be able to transfer up /down from a chair without use of UE's. LTG Duration 09/19/20 (07/19/20: MET GOAL) Stair amb Impairment Pt has step to step gait on stairs with use of hand pole assist Short Term Goal (STG) Pt will be independent & safe for step to step ambulation with use of a hand pole. STG Duration 07/11/20 (06/27/20: MET GOAL) Ion Exchange Operator Goal (LTG) Pt will be independent & safe with step over step ambulation with use of a hand pole. LTG Duration 09/19/20 Gait with walker Impairment Pt requires SBA with use of FWW Short Term Goal (STG) Pt will be independent walking with use of FWW. STG Duration 07/01/20 (06/27/20: MET GOAL ) Ion Exchange Operator Goal (LTG) Pt will be able to walk without use assistive device safely. LTG Duration 09/19/20 (07/19/20: MET GOAL ) Strength Impairment Decreased R knee strength (Ext 2+/5, Flex 3-/5) Short Term Goal (STG) Improve R knee strength to 4+/ 5 with pt able to ambulate without an assistive device and on stairs with a normal gait pattern without use of railing. (07/19/20: R knee ext: 3+/5, Flex 4+/5, pt able to walk without an assistive device, assist needed for ascending, single step for descending). STG Duration 08/01/20 (07/19/20: Improving) Longterm Goal (LTG) Improve R knee strength post operatively to 5/5 with pt able to return to driving. LTG Duration 09/19/20 knee ROM Impairment R knee AROM: 15-96 Short Term Goal (STG) Improve R knee AROM 7-115 deg' s with pt able to start a self home program of ex on her recumbent stepper/bike. (07/19/20: Supine: AROM is 5- 116 deg's) STG Duration 07/19/20 (07/19/20: MET GOAL ) Ion Exchange Operator Goal (LTG) Improve R knee AROM to 0-125 deg's to improve gait mechanics on level and for a normal stairs gait pattern. (08/18/20: R knee AROM improved to 0-127 deg's) LTG Duration 09/19/20 (08/18/20: AROM 0- 127 degs) LEFS Impairment LEFS score Short Term Goal (STG) Pt will improve LEFS score to pre-op score of 27/80. (07/19/20: MET GOAL, LEFS score is 45/80) STG Duration 07/17/20 (07/19/20: MET GOAL ) Longterm Goal (LTG) Pt will improve LEFS score > 63 to demonstrate improved functional ability. LTG Duration 09/19/20 Progress Towards Goals Progress Comments Pt demonstrates full active R knee extension. R knee pain decreased from 6-7 /10 to 3-4/10 with descending of stairs after manual STM. ROM Goal: MET Assessment Summary Assessment Pt able to have full R knee ext in [facility] and [place]. 0-45 deg' s ecc knee ext is painful in supralateral patellar region due to tightness/trigger points. LEFS worse since last month (score was 45, now is 43, % impairment is the same) probably due to the increase in focus on ex strengthening in therapy; therefore more discomfort and less tolerance with activity as of late. Physical Therapy Plan Frequency and Duration Frequency of Treatment 2x/Week Plan of Care Start Date 06/21/20 Plan of Care End Date 09/19/20 Next Visit Focus/Plan Next Note Type Treatment Note Next Visit Plan Check R knee strength. Manual therapy to decrease R knee supralateral knee pain at patellar tendon and quad miuscle. Progress R knee strengthening & medial Quad (0-45 deg's) strength. Work on exercises to improve descending RLE on stairs.
--- NOTE | 2020-08-23 16:07 | PT.OTN ---
Current Diagnoses Unilateral primary osteoarthritis, right knee (08/23/20) Pain in right knee (08/23/20) Stiffness of right knee, not elsewhere classified (08/23/20) Muscle weakness (generalized) (08/23/20) Other abnormalities of gait and mobility (08/23/20) Physical Therapy Treatment Note PT-OP-A Visit Information Start: 04/18/20 10:34 Freq: Status: Active Protocol: Document 08/23/20 15:03 LRN (Rec: 08/23/20 16:05 LRN [id number]) Out-Patient Physical Therapy Visit Information Visit Information Visit Type Treatment Note Visit Note 6 after PN Visit Start Time 15:03 Visit Stop Time 15:47 Total Visit Minutes 44 Visit Number 17 Evaluation Information Evaluation Date 06/21/20 Precautions Precautions History of falls, arthritis PT-OP-B Current Condition Start: 04/18/20 10:34 Freq: Status: Active Protocol: Document 06/21/20 15:06 LRN (Rec: 06/21/20 16:52 LRN [id number]) Current Condition History of Current Condition Onset Date 06/16/20 Current Complaints R knee swollen and achy pain after exercise History of Current Condition 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 Walking with FWW and can full WB on RLE for brief time. Prior Treatments and Tests Acute care PT. Future Testing and Treatments Planned Next MD visit 06/23/20. Treatment Goals Patient/Caregiver Goals Pt goal is to be able to walk without walker & hurting, possibly beach, 1 miles. STG: Gait independently without SBA. 2 Steps without assist with pole for UE support. Goal: Independent transfer in /out of bed. Drive independently Prior Functional Status Baseline Function- ADL's Independent Baseline Function- Mobility Independent Baseline Function- Gait Independent with mild limp due to limited R knee mobility. Baseline Function- Other Not able to get up/down on floor. Current Functional Impairments (Reported) Functional Limitations- ADL's Stairs one step at a time using a vertical pole. Dresses self, toilets self, Needs assist into bed after exercises. Functional Limitations- Mobility/Gait Walks with SBA around the house. Personal Factors Other Personal Factors That May Effect Dizziness on sitting from Therapy/Recovery supine. Age. Has spouse and daughter at home to help after surgery. PT-OP-C Subjective Start: 04/18/20 10:34 Freq: Status: Active Protocol: Document 08/23/20 15:03 LRN (Rec: 08/23/20 16:05 LRN [id number]) OP-PT Subjective Patient Comments Patient Comments Woke this morning with R Hip is sore. Every once in a while I twist wrong an it gets sore. PT-OP-D Balance Start: 04/18/20 10:36 Freq: Status: Active Protocol: Document 06/21/20 15:06 LRN (Rec: 06/21/20 16:52 LRN [id number]) Balance Tests Single Limb Standing Single Limb- Right 1 sec Other Other Balance Tests Performed Standing balance: Rhomberg modified: Feet as close together as Valgus knees allow : 60 secs. PT-OP-E Functional Tests Start: 04/18/20 10:36 Freq: Status: Active Protocol: Document 07/19/20 15:09 LRN (Rec: 07/19/20 16:08 LRN [id number]) Functional Tests Timed Up and Go (TUG) Score 13 TUG Impairment Rating 20 to <40% Impaired (Score 12- 13) PT-OP-F Manual Assessment Start: 04/18/20 10:36 Freq: Status: Active Protocol: Document 06/21/20 15:06 LRN (Rec: 06/21/20 16:52 LRN [id number]) Manual Assessments Soft Tissue Assessment Soft Tissue Mobility Assessment Moderate plus swelling in R LE . No pitting edema noted. PT-OP-G Mobility & Gait Start: 04/18/20 10:36 Freq: Status: Active Protocol: Document 07/19/20 15:09 LRN (Rec: 07/19/20 16:08 LRN [id number]) OP Gait Assessment Gait Gait Assistance Required: Independent Assistive Devices Assistive Device None Gait Deviations General Gait Pattern Antalgic Factors Limiting Gait Function Factors Limiting Gait Function Decreased Strength,Limited Range of Motion,Pain Stair Climbing Evaluation Evaluation Level of Assist On Stairs Independent Devices Stair Climbing Assistive Devices Left Railing,Right Railing Technique/Endurance Stair Climbing Direction Ascend Stair Climbing Technique Step Over Step Number of Steps Climbed 4 PT-OP-K Range of Motion Start: 04/18/20 10:36 Freq: Status: Active Protocol: Document 12/15/20 15:03 LRN (Rec: 12/15/20 16:05 LRN [id number]) Knee Goniometric Range of Motion Knee Right Patient Position Supine Flexion Active (degrees) 123 Flexion Passive (degrees) 127 Extension Active (degrees) 0 Comments s/p therapy knee flexion is 127 deg's PT-OP-M Strength Start: 04/18/20 10:34 Freq: Status: Active Protocol: Document 08/23/20 15:03 LRN (Rec: 08/23/20 16:05 LRN [id number]) Knee Strength Knee Manual Muscle Testing Right Flexion (S2) 5 Normal Extension (L3) 5 Normal Comments Functionally weak with stair ambulation PT-OP-Q Treatments Start: 04/18/20 10:34 Freq: Status: Active Protocol: Document 08/23/20 15:03 LRN (Rec: 08/23/20 16:05 LRN [id number]) Cardio Equipment Bicycle (Upright) Duration (Minutes) 10 Resistance 3 Seat Position 4 Other used stool to get on/off bike Gym Equipment Cable Column (Body Solid) Leg Extension Details Seat : 2 holes showing, wheel @ hole 3 Resistance 15# Reps/Time 10x Leg Curl Details Seat : 2 holes showing, wheel @ hole 14 Resistance 30# Reps/Time 10x Shuttle Recovery unilateral squat Details R LE Step descending ROM squat Resistance 25#, 37# Shuttle Recovery Platform Stable Reps/Time 10x, 10x 2, respectively Bilateral Squats Details Benny Squat Resistance 62#, 50# Shuttle Recovery Platform Stable Reps/Time 10x, 10x 2 ,respectively Therapeutic Exercises Supine Exercises supine heel slide Supine Exercise Name Heel slides Equipment Used Belt to assist flex Reps/Minutes 3' Standing Exercises Ecc Squats Standing Exercise Name R SLS (stair hgt) squat, both legs to return Side right Reps/Minutes 1' sit to stand Standing Exercise Name Sit to Stand Reps/Minutes 10x step up/down Standing Exercise Name Step up/downs Side bilateral Reps/Minutes 10x each Gait Training Gait Activity Stair Ambulation Description Descending stairs Device Used 2 Railing Treatment Focus Control & painfree as possible Comments Pt had pain in supralateral patellar tendon and lateral quad PT-OP-R Modalities Start: 04/18/20 10:34 Freq: Status: Active Protocol: Document 06/27/20 15:06 LRN (Rec: 06/27/20 16:04 LRN [id number]) Hot Pack/Cold Pack Treatment Cold Pack Patient Position Supine PT-OP-T Assessment and Plan Start: 04/18/20 10:34 Freq: Status: Active Protocol: Document 08/23/20 15:03 LRN (Rec: 08/23/20 16:05 LRN [id number]) Physical Therapy Assessment Goals TUG Impairment TUG score 22 secs, indicating 100% impaired Short Term Goal (STG) TUG score 16 secs (60< 80% impaired) (07/19/20: TUG score is 13 secs) STG Duration 08/01/20 (07/19/20: MET GOAL ) Biofuels Processing Technician Goal (LTG) TUG score of 11 secs (1<20% impaired) LTG Duration 09/19/20 HEP Impairment Pt lacks appropriate post-op R TKA HEP. Biofuels Processing Technician Goal (LTG) Pt will be independent in a self care HEP for advancement in strength, ROM, balance of the RLE for safe and independent care and function. LTG Duration 09/19/20 (07/19/20: Progressing) Transfers Impairment Pt requires assist with transfers (sit<>stand & in/out of bed after exer) Short Term Goal (STG) Pt will be able to transfer in /out of bed after exercise without assist. STG Duration 07/11/20 (07/05/20: MET GOAL) Biofuels Processing Technician Goal (LTG) Pt will be able to transfer up /down from a chair without use of UE's. LTG Duration 09/19/20 (07/19/20: MET GOAL) Stair amb Impairment Pt has step to step gait on stairs with use of hand pole assist Short Term Goal (STG) Pt will be independent & safe for step to step ambulation with use of a hand pole. STG Duration 07/11/20 (06/27/20: MET GOAL) Snf Goal (LTG) Pt will be independent & safe with step over step ambulation with use of a hand pole. LTG Duration 09/19/20 Gait with walker Impairment Pt requires SBA with use of FWW Short Term Goal (STG) Pt will be independent walking with use of FWW. STG Duration 07/01/20 (06/27/20: MET GOAL ) Snf Goal (LTG) Pt will be able to walk without use assistive device safely. LTG Duration 09/19/20 (07/19/20: MET GOAL ) Strength Impairment Decreased R knee strength (Ext 2+/5, Flex 3-/5) Short Term Goal (STG) Improve R knee strength to 4+/ 5 with pt able to ambulate without an assistive device and on stairs with a normal gait pattern without use of railing. (07/19/20: R knee ext: 3+/5, Flex 4+/5, pt able to walk without an assistive device, assist needed for ascending, single step for descending). STG Duration 08/01/20 (07/19/20: Normal strength but not able to amb stairs normally) Snf Goal (LTG) Improve R knee strength post operatively to 5/5 with pt able to return to driving. LTG Duration 09/19/20 (08/23/20: MET GOSL ) knee ROM Impairment R knee AROM: 15-96 Short Term Goal (STG) Improve R knee AROM 7-115 deg' s with pt able to start a self home program of ex on her recumbent stepper/bike. (07/19/20: Supine: AROM is 5- 116 deg's) STG Duration 07/19/20 (07/19/20: MET GOAL ) Snf Goal (LTG) Improve R knee AROM to 0-125 deg's to improve gait mechanics on level and for a normal stairs gait pattern. (08/18/20: R knee AROM improved to 0-127 deg's) LTG Duration 09/19/20 (08/23/20: AROM 0- 123->125 degs) LEFS Impairment LEFS score Short Term Goal (STG) Pt will improve LEFS score to pre-op score of 27/80. (07/19/20: MET GOAL, LEFS score is 45/80) STG Duration 07/17/20 (07/19/20: MET GOAL ) Snf Goal (LTG) Pt will improve LEFS score > 63 to demonstrate improved functional ability. LTG Duration 09/19/20 Progress Towards Goals Progress Comments R knee strength improved. MMT is normal with resisted break testing, initially was flex 4 +/5, ext 3+/5. Assessment Summary Assessment R LE Quad weakness causing difficulty with descending stairs. She tolerated increasing resistance on Shuttle recovery with some increase in R lateral quad pain. Physical Therapy Plan Frequency and Duration Frequency of Treatment 2x/Week Plan of Care Start Date 06/21/20 Plan of Care End Date 09/19/20 Next Visit Focus/Plan Next Note Type Treatment Note Next Visit Plan Issue balance HEP. Manual therapy to decrease R knee supralateral knee pain at patellar tendon and quad muscle. Assess TUG. Progress R knee quad ECC>Con strengthening.
--- NOTE | 2020-08-30 11:15 | PT.OTN ---
Current Diagnoses Unilateral primary osteoarthritis, right knee (08/30/20) Pain in right knee (08/30/20) Stiffness of right knee, not elsewhere classified (08/30/20) Muscle weakness (generalized) (08/30/20) Other abnormalities of gait and mobility (08/30/20) Physical Therapy Treatment Note PT-OP-A Visit Information Start: 04/18/20 10:34 Freq: Status: Active Protocol: Document 08/30/20 10:30 SP (Rec: 08/30/20 11:29 SP [id number]) Out-Patient Physical Therapy Visit Information Visit Information Visit Type Treatment Note Visit Note 7 after PN Visit Start Time 10:30 Visit Stop Time 11:15 Total Visit Minutes 45 Visit Number 18 Number of PROGRAM ARCHITECT Visits 1 Precautions Precautions History of falls, arthritis PT-OP-B Current Condition Start: 04/18/20 10:34 Freq: Status: Active Protocol: Document 06/21/20 15:06 LRN (Rec: 06/21/20 16:52 LRN [id number]) Current Condition History of Current Condition Onset Date 06/16/20 Current Complaints R knee swollen and achy pain after exercise History of Current Condition 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 Walking with FWW and can full WB on RLE for brief time. Prior Treatments and Tests Acute care PT. Future Testing and Treatments Planned Next MD visit 06/23/20. Treatment Goals Patient/Caregiver Goals Pt goal is to be able to walk without walker & hurting, possibly beach, 1 miles. STG: Gait independently without SBA. 2 Steps without assist with pole for UE support. Goal: Independent transfer in /out of bed. Drive independently Prior Functional Status Baseline Function- ADL's Independent Baseline Function- Mobility Independent Baseline Function- Gait Independent with mild limp due to limited R knee mobility. Baseline Function- Other Not able to get up/down on floor. Current Functional Impairments (Reported) Functional Limitations- ADL's Stairs one step at a time using a vertical pole. Dresses self, toilets self, Needs assist into bed after exercises. Functional Limitations- Mobility/Gait Walks with SBA around the house. Personal Factors Other Personal Factors That May Effect Dizziness on sitting from Therapy/Recovery supine. Age. Has spouse and daughter at home to help after surgery. PT-OP-C Subjective Start: 04/18/20 10:34 Freq: Status: Active Protocol: Document 08/30/20 10:30 SP (Rec: 08/30/20 11:29 SP [id number]) OP-PT Subjective Patient Comments Patient Comments Pt reported doing well and making good progress. Patient Reported Progress Improving PT-OP-D Balance Start: 04/18/20 10:36 Freq: Status: Active Protocol: Document 06/21/20 15:06 LRN (Rec: 06/21/20 16:52 LRN [id number]) Balance Tests Single Limb Standing Single Limb- Right 1 sec Other Other Balance Tests Performed Standing balance: Rhomberg modified: Feet as close together as Valgus knees allow : 60 secs. PT-OP-E Functional Tests Start: 04/18/20 10:36 Freq: Status: Active Protocol: Document 07/19/20 15:09 LRN (Rec: 07/19/20 16:08 LRN [id number]) Functional Tests Timed Up and Go (TUG) Score 13 TUG Impairment Rating 20 to <40% Impaired (Score 12- 13) PT-OP-F Manual Assessment Start: 04/18/20 10:36 Freq: Status: Active Protocol: Document 06/21/20 15:06 LRN (Rec: 06/21/20 16:52 LRN [id number]) Manual Assessments Soft Tissue Assessment Soft Tissue Mobility Assessment Moderate plus swelling in R LE . No pitting edema noted. PT-OP-G Mobility & Gait Start: 04/18/20 10:36 Freq: Status: Active Protocol: Document 07/19/20 15:09 LRN (Rec: 07/19/20 16:08 LRN [id number]) OP Gait Assessment Gait Gait Assistance Required: Independent Assistive Devices Assistive Device None Gait Deviations General Gait Pattern Antalgic Factors Limiting Gait Function Factors Limiting Gait Function Decreased Strength,Limited Range of Motion,Pain Stair Climbing Evaluation Evaluation Level of Assist On Stairs Independent Devices Stair Climbing Assistive Devices Left Railing,Right Railing Technique/Endurance Stair Climbing Direction Ascend Stair Climbing Technique Step Over Step Number of Steps Climbed 4 PT-OP-K Range of Motion Start: 04/18/20 10:36 Freq: Status: Active Protocol: Document 08/23/20 15:03 LRN (Rec: 08/23/20 16:05 LRN [id number]) Knee Goniometric Range of Motion Knee Right Patient Position Supine Flexion Active (degrees) 123 Flexion Passive (degrees) 127 Extension Active (degrees) 0 Comments s/p therapy knee flexion is 127 deg's PT-OP-M Strength Start: 04/18/20 10:34 Freq: Status: Active Protocol: Document 08/23/20 15:03 LRN (Rec: 08/23/20 16:05 LRN [id number]) Knee Strength Knee Manual Muscle Testing Right Flexion (S2) 5 Normal Extension (L3) 5 Normal Comments Functionally weak with stair ambulation PT-OP-Q Treatments Start: 04/18/20 10:34 Freq: Status: Active Protocol: Document 08/30/20 10:30 SP (Rec: 08/30/20 11:29 SP [id number]) Therapeutic Exercises Standing Exercises SLS cone taps Side right Equipment Used 4 cones front and front other leg cross, rail contact PRN Reps/Minutes 4 cones x5 reps, 2 sets alternate BLE Comments cue for upright posture and knee alignment with and behind mid foot Ecc Squats Standing Exercise Name R SLS (stair hgt) squat, both legs to return Side right Reps/Minutes 1' Comments didnt get to today, perform next tx Shallow step lunge Standing Exercise Name SLS R during fwd lung LLE. Reps/Minutes 1' Comments didnt get to today, perform next tx step downs Standing Exercise Name eccentric lower Side right Equipment Used 4 back/2 step forward Reps/Minutes 2x10 each LE each step Comments cued hip hinge, glut facilitation and decrease anterior knee pressure step up/down Standing Exercise Name Step up/downs Side bilateral Reps/Minutes 10x each Comments occasional cue for knee alignment with and behind mid foot Manual Therapy Treatment Soft Tissue Mobilization R Lateral Quad Body Location R supralateral patellar tendon Mobilization Type Myofascial Release Intensity/Depth Moderate Body Position Supine scar mob Body Location Scar and surrounding soft tissue mob Mobilization Type Myofascial Release,Strumming Intensity/Depth Superficial Body Position Supine Comments more rope like superior than PT-OP-R Modalities Start: 04/18/20 10:34 Freq: Status: Active Protocol: Document 06/27/20 15:06 LRN (Rec: 06/27/20 16:04 LRN [id number]) Hot Pack/Cold Pack Treatment Cold Pack Patient Position Supine PT-OP-T Assessment and Plan Start: 04/18/20 10:34 Freq: Status: Active Protocol: Document 08/30/20 10:30 SP (Rec: 08/30/20 11:29 SP [id number]) Physical Therapy Assessment Goals TUG Impairment TUG score 22 secs, indicating 100% impaired Short Term Goal (STG) TUG score 16 secs (60< 80% impaired) (07/19/20: TUG score is 13 secs) STG Duration 08/01/20 (07/19/20: MET GOAL ) Lunchroom Attendant Goal (LTG) TUG score of 11 secs (1<20% impaired) 08/30/20 Goal Met: 7.47 sec LTG Duration 09/19/20 HEP Impairment Pt lacks appropriate post-op R TKA HEP. Lunchroom Attendant Goal (LTG) Pt will be independent in a self care HEP for advancement in strength, ROM, balance of the RLE for safe and independent care and function. LTG Duration 09/19/20 (07/19/20: Progressing) Transfers Impairment Pt requires assist with transfers (sit<>stand & in/out of bed after exer) Short Term Goal (STG) Pt will be able to transfer in /out of bed after exercise without assist. STG Duration 07/11/20 (07/05/20: MET GOAL) Lunchroom Attendant Goal (LTG) Pt will be able to transfer up /down from a chair without use of UE's. LTG Duration 09/19/20 (07/19/20: MET GOAL) Stair amb Impairment Pt has step to step gait on stairs with use of hand pole assist Short Term Goal (STG) Pt will be independent & safe for step to step ambulation with use of a hand pole. STG Duration 07/11/20 (06/27/20: MET GOAL) Lunchroom Attendant Goal (LTG) Pt will be independent & safe with step over step ambulation with use of a hand pole. LTG Duration 09/19/20 Gait with walker Impairment Pt requires SBA with use of FWW Short Term Goal (STG) Pt will be independent walking with use of FWW. STG Duration 07/01/20 (06/27/20: MET GOAL ) Correction Goal (LTG) Pt will be able to walk without use assistive device safely. LTG Duration 09/19/20 (07/19/20: MET GOAL ) Strength Impairment Decreased R knee strength (Ext 2+/5, Flex 3-/5) Short Term Goal (STG) Improve R knee strength to 4+/ 5 with pt able to ambulate without an assistive device and on stairs with a normal gait pattern without use of railing. (07/19/20: R knee ext: 3+/5, Flex 4+/5, pt able to walk without an assistive device, assist needed for ascending, single step for descending). STG Duration 08/01/20 (07/19/20: Normal strength but not able to amb stairs normally) Lunchroom Attendant Goal (LTG) Improve R knee strength post operatively to 5/5 with pt able to return to driving. LTG Duration 09/19/20 (08/23/20: MET GOSL ) knee ROM Impairment R knee AROM: 15-96 Short Term Goal (STG) Improve R knee AROM 7-115 deg' s with pt able to start a self home program of ex on her recumbent stepper/bike. (07/19/20: Supine: AROM is 5- 116 deg's) STG Duration 07/19/20 (07/19/20: MET GOAL ) Correction Goal (LTG) Improve R knee AROM to 0-125 deg's to improve gait mechanics on level and for a normal stairs gait pattern. (08/18/20: R knee AROM improved to 0-127 deg's) LTG Duration 09/19/20 (08/23/20: AROM 0- 123->125 degs) LEFS Impairment LEFS score Short Term Goal (STG) Pt will improve LEFS score to pre-op score of 27/80. (07/19/20: MET GOAL, LEFS score is 45/80) STG Duration 07/17/20 (07/19/20: MET GOAL ) Correction Goal (LTG) Pt will improve LEFS score > 63 to demonstrate improved functional ability. LTG Duration 09/19/20 Assessment Summary Assessment Reassessed TUG goal MET. Performed manual and educated self scar mobility and MFR STMs to supra and lateral R knee. R quad, glut and abd weakness, cuing required cuing for proper knee alignment knee with and behind toes, good self corrections during HEP review and initated SLS cone tap and forward eccentric step down. Physical Therapy Plan Frequency and Duration Frequency of Treatment 2x/Week Plan of Care Start Date 06/21/20 Plan of Care End Date 09/19/20 Therapeutic Interventions Therapeutic Interventions Balance Training,Gait Training ,Home Exercise Program,Joint Mobilizations,Manual Therapy, Neuromuscular Re-education, Patient/Caregiver Education, Self-Care/Home Management,Soft Tissue Mobilization,Taping, Therapeutic Activities, Therapeutic Exercises Modalities Cold Pack/Ice Massage,Hot Packs Next Visit Focus/Plan Next Note Type Treatment Note Next Visit Plan Assess SLS balance HEP initated last tx. Next tx reassess AROM. Continue Manual therapy to decrease R knee supralateral knee pain at patellar tendon and quad muscle PRN. Progress R knee quad ECC>Con strengthening.
--- NOTE | 2020-09-06 16:02 | PT.OTN ---
Current Diagnoses Unilateral primary osteoarthritis, right knee (09/06/20) Pain in right knee (09/06/20) Stiffness of right knee, not elsewhere classified (09/06/20) Muscle weakness (generalized) (09/06/20) Other abnormalities of gait and mobility (09/06/20) Physical Therapy Treatment Note PT-OP-A Visit Information Start: 04/18/20 10:34 Freq: Status: Active Protocol: Document 09/06/20 15:00 LRN (Rec: 09/06/20 15:57 LRN [id number]) Out-Patient Physical Therapy Visit Information Visit Information Visit Type Treatment Note Visit Note 8 after PN Visit Start Time 15:00 Visit Stop Time 15:41 Total Visit Minutes 41 Visit Number 19 Number of SWIM COACH Visits 1 Evaluation Information Evaluation Date 06/21/20 Precautions Precautions History of falls, arthritis PT-OP-B Current Condition Start: 04/18/20 10:34 Freq: Status: Active Protocol: Document 06/21/20 15:06 LRN (Rec: 06/21/20 16:52 LRN [id number]) Current Condition History of Current Condition Onset Date 06/16/20 Current Complaints R knee swollen and achy pain after exercise History of Current Condition 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 Walking with FWW and can full WB on RLE for brief time. Prior Treatments and Tests Acute care PT. Future Testing and Treatments Planned Next MD visit 06/23/20. Treatment Goals Patient/Caregiver Goals Pt goal is to be able to walk without walker & hurting, possibly beach, 1 miles. STG: Gait independently without SBA. 2 Steps without assist with pole for UE support. Goal: Independent transfer in /out of bed. Drive independently Prior Functional Status Baseline Function- ADL's Independent Baseline Function- Mobility Independent Baseline Function- Gait Independent with mild limp due to limited R knee mobility. Baseline Function- Other Not able to get up/down on floor. Current Functional Impairments (Reported) Functional Limitations- ADL's Stairs one step at a time using a vertical pole. Dresses self, toilets self, Needs assist into bed after exercises. Functional Limitations- Mobility/Gait Walks with SBA around the house. Personal Factors Other Personal Factors That May Effect Dizziness on sitting from Therapy/Recovery supine. Age. Has spouse and daughter at home to help after surgery. PT-OP-C Subjective Start: 04/18/20 10:34 Freq: Status: Active Protocol: Document 09/06/20 15:00 LRN (Rec: 09/06/20 15:57 LRN [id number]) OP-PT Subjective Patient Comments Patient Comments Swells up on outside. States it has gotten a lot better. Starting to not feel so tired. States she is able to ambulate stairs with alternating gait holding ont a hand pole. PT-OP-D Balance Start: 04/18/20 10:36 Freq: Status: Active Protocol: Document 06/21/20 15:06 LRN (Rec: 06/21/20 16:52 LRN [id number]) Balance Tests Single Limb Standing Single Limb- Right 1 sec Other Other Balance Tests Performed Standing balance: Rhomberg modified: Feet as close together as Valgus knees allow : 60 secs. PT-OP-E Functional Tests Start: 04/18/20 10:36 Freq: Status: Active Protocol: Document 07/19/20 15:09 LRN (Rec: 07/19/20 16:08 LRN [id number]) Functional Tests Timed Up and Go (TUG) Score 13 TUG Impairment Rating 20 to <40% Impaired (Score 12- 13) PT-OP-F Manual Assessment Start: 04/18/20 10:36 Freq: Status: Active Protocol: Document 06/21/20 15:06 LRN (Rec: 06/21/20 16:52 LRN [id number]) Manual Assessments Soft Tissue Assessment Soft Tissue Mobility Assessment Moderate plus swelling in R LE . No pitting edema noted. PT-OP-G Mobility & Gait Start: 04/18/20 10:36 Freq: Status: Active Protocol: Document 07/19/20 15:09 LRN (Rec: 07/19/20 16:08 LRN [id number]) OP Gait Assessment Gait Gait Assistance Required: Independent Assistive Devices Assistive Device None Gait Deviations General Gait Pattern Antalgic Factors Limiting Gait Function Factors Limiting Gait Function Decreased Strength,Limited Range of Motion,Pain Stair Climbing Evaluation Evaluation Level of Assist On Stairs Independent Devices Stair Climbing Assistive Devices Left Railing,Right Railing Technique/Endurance Stair Climbing Direction Ascend Stair Climbing Technique Step Over Step Number of Steps Climbed 4 PT-OP-K Range of Motion Start: 04/18/20 10:36 Freq: Status: Active Protocol: Document 09/06/20 15:00 LRN (Rec: 09/06/20 15:57 LRN [id number]) Knee Goniometric Range of Motion Knee Left Patient Position Supine Flexion Active (degrees) 131 Right Patient Position Supine Flexion Active (degrees) 126 Flexion Passive (degrees) 130 Extension Active (degrees) 0 PT-OP-M Strength Start: 04/18/20 10:34 Freq: Status: Active Protocol: Document 09/06/20 15:00 LRN (Rec: 09/06/20 15:57 LRN [id number]) Knee Strength Knee Manual Muscle Testing Right Flexion (S2) 5 Normal Extension (L3) 5 Normal Comments Mildly functionally weak with stair ambulation. PT-OP-Q Treatments Start: 04/18/20 10:34 Freq: Status: Active Protocol: Document 09/06/20 15:00 LRN (Rec: 09/06/20 15:57 LRN [id number]) Cardio Equipment Bicycle (Upright) Duration (Minutes) 10 Resistance 3 Seat Position 4 Therapeutic Exercises Supine Exercises supine heel slide Supine Exercise Name Heel slides active Reps/Minutes 3' Standing Exercises SLS cone taps Side right Equipment Used 4 cones front and front other leg cross, rail contact PRN Reps/Minutes 4 cones x5 reps, 2 sets with each leg Comments cue for upright posture and knee alignment with and behind mid foot Ecc Squats Standing Exercise Name R SLS (stair hgt) squat, both legs to return Side right Reps/Minutes 1' Comments Minimal time w/ex due to pt fatigue Shallow step lunge Standing Exercise Name SLS R during fwd lung LLE. Reps/Minutes 3' step downs Standing Exercise Name eccentric lower Side right Equipment Used 4 back/2 step forward Reps/Minutes 2x10 each LE each step Comments cued hip hinge, glut facilitation and decrease anterior knee pressure step up/down Standing Exercise Name Step up/downs Side bilateral Reps/Minutes 10x each Comments FAST PACE Manual Therapy Treatment Soft Tissue Mobilization R Lateral Quad Body Location Checked R supralateral patellar tendon Mobilization Type Myofascial Release Intensity/Depth Moderate Body Position Supine scar mob Body Location Scar and surrounding soft tissue mob Mobilization Type Myofascial Release,Strumming Intensity/Depth Superficial Body Position Supine Comments focused more on inferior scar PT-OP-R Modalities Start: 04/18/20 10:34 Freq: Status: Active Protocol: Document 06/27/20 15:06 LRN (Rec: 06/27/20 16:04 LRN [id number]) Hot Pack/Cold Pack Treatment Cold Pack Patient Position Supine PT-OP-T Assessment and Plan Start: 04/18/20 10:34 Freq: Status: Active Protocol: Document 09/06/20 15:00 LRN (Rec: 09/06/20 15:57 LRN [id number]) Physical Therapy Assessment Goals TUG Impairment TUG score 22 secs, indicating 100% impaired Short Term Goal (STG) TUG score 16 secs (60< 80% impaired) (07/19/20: TUG score is 13 secs) STG Duration 08/01/20 (07/19/20: MET GOAL ) Penitentiary Goal (LTG) TUG score of 11 secs (1<20% impaired) 08/30/20 Goal Met: 7.47 sec LTG Duration 09/19/20 (08/30/20: MET GOAL ) HEP Impairment Pt lacks appropriate post-op R TKA HEP. Penitentiary Goal (LTG) Pt will be independent in a self care HEP for advancement in strength, ROM, balance of the RLE for safe and independent care and function. LTG Duration 09/19/20 (07/19/20: Progressing) Transfers Impairment Pt requires assist with transfers (sit<>stand & in/out of bed after exer) Short Term Goal (STG) Pt will be able to transfer in /out of bed after exercise without assist. STG Duration 07/11/20 (07/05/20: MET GOAL) Penitentiary Goal (LTG) Pt will be able to transfer up /down from a chair without use of UE's. LTG Duration 09/19/20 (07/19/20: MET GOAL) Stair amb Impairment Pt has step to step gait on stairs with use of hand pole assist Short Term Goal (STG) Pt will be independent & safe for step to step ambulation with use of a hand pole. STG Duration 07/11/20 (06/27/20: MET GOAL) Penitentiary Goal (LTG) Pt will be independent & safe with step over step ambulation with use of a hand pole. LTG Duration 09/19/20 (09/06/20: MET GOAL ) Gait with walker Impairment Pt requires SBA with use of FWW Short Term Goal (STG) Pt will be independent walking with use of FWW. STG Duration 07/01/20 (06/27/20: MET GOAL ) Penitentiary Goal (LTG) Pt will be able to walk without use assistive device safely. LTG Duration 09/19/20 (07/19/20: MET GOAL ) Strength Impairment Decreased R knee strength (Ext 2+/5, Flex 3-/5) Short Term Goal (STG) Improve R knee strength to 4+/ 5 with pt able to ambulate without an assistive device and on stairs with a normal gait pattern without use of railing. (09/06/20: R knee strength: 5 /5, pt able to walk without an assistive device, ambs stairs with step over step gait). STG Duration 08/01/20 (09/06/20: MET GOAL ) Penitentiary Goal (LTG) Improve R knee strength post operatively to 5/5 with pt able to return to driving. LTG Duration 09/19/20 (08/23/20: MET GOSL ) knee ROM Impairment R knee AROM: 15-96 Short Term Goal (STG) Improve R knee AROM 7-115 deg' s with pt able to start a self home program of ex on her recumbent stepper/bike. (07/19/20: Supine: AROM is 5- 116 deg's) STG Duration 07/19/20 (07/19/20: MET GOAL ) Penitentiary Goal (LTG) Improve R knee AROM to 0-125 deg's to improve gait mechanics on level and for a normal stairs gait pattern. (09/06/20: R knee AROM improved to 0-126 deg's) LTG Duration 09/19/20 (09/06/20: MET GOAL ) LEFS Impairment LEFS score Short Term Goal (STG) Pt will improve LEFS score to pre-op score of 27/80. (07/19/20: MET GOAL, LEFS score is 45/80) STG Duration 07/17/20 (07/19/20: MET GOAL ) Penitentiary Goal (LTG) Pt will improve LEFS score > 63 to demonstrate improved functional ability. LTG Duration 09/19/20 Progress Towards Goals Progress Comments Stair Amb LTG: MET Strength STG: MET R Knee ROM LTG: MET Assessment Summary Assessment Improved R knee AROM, strength & stair ambulation ability. Goals met as noted above. Pt need reivew of home balance ex 's and now has good understanding of after review . Lower end of well healed scar is decreased in mobility. Physical Therapy Plan Frequency and Duration Frequency of Treatment 2x/Week Plan of Care Start Date 06/21/20 Plan of Care End Date 09/19/20 Next Visit Focus/Plan Next Note Type Discharge Summary Next Visit Plan Reassess LEFS & R knee flex AROM, & review HEP (focus ECC> Con strengthening). DC to HEP if ROM goal still met.
--- NOTE | 2020-09-08 11:22 | PT.OTN ---
Current Diagnoses Unilateral primary osteoarthritis, right knee (09/08/20) Pain in right knee (09/08/20) Stiffness of right knee, not elsewhere classified (09/08/20) Muscle weakness (generalized) (09/08/20) Other abnormalities of gait and mobility (09/08/20) Physical Therapy Treatment Note PT-OP-A Visit Information Start: 04/18/20 10:34 Freq: Status: Active Protocol: Document 09/08/20 10:34 LRN (Rec: 09/08/20 11:17 LRN [id number]) Out-Patient Physical Therapy Visit Information Visit Information Visit Type Treatment Note Visit Start Time 10:34 Visit Stop Time 11:06 Total Visit Minutes 32 Visit Number 20 Evaluation Information Evaluation Date 06/21/20 Precautions Precautions History of falls, arthritis PT-OP-B Current Condition Start: 04/18/20 10:34 Freq: Status: Active Protocol: Document 06/21/20 15:06 LRN (Rec: 06/21/20 16:52 LRN [id number]) Current Condition History of Current Condition Onset Date 06/16/20 Current Complaints R knee swollen and achy pain after exercise History of Current Condition 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 Walking with FWW and can full WB on RLE for brief time. Prior Treatments and Tests Acute care PT. Future Testing and Treatments Planned Next MD visit 06/23/20. Treatment Goals Patient/Caregiver Goals Pt goal is to be able to walk without walker & hurting, possibly beach, 1 miles. STG: Gait independently without SBA. 2 Steps without assist with pole for UE support. Goal: Independent transfer in /out of bed. Drive independently Prior Functional Status Baseline Function- ADL's Independent Baseline Function- Mobility Independent Baseline Function- Gait Independent with mild limp due to limited R knee mobility. Baseline Function- Other Not able to get up/down on floor. Current Functional Impairments (Reported) Functional Limitations- ADL's Stairs one step at a time using a vertical pole. Dresses self, toilets self, Needs assist into bed after exercises. Functional Limitations- Mobility/Gait Walks with SBA around the house. Personal Factors Other Personal Factors That May Effect Dizziness on sitting from Therapy/Recovery supine. Age. Has spouse and daughter at home to help after surgery. PT-OP-C Subjective Start: 04/18/20 10:34 Freq: Status: Active Protocol: Document 09/08/20 10:34 LRN (Rec: 09/08/20 11:17 LRN [id number]) OP-PT Subjective Patient Comments Patient Comments ................ Patient Questionnaires Lower Extremity Functional Scale LEFS Score 76 LEFS Impairment 1 to 19% Impaired (Score 63-79 ) PT-OP-D Balance Start: 04/18/20 10:36 Freq: Status: Active Protocol: Document 06/21/20 15:06 LRN (Rec: 06/21/20 16:52 LRN [id number]) Balance Tests Single Limb Standing Single Limb- Right 1 sec Other Other Balance Tests Performed Standing balance: Rhomberg modified: Feet as close together as Valgus knees allow : 60 secs. PT-OP-E Functional Tests Start: 04/18/20 10:36 Freq: Status: Active Protocol: Document 07/19/20 15:09 LRN (Rec: 07/19/20 16:08 LRN [id number]) Functional Tests Timed Up and Go (TUG) Score 13 TUG Impairment Rating 20 to <40% Impaired (Score 12- 13) PT-OP-F Manual Assessment Start: 04/18/20 10:36 Freq: Status: Active Protocol: Document 06/21/20 15:06 LRN (Rec: 06/21/20 16:52 LRN [id number]) Manual Assessments Soft Tissue Assessment Soft Tissue Mobility Assessment Moderate plus swelling in R LE . No pitting edema noted. PT-OP-G Mobility & Gait Start: 04/18/20 10:36 Freq: Status: Active Protocol: Document 07/19/20 15:09 LRN (Rec: 07/19/20 16:08 LRN [id number]) OP Gait Assessment Gait Gait Assistance Required: Independent Assistive Devices Assistive Device None Gait Deviations General Gait Pattern Antalgic Factors Limiting Gait Function Factors Limiting Gait Function Decreased Strength,Limited Range of Motion,Pain Stair Climbing Evaluation Evaluation Level of Assist On Stairs Independent Devices Stair Climbing Assistive Devices Left Railing,Right Railing Technique/Endurance Stair Climbing Direction Ascend Stair Climbing Technique Step Over Step Number of Steps Climbed 4 PT-OP-K Range of Motion Start: 04/18/20 10:36 Freq: Status: Active Protocol: Document 09/08/20 10:34 LRN (Rec: 09/08/20 11:17 LRN [id number]) Knee Goniometric Range of Motion Knee Left Knee ROM WFL Yes Patient Position Supine Flexion Active (degrees) 131 Extension Active (degrees) 0 Right Knee ROM WFL No Patient Position Supine Flexion Active (degrees) 128 Flexion Passive (degrees) 130 Extension Active (degrees) 0 PT-OP-M Strength Start: 04/18/20 10:34 Freq: Status: Active Protocol: Document 09/06/20 15:00 LRN (Rec: 09/06/20 15:57 LRN [id number]) Knee Strength Knee Manual Muscle Testing Right Flexion (S2) 5 Normal Extension (L3) 5 Normal Comments Mildly functionally weak with stair ambulation. PT-OP-Q Treatments Start: 04/18/20 10:34 Freq: Status: Active Protocol: Document 09/08/20 10:34 LRN (Rec: 09/08/20 11:17 LRN [id number]) Cardio Equipment Bicycle (Upright) Duration (Minutes) 10 Resistance 3 Seat Position 4 Therapeutic Exercises Supine Exercises supine heel slide Supine Exercise Name Heel slides active Reps/Minutes 3' Neuro Re-Education Treatment Balance Activities Corner balance exercises Details Feet together, toes up/down & review november () Reps/Duration 4' Tandem stance Details Tandem stance: Arms out to side, by side, across chest Reps/Duration 8' Comments R foot in front/arms across chest: 1 minute (more difficult) R foot behind/arms across chest: 1 minute Feet together Details Feet together, arms in different positions Reps/Duration 2' Self-Care/Home Management Treatment Education Patient Education Home Exercise Program Activities Self-Care/Home Management Activities HEP issued & reviewed for balance exercises (tandem, SLS & corner exercises) PT-OP-R Modalities Start: 04/18/20 10:34 Freq: Status: Active Protocol: Document 06/27/20 15:06 LRN (Rec: 06/27/20 16:04 LRN [id number]) Hot Pack/Cold Pack Treatment Cold Pack Patient Position Supine PT-OP-T Assessment and Plan Start: 04/18/20 10:34 Freq: Status: Active Protocol: Document 09/08/20 10:34 LRN (Rec: 09/08/20 11:17 LRN [id number]) Physical Therapy Assessment Goals TUG Impairment TUG score 22 secs, indicating 100% impaired Short Term Goal (STG) TUG score 16 secs (60< 80% impaired) (07/19/20: TUG score is 13 secs) STG Duration 08/01/20 (07/19/20: MET GOAL ) Certified Composites Technician Goal (LTG) TUG score of 11 secs (1<20% impaired) 08/30/20 Goal Met: 7.47 sec LTG Duration 09/19/20 (08/30/20: MET GOAL ) HEP Impairment Pt lacks appropriate post-op R TKA HEP. Certified Composites Technician Goal (LTG) Pt will be independent in a self care HEP for advancement in strength, ROM, balance of the RLE for safe and independent care and function. LTG Duration 09/19/20 (09/08/20: MET GOAL ) Transfers Impairment Pt requires assist with transfers (sit<>stand & in/out of bed after exer) Short Term Goal (STG) Pt will be able to transfer in /out of bed after exercise without assist. STG Duration 07/11/20 (07/05/20: MET GOAL) Retirement Goal (LTG) Pt will be able to transfer up /down from a chair without use of UE's. LTG Duration 09/19/20 (07/19/20: MET GOAL) Stair amb Impairment Pt has step to step gait on stairs with use of hand pole assist Short Term Goal (STG) Pt will be independent & safe for step to step ambulation with use of a hand pole. STG Duration 07/11/20 (06/27/20: MET GOAL) Retirement Goal (LTG) Pt will be independent & safe with step over step ambulation with use of a hand pole. LTG Duration 09/19/20 (09/06/20: MET GOAL ) Gait with walker Impairment Pt requires SBA with use of FWW Short Term Goal (STG) Pt will be independent walking with use of FWW. STG Duration 07/01/20 (06/27/20: MET GOAL ) Certified Composites Technician Goal (LTG) Pt will be able to walk without use assistive device safely. LTG Duration 09/19/20 (07/19/20: MET GOAL ) Strength Impairment Decreased R knee strength (Ext 2+/5, Flex 3-/5) Short Term Goal (STG) Improve R knee strength to 4+/ 5 with pt able to ambulate without an assistive device and on stairs with a normal gait pattern without use of railing. (09/06/20: R knee strength: 5 /5, pt able to walk without an assistive device, ambs stairs with step over step gait). STG Duration 08/01/20 (09/06/20: MET GOAL ) Certified Composites Technician Goal (LTG) Improve R knee strength post operatively to 5/5 with pt able to return to driving. LTG Duration 09/19/20 (08/23/20: MET GOAL ) knee ROM Impairment R knee AROM: 15-96 Short Term Goal (STG) Improve R knee AROM 7-115 deg' s with pt able to start a self home program of ex on her recumbent stepper/bike. (07/19/20: Supine: AROM is 5- 116 deg's) STG Duration 07/19/20 (07/19/20: MET GOAL ) Certified Composites Technician Goal (LTG) Improve R knee AROM to 0-125 deg's to improve gait mechanics on level and for a normal stairs gait pattern. (09/06/20: R knee AROM improved to 0-126 deg's) LTG Duration 09/19/20 (09/06/20: MET GOAL ) LEFS Impairment LEFS score Short Term Goal (STG) Pt will improve LEFS score to pre-op score of 27/80. (07/19/20: MET GOAL, LEFS score is 45/80) STG Duration 07/17/20 (07/19/20: MET GOAL ) Retirement Goal (LTG) Pt will improve LEFS score > 63 to demonstrate improved functional ability. LTG Duration 09/19/20 (09/08/20: MET GOAL) Progress Towards Goals Progress Comments LEFS GOAL MET. Much improved function per LEFS score of 76 of 80 (was 42). HEP GOAL MET. Assessment Summary Assessment Overall much improved function with gait and stair ambulation (see LEFS results). All Goals met; therefore pt appropriate for DC to self care HEP. Physical Therapy Plan Discharge Physical Therapy Discharge Reasons Goals Met Discharge Comments Pt did very well with therapy and has been placed on an independent HEP to maintain her ROM and to improve her R knee strength & balance ability. Thank you for your referral.
== END 2020-09-16 14:39 ==
LOC: PHYS 10:30
PROVIDERS: Family Provider Family Medicine; PCP Family Medicine; Referring Provider Orthopaedic Surgery; Visit Provider Orthopaedic Surgery
DX: M17.11 Unilateral primary osteoarthritis, right knee (principal); M62.81 Muscle weakness (generalized); M25.561 Pain in right knee; M25.661 Stiffness of right knee, not elsewhere classified; R26.89 Other abnormalities of gait and mobility
CPT/HCPCS: 97110; 97112; 97116; 97140; 97161; 97162; 97535

== ENCOUNTER → 2021-04-17 15:17 | Outpatient (CLI) | payer MEDICARE, OTHER, SELFPAY ==
[2020-06-16 14:06] VITALS: BMI 30.3
--- NOTE | 2021-04-17 | DI.MG.S_ITS ---
BILATERAL DIGITAL SCREENING MAMMOGRAM 3D/2D WITH CAD: 04/17/2021 CLINICAL: Routine screening. Comparison is made to exams dated: 04/15/2020 mammogram, 10/26/2019 mammogram, 10/12/2019 mammogram, 10/08/2018 mammogram, and 01/18/2017 mammogram - [facility]. There are scattered fibroglandular elements in both breasts. Current study was also evaluated with a Computer Aided Detection (CAD) system. No significant masses, calcifications, or other findings are seen in either breast. There has been no significant interval change. IMPRESSION: NEGATIVE There is no mammographic evidence of malignancy. A 1 year screening mammogram is recommended. This exam was interpreted at Station ID: [id number]. NOTE: For mammograms, a report in lay terms will be sent to the patient. Approximately 15% of breast malignancies will not be visualized mammographically. In the management of a palpable breast mass, a negative mammogram must not discourage biopsy of a clinically suspicious lesion. Electronically Signed By: Meir au/jayleen:04/17/2021 16:17:03 copy to: Jef Hinds letter sent: Normal Exam ACR BI-RADS Category 1: Negative [id number]
== END ==
PROVIDERS: Family Provider Family Medicine; PCP Family Medicine; Referring Provider Family Medicine; Visit Provider Family Medicine
DX: Z12.31 Encounter for screening mammogram for malignant neoplasm of breast (principal)
CPT/HCPCS: 77063; 77067

== ENCOUNTER → 2021-11-28 07:53 | Outpatient (CLI) | payer MEDICARE, OTHER, SELFPAY ==
[2020-06-16 14:06] VITALS: BMI 30.3
[2021-11-28 09:22] LABS: Add Manual Diff / Slide Review NO; Basophils Absolute Auto 0 /uL (0-100); Basophils Percent Auto 0.4 % (0-2); Eosinophils Absolute Auto 200 /uL (0-450); Eosinophils Percent Auto 3.1 % (2-4); Hematocrit 40.3 % (36-46); Hemoglobin 13.6 g/dL (12.0-16.0); Lymphocytes Absolute Auto 1900 /uL (1100-4500); Lymphocytes Percent Auto 39.4 % (25-40); Mean Corpuscular HGB Conc 33.8 % (30-36); Mean Corpuscular Hemoglobin 29.8 PG (26-34); Mean Corpuscular Volume 88.2 fL (80-100); Monocytes Absolute Auto 400 /uL (0-900); Neutrophils Absolute Auto 2400 /uL (1500-7000); Neutrophils Percent Auto 49.1 % (50-75); Platelet Count 199 X10^3/uL (150-400); Red Blood Cell Count 4.57 X10^6/uL (4.0-5.2); Red Cell Distribution Width 14.4 % (11.6-14.8); White Blood Cell Count 4.8 X10^3/uL (4.5-11.0)
[2021-11-28 09:45] LABS: Alanine Aminotransferase 16 IU/L (<35); Albumin 4.1 g/dL (3.5-5.0); Albumin Globulin Ratio 1.7 (1.0-2.8); Alkaline Phosphatase 76 U/L (38-126); Aspartate Aminotransferase 26 IU/L (14-36); BUN Creatinine Ratio 15.9 (6-22); Bilirubin Total 1.3 mg/dL (0.2-1.3); Blood Urea Nitrogen 11 mg/dL (7-17); Calcium 10.2 mg/dL (8.4-10.2); Carbon Dioxide 24 mmol/L (22-32); Chloride 108 mmol/L (98-107); Cholesterol 198 mg/dL (140-199); Estimated Glomerular Filt Rate > 60.0 mL/min (>60); Globulin 2.4 g/dL (1.7-4.1); Glucose 101 mg/dL (80-110); HDL Cholesterol 81 mg/dL (40-60); HEMOLYSIS < 15 (0-50); LDL Cholesterol Calculated 86 mg/dL (<100); Potassium 4.5 mmol/L (3.4-5.1); Sodium 141 mmol/L (137-145); Total Protein 6.5 g/dL (6.3-8.2); Triglycerides 156 mg/dL (35-150)
[2021-11-28 10:16] LABS: Thyroid Stimulating Hormone 2.21 uIU/mL (0.47-4.68)
[2021-11-29 07:37] LABS: Vitamin B12 770 pg/mL (239-931)
== END ==
PROVIDERS: Family Provider Family Medicine; PCP Family Medicine; Referring Provider Family Medicine; Visit Provider Family Medicine
DX: E78.5 Hyperlipidemia, unspecified (principal); E78.00 Pure hypercholesterolemia, unspecified; Z79.899 Other long term (current) drug therapy; M54.50 Low back pain, unspecified; R03.0 Elevated blood-pressure reading, without diagnosis of hypertension
CPT/HCPCS: 36415; 80053; 80061; 82306; 82607; 84443; 85025

== ENCOUNTER 2022-03-13 14:37 | Emergency (ER) | payer MEDICARE, OTHER, SELFPAY ==
[2020-06-16 14:06] VITALS: BMI 30.3
[2022-03-13 14:41] VITALS: BP 128/59; PULSE 81; RESP 16; TEMP 36.7; O2SAT 98; BMI 30.1
--- NOTE | 2022-03-13 14:50 | DI.CT.S_ITS ---
PROCEDURE: CT HEAD/BRAIN WO CON INDICATIONS: Fall, hit head on curb. Lacertion right forhead. Headache TECHNIQUE: Noncontrast 4.5 mm thick angled axial sections acquired from the foramen magnum to the vertex, with coronal and sagittal reformats. For radiation dose reduction, the following was used: automated exposure control, adjustment of mA and/or kV according to patient size. COMPARISON: [facility], CT, CT HEAD/BRAIN WO CON, 01/22/2018, 14:26. FINDINGS: Image quality: Excellent. CSF spaces: Basal cisterns are patent. No extra-axial fluid collections. Ventricles are normal in size and shape. Brain: No midline shift. No intracranial masses or hemorrhage. Right basal ganglia calcification is unchanged. No area of hypodensity in a large vascular distribution to suggest acute infarction. Periventricular hypodensity consistent with chronic microvascular ischemic change. Age-related parenchymal loss. Skull and face: Calvarium and visualized facial bones are intact, without suspicious lesions. Soft tissue gas at the right frontal temporal region, (2/13). Sinuses: Visualized sinuses and mastoids are clear. IMPRESSION: No acute intracranial abnormality. Right frontal temporal scalp laceration. Dictated by: Kenton Murphy M.D. on 03/13/2022 at 15:28 Approved by: Kenton Murphy M.D. on 03/13/2022 at 15:30
--- NOTE | 2022-03-13 14:51 | PC.NURSE ---
Pressure dressing applied to laceration on forehead. Small amount of bleeding in triage
--- NOTE | 2022-03-13 17:58 | ED.WOUNDLAC ---
HPI - Wound/Laceration <GONZALES Craig - Last Filed: 03/13/22 18:48> General Chief Complaint: Wound/Laceration Stated Complaint: FALL HIT HEAD Time Seen by Provider: 03/13/22 16:09 History of Present Illness HPI narrative: This is a 72-year-old female presents to the emergency department complaining of laceration to her right face, forehead, states that she tripped on the curb while she was gardening today and fell forward and her glasses cut the right side of her face. She denies any eye pain, denies any eye pain with eye movement, she has three small laceration/puncture wounds to her right eyebrow/temporal region without any injury within her orbital rim. She denies any loss of consciousness, states that she started to get a headache a few hours afterwards. She denies any neck pain, denies any nausea vomiting, denies any other injury. She states that her tetanus is up-to-date, she denies being on any blood thinners, states that she takes a baby aspirin daily. Related Data Home Medications Medication Instructions Recorded Confirmed atorvastatin 10 mg tablet 10 mg PO QDAY 01/09/18 06/16/20 calcium carbonate 500 mg calcium 1 tab PO QDAY 01/09/18 06/16/20 (1,250 mg) tablet (Calcium 500) EPINEPHRINE (ADRENACLICK) 0.3 mg IJ PRN PRN Allergic 06/09/20 06/09/20 reactions ibuprofen 200 mg tablet 200 mg PO Q6H PRN Pain 06/09/20 06/16/20 Previous Rx's Medication Instructions Recorded acetaminophen 325 mg tablet 650 mg PO TID #40 tabs 06/17/20 aspirin 81 mg tablet,delayed 81 mg PO BID #40 tabs 06/17/20 release docusate sodium 100 mg capsule 100 mg PO BID #40 caps 06/17/20 (DOK) oxycodone 5 mg tablet 5 mg PO Q3HR PRN Pain, Moderate 06/17/20 (4-6) #60 tabs Allergies Allergy/AdvReac Type Severity Reaction Status Date / Time bee venom protein (honey bee) Allergy Unknown Anaphylaxis Verified 03/13/22 14:44 [BEE VENOM PROTEIN (HONEY BEE)] azithromycin AdvReac Severe vomiting Verified 03/13/22 14:44 Review of Systems <GONZALES Craig - Last Filed: 03/13/22 18:48> Review of Systems Narrative: General: denies fever, chills Head/Neck: Endorses mild headache, denies wanting any medications for it, denies neck pain Eyes: denies visual changes, eye pain or eye pain with eye movement. Cardio: denies chest pain, palpitations Respiratory: denies shortness of breath, cough GI: denies abdominal pain, nausea, vomiting, or diarrhea : denies dysuria, hematuria or flank pain MSK: denies new joint pain, muscle weakness or swelling Skin: Laceration and small puncture wounds to the right side of her face above her right eyebrow and lateral to right eye Neuro: denies numbness, tingling, dizziness Patient History <GONZALES Craig - Last Filed: 03/13/22 18:48> Medical History Arthritis HLD (hyperlipidemia) Nerve damage Osteoarthritis Uterine cyst Varicose veins of both lower extremities Surgical History Status post appendectomy Status post endometrial ablation Social History household members: spouse Smoking Status: Never smoker alcohol intake: current Smoking Status: Never smoker alcohol intake frequency: 0-2 drinks per day Substance Use Type: does not use Exam <GONZALES Craig - Last Filed: 03/13/22 18:48> Narrative Exam Narrative: Independently reviewed vitals signs and nursing notes. General: Awake, alert, nontoxic, no cardiorespiratory distress Head/Neck: Ecchymosis and traumatic injury to the right aspect of her face above her right eyebrow and lateral to her right eye and temporal region. Neck supple without C-spine tenderness to palpation, full range of motion, two small puncture wounds and one laceration approximately 1 cm, bleeding is controlled with pressure no tenderness to bilateral mastoids Eyes: EOMI, conjunctiva normal, per oral, Nose: nares patent, no rhinorrhea Mouth/Throat: moist mucus membranes Cardio: Regular rate and rhythm, no peripheral edema Respiratory: respirations unlabored without wheezing, stridor, or rales. No retractions, hypoxia or tachypnea GI: Abdomen soft, nontender to palpation x4 quadrants, no guarding or rebound tenderness MSK: Moves all extremities, neurovascularly intact, range of motion without deficit Skin: Normal capillary refill, no rash Neuro: Normal speech and cognition, normal gait Initial Vital Signs Initial Vital Signs: Vital Signs Temperature 98.0 F 03/13/22 14:41 Pulse Rate 81 03/13/22 14:41 Respiratory Rate 16 03/13/22 14:41 Blood Pressure 128/59 L 03/13/22 14:41 Pulse Oximetry 98 03/13/22 14:41 Oxygen Delivery Method 03/13/22 14:41 <Raeann Laguerre DO - Last Filed: 03/15/22 13:17> Initial Vital Signs Initial Vital Signs: Vital Signs Temperature 98.0 F 03/13/22 14:41 Pulse Rate 81 03/13/22 14:41 Respiratory Rate 16 03/13/22 14:41 Blood Pressure 128/59 L 03/13/22 14:41 Pulse Oximetry 98 03/13/22 14:41 Oxygen Delivery Method 03/13/22 14:41 Procedures <GONZALES Craig - Last Filed: 03/13/22 18:48> Laceration Repair Laceration 1: Side (If applicable): right Size (cm): 2 Description: linear and irregular Depth: simple, single layer Local Anesthetic: lidocaine 1% and with epi Amount of anesthesia used (mL): 2 Pre-repair: wound explored, irrigated extensively and deep structures intact Skin layer closed with: nylon Skin layer suture size: 6-0 Number of sutures: 6 Technique: simple, interrupted Scores <GONZALES Craig - Last Filed: 03/13/22 18:48> [facility] Head Rule Age <16 years old: No Patient on blood thinners: No Seizure after injury: No Exclusion: Patient NOT Excluded, Proceed to next steps GCS < 15 at 2 hr post trauma: No Suspected open or depressed skull fracture: No Any sign of basilar skull fracture (hemotympanum, raccoon eyes, Payne's sign, CSF susan-/rhinorrhea): No Two or more episodes of vomiting: No Age greater or equal to 65 years: Yes Retrograde amnesia to the event greater or equal to 30 min: No Dangerous Mechanism (pedestrian vs. mv, occupant ejected from mv, fall from >3 ft or > 5 stairs): No Recommendation: Consider CT. The [facility] Head CT Rule cannot rule out need for Imaging. <Raeann Laguerre DO - Last Filed: 03/15/22 13:17> [facility] Head Rule Exclusion: Patient NOT Excluded, Proceed to next steps Recommendation: Consider CT. The [facility] Head CT Rule cannot rule out need for Imaging. Course <GONZALES Craig - Last Filed: 03/13/22 18:48> Orders Ordered: Discontinued Medications Acetaminophen (Acetaminophen 325 Mg Tablet) 975 mg PO NOW ONE Stop: 03/13/22 16:11 Last Admin: 03/13/22 16:25 Dose: Not Given Documented By: JOHN Bacitracin (Bacitracin Oint 0.9 Gm Pckt) 1 applic TOP NOW ONE Stop: 03/13/22 16:51 Vital Signs Vital signs: Vital Signs - 8 hr 03/13/22 14:41 Temperature 98.0 F Pulse Rate 81 Respiratory Rate 16 Blood Pressure 128/59 L Pulse Oximetry 98 Oxygen Delivery Method Room Air <Raeann Laguerre DO - Last Filed: 03/15/22 13:17> Orders Ordered: Discontinued Medications Acetaminophen (Acetaminophen 325 Mg Tablet) 975 mg PO NOW ONE Stop: 03/13/22 16:11 Last Admin: 03/13/22 16:25 Dose: Not Given Documented By: JOHN Bacitracin (Bacitracin Oint 0.9 Gm Pckt) 1 applic TOP NOW ONE Stop: 03/13/22 16:51 Vital Signs Vital signs: Vital Signs - 8 hr 03/13/22 14:41 Temperature 98.0 F Pulse Rate 81 Respiratory Rate 16 Blood Pressure 128/59 L Pulse Oximetry 98 Oxygen Delivery Method Room Air MDM - Wound/Laceration <GONZALES Craig - Last Filed: 03/13/22 18:48> Imaging Data CT scan - head: Radiologist's Impression: PROCEDURE:? CT HEAD/BRAIN WO CON ? INDICATIONS:? Fall, hit head on curb. Lacertion right forhead. Headache ? TECHNIQUE:? Noncontrast 4.5 mm thick angled axial sections acquired from the foramen magnum to the vertex, with coronal and sagittal reformats.? For radiation dose reduction, the following was used:? automated exposure control, adjustment of mA and/or kV according to patient size.? ? COMPARISON:? [facility], CT, CT HEAD/BRAIN WO HUNTER, 01/22/2018, 14:26. ? FINDINGS:? Image quality:? Excellent.? ? CSF spaces:? Basal cisterns are patent.? No extra-axial fluid collections.? Ventricles are normal in size and shape.? ? Brain:? No midline shift.? No intracranial masses or hemorrhage.? Right basal ganglia calcification is unchanged.? No area of hypodensity in a large vascular distribution to suggest acute infarction. Periventricular hypodensity consistent with chronic microvascular ischemic change. Age-related parenchymal loss. ? Skull and face:? Calvarium and visualized facial bones are intact, without suspicious lesions.? Soft tissue gas at the right frontal temporal region, (10/22).? ? Sinuses:? Visualized sinuses and mastoids are clear.? ? IMPRESSION:? No acute intracranial abnormality. ? Right frontal temporal scalp laceration.? ? Dictated by: Kenton Murphy M.D. on 03/13/2022 at 15:28 ? ? Approved by: Kenton Murphy M.D. on 03/13/2022 at 15:30 ? [facility] Narrative Medical decision making narrative: This is a pleasant 72-year-old female who presents to the emergency department from [facility] after she tripped on the curb while gardening earlier today falling forward striking the right side of her face and forehead on aggregate. She was wearing glasses at the time which appear to have cause two puncture wounds and a laceration to the temporal region of her face, outside of the orbital rim and slightly above her right eyebrow. She does not have any vision changes, eye pain or eye pain with eye movement. She takes a baby aspirin daily but no anticoagulants, has not had any mental status changes, endorses a headache which has recently come on, did not have any nausea vomiting, altered mentation, weakness or other changes. She denies any dizziness, sensitivity to light or sound, denies any nausea. Her tetanus is up-to-date, she was offered Tylenol but declined. Head CT obtained per nexus criteria, did not show any acute intracranial abnormality, it showed a right frontal temporal scalp laceration. Wound was thoroughly cleansed with normal saline and irrigated, two puncture wounds required one or two sutures, and the larger laceration of 1 cm required for. She has a total of six 6.0 Ethilon sutures for laceration repair without hematoma, or other deep injury. EOMs are intact, kat, no neuro deficits on exam, patient is ambulatory with steady gait. She was given strict return precautions. She understands our sutures removed in five days, take Tylenol as needed for headache, concussion symptoms were discussed, patient understands to limit activities until she is symptom-free to follow-up with her primary doctor if she continues to have any abnormal symptoms. Patient is appropriate and amenable to discharge home. Vital signs are stable on repeat examination is unremarkable. Patient has been informed of results. Patient has been given strict return to ER precautions for any new or worsening symptoms. Patient understands to follow up closely with outpatient providers as instructed. Patient understands plan and agrees to discharge home. All questions and concerns answered at this time. Discharge Plan Departure Patient Disposition: Home Clinical Impression: Head injury Qualifiers: Encounter type: initial encounter Qualified Code(s): S09.90XA - Unspecified injury of head, initial encounter Face lacerations Qualifiers: Encounter type: initial encounter Qualified Code(s): S01.81XA - Laceration without foreign body of other part of head, initial encounter Fall Qualifiers: Encounter type: initial encounter Qualified Code(s): W19.XXXA - Unspecified fall, initial encounter Instructions: Concussion, DI for Laceration Repair, Closed Head Injury Activity Restrictions/Additional Instructions: *You have been diagnosed with close head injury with small lacerations to your right temporal region. Please have the sutures removed in five days. Use a damp cloth to moisten the sutures prior to removing. Please use cool compresses for the next 24-48 hours to help you swelling. Use Tylenol or ibuprofen or both every 6 hours as needed for your headache. Please drink plenty of water, apply an antibiotic ointment and Band-Aid to keep your wound covered. Return to the emergency department if you develop nausea vomiting, worsening headache, weakness, eye pain or eye pain with eye movement. Thank you for trusting us with your care, I hope you feel better, your CT scan did not show any brain hemorrhage however if you develop worsening headache, please do not hesitate to come back to the emergency department. *What to do: *Please continue to take your regular medications as directed. [ ] New medication prescriptions sent to your pharmacy: [ ] [ ] New medication written as a paper prescription [x] No new medications given *Please follow up with your primary care provider in 2-3 days, call for an appointment. Let them know you were seen in the Emergency Department and that we asked that you be seen for follow-up. We will electronically transmit a record of today's note if your PCP is in our system *If you do not have a primary care provider please contact [phone] to establish care with one of the [facility] primary care providers. *Return to Emergency Department if you should have any new, worsening or concerning symptoms, such as [fever greater than 101F, chills, worsening pain, persistent vomiting or other bothersome symptoms] Prescriptions: No Action atorvastatin 10 mg tablet 10 mg PO QDAY calcium carbonate [Calcium 500] 500 mg calcium (1,250 mg) Tablet 1 tab PO QDAY EPINEPHRINE (ADRENACLICK) 0.3 mg IJ PRN PRN (Reason: Allergic reactions) ibuprofen 200 mg Tablet 200 mg PO Q6H PRN (Reason: Pain) acetaminophen 325 mg Tablet 650 mg PO TID Qty: 40 0RF aspirin 81 mg Tablet,Delayed Release (Dr/Ec) 81 mg PO BID Qty: 40 0RF docusate sodium [DOK] 100 mg Capsule 100 mg PO BID Qty: 40 0RF oxycodone 5 mg Tablet 5 mg PO Q3HR PRN (Reason: Pain, Moderate (4-6)) Qty: 60 0RF Referrals: Jef Hinds MD [Primary Care Provider] - Visit Report Forms: Patient Portal/API <Raeann Laguerre DO - Last Filed: 03/15/22 13:17> [facility] Abel[facility] Attestation: I was immediately available in the department for consultation. Documentation has been reviewed. I agree with assessment and plan.
== END 2022-03-13 16:53 | disposition home or self-care (01) ==
PROVIDERS: Emergency Provider Nurse Practitioner Critical Care Medicine; Family Provider Family Medicine; PCP Family Medicine
DX: S01.81XA Laceration without foreign body of other part of head, initial encounter (principal); W19.XXXA Unspecified fall, initial encounter
CPT/HCPCS: 12011; 70450; 99282; 99284

== ENCOUNTER → 2022-04-02 13:39 | Outpatient (CLI) | payer MEDICARE, OTHER, SELFPAY ==
[2020-06-16 14:06] VITALS: BMI 30.3
--- NOTE | 2022-04-02 | DI.MRI.S_ITS ---
PROCEDURE: MR HEAD/BRAIN WO CON INDICATIONS: Altered mental status, unspecified TECHNIQUE: Non-contrast axial T1 spin echo, axial T2 fast spin echo, sagittal and axial FLAIR, coronal T2 fast spin echo, axial gradient echo, axial diffusion and ADC through the brain. COMPARISON: Located Within [facility], CT, CT HEAD/BRAIN WO CON, 03/13/2022, 14:56. FINDINGS: Image quality: Excellent. CSF spaces: Ventricles appear symmetric in size and shape. Basal cisterns are patent. No extra-axial fluid collections. Brain: No intracranial bleeds or mass effects. There is cerebral volume loss for age. There are periventricular and deep white matter chronic small vessel ischemic changes. Brainstem appears normal. Diffusion-weighted images show no acute ischemic insults. No chronic ischemic insults. Normal intravascular flow voids are present. Skull and face: Calvarial bone marrow is normal in signal. Orbits are normal. Sinuses: Sinuses and mastoids are clear. IMPRESSION: 1. Mild volume loss and small vessel ischemic disease. 2. No acute process. No recent infarct. Dictated by: Vinec Ibrahim M.D. on 04/02/2022 at 14:35 Approved by: Vince Ibrahim M.D. on 04/02/2022 at 14:35
== END ==
PROVIDERS: Family Provider Family Medicine; PCP Family Medicine; Referring Provider Family Medicine; Visit Provider Family Medicine
DX: R41.82 Altered mental status, unspecified (principal)
CPT/HCPCS: 70551

== ENCOUNTER → 2022-04-23 13:55 | Outpatient (CLI) | payer MEDICARE, OTHER, SELFPAY ==
[2020-06-16 14:06] VITALS: BMI 30.3
--- NOTE | 2022-04-23 | DI.MG.S_ITS ---
BILATERAL DIGITAL SCREENING MAMMOGRAM 3D/2D WITH CAD: 04/23/2022 CLINICAL: Routine screening. Comparison is made to exams dated: 04/17/2021 mammogram, 04/15/2020 mammogram, 10/26/2019 mammogram, 10/12/2019 mammogram, and 10/08/2018 mammogram - . There are scattered fibroglandular elements in both breasts. Current study was also evaluated with a Computer Aided Detection (CAD) system. No significant masses, calcifications, or other findings are seen in either breast. There has been no significant interval change. IMPRESSION: NEGATIVE There is no mammographic evidence of malignancy. A 1 year screening mammogram is recommended. Based on the Tyrer Cuzick model (a risk assessment model) the patient's lifetime risk is 5.5% and her 10 year risk is 4.9%. According to the ACR, ACS, and NCCN guidelines, an annual breast MRI exam along with mammogram is recommended if the patient's lifetime risk is 20% or greater. This exam was interpreted at Station ID: [id number]. NOTE: For mammograms, a report in lay terms will be sent to the patient. Approximately 15% of breast malignancies will not be visualized mammographically. In the management of a palpable breast mass, a negative mammogram must not discourage biopsy of a clinically suspicious lesion. Electronically Signed By: Kenton iniguez/[email or web address]:04/23/2022 14:51:25 copy to: Jef Hinds letter sent: Normal Exam ACR BI-RADS Category 1: Negative [id number]
== END ==
PROVIDERS: Family Provider Family Medicine; PCP Family Medicine; Referring Provider Family Medicine; Visit Provider Family Medicine
DX: Z12.31 Encounter for screening mammogram for malignant neoplasm of breast (principal)
CPT/HCPCS: 77063; 77067

== ENCOUNTER → 2022-08-26 13:41 | Outpatient (CLI) | payer MEDICARE, OTHER, SELFPAY ==
[2020-06-16 14:06] VITALS: BMI 30.3
== END ==
PROVIDERS: Family Provider Family Medicine; PCP Family Medicine; Visit Provider Nurse Practitioner Family
DX: R30.0 Dysuria (principal)
CPT/HCPCS: 87077; 87086; 87186

== ENCOUNTER → 2023-01-26 09:40 | Outpatient (CLI) | payer MEDICARE, OTHER, SELFPAY ==
[2020-06-16 14:06] VITALS: BMI 30.3
--- NOTE | 2023-01-26 09:42 | DI.RAD.S_ITS ---
PROCEDURE: XR ABDOMEN MIN 2V INDICATIONS: Possible constipation TECHNIQUE: 2 views of the abdomen were acquired. COMPARISON: None. FINDINGS: Surgical changes and devices: None. Bowel: No pneumoperitoneum. The bowel gas pattern is normal. Soft tissues: No masses; visualized solid organ contours appear normal in size. No suspicious abdominal calcifications. Bones: No suspicious bony abnormalities. IMPRESSION: No acute process. Dictated by: Vince Ibrahim M.D. on 01/26/2023 at 8:59 Approved by: Vince Ibrahim M.D. on 01/26/2023 at 8:59
== END ==
PROVIDERS: Family Provider Family Medicine; PCP Family Medicine; Referring Provider Nurse Practitioner Family; Visit Provider Nurse Practitioner Family
DX: K59.00 Constipation, unspecified (principal)
CPT/HCPCS: 74019

== ENCOUNTER 2023-03-01 10:20 | Emergency (ER) | payer MEDICARE, OTHER, SELFPAY ==
[2020-06-16 14:06] VITALS: BMI 30.3
[2023-03-01] VITALS (18 sets, daily range): BP systolic 137–174; BP diastolic 63–81; PULSE 51–76; RESP 12–18; TEMP 36.9; O2SAT 96–100; BMI 28.0
--- NOTE | 2023-03-01 10:29 | DI.RAD.S_ITS ---
PROCEDURE: XR TIBIA FUBULA RT 2V INDICATIONS: fall with R tibfib deformity TECHNIQUE: 2 views of the tibia and fibula were acquired. COMPARISON: None. FINDINGS: Bones: Oblique fractures through the proximal fibular and distal tibial diaphysis is present with lateral displacement of both fracture fragments. Total right knee prosthesis in place. Soft tissues: No suspicious soft tissue calcifications or masses. IMPRESSION: Oblique displaced fractures proximal fibula and distal tibial diaphysis Approved by: Saul Lopez M.D. on 03/01/2023 at 11:02
--- NOTE | 2023-03-01 10:29 | ED_ITS ---
HPI - Fall General Chief Complaint: Fall Stated Complaint: Fall Time Seen by Provider: 03/01/23 10:29 Source: patient, EMS, RN notes reviewed and old records reviewed Mode of arrival: EMS Limitations: no limitations History of Present Illness HPI Narrative: This is a 73-year-old female with history of dyslipidemia who presents with right lower extremity pain and deformity after a fall. Patient was gardening she states she fell backwards onto her buttocks but her right foot got stuck under a rock and stayed upright when she fell backwards. She states she did land on her but she has a little bit of pain in her hip but the majority of her pain is above her ankle in the tib-fib region. Patient states a little bit of tingling. No numbness. Painful for her try to move her leg at all. She denies hitting her head, denies neck or back pain, no chest pain or shortness of breath, no nausea or vomiting no other GI or urinary symptoms. No bowel or bladder incontinence. Patient denies any numbness tingling or weakness otherwise. She states she takes atorvastatin daily she denies being on any other daily blood thinners. Patient states she is had prior appendectomy and right knee surgery. Allergic to bee venom and azithromycin makes her nauseated. Patient denies tobacco, alcohol or illicit. She lives on [facility] with her . Dr. Hinds is her primary care. Related Data Home Medications Medication Instructions Recorded Confirmed atorvastatin 10 mg tablet 10 mg PO QDAY 01/09/18 08/26/22 calcium carbonate 500 mg calcium 1 tab PO QDAY 01/09/18 08/26/22 (1,250 mg) tablet (Calcium 500) EPINEPHRINE (ADRENACLICK) 0.3 mg IJ PRN PRN Allergic 06/09/20 08/26/22 reactions ibuprofen 200 mg tablet 200 mg PO Q6H PRN Pain 06/09/20 08/26/22 Previous Rx's Medication Instructions Recorded acetaminophen 325 mg tablet 650 mg PO TID #40 tabs 06/17/20 aspirin 81 mg tablet,delayed 81 mg PO BID #40 tabs 06/17/20 release docusate sodium 100 mg capsule 100 mg PO BID #40 caps 06/17/20 (DOK) oxycodone 5 mg tablet 5 mg PO Q3HR PRN Pain, Moderate 06/17/20 (4-6) #60 tabs phenazopyridine 200 mg tablet 200 mg PO TID 6 doses #6 tabs 08/26/22 (Pyridium) sodium sul 1.479 gram-potas ch See Rx Instructions PO PER PKG DIR 01/21/23 0.188 gram-magnes sul 0.225 gram #24 tabs tablet (Sutab) magnesium citrate (Citrate of 150 ml PO ONCE #296 mL 01/26/23 Magnesia oral) Allergies Allergy/AdvReac Type Severity Reaction Status Date / Time bee venom protein (honey bee) Allergy Unknown Anaphylaxis Verified 08/26/22 13:44 [BEE VENOM PROTEIN (HONEY BEE)] azithromycin AdvReac Severe vomiting Verified 08/26/22 13:44 Review of Systems Review of Systems ROS Unobtainable: All systems reviewed & are unremarkable except as noted in HPI and below Patient History Medical History Arthritis HLD (hyperlipidemia) Nerve damage Osteoarthritis Uterine cyst Varicose veins of both lower extremities Surgical History Status post appendectomy Status post endometrial ablation Social History household members: spouse Smoking Status: Never smoker alcohol intake: current Smoking Status: Never smoker alcohol intake frequency: 0-2 drinks per day Substance Use Type: does not use Exam Narrative Exam Narrative: GEN: Patient appears in moderate distress. HEAD: No evidence of trauma, no raccoon/Payne sign. NECK: Nontender, painless range of motion, trachea midline Negative Nexus criteria, there is no midline line tenderness, distracting injury, altered mental status, neuro deficit, recent EtOH. EYES: PERRLA, EOMI ENT: External inspection normal, trachea is midline, Nares are clear, no dental or oral injury, airway is normal and with normal occlusion, No bony tenderness RESP: Chest is nontender and has symmetric movement, no ecchymosis, breath sounds are normal no crackles, wheezes or rales CVS: Heart sounds are normal, no murmur noted, No JVD. ABG/GI: Nontender, soft, normal bowel sounds, no distention, no organomegaly, pelvic rock is negative NEURO: Oriented AOx3, neuro is grossly intact, sensation and motor is normal all 4 extremities moving, cranial nerves II through XII are intact, GCS is 15 PSYCH: Normal mood and affect SKIN: Intact, warm and dry, no crepitus and without decubitus BACK: No CVA tenderness, no vertebral tenderness, no step-off's, no crepitus EXT: Atraumatic, left hip nontender, patient has some mild tenderness over the right greater trochanter. Patient has obvious discomfort at the lower davis and foot appears slightly inverted. Patient has sensation to light touch 2+ pulses bilaterally. Patient does not have any tenderness of the toes foot or at the lateral or medial malleoli. Nontender over the knee, upper thigh. Patient has a small amount of contusion over the anterior davis. No lacerations or obvious open skin. All other extremities normal color and temperature, normal range of motion of extremities with normal tendon exam, 2+ pulses in all four extremities Initial Vital Signs Initial Vital Signs: Vital Signs Temperature 98.4 F 03/01/23 10:26 Pulse Rate 61 03/01/23 10:26 Respiratory Rate 16 03/01/23 10:26 Blood Pressure 174/76 H 03/01/23 10:26 Pulse Oximetry 100 03/01/23 10:26 Oxygen Delivery Method Room Air 03/01/23 10:26 Procedures Orthopedic Splinting/Casting Injury #1: Side: right Lower Extremity Injury Location: lower leg Lower Extremity Immobilizer: posterior splint and stirrup splint Post splinting neuro exam: intact Post splinting vascular exam: intact Placed by: Provider Course Orders Ordered: ED Orders 03/01/23 10:29 XR tibia fibula RT 2V Stat 03/01/23 10:30 XR hip w pel if done RT 2V Stat Discontinued Medications Hydromorphone HCl (Hydromorphone 1 Mg Inj) 1 mg IV NOW ONE Stop: 03/01/23 11:49 Last Admin: 03/01/23 12:02 Dose: 1 mg Documented By: MARGARITO Morphine Sulfate (Morphine 4 Mg/Ml Inj) 4 mg IV NOW ONE Stop: 03/01/23 10:34 Last Admin: 03/01/23 10:39 Dose: 4 mg Documented By: MARGARITO Ondansetron HCl (Ondansetron 4 Mg/2 Ml Inj) 4 mg IV Q6HR PRN PRN Reason: Nausea And Vomiting Last Admin: 03/01/23 10:39 Dose: 4 mg Documented By: MARGARITO Oxycodone/Acetaminophen (Oxycodone/Acetaminophen 5/325 Tablet) 2 tab PO NOW ONE Stop: 03/01/23 13:54 Last Admin: 03/01/23 13:55 Dose: 2 tab Documented By: MARGARITO Vital Signs Vital signs: Vital Signs - 8 hr 03/01/23 11:00 03/01/23 11:00 03/01/23 11:34 Pulse Rate 57 L 58 L Respiratory Rate 18 Blood Pressure 157/81 H Pulse Oximetry 97 99 03/01/23 11:48 03/01/23 11:48 03/01/23 12:00 Pulse Rate 59 L 70 Respiratory Rate Blood Pressure 167/76 H Pulse Oximetry 99 98 03/01/23 12:04 03/01/23 12:04 03/01/23 12:30 Pulse Rate 65 Respiratory Rate Blood Pressure 148/72 H 137/63 Pulse Oximetry 98 03/01/23 12:30 03/01/23 13:00 03/01/23 13:01 Pulse Rate 55 L 63 Respiratory Rate Blood Pressure 148/68 H Pulse Oximetry 96 99 03/01/23 13:01 03/01/23 13:30 03/01/23 13:30 Pulse Rate 51 L 54 L Respiratory Rate Blood Pressure 153/67 H Pulse Oximetry 99 100 03/01/23 14:00 03/01/23 14:00 03/01/23 14:30 Pulse Rate 58 L 55 L Respiratory Rate Blood Pressure 156/72 H Pulse Oximetry 97 97 03/01/23 14:31 03/01/23 14:31 03/01/23 15:00 Pulse Rate 52 L 65 Respiratory Rate Blood Pressure 138/65 Pulse Oximetry 98 96 03/01/23 15:01 03/01/23 15:01 Pulse Rate 76 Respiratory Rate Blood Pressure 151/71 H Pulse Oximetry 96 MDM - Fall Lab Data Labs: Urine Dip Bedside Urine Glucose Negative Bedside Urine Bilirubin - Negative Bedside Urine Ketone - Negative Urine Specific [place] 1.010 Bedside Urine Occult Blood - Negative Bedside Urine pH 7.5 Bedside Urine Protein - Negative Bedside Urine Urobilinogen - Negative Bedside Urine Nitrite - Negative Bedside Urine Leukocytes - Negative Esterase Imaging Data Extremity x-ray #1: Radiologist's Impression: Close Hip X-Ray (Signed) Saul Lopez - 03/01/23 Tibia/Fibula X-Ray (Signed) Lopez,Saul - 03/01/23 Abdomen X-Ray (Signed) IbrahimAlfredokelli - 01/26/23 Mammogram Screening (Signed) Call,Kenton - 04/23/22 Brain MRI (Signed) Vince Ibrahim - 04/02/[address] (Signed) Call,Kenton - 03/13/22 Mammogram Screening (Signed) Meir Garcia - 04/17/21 Knee X-Ray (Signed) DonnelljustoGina - 06/16/20 Mammogram Diagnostic (Signed) Xavi Virk - 04/15/20 Mammogram Diagnostic (Signed) Madi Reid - 10/26/19 Breast Ultrasound (Signed) Madi Reid - 10/26/19 Mammogram Screening (Signed) FatimaMisbah page - 10/12/19 Mammogram Screening (Signed) Annalisa Harrisah - 10/08/[address] (Cancelled) 09/30/[address] (Signed) Jose Hart - 09/30/[address] (Signed) Shantanu Valera - 01/22/[address] (Signed) Frederic Ching - 01/22/18 [place] [address] XRay Report Signed Patient: Ivana Wooten MR#: [id number] : 1950 Acct:[id number] Age/Sex: 73 / F Date of Service: 03/01/23 Loc: ED Accession Number: [id number] ?? Procedure: XR hip w pel if done RT 2V Ordering Provider: Nikki Sapp D.O. PROCEDURE:? XR HIP W PEL IF DONE RT 2V ? INDICATIONS:? fall with R hip pain ? TECHNIQUE:? 2 views of the hip were acquired.? ? COMPARISON:? [facility], [facility], [id number] W PEL IF PERFORMED, 12/20/2015, 13:27. ? FINDINGS:? ? Bones:? No fractures or dislocations.? No suspicious bony lesions.? The visualized pelvic ring appears intact.? Bilateral acetabular arthritic changes noted ? Soft tissues:? No suspicious soft tissue calcifications or masses.? ? IMPRESSION:? ? Arthritic changes without fracture or dislocation ? ? Dictated by: Saul Lopez M.D. on 03/01/2023 at 11:02 ? ? Approved by: Saul Lopez M.D. on 03/01/2023 at 11:03?? Extremity x-ray #2: Radiologist's Impression: [address] [address] XRay Report Signed Patient: Ivana Wooten MR#: [id number] : 1950 Acct:[id number] Age/Sex: 73 / F Date of Service: 03/01/23 Loc: ED Accession Number: [id number] ?? Procedure: XR tibia fibula RT 2V Ordering Provider: Nikki Sapp D.O. PROCEDURE:? XR TIBIA FUBULA RT 2V ? INDICATIONS:? fall with R tibfib deformity ? TECHNIQUE:? 2 views of the tibia and fibula were acquired.? ? COMPARISON:? None. ? FINDINGS:? ? Bones:? Oblique fractures through the proximal fibular and distal tibial diaphysis is present with lateral displacement of both fracture fragments.? Total right knee prosthesis in place. ? Soft tissues:? No suspicious soft tissue calcifications or masses.? ? IMPRESSION:? ? Oblique displaced fractures proximal fibula and distal tibial diaphysis ? ? ? Approved by: Saul Lopez M.D. on 03/01/2023 at 11:02 MDM Narrative Medical decision making narrative: Patient placed in posterior and sugar tong splint by myself and nursing. Patient neurovascularly intact pre and post. Tolerated procedure well. Discussed with Dr. Fox, orthopedic surgery he did review images. Recommends transfer to higher level of care secondary to proximity to prosthetic knee. Spoke with Dr. Huyen Esteban [facility] Emergency [facility] accepts for ED to ED transfer to [facility] for tib/fib fracture with proximity to prosthetic joint fibular fracture. Patient neurovascularly intact splint in place. Patient has been tolerating with pain medications. Discharge Plan Departure Patient Disposition: [facility] Clinical Impression: Fracture of tibia and fibula Prescriptions: No Action phenazopyridine [Pyridium] 200 mg tablet 200 mg PO TID 0 Days Qty: 6 0RF magnesium citrate [Citrate of Magnesia] Solution 150 ml PO ONCE Qty: 296 0RF Rx Instructions: as a single dose Sutab 1.479-0.188- 0.225 gram tablet See Rx Instructions PO PER PKG DIR Qty: 24 0RF Rx Instructions: Take as directed by Physician atorvastatin 10 mg tablet 10 mg PO QDAY calcium carbonate [Calcium 500] 500 mg calcium (1,250 mg) Tablet 1 tab PO QDAY EPINEPHRINE (ADRENACLICK) 0.3 mg IJ PRN PRN (Reason: Allergic reactions) ibuprofen 200 mg Tablet 200 mg PO Q6H PRN (Reason: Pain) acetaminophen 325 mg Tablet 650 mg PO TID Qty: 40 0RF aspirin 81 mg Tablet,Delayed Release (Dr/Ec) 81 mg PO BID Qty: 40 0RF docusate sodium [DOK] 100 mg Capsule 100 mg PO BID Qty: 40 0RF oxycodone 5 mg Tablet 5 mg PO Q3HR PRN (Reason: Pain, Moderate (4-6)) Qty: 60 0RF Referrals: Sondra Fox MD [Physician] - Jef Hinds MD [Primary Care Provider] - Stand Alone Forms: Patient Portal/API
--- NOTE | 2023-03-01 10:30 | DI.RAD.S_ITS ---
PROCEDURE: XR HIP W PEL IF DONE RT 2V INDICATIONS: fall with R hip pain TECHNIQUE: 2 views of the hip were acquired. COMPARISON: [facility], [facility], [id number] W PEL IF PERFORMED, 12/20/2015, 13:27. FINDINGS: Bones: No fractures or dislocations. No suspicious bony lesions. The visualized pelvic ring appears intact. Bilateral acetabular arthritic changes noted Soft tissues: No suspicious soft tissue calcifications or masses. IMPRESSION: Arthritic changes without fracture or dislocation Dictated by: Saul Lopez M.D. on 03/01/2023 at 11:02 Approved by: Saul Lopez M.D. on 03/01/2023 at 11:03
[2023-03-01] MEDS: MORPHINE 4 MG/ML INJ IV (10:39)
[2023-03-01] MEDS: ONDANSETRON 4 MG/2 ML INJ IV (10:39)
--- NOTE | 2023-03-01 10:49 | PC.NURSE ---
right lower limb is in a field splint from ems and the patient is fearful of moving it due to intense pain. She was able to wiggle her toes and report sensation in toes. Dorsalis pedis pulse present, regular in rhythm.
[2023-03-01] MEDS: HYDROMORPHONE 1 MG INJ IV (12:02)
[2023-03-01] MEDS: OXYCODONE/ACETAMINOPHEN 5/325 TABLET 2 TAB PO (13:55)
== END 2023-03-01 15:30 | disposition short-term general hospital (02) ==
PROVIDERS: Emergency Provider Emergency Medicine; Family Provider Family Medicine; PCP Family Medicine
DX: S82.451A Displaced comminuted fracture of shaft of right fibula, initial encounter for closed fracture (principal); S82.401A Unspecified fracture of shaft of right fibula, initial encounter for closed fracture; W18.30XA Fall on same level, unspecified, initial encounter; Y93.H2 Activity, gardening and landscaping
CPT/HCPCS: 29515; 73502; 73590; 81003; 96374; 96375; 99284; J1170; J2270; J2405

== ENCOUNTER 2023-04-19 10:39 | Emergency (ER) | payer MEDICARE, OTHER, SELFPAY ==
[2020-06-16 14:06] VITALS: BMI 30.3
[2023-04-19] VITALS (14 sets, daily range): BP systolic 122–163; BP diastolic 62–76; PULSE 77–95; RESP 12–53; TEMP 36.8; O2SAT 93–99; BMI 28.4
[2023-04-19 11:02] LABS: Add Manual Diff / Slide Review NO; Basophils Absolute Auto 0 /uL (0-100); Basophils Percent Auto 0.4 % (0-2); Eosinophils Absolute Auto 0 /uL (0-450); Hematocrit 40.1 % (36-46); Hemoglobin 13.3 g/dL (12.0-16.0); Lymphocytes Absolute Auto 1000 /uL (1100-4500); Lymphocytes Percent Auto 12.5 % (25-40); Mean Corpuscular HGB Conc 33.1 % (30-36); Mean Corpuscular Hemoglobin 29.4 PG (26-34); Mean Corpuscular Volume 88.7 fL (80-100); Monocytes Absolute Auto 500 /uL (0-900); Monocytes Percent Auto 5.8 % (3-14); Neutrophils Absolute Auto 6500 /uL (1500-7000); Neutrophils Percent Auto 81.3 % (50-75); Platelet Count 304 X10^3/uL (150-400); Red Blood Cell Count 4.52 X10^6/uL (4.0-5.2); Red Cell Distribution Width 15.2 % (11.6-14.8)
[2023-04-19 11:15] LABS: Alanine Aminotransferase 19 IU/L (<35); Albumin Globulin Ratio 1.4 (1.0-2.8); Alkaline Phosphatase 137 U/L (38-126); Aspartate Aminotransferase 26 IU/L (14-36); BUN Creatinine Ratio 17.2 (6-22); Bilirubin Total 1.1 mg/dL (0.2-1.3); Blood Urea Nitrogen 10 mg/dL (7-17); Calcium 9.7 mg/dL (8.4-10.2); Carbon Dioxide 27 mmol/L (22-32); Chloride 103 mmol/L (98-107); Estimated Glomerular Filt Rate > 60 mL/min (>60); Globulin 2.9 g/dL (1.7-4.1); Glucose 129 mg/dL (80-110); HEMOLYSIS < 15 (0-50); Lipase 60 U/L (23-300); Potassium 3.8 mmol/L (3.4-5.1); Sodium 137 mmol/L (137-145); Total Protein 6.9 g/dL (6.3-8.2)
[2023-04-19 11:32] LABS: Amorphous Sediment Urine 2+; Bacteria Urine None Seen; RBC Urine None Seen (0-5/HPF); Squamous Epithelial Cell Urine 1-5 /HPF (0-5/HPF); WBC Urine None Seen (0-5/HPF)
--- NOTE | 2023-04-19 11:59 | ED.ABDPAIN ---
HPI - Abdominal Pain <Ronna Tyler PA-C - Last Filed: 04/19/23 18:14> General Chief Complaint: Abdominal Pain Stated Complaint: lower abd pain T-1 Time Seen by Provider: 04/19/23 11:56 Source: patient Mode of arrival: Ambulatory History of Present Illness HPI narrative: Patient is a 73-year-old female who presents with sudden onset of abdominal pain at 10:00 p.m. last night. This was associated with 5 episodes of vomiting overnight and chills. She has no urinary symptoms. History of appendectomy, no other abdominal surgeries. She does have a history of right ovarian cyst, seen by Dr. Mendez for this in the past. She is not had any diarrhea, no chronic constipation. [place] like she need to have a bowel movement last night but was unable. Did eat crab several times over the past few days, but her ate the same crab and is not feeling sick. Her pain is currently 4/10, but was as severe as 8/10 last night. The pain does not radiate. Related Data Home Medications Medication Instructions Recorded Confirmed atorvastatin 10 mg tablet 10 mg PO QDAY 01/09/18 08/26/22 calcium carbonate 500 mg calcium 1 tab PO QDAY 01/09/18 08/26/22 (1,250 mg) tablet (Calcium 500) EPINEPHRINE (ADRENACLICK) 0.3 mg IJ PRN PRN Allergic 06/09/20 08/26/22 reactions ibuprofen 200 mg tablet 200 mg PO Q6H PRN Pain 06/09/20 08/26/22 Previous Rx's Medication Instructions Recorded acetaminophen 325 mg tablet 650 mg PO TID #40 tabs 06/17/20 aspirin 81 mg tablet,delayed 81 mg PO BID #40 tabs 06/17/20 release docusate sodium 100 mg capsule 100 mg PO BID #40 caps 06/17/20 (DOK) oxycodone 5 mg tablet 5 mg PO Q3HR PRN Pain, Moderate 06/17/20 (4-6) #60 tabs phenazopyridine 200 mg tablet 200 mg PO TID 6 doses #6 tabs 08/26/22 (Pyridium) sodium sul 1.479 gram-potas ch See Rx Instructions PO PER PKG DIR 01/21/23 0.188 gram-magnes sul 0.225 gram #24 tabs tablet (Sutab) magnesium citrate (Citrate of 150 ml PO ONCE #296 mL 01/26/23 Magnesia oral) hydrocodone 5 mg-acetaminophen 325 1 tab PO Q6H PRN pain #20 tabs 04/19/23 mg tablet hydrocodone 5 mg-acetaminophen 325 1 tab PO Q6H PRN pain (scale score 04/19/23 mg tablet 7-10) #20 tabs ondansetron 4 mg disintegrating 4 mg PO Q6H PRN nausea and 04/19/23 tablet vomiting #10 tabs Allergies Allergy/AdvReac Type Severity Reaction Status Date / Time bee venom protein (honey bee) Allergy Unknown Anaphylaxis Verified 04/19/23 10:55 [BEE VENOM PROTEIN (HONEY BEE)] azithromycin AdvReac Severe vomiting Verified 04/19/23 10:55 Review of Systems <Ronna Tyler PA-C - Last Filed: 04/19/23 18:14> Review of Systems ROS Unobtainable: All systems reviewed & are unremarkable except as noted in HPI and below Patient History <Ronna Tyler PA-C - Last Filed: 04/19/23 18:14> Medical History Arthritis HLD (hyperlipidemia) Nerve damage Osteoarthritis Uterine cyst Varicose veins of both lower extremities Surgical History Status post appendectomy Status post endometrial ablation Social History household members: spouse Smoking Status: Never smoker alcohol intake: current Smoking Status: Never smoker alcohol intake frequency: 0-2 drinks per day Substance Use Type: does not use Exam <Ronna Tyler PA-C - Last Filed: 04/19/23 18:14> Narrative Exam Narrative: GENERAL: 73 year old patient appears stated age. Well-developed patient, in mild distress. NEURO: AOx3. CARDIOVASCULAR: Regular rate and rhythm without murmurs, gallops, or rubs. RESPIRATORY: Clear to auscultation. Breath sounds equal bilaterally. No wheezes, rales, or rhonchi. GASTROINTESTINAL: Active bowel tones. Abdomen soft, mild distension, tender over bilateral lower quadrants, right greater than left. EXTREMITIES: No edema or joint tenderness. SKIN: No rash or erythema of visible areas Initial Vital Signs Initial Vital Signs: Vital Signs Temperature 98.3 F 04/19/23 10:49 Pulse Rate 95 H 04/19/23 10:49 Respiratory Rate 20 04/19/23 10:49 Blood Pressure 160/73 H 04/19/23 10:49 Pulse Oximetry 98 04/19/23 10:49 Oxygen Delivery Method Room Air 04/19/23 10:49 <Nikki Sapp DO - Last Filed: 04/19/23 19:18> Initial Vital Signs Initial Vital Signs: Vital Signs Temperature 98.3 F 04/19/23 10:49 Pulse Rate 95 H 04/19/23 10:49 Respiratory Rate 20 04/19/23 10:49 Blood Pressure 160/73 H 04/19/23 10:49 Pulse Oximetry 98 04/19/23 10:49 Oxygen Delivery Method Room Air 04/19/23 10:49 Course <Ronna Tyler PA-C - Last Filed: 04/19/23 18:14> Orders Ordered: ED Orders 04/19/23 10:55 Complete Blood Count AUTO DIFF Stat Comprehensive Metabolic Panel Stat Lipase Stat 04/19/23 11:07 EKG-12 Lead Stat 04/19/23 11:15 Urine Culture Stat Urine Microscopic Stat 04/19/23 12:09 CT abdomen pelvis w con Stat 04/19/23 13:56 US pelvic complete Stat 04/19/23 16:24 Human Epididymis Prot 4 Routine 04/19/23 16:52 Cancer Antigen 125 Stat Discontinued Medications Morphine Sulfate (Morphine 2 Mg/Ml Inj) 2 mg IV NOW ONE Stop: 04/19/23 14:34 Last Admin: 04/19/23 14:40 Dose: 2 mg Documented By: BENIGNO Ondansetron HCl (Ondansetron 4 Mg Odt) 4 mg PO NOW PRN PRN Reason: Nausea And Vomiting Ondansetron HCl (Ondansetron 4 Mg/2 Ml Inj) 4 mg IV NOW PRN PRN Reason: Nausea And Vomiting Consultations Consultation #1: Dr. Mendez, gynecology. Dr. Mendez is familiar with this patient, recommends pelvic ultrasound to evaluate for torsion and for characteristics of this cystic lesion. If not a torsed ovary, would recommend drawing labs including a CA 125 and HC4 and follow-up with [facility] for ongoing workup for malignancy. Time: 13:55 Vital Signs Vital signs: Vital Signs - 8 hr 04/19/23 11:30 04/19/23 11:30 04/19/23 12:00 Pulse Rate 79 Respiratory Rate 53 H Blood Pressure 145/65 H 137/66 Pulse Oximetry 96 Oxygen Delivery Method 04/19/23 12:00 04/19/23 13:00 04/19/23 13:00 Pulse Rate 80 81 Respiratory Rate 24 12 Blood Pressure 148/67 H Pulse Oximetry 96 96 Oxygen Delivery Method 04/19/23 13:30 04/19/23 13:30 04/19/23 14:00 Pulse Rate 86 Respiratory Rate 18 Blood Pressure 133/62 122/66 Pulse Oximetry 96 Oxygen Delivery Method 04/19/23 14:00 04/19/23 14:43 04/19/23 14:44 Pulse Rate 87 91 H 88 Respiratory Rate 15 16 Blood Pressure Pulse Oximetry 97 93 99 Oxygen Delivery Method 04/19/23 14:44 04/19/23 15:00 04/19/23 15:00 Pulse Rate 77 Respiratory Rate 14 Blood Pressure 159/76 H 133/65 Pulse Oximetry 95 Oxygen Delivery Method Room Air 04/19/23 15:30 04/19/23 15:30 04/19/23 16:00 Pulse Rate 80 82 Respiratory Rate 14 15 Blood Pressure 132/63 Pulse Oximetry 93 95 Oxygen Delivery Method 04/19/23 16:00 04/19/23 16:30 04/19/23 16:30 Pulse Rate 82 Respiratory Rate 19 Blood Pressure 140/67 134/67 Pulse Oximetry 96 Oxygen Delivery Method Room Air <Nikki Sapp, - Last Filed: 04/19/23 19:18> Orders Ordered: ED Orders 04/19/23 10:55 Complete Blood Count AUTO DIFF Stat Comprehensive Metabolic Panel Stat Lipase Stat 04/19/23 11:07 EKG-12 Lead Stat 04/19/23 11:15 Urine Culture Stat Urine Microscopic Stat 04/19/23 12:09 CT abdomen pelvis w con Stat 04/19/23 13:56 US pelvic complete Stat 04/19/23 16:24 Human Epididymis Prot 4 Routine 04/19/23 16:52 Cancer Antigen 125 Stat Discontinued Medications Morphine Sulfate (Morphine 2 Mg/Ml Inj) 2 mg IV NOW ONE Stop: 04/19/23 14:34 Last Admin: 04/19/23 14:40 Dose: 2 mg Documented By: BENIGNO Ondansetron HCl (Ondansetron 4 Mg Odt) 4 mg PO NOW PRN PRN Reason: Nausea And Vomiting Ondansetron HCl (Ondansetron 4 Mg/2 Ml Inj) 4 mg IV NOW PRN PRN Reason: Nausea And Vomiting Vital Signs Vital signs: Vital Signs - 8 hr 04/19/23 11:30 04/19/23 11:30 04/19/23 12:00 Pulse Rate 79 Respiratory Rate 53 H Blood Pressure 145/65 H 137/66 Pulse Oximetry 96 Oxygen Delivery Method 04/19/23 12:00 04/19/23 13:00 04/19/23 13:00 Pulse Rate 80 81 Respiratory Rate 24 12 Blood Pressure 148/67 H Pulse Oximetry 96 96 Oxygen Delivery Method 04/19/23 13:30 04/19/23 13:30 04/19/23 14:00 Pulse Rate 86 Respiratory Rate 18 Blood Pressure 133/62 122/66 Pulse Oximetry 96 Oxygen Delivery Method 04/19/23 14:00 04/19/23 14:43 04/19/23 14:44 Pulse Rate 87 91 H 88 Respiratory Rate 15 16 Blood Pressure Pulse Oximetry 97 93 99 Oxygen Delivery Method 04/19/23 14:44 04/19/23 15:00 04/19/23 15:00 Pulse Rate 77 Respiratory Rate 14 Blood Pressure 159/76 H 133/65 Pulse Oximetry 95 Oxygen Delivery Method Room Air 04/19/23 15:30 04/19/23 15:30 04/19/23 16:00 Pulse Rate 80 82 Respiratory Rate 14 15 Blood Pressure 132/63 Pulse Oximetry 93 95 Oxygen Delivery Method 04/19/23 16:00 04/19/23 16:30 04/19/23 16:30 Pulse Rate 82 Respiratory Rate 19 Blood Pressure 140/67 134/67 Pulse Oximetry 96 Oxygen Delivery Method Room Air MDM - Abdominal Pain <Ronna Tyler PA-C - Last Filed: 04/19/23 18:14> Lab Data 04/19/23 10:55 04/19/23 10:55 Labs: Lab Results 04/19/23 04/19/23 04/19/23 Range/Units 10:55 10:55 11:15 WBC 8.0 (4.5-11.0) X10^3/uL RBC 4.52 (4.0-5.2) X10^6/uL Hgb 13.3 (12.0-16.0) g/dL Hct 40.1 (36-46) % MCV 88.7 (80-100) fL MCH 29.4 (26-34) PG MCHC 33.1 (30-36) % RDW 15.2 H (11.6-14.8) % Plt Count 304 (150-400) X10^3/uL Neut % (Auto) 81.3 H (50-75) % Lymph % (Auto) 12.5 L (25-40) % [place] % (Auto) 5.8 (3-14) % Eos % (Auto) 0.0 L (2-4) % Baso % (Auto) 0.4 (0-2) % Neut # (Auto) 6500 (4798-2490) /uL Lymph # (Auto) 1000 L (4770-3504) /uL [place] # (Auto) 500 (0-900) /uL Eos # (Auto) 0 (0-450) /uL Baso # (Auto) 0 (0-100) /uL Sodium 137 (137-145) mmol/L Potassium 3.8 (3.4-5.1) mmol/L Chloride 103 (98-107) mmol/L Carbon Dioxide 27 (22-32) mmol/L BUN 10 (7-17) mg/dL Creatinine 0.58 (0.52-1.04) mg/dL Estimated GFR > 60 (>60) mL/min BUN/Creatinine Ratio 17.2 (6-22) Glucose 129 H (80-110) mg/dL Calcium 9.7 (8.4-10.2) mg/dL Total Bilirubin 1.1 (0.2-1.3) mg/dL AST 26 (14-36) IU/L ALT 19 (<35) IU/L Alkaline Phosphatase 137 H (38-126) U/L Total Protein 6.9 (6.3-8.2) g/dL Albumin 4.0 (3.5-5.0) g/dL Globulin 2.9 (1.7-4.1) g/dL Albumin/Globulin Ratio 1.4 (1.0-2.8) Lipase 60 (23-300) U/L CA 125 Antigen (0-35) U/mL Urine RBC None seen (0-5/HPF) Urine WBC None seen (0-5/HPF) Ur Squamous Epith Cells 1-5 /hpf (0-5/HPF) Amorphous Sediment 2+ Urine Bacteria None seen (None) 04/19/23 Range/Units 16:52 WBC (4.5-11.0) X10^3/uL RBC (4.0-5.2) X10^6/uL Hgb (12.0-16.0) g/dL Hct (36-46) % MCV (80-100) fL MCH (26-34) PG MCHC (30-36) % RDW (11.6-14.8) % Plt Count (150-400) X10^3/uL Neut % (Auto) (50-75) % Lymph % (Auto) (25-40) % [place] % (Auto) (3-14) % Eos % (Auto) (2-4) % Baso % (Auto) (0-2) % Neut # (Auto) (0235-8192) /uL Lymph # (Auto) (5093-9868) /uL [place] # (Auto) (0-900) /uL Eos # (Auto) (0-450) /uL Baso # (Auto) (0-100) /uL Sodium (137-145) mmol/L Potassium (3.4-5.1) mmol/L Chloride (98-107) mmol/L Carbon Dioxide (22-32) mmol/L BUN (7-17) mg/dL Creatinine (0.52-1.04) mg/dL Estimated GFR (>60) mL/min BUN/Creatinine Ratio (6-22) Glucose (80-110) mg/dL Calcium (8.4-10.2) mg/dL Total Bilirubin (0.2-1.3) mg/dL AST (14-36) IU/L ALT (<35) IU/L Alkaline Phosphatase (38-126) U/L Total Protein (6.3-8.2) g/dL Albumin (3.5-5.0) g/dL Globulin (1.7-4.1) g/dL Albumin/Globulin Ratio (1.0-2.8) Lipase (23-300) U/L CA 125 Antigen < 5.5 (0-35) U/mL Urine RBC (0-5/HPF) Urine WBC (0-5/HPF) Ur Squamous Epith Cells (0-5/HPF) Amorphous Sediment Urine Bacteria (None) Point of care testing: Urine Dip Bedside Urine Bilirubin - Negative Bedside Urine Ketone - Negative Urine Specific [place] 1.010 Bedside Urine Occult Blood - Negative Bedside Urine pH 8.0 Bedside Urine Protein - Negative Bedside Urine Urobilinogen 0.2 Bedside Urine Nitrite - Negative Bedside Urine Leukocytes + 70 Esterase MDM Narrative Medical decision making narrative: Multiple etiologies for patient's symptoms considered including, but not limited to: Diverticulitis, viral gastroenteritis, ovarian torsion, PID, small-bowel obstruction, malignancy. CT shows pelvic cystic structure, Dr. Mendez consulted. She had seen the patient several years ago for a right ovarian cyst and notes that it is larger today, she recommends ultrasound to rule out torsion. Ultrasound without evidence of torsion, notes large right ovarian cyst. Patient requires further evaluation for malignancy. Labs drawn for cancer screening, pain controlled with IV morphine, and patient passed p.o. challenge prior to discharge. Discharged with ondansetron for nausea and [place] for severe pain. Advised to call Gynecology Clinic on Saturday to set up follow-up. Return to ER if unable to tolerate fluids or food, or pain out of control, or if develops fever. Patient's symptoms improved over duration of stay with above-stated therapies. Findings and discharge diagnosis discussed with patient/family followed by verbalization of understanding Return precautions discussed with patient/family whom verbalize understanding of diagnosis and plan <Nikki Sapp, DO - Last Filed: 04/19/23 19:18> Lab Data Labs: Lab Results 04/19/23 04/19/23 04/19/23 Range/Units 10:55 10:55 11:15 WBC 8.0 (4.5-11.0) X10^3/uL RBC 4.52 (4.0-5.2) X10^6/uL Hgb 13.3 (12.0-16.0) g/dL Hct 40.1 (36-46) % MCV 88.7 (80-100) fL MCH 29.4 (26-34) PG MCHC 33.1 (30-36) % RDW 15.2 H (11.6-14.8) % Plt Count 304 (150-400) X10^3/uL Neut % (Auto) 81.3 H (50-75) % Lymph % (Auto) 12.5 L (25-40) % [place] % (Auto) 5.8 (3-14) % Eos % (Auto) 0.0 L (2-4) % Baso % (Auto) 0.4 (0-2) % Neut # (Auto) 6500 (2906-6445) /uL Lymph # (Auto) 1000 L (2607-7471) /uL [place] # (Auto) 500 (0-900) /uL Eos # (Auto) 0 (0-450) /uL Baso # (Auto) 0 (0-100) /uL Sodium 137 (137-145) mmol/L Potassium 3.8 (3.4-5.1) mmol/L Chloride 103 (98-107) mmol/L Carbon Dioxide 27 (22-32) mmol/L BUN 10 (7-17) mg/dL Creatinine 0.58 (0.52-1.04) mg/dL Estimated GFR > 60 (>60) mL/min BUN/Creatinine Ratio 17.2 (6-22) Glucose 129 H (80-110) mg/dL Calcium 9.7 (8.4-10.2) mg/dL Total Bilirubin 1.1 (0.2-1.3) mg/dL AST 26 (14-36) IU/L ALT 19 (<35) IU/L Alkaline Phosphatase 137 H (38-126) U/L Total Protein 6.9 (6.3-8.2) g/dL Albumin 4.0 (3.5-5.0) g/dL Globulin 2.9 (1.7-4.1) g/dL Albumin/Globulin Ratio 1.4 (1.0-2.8) Lipase 60 (23-300) U/L CA 125 Antigen (0-35) U/mL Urine RBC None seen (0-5/HPF) Urine WBC None seen (0-5/HPF) Ur Squamous Epith Cells 1-5 /hpf (0-5/HPF) Amorphous Sediment 2+ Urine Bacteria None seen (None) 04/19/23 Range/Units 16:52 WBC (4.5-11.0) X10^3/uL RBC (4.0-5.2) X10^6/uL Hgb (12.0-16.0) g/dL Hct (36-46) % MCV (80-100) fL MCH (26-34) PG MCHC (30-36) % RDW (11.6-14.8) % Plt Count (150-400) X10^3/uL Neut % (Auto) (50-75) % Lymph % (Auto) (25-40) % [place] % (Auto) (3-14) % Eos % (Auto) (2-4) % Baso % (Auto) (0-2) % Neut # (Auto) (0867-1710) /uL Lymph # (Auto) (0950-6359) /uL [place] # (Auto) (0-900) /uL Eos # (Auto) (0-450) /uL Baso # (Auto) (0-100) /uL Sodium (137-145) mmol/L Potassium (3.4-5.1) mmol/L Chloride (98-107) mmol/L Carbon Dioxide (22-32) mmol/L BUN (7-17) mg/dL Creatinine (0.52-1.04) mg/dL Estimated GFR (>60) mL/min BUN/Creatinine Ratio (6-22) Glucose (80-110) mg/dL Calcium (8.4-10.2) mg/dL Total Bilirubin (0.2-1.3) mg/dL AST (14-36) IU/L ALT (<35) IU/L Alkaline Phosphatase (38-126) U/L Total Protein (6.3-8.2) g/dL Albumin (3.5-5.0) g/dL Globulin (1.7-4.1) g/dL Albumin/Globulin Ratio (1.0-2.8) Lipase (23-300) U/L CA 125 Antigen < 5.5 (0-35) U/mL Urine RBC (0-5/HPF) Urine WBC (0-5/HPF) Ur Squamous Epith Cells (0-5/HPF) Amorphous Sediment Urine Bacteria (None) Point of care testing: Urine Dip Bedside Urine Bilirubin - Negative Bedside Urine Ketone - Negative Urine Specific [place] 1.010 Bedside Urine Occult Blood - Negative Bedside Urine pH 8.0 Bedside Urine Protein - Negative Bedside Urine Urobilinogen 0.2 Bedside Urine Nitrite - Negative Bedside Urine Leukocytes + 70 Esterase Discharge Plan Departure Patient Disposition: Home Clinical Impression: Right ovarian cyst Instructions: DI for Acute Abdominal Pain Activity Restrictions/Additional Instructions: *You have been diagnosed with right ovarian cyst. I have prescribed you nausea medicine and pain medicine to be used in addition to Tylenol. Please call the gynecology clinic on Saturday and request a follow up appointment, state that you were seen in the emergency room. Dr. Mendez knows that you were here. If you can not eat and drink, or if your pain is out of control, or if you develop a fever or other concerning symptoms, please return to the emergency department for reassessment. Your screening blood work for ovarian cancer was collected today and will be available to your follow-up provider. *What to do: *Please continue to take your regular medications as directed. [x] New medication prescriptions sent to your pharmacy: [facility] [ ] New medication written as a paper prescription [ ] No new medications given *Please follow up with your primary care provider in 2-3 days, call for an appointment. Let them know you were seen in the Emergency Department and that we ask that you be seen in follow up. We will electronically transmit a record of today's note if your PCP is in our system *If you do not have a primary care provider please contact the [facility] Resource line at [phone]. They will ask some questions about your medical history and help get you set up with a doctor in the community. *Return to Emergency Department if you should have any new, worsening or concerning symptoms, such as [fever greater than 101 F, shaking chills, worsening pain, persistent vomiting or other bothersome symptoms] Prescriptions: New ondansetron 4 mg tablet,disintegrating 4 mg PO Q6H PRN (Reason: nausea and vomiting) Qty: 10 0RF hydrocodone-acetaminophen 5-325 mg tablet 1 tab PO Q6H PRN (Reason: pain (scale score 7-10)) Qty: 20 0RF hydrocodone-acetaminophen 5-325 mg tablet 1 tab PO Q6H PRN (Reason: pain) Qty: 20 0RF No Action phenazopyridine [Pyridium] 200 mg tablet 200 mg PO TID 0 Days Qty: 6 0RF magnesium citrate [Citrate of Magnesia] Solution 150 ml PO ONCE Qty: 296 0RF Rx Instructions: as a single dose Sutab 1.479-0.188- 0.225 gram tablet See Rx Instructions PO PER PKG DIR Qty: 24 0RF Rx Instructions: Take as directed by Physician atorvastatin 10 mg tablet 10 mg PO QDAY calcium carbonate [Calcium 500] 500 mg calcium (1,250 mg) Tablet 1 tab PO QDAY EPINEPHRINE (ADRENACLICK) 0.3 mg IJ PRN PRN (Reason: Allergic reactions) ibuprofen 200 mg Tablet 200 mg PO Q6H PRN (Reason: Pain) acetaminophen 325 mg Tablet 650 mg PO TID Qty: 40 0RF aspirin 81 mg Tablet,Delayed Release (Dr/Ec) 81 mg PO BID Qty: 40 0RF docusate sodium [DOK] 100 mg Capsule 100 mg PO BID Qty: 40 0RF oxycodone 5 mg Tablet 5 mg PO Q3HR PRN (Reason: Pain, Moderate (4-6)) Qty: 60 0RF Referrals: Elinor Mendez MD [Physician] - Jef Hinds MD [Primary Care Provider] - Stand Alone Forms: Patient Portal/API <Nikki Sapp DO - Last Filed: 04/19/23 19:18> Cosign ED Attending Cosignature Attestation: I was immediately available in the department for consultation. Documentation has been reviewed. Case was discussed. CT imaging was reviewed, OBGYN recommendations were appreciated patient had pelvic ultrasound here shows large ovarian cyst, no torsion. Patient did have labs sent with CA 125, ect. Patient discharged with plan for follow up with OBGYN urgently.
--- NOTE | 2023-04-19 12:09 | DI.CT.S_ITS ---
PROCEDURE: CT ABDOMEN PELVIS W CON INDICATIONS: lower abd pain with nausea TECHNIQUE: After the administration of intravenous contrast, axial sections acquired from the lung bases to the pubic symphysis. Coronal and sagittal reformats were performed. For radiation dose reduction, the following was used: automated exposure control, adjustment of mA and/or kV according to patient size. COMPARISON: None. FINDINGS: Image quality: Excellent. Lung bases: Unremarkable. Heart: No significant findings. ABDOMEN: Liver: Unremarkable. Gallbladder: Unremarkable. Biliary ducts: Unremarkable. Pancreas: Unremarkable. Spleen: Unremarkable. Adrenal Glands: Unremarkable. Kidneys and Ureters: Unremarkable. Stomach and Bowel: Diverticulosis without evidence of diverticulitis. Peritoneum: No abnormal intraperitoneal fluid. No free air. Ventral Wall: No hernias. Abdominal Nodes: No retroperitoneal or mesenteric adenopathy by size criteria. Vessels: Aorta and inferior vena cava are normal in size. PELVIS: Pelvic Organs: The uterus is present. There is a thick-walled cystic structure anteriorly in the pelvis immediately superior to the bladder. This structure measures approximately 8.8 x 7.4 x 7.0 cm. It does not have an appearance suggesting abscess, but may potentially represent a cystic lesion of the ovary. Differential diagnosis includes benign and malignant causes. The presence of subjacent ascites, relatively mild, raises the question of potential leaking of contents into the surrounding peritoneum.. Bladder: Unremarkable. Pelvic Nodes: No enlarged lymph nodes. Miscellaneous: No hernias are seen. Bones: Mild lumbar degenerative change. No compression fractures. No lytic or blastic bony lesions. IMPRESSION: 1. There is a thick-walled pelvic cystic structure measuring 8.8 cm in maximum dimension. Subjacent to the structure, there is a small amount of pelvic ascites. 2. Sigmoid diverticulosis without evidence of diverticulitis. Comment: The cystic structure is potentially ovarian in nature. Differential diagnosis includes benign and malignant causes. The presence of subjacent fluid raises the question of possible leakage of contents into the surrounding peritoneum. Comment: It may be helpful to repeat this study on a nonemergent basis with both oral and intravenous contrast. Dictated by: Will Quintana M.D. on 04/19/2023 at 13:04 Approved by: Will Quintana M.D. on 04/19/2023 at 13:11
--- NOTE | 2023-04-19 13:56 | DI.US.S_ITS ---
PROCEDURE: US PELVIC COMPLETE INDICATIONS: RIGHT OVARIAN CYST ON CT; POSSIBLE TORSION TECHNIQUE: Real-time scanning was performed of the pelvic organs, with image documentation. COMPARISON: [facility], CT, CT ABDOMEN PELVIS W CON, 04/19/2023, 12:35. [facility], US, US PELVIC COMPLETE, 10/28/2019, 15:15. FINDINGS: Uterus: Uterus is suboptimally seen on the transabdominal scan. Uterus is anteverted measuring approximately 4.6 by 5.3 cm. Endometrium measures 5 mm in thickness. Ovaries: The right ovary measures 9.3 x 6.5 x 7.5 cm, with a calculated ovarian volume of 238.3 cc. There is a large simple appearing cyst in the right ovary measuring 6.7 x 8.6 x 6.2 cm. On Doppler contras on, and right ovary has normal vascularity. The left ovary is not visualized. Other: No pathologic free abdominal or pelvic fluid. IMPRESSION: 1. Right ovary is enlarged. There is a large simple appearing right ovarian cyst measuring 6.7 x 8.6 x 6.2 cm. Recommend a follow-up ultrasound in 6-12 weeks. 2. Right ovary demonstrates normal vascularity. No findings to suggest right ovarian torsion. 3. Uterus is some multiple visualized on this transabdominal only pelvic ultrasound. Consider gynecological MRI or repeat ultrasound with vaginal scanning. 4. Left ovary is not visualized. 5. Moderate free fluid seen on the comparison CT is not well visualized on this ultrasound. We strive to produce accurate, complete, and clear reports of imaging services. To assist us in improving patient care, this report was composed using standard report templates and voice recognition software. Therefore, it may contain abnormal punctuation, insertions and/or omissions. Occasional wrong-word or sound-alike substitutions may occur. Though we review the report and make efforts to correct it, we do recommend that the report be read carefully in proper context to recognize any text inaccuracies. Dictated by: Gretta Hart M.D. on 04/19/2023 at 15:50 Approved by: Gretta Hart M.D. on 04/19/2023 at 15:58
[2023-04-19] MEDS: MORPHINE 2 MG/ML INJ IV (14:40)
[2023-04-19 18:07] LABS: Cancer Antigen 125 < 5.5 U/mL (0-35)
[2023-04-24 09:17] LABS: Human Epididymis Prot 4 72.6 pmol/L (0.0-96.9)
== END 2023-04-19 17:15 | disposition home or self-care (01) ==
PROVIDERS: Emergency Medicine; Emergency Provider Physician Assistant; Family Provider Family Medicine; PCP Family Medicine
DX: N83.201 Unspecified ovarian cyst, right side (principal); R10.9 Unspecified abdominal pain
CPT/HCPCS: 36415; 74177; 76856; 80053; 81003; 81015; 83690; 85025; 86304; 86305; 87086; 93005; 93010; 93976; 96374; 99284; J2270; Q9967

== ENCOUNTER 2023-04-29 11:49 | Inpatient (IN) | payer MEDICARE, OTHER, SELFPAY ==
[2020-06-16 14:06] VITALS: BMI 30.3
[2023-04-26 16:52] VITALS: BMI 25.8
[2023-04-29] VITALS (12 sets, daily range): BP systolic 111–145; BP diastolic 50–68; PULSE 66–90; RESP 12–20; TEMP 35.6–36.8; O2SAT 90–100; BMI 25.8
--- NOTE | 2023-04-29 | PATH_ITS ---
[facility] Accession Number: [id number] No. of containers..02 Tissue . 01 Material submitted: . PART A: ovary - RIGHT OVARY AND RIGHT FALLOPIAN TUBE PART B: ovary - LEFT OVARY AND FALLOPIAN TUBE . 01 Diagnosis: A. 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 Extensively edematous and inflamed fallopian tube with fibrinous adhesions, focal necrosis, and reactive changes, overall as evidence of involvement by torsion. No evidence of dysplasia, borderline tumor or malignancy. . B. Left Ovary and Fallopian Tube, Left Salpingo-oophorectomy: Ovary and Fallopian tube within normal limits. MR 05/09/2023 1243 Local . 01 Electronically signed: . Shavon Schneider MD, Pathologist NPI- [id number] . 01 Gross description: . A. Received in formalin labeled with the patient's name, and right ovary, right fallopian tube consists of an ovary with attached fimbriated fallopian tube, all weighing 237 grams. The fallopian tube measures 6.4 cm in length by 1.2 cm in average diameter, and the grossly distended ovary measures 9.1 x 8.2 x 6.9 cm. The external surface is purple-brown, relatively smooth, and is inked blue. Sectioning reveals a unilocular cystic structure occupying the ovary. The kumar range from 0.1 to 1.1 cm thick, and ae red-brown and homogeneous. The internal wall of the cyst is smooth with no excrescences identified. The cystic structure is filled with red-brown serous fluid. No normal ovarian parenchyma is grossly identified. . The fallopian tube has smooth serosa with multiple small cystic structures measuring up to 0.3 cm in greatest dimension filled with clear serous fluid. Sectioning reveals a unremarkable stellate lumen. . Bag Bundler sections are submitted as follows: A1-A4: Bag Bundler cyst wall. A5: Bag Bundler fimbria and cross-section of fallopian tube. A6-A10: entire cyst wall submitted. . B. Received in formalin labeled with the patient's name, and left ovary, left fallopian tube consists of a fallopian tube measuring 7.3 cm in length by 0.7 cm in diameter with attached ovary that weighs 2 grams and measures 2.4 x 1.3 x 0.9 cm. The fallopian tube has violaceous smooth serosa with no cystic structures identified, and sectioning reveals an unremarkable stellate lumen. The ovary has a adams, cerebriform external surface, and sectioning reveals an unremarkable physiologic cut surface with no lesions identified. Bag Bundler sections are submitted as follows: B1: Fallopian tube to include one-half of bisected fimbria and cross-sections. B2: Bag Bundler ovary. ([id number]) . Additional sections of possible viable cyst wall are submitted in cassettes A6-10. ([id number]) /MRV 05/09/2023 1243 Local . 01 Pathologist provided ICD-10: D27.9 . 01 CPT . 830890, [id number] Specimen Comment: A courtesy copy of this report has been sent to [phone] Performed at: 01 [facility] [address] [place] [address], [place], [place] [id number] MD Misbah Washington MD Phone: [phone]
[2023-04-29] MEDS: LACTATED RINGERS 1,000 ML 100 ML IV ×3 (12:14→15:13)
--- NOTE | 2023-04-29 12:16 | PM.PREOP ---
Pre-operative Note COVID-19 Criteria for continued procedure: Expected advancement of disease process Interval Note History & Physical reviewed/Exam performed by Physician: Yes Changes to H&P: No
--- NOTE | 2023-04-29 12:52 | SUR.OPER ---
Supine on padded OR bed, head on pillow, arms secured on padded arm boards at <90 degrees abduction, legs uncrossed, safety belt at thigh, tape over blanket over lower legs.
[2023-04-29] MEDS: BUPIVACAINE 0.5% (PF) 30 ML, EPINEPHrine 0.15 MG INJ (12:55)
[2023-04-29] MEDS: CEFAZOLIN 2 GM/100 ML PREMIX 100 ML IV (13:10)
[2023-04-29] MEDS: ACETAMINOPHEN IV 1,000 MG/100 ML VIAL 400 MG IV (13:10)
--- NOTE | 2023-04-29 14:20 | PM.OP.1 ---
Operative Date/Time/Diagnoses Date of procedure: 04/29/23 Time of procedure: 14:20 Pre-op diagnosis: Enlarging cyst and abdominal pain Post-op diagnosis: same (Right ovarian torsion) Procedure & Clinicians Procedure: Laparoscopy followed by laparotomy with bilateral salpingo oophorectomy Same procedure as scheduled: No (Due to adhesions decision was made to perform laparotomy rather than lapros) Indications: Enlarging ovarian cyst with abdominal pain Surgeon: Elinor Mendez Airplane Pilot Commercial: Mariano Davis Click Yes if Unassisted: No Anesthesia Type: General Operative Notes Findings: Torsion right ovarian cyst with adhesions of the small intestine to the mass, evidence of cellular the ovary with internal collection of blood. Adhesion of the omentum to the anterior abdominal wall under the right lower quadrant scar. Small uterus, small left tube and ovary Closure Type: primary Specimen(s): other (Cell washings, bilateral tubes and ovaries) Applied: catheter (Santoro) Estimated Blood Loss (mL): 50 Blood products transfused: none Procedure in detail: Patient was brought to the operating room where she underwent general anesthesia. She was placed in [facility] stirrups. A check system was reviewed. Warming with a Jacki Hugger was in place. Pulsatile stockings were in place and functional. She was prepped and draped in the usual sterile fashion. Area of the umbilical incision was injected with lidocaine. An incision was made with the scalpel. The varies needle was placed in the abdomen. Correct placement was noted by withdrawing on the syringe and the having a drop of water fall easily through the syringe into the abdomen. The abdomen was insufflated with CO2. After looking with the laparoscope decision was made to open the abdomen. 2 g of Ancef were given IV. A Santoro catheter was placed. A Pfannenstiel incision was made with the scalpel. The incision was carried down to the fascial layer which was incised transversely. The midline attachments were superiorly and inferiorly. Bleeding was controlled with the Bovie. The perineum was entered bluntly. Saline was placed in the abdomen and 20 cc sent for cell washings for carcinoma. Adhesions of the omentum to the anterior abdominal wall were . The Ashanti O self-retaining retractor was placed in the incision. The areas small-bowel adhesed to the mass were gently retracted off the mass. The handheld gyrus generator was used to cauterize and cut the infundibulopelvic ligament. Sequential bites were taken down the broad ligament. Bite was taken across the utero-ovarian ligament and the fallopian tube freeing the right ovary. Same procedure performed on the left side. The perineum was closed with 2 0 Vicryl suture. The fascial layer was closed with #1 Vicryl suture starting at each corner and working toward the midline. The incision was irrigated. The adipose layer was reapproximated with 3-0 Vicryl intermittent sutures. Skin was closed with 4-0 Monocryl as well as the skin incision of the umbilical incision. Counts of instruments and sponges were correct. Patient went to the recovery room in stable condition. Complications: none Post-operative Condition: stable Disposition: Acute Care Plan for aftercare: Patient admitted for monitoring for pain control, stability, home when stable, ambulatory, tolerating regular diet.
[2023-04-29] MEDS: HYDROMORPHONE 2 MG INJ IV (14:26)
[2023-04-29] MEDS: OXYCODONE IR 5 MG TABLET PO ×2 (14:37→15:25)
[2023-04-29] MEDS: ACETAMINOPHEN 325 MG TABLET 650 MG PO ×2 (15:25→20:00)
[2023-04-29] MEDS: ONDANSETRON 4 MG/2 ML INJ IV (15:42)
[2023-04-29] MEDS: KETOROLAC 30 MG/ML VIAL 15 MG IV ×2 (17:16→23:46)
--- NOTE | 2023-04-29 18:43 | PC.NURSE ---
Day shift: Pt came up this afternoon from PACU after surgery. 2 incisions on abdomen - dressings CDI. Pt's pain adequately controlled with 5mg oxy + APAP. Pt's Santoro draining well - clear yellow urine. Pt stated nausea x1 that was adequately managed with IV zofran. At baseline, patient uses walker and RLE boot due to R leg break and surgery in February. Pt has not been out of bed this shift. Will continue to monitor.
[2023-04-29] MEDS: DOCUSATE 100 MG CAPSULE 200 MG PO (20:03)
[2023-04-30] MEDS: LACTATED RINGERS 1,000 ML 100 ML IV (00:57)
[2023-04-30] MEDS: ACETAMINOPHEN 325 MG TABLET 650 MG PO ×4 (02:16→20:47)
[2023-04-30 02:30] VITALS: BP 105/51; PULSE 81; RESP 18; TEMP 36.3; O2SAT 96
[2023-04-30] MEDS: KETOROLAC 30 MG/ML VIAL 15 MG IV ×2 (05:09→10:25)
--- NOTE | 2023-04-30 05:46 | PC.NURSE ---
pt was up to the side of the bed this am, she stook up for like 5 minutes. pt had 400 ml of urine out of her peng catheter this am. peng cath was removed this am at 0530. pt only taking tylenol and ketorolal for pain management.
[2023-04-30 06:07] LABS: Add Manual Diff / Slide Review NO; Basophils Absolute Auto 0 /uL (0-100); Basophils Percent Auto 0.1 % (0-2); Eosinophils Absolute Auto 0 /uL (0-450); Hematocrit 32.5 % (36-46); Hemoglobin 10.7 g/dL (12.0-16.0); Lymphocytes Absolute Auto 1200 /uL (1100-4500); Lymphocytes Percent Auto 11.8 % (25-40); Mean Corpuscular HGB Conc 33.1 % (30-36); Mean Corpuscular Hemoglobin 29.4 PG (26-34); Mean Corpuscular Volume 88.8 fL (80-100); Monocytes Absolute Auto 900 /uL (0-900); Monocytes Percent Auto 9.4 % (3-14); Neutrophils Absolute Auto 7700 /uL (1500-7000); Neutrophils Percent Auto 78.7 % (50-75); Platelet Count 337 X10^3/uL (150-400); Red Blood Cell Count 3.65 X10^6/uL (4.0-5.2); Red Cell Distribution Width 15.6 % (11.6-14.8); White Blood Cell Count 9.8 X10^3/uL (4.5-11.0)
[2023-04-30 07:00] VITALS: O2SAT 95
[2023-04-30] MEDS: DOCUSATE 100 MG CAPSULE 200 MG PO ×2 (08:23→20:47)
[2023-04-30 08:26] VITALS: BP 109/56; PULSE 73; RESP 18; TEMP 36.7; O2SAT 98
--- NOTE | 2023-04-30 10:31 | P.PN_ITS ---
Subjective Subjective Date Patient Seen: 04/30/23 Time Patient Seen: 10:32 Interval history: Postoperative laparotomy with bilateral salpingo oophorectomy Exam Vital Signs (past 8 hours): - 04/30/23 07:00 04/30/23 08:26 Temperature 98.0 F Pulse Rate 73 Respiratory Rate 18 Blood Pressure 109/56 L Pulse Oximetry 95 98 Oxygen Delivery Method Room Air Oxygen Flow Rate 0 Oxygen Delivery Method Room Air Oxygen Flow Rate 0 Narrative Exam Narrative: Abdomen is soft, appropriately tender. Dressings are clean, dry, intact. Extremities without edema and nontender. Objective Labs 04/30/23 05:05 Labs: Laboratory Results - last 24 hr 04/30/23 05:05 WBC 9.8 RBC 3.65 L Hgb 10.7 L Hct 32.5 L MCV 88.8 MCH 29.4 MCHC 33.1 RDW 15.6 H Plt Count 337 Neut % (Auto) 78.7 H Lymph % (Auto) 11.8 L [place] % (Auto) 9.4 Eos % (Auto) 0.0 L Baso % (Auto) 0.1 Neut # (Auto) 7700 H Lymph # (Auto) 1200 [place] # (Auto) 900 Eos # (Auto) 0 Baso # (Auto) 0 PFSH Medical History Arthritis HLD (hyperlipidemia) Nerve damage Osteoarthritis Uterine cyst Varicose veins of both lower extremities Surgical History Status post appendectomy Status post endometrial ablation Social History household members: spouse Smoking Status: Never smoker alcohol intake: current Assessment & Plan Post-op Postoperative Procedures: Procedures Operation Date: 04/29/23 16:00 Actual Procedure Side Surgeon p Laparoscopic BILATERAL Salpingoophorectomy COVERTED TO OPEN, LYSIS OF ADHESIONS Bilateral Elinor Mendez MD Postoperative day: 1 Postoperative status: doing well Postoperative status narrative: Patient was able to ambulate. She was able to urinate post Santoro catheter removal. She was able to tolerate a regular diet. She is passing gas. Patient is concerned about her pain if she moves. 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 We will evalu ate later for discharge. Time Spent With Patient Time with patient: less than 15 minutes Quality VTE Deep Vein Thrombosis/Pulmonary Embolism Present on Admission: No
--- NOTE | 2023-04-30 10:59 | CM.DANOTE ---
DCP: Case received, EMR reviewed and met with patient. Introduced self and role. Was able to obtain information regarding patient's baseline activity status prior to hospitalization. DCP assessment completed with information currently available. Patient is a 73 year old female who admitted yesterday morning to the care of Dr. Mendez, [employer]. PCP: Dr. Hinds. Payer: Medicare/[employer]. Patient came to the hospital via private vehicle for a surgical procedure. Patient was originally scheduled for a laparoscopic bilateral salpingoophorectomy, but was converted to an open procedure, secondary to lysis of adhesions. Patient has history of enlarging cyst with abdominal pain. Met with patient in her room. She is pleasant, confirmed that she resides on [facility] [address] [facility], here in [place], with her spouse, Leland. She is independent at her baseline. P: DCP to continue to follow for any needs. Patient should be able to go home when deemed medically stable. Criselda Kruger RN/Senior Designer Discharge Planning/Care Management CM Discharge Assessment Start: 04/30/23 10:57 Freq: Status: Active Protocol: Document 04/30/23 10:57 (Rec: 04/30/23 10:59 [id number]) Discharge Planning Assessment Assigned Readers' Advisory Service Librarian Criselda Kruger RN/Senior Designer Advance Directives? Yes: DPOA For Health Care; Directive To Physician & Supplement Advance Directives on File No History Provided By Patient,Medical Record Prior Living Arrangements House Household Members spouse Type of transporation used prior to Drives own vehicle admit Independent with ADL's Yes Is patient alert and oriented? Yes Caregiver for Another No Barriers to Discharge No Discharge Plan Home Transportation Arrangement Spouse Referrals Initiated None needed Whiteboard Updated in Patient Room with Yes name and ext. # of Readers' Advisory Service Librarian Review Status In Process Next Review Type Continued Stay Review Pre-Anesthesia Assessment Start: 04/26/23 16:52 Freq: Status: Active Protocol: Document 04/26/23 16:52 TC (Rec: 04/26/23 17:03 TC [id number]) Pre-Anesthesia Assessment Patient Information Reviewed Via Chart Review Diagnostic Results BMP/CMP,CBC,EKG Comment 04/19/23 Primary Care Provider Jef Hinds Medical Clearance Received Not Applicable Seen Specialist in Last 12 Months Yes Specialist Seen Emergency,Millinery Copyist,Other Primary Language Burundian Preferred Language Burundian Technical Supervisor Required No Height 5 ft 8 in Weight 170 lb Body Mass Index (BMI) 25.8 Hx Anesthesia Reactions No Hx Family Anesthesia Reaction Yes: Father hx of dementia- severe confusion Hx Malignant Hyperthermia No Hx Blood Transfusions No Hx Blood Transfusion Reaction No Anesthesia Review Requested No Chip Applying 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 No Does patient have CARRILLO/SOB No Hx Sleep Apnea No CPAP/BIPAP use not prescribed Can You Climb a Flight of Stairs Without Yes SOB Hx Chest Pain No Hx SOB No Hx Syncope or Dizziness No Anti-Coagulant Therapy No: ASA 81 mg Has a Help Desk Internship No Cardiac Testing No Hx Pacemaker/ICD No Cardiac Clearance Received Not Applicable Gastrointestinal Symptoms Abdominal Pain,Nausea,Vomiting Hx Urinary Self Catheterization No Diabetes No Hx Drug Resistant Organism No Presence of External or Internal Medical No Devices Received a COVID vaccine? Yes Lives With spouse Patient Discharge Plan Description Return Home Do You Have Any Spiritual Beliefs That No May Affect Your HC Choices? Do You Have Any Cultural Practices That No May Affect Your HC Choices? Emergency Contact Name Leland () Rebecca (daughter) Emergency Contact Phone Number Les: [phone] Rebecca: [phone] Advance Directives? Yes: DPOA For Health Care; Directive To Physician & Supplement Advance Directives on File No Power of Treating Inspector Yes Power of Treating Inspector Name Leland Wooten Power of Treating Inspector
[2023-04-30 15:50] VITALS: BP 107/43; PULSE 62; RESP 18; TEMP 36.1; O2SAT 98
[2023-04-30] MEDS: IBUPROFEN 600 MG TABLET PO ×2 (17:03→22:38)
[2023-04-30 20:15] VITALS: BP 104/51; PULSE 72; RESP 16; TEMP 35.9; O2SAT 96
[2023-05-01] MEDS: ACETAMINOPHEN 325 MG TABLET 650 MG PO ×2 (02:41→08:19)
[2023-05-01 04:33] VITALS: BP 121/60; PULSE 65; RESP 16; TEMP 37; O2SAT 94
[2023-05-01] MEDS: IBUPROFEN 600 MG TABLET PO (05:33)
--- NOTE | 2023-05-01 07:43 | PM.DS.1 ---
History of Present Illness History of Present Illness Date Patient Seen: 05/01/23 Time Patient Seen: 07:43 Chief complaint: Bilateral Laparoscopic Oophorectomy Narrative: Patient underwent laparoscopy followed by laparotomy for pelvic pain and enlarging ovarian cysts found to be torsion of right ovary. Discharge Providers Provider Date of admission: 04/29/23 11:49 Discharge Date: 05/01/23 Primary care physician: Jef Hinds MD Discharge provider: Elinor Mendez MD Summary Hospital Course Discharge Diagnosis: Right ovarian torsion Hospital Course: Patient underwent a laparoscopy followed by laparotomy with bilateral salpingo oophorectomy on 04/29/2023 for pain, enlarging right ovarian cyst. Patient is ambulatory. She is tolerating regular diet. She is passing gas. She is urinating well. Status at Discharge Cognitive/behavioral status at discharge: oriented Functional status at discharge: independent ambulation Overall status at discharge: patient is progressing back to baseline Time Spent with Patient Time spent: Less than 30 minutes Exam Vital Signs (past 8 hours): - 05/01/23 04:33 Temperature 98.6 F Pulse Rate 65 Respiratory Rate 16 Blood Pressure 121/60 Pulse Oximetry 94 Oxygen Flow Rate 0 Oxygen Delivery Method Room Air Oxygen Flow Rate 0 Narrative Exam Narrative: Abdomen is soft, with minimal tenderness. Dressings removed. Incisions are clean, dry, intact. Mild lochia. No evidence of infection. Extremities without edema and nontender. Objective Labs 04/30/23 05:05 PFSH Medical History Arthritis HLD (hyperlipidemia) Nerve damage Osteoarthritis Uterine cyst Varicose veins of both lower extremities Surgical History Status post appendectomy Status post endometrial ablation Social History household members: spouse Smoking Status: Never smoker alcohol intake: current Discharge Assessment & Plan Assessment and Plan Assessment: Patient is stable post laparotomy with removal of bilateral tubes and ovaries for right ovarian torsion Plan of Treatment: Home today. Routine post laparotomy care. Discharge Plan Discharge Plan Patient Disposition: Home Discharge orders & Medications Prescriptions: Continued atorvastatin 10 mg tablet 10 mg PO DAILY acetaminophen 325 mg Tablet 650 mg PO TID Qty: 40 0RF Follow up/Referrals: Elinor Mendez MD [Physician] - (Patient has a postop appointment scheduled on 05/16) Jef Hinds MD [Primary Care Provider] - Activity Restrictions/Additional Instructions: No lifting over 10 lb for 6 weeks. No driving for 1 week. Diet/Activity/Treatments Diet: Regular Skin/Wound/Dressing Care Report to your healthcare provider any signs of infection, such as:: chills, fever, increased pain, unusual drainage and unusual redness Dressing: Leave Steri-Strips in place for 1 week. Can get wet just pat dry. In one-week get wet and rub off Visit Report/Discharge Packet Instructions: DI for Oophorectomy Stand Alone Forms: Patient Portal/API, Stroke Signs & Symptoms, Surgery Discharge Discharge Data Primary Care Provider: Jef Hinds Quality VTE Deep Vein Thrombosis/Pulmonary Embolism Present on Admission: No
[2023-05-01 07:45] VITALS: O2SAT 95
[2023-05-01 08:00] VITALS: BP 141/85; PULSE 78; RESP 16; TEMP 36.2; O2SAT 95
--- NOTE | 2023-05-01 09:26 | PC.NURSE ---
Day shift: Paperwork signed and all questions answered. No new MD scripts. Pt has all personal belongings. Op-site steri strips intact w/ no s/s of infection. Left unit at approx 0915 via WC. Tolerated well. Pt's Spouse in room for teachings as well.
== END 2023-05-01 09:39 | disposition home or self-care (01) | DRG 743 ==
LOC: AC 04-30 10:09
PROVIDERS: Admitting Provider Specialist; Family Provider Family Medicine; PCP Family Medicine; Referring Provider Specialist; Visit Provider Specialist
PROC: 0UT24ZZ Resection of Bilateral Ovaries, Percutaneous Endoscopic Approach (ICD-10-PCS; CPT 58661; principal; 2023-04-29 16:00)
DX: N83.201 Unspecified ovarian cyst, right side (principal); N83.511 Torsion of right ovary and ovarian pedicle
CPT/HCPCS: 36415; 58720; 85025; J0131; J0171; J0690; J1100; J1170; J1885; J2405; J2704; J3010; J3490

== ENCOUNTER → 2023-05-16 12:23 | Outpatient (CLI) | payer MEDICARE, OTHER, SELFPAY ==
[2023-04-29 15:15] VITALS: BMI 25.8
--- NOTE | 2023-05-16 12:24 | DI.US.S_ITS ---
PROCEDURE: US PERIPH VENOUS LOW EXTREM LT INDICATIONS: REDNESS SWELLING UPPER LEG TECHNIQUE: Real-time imaging, as well as color and pulse Doppler interrogation, were performed of the lower extremity deep veins from the inguinal ligament to the popliteal fossa, with documentation of the visualized calf veins. COMPARISON: None. Findings and impression: There is an occlusive 2.1 cm thrombus in the left mid greater saphenous vein above the knee. No other thrombus identified. Dictated by: Kang Evans M.D. on 05/16/2023 at 13:46 Approved by: Kang Evans M.D. on 05/16/2023 at 13:47
== END ==
PROVIDERS: Family Provider Family Medicine; PCP Family Medicine; Referring Provider Obstetrics & Gynecology; Visit Provider Obstetrics & Gynecology
DX: I82.812 Embolism and thrombosis of superficial veins of left lower extremity (principal)
CPT/HCPCS: 93971

== ENCOUNTER → 2023-07-12 15:44 | Outpatient (CLI) | payer MEDICARE, OTHER, SELFPAY ==
[2023-04-29 15:15] VITALS: BMI 25.8
--- NOTE | 2023-07-12 | DI.US.S_ITS ---
PROCEDURE: US PERIP VENOUS LOW EXTREM RT INDICATIONS: Acute embolism and thrombosis of unspecified vein TECHNIQUE: Real-time imaging, as well as color and pulse Doppler interrogation, were performed of the lower extremity deep veins from the inguinal ligament to the popliteal fossa, with documentation of the visualized calf veins. COMPARISON: [facility], , [facility] VENOUS LOW EXTREM LT, 05/16/2023, 12:55. FINDINGS: The common femoral, femoral, popliteal, and the visualized calf veins are normally compressible, and free of intraluminal thrombus. Color and pulse Doppler demonstrate normal phasic intraluminal flow. There is normal augmentation response to distal compression maneuver. There is superficial venous thrombosis in the mid GSV approximately 3 inches above the knee and greater than 5 cm from the common femoral vein, similar to prior. IMPRESSION: 1. No deep venous thrombosis. 2. Superficial venous thrombosis in the mid GSV approximately 3 inches above the knee, similar to prior. Dictated by: Joann Milligan M.D. on 07/12/2023 at 18:44 Approved by: Joann Milligan M.D. on 07/12/2023 at 18:58
== END ==
PROVIDERS: Family Provider Family Medicine; PCP Family Medicine; Referring Provider Family Medicine; Visit Provider Family Medicine
DX: I82.811 Embolism and thrombosis of superficial veins of right lower extremity (principal)
CPT/HCPCS: 93971

== ENCOUNTER → 2023-07-16 08:31 | Outpatient (CLI) | payer MEDICARE, OTHER, SELFPAY ==
[2023-04-29 15:15] VITALS: BMI 25.8
[2023-07-16 10:58] LABS: Add Manual Diff / Slide Review NO; Basophils Absolute Auto 0 /uL (0-100); Basophils Percent Auto 0.5 % (0-2); Eosinophils Absolute Auto 100 /uL (0-450); Eosinophils Percent Auto 1.3 % (2-4); Hematocrit 39.9 % (36-46); Hemoglobin 13.4 g/dL (12.0-16.0); Lymphocytes Absolute Auto 1800 /uL (1100-4500); Lymphocytes Percent Auto 32.7 % (25-40); Mean Corpuscular HGB Conc 33.5 % (30-36); Mean Corpuscular Hemoglobin 29.6 PG (26-34); Mean Corpuscular Volume 88.3 fL (80-100); Monocytes Absolute Auto 500 /uL (0-900); Monocytes Percent Auto 8.6 % (3-14); Neutrophils Absolute Auto 3200 /uL (1500-7000); Neutrophils Percent Auto 56.9 % (50-75); Platelet Count 256 X10^3/uL (150-400); Red Blood Cell Count 4.52 X10^6/uL (4.0-5.2); Red Cell Distribution Width 15.8 % (11.6-14.8); White Blood Cell Count 5.5 X10^3/uL (4.5-11.0)
[2023-07-16 11:05] LABS: Alanine Aminotransferase 17 IU/L (<35); Albumin 4.1 g/dL (3.5-5.0); Albumin Globulin Ratio 1.6 (1.0-2.8); Alkaline Phosphatase 98 U/L (38-126); Aspartate Aminotransferase 27 IU/L (14-36); Bilirubin Total 1.3 mg/dL (0.2-1.3); Blood Urea Nitrogen 12 mg/dL (7-17); Calcium 10.6 mg/dL (8.4-10.2); Carbon Dioxide 27 mmol/L (22-32); Chloride 103 mmol/L (98-107); Cholesterol 193 mg/dL (140-199); Estimated Glomerular Filt Rate > 60 mL/min (>60); Globulin 2.5 g/dL (1.7-4.1); Glucose 94 mg/dL (80-110); HDL Cholesterol 68 mg/dL (40-60); HEMOLYSIS < 15 (0-50); LDL Cholesterol Calculated 93 mg/dL (<100); Potassium 4.3 mmol/L (3.4-5.1); Sodium 139 mmol/L (137-145); Total Protein 6.6 g/dL (6.3-8.2); Triglycerides 161 mg/dL (35-150)
[2023-07-16 11:32] LABS: Vitamin D 25 Hydroxy (D3) 45.5 ng/mL (30.0-100.0)
[2023-07-16 11:46] LABS: Thyroid Stimulating Hormone 1.67 uIU/mL (0.47-4.68)
[2023-07-16 11:54] LABS: Vitamin B12 596 pg/mL (239-931)
== END ==
PROVIDERS: Family Provider Family Medicine; PCP Family Medicine; Referring Provider Family Medicine; Visit Provider Family Medicine
DX: I82.90 Acute embolism and thrombosis of unspecified vein (principal); R03.0 Elevated blood-pressure reading, without diagnosis of hypertension; E78.00 Pure hypercholesterolemia, unspecified; Z79.899 Other long term (current) drug therapy; N83.201 Unspecified ovarian cyst, right side; I80.02 Phlebitis and thrombophlebitis of superficial vessels of left lower extremity; M12.89 Other specific arthropathies, not elsewhere classified, multiple sites; E55.9 Vitamin D deficiency, unspecified; R42 Dizziness and giddiness; M79.2 Neuralgia and neuritis, unspecified
CPT/HCPCS: 36415; 80053; 80061; 81241; 82306; 82607; 83735; 84443; 85025

== ENCOUNTER 2023-08-13 09:00 | Outpatient (RCR) | payer MEDICARE, OTHER, SELFPAY ==
[2023-04-29 15:15] VITALS: BMI 25.8
--- NOTE | 2023-07-08 16:06 | PT.OPPOC ---
Physical, Occupational & Speech Therapy At [facility] Current Diagnoses Other abnormalities of gait and mobility (07/08/23) Unspecified fracture of shaft of right tibia, subsequent encounter for closed fracture with routine healing (07/08/23) Unspecified fracture of shaft of right fibula, subsequent encounter for closed fracture with routine healing (07/08/23) Visit Care Team Role Provider Type Jef Hinds MD Family Provider Physician Primary Care Provider Referring Provider Specialty: Family Practice Address: [address], [address], [place], [address] Email: Migdalia Cowan MD Attending Provider Non-Staff Specialty: Orthopedic Surgery Address: [address] [place] [address], [id number] Fax: Email: Plan Of Care PT-OP-T Assessment and Plan Start: 07/02/23 19:31 Freq: Status: Active Protocol: Document 07/08/23 12:35 LRN (Rec: 07/08/23 18:08 [id number]) Physical Therapy Assessment Rehab Potential Rehabilitation Potential Excellent Evaluation Complexity Number of Personal Factors/Comorbidities 1-2 Number of Body Systems Impaired 4 or More Clinical Presentation at Evaluation Evolving Impairments Impairments Activity Tolerance,Balance, Gait,ROM,Sensation,Strength Goals Three Impairment Dysfunctional gait with catching of toes during gait. Impairment Gait: Decreased stride length , feet clearance, hips flexed 5 deg's, excessive trunk sway, RLE WBing with knee valgus/ calcaneal EV, trunk in L rotation on stance phase. Short Term Goal (STG) Normalize gait pattern/core positioning with gait (improve hip IR). STG Duration 4 wks-08/05/23 Rubber Process Hand Goal (LTG) Walk w/o catching R toes on the ground. LTG Duration 8 wks-09/06/23 Two Impairment Decreased R Ankle AROM Impairment AROM in deg's: DF (knees extended): 2 R , 8 L; PF 50 bilaterally, IV 12 R, 35 L; EV 15 R, 30 L. LEFS score 62 (120-39% impaired, score 48-62). Short Term Goal (STG) Improve R ankle AROM with improved function per LEFS score of 64 or greater (1-19% impaired, score 63-79). STG Duration 4 wks-08/05/23 Rubber Process Hand Goal (LTG) Improve R ankle AROM with decreased episodes of LOB to no more than 1 after long walks. LTG Duration 8 wks-09/06/23 One Impairment Lacks appropriate self care HEP Short Term Goal (STG) Pt will be educated self care pain and edema management. STG Duration 1 wk-07/15/23 Penitentiary Goal (LTG) Pt will be independent with a self care HEP to improve R ankle mobility and strength. LTG Duration 8 wks-09/06/23 Assessment Summary Assessment Pt is a 73 yo female s/p 4 months R distal Tibia/proximal Fibula fx with subsequent surgery with rosa elena placed in tibia. Pt demonstrates decreased R ankle AROM, decreased balance with gait and dysfunctional gait with her R toes catching on the ground daily resulting in LOB that she thus far has been able to maintain. The pt has weakness of R ankle EV due to ankle pain, otherwise R LE strengh is normal. The pt does demonstrate pitting edema in lower legs towards the ankles bilaterally. The pt will benefit from skilled physical therapy for therapeutic exercise, manual therapy, possible K-taping to improve tissue mobility, neuro -reducation and self care for pain and HEP. Physical Therapy Plan Frequency and Duration Frequency of Treatment 2x/Week Duration of treatment (weeks) 8 Plan of Care Start Date 07/08/23 Plan of Care End Date 09/06/23 Therapeutic Interventions Therapeutic Interventions Balance Training,Coordination Training,Home Exercise Program ,Manual Therapy,Neuromuscular Re-education,Self-Care/Home Management,Soft Tissue Mobilization,Taping, Therapeutic Exercises Modalities Cold Pack/Ice Massage,Hot Packs Next Visit Focus/Plan Next Note Type Treatment Note Next Visit Plan POC: Progress pt towards primarily HEP in 3 weeks. Next: Assess TUG, stair ambulation, hip ER/IR. Start HEP: Aerobic ex, f/b ankle passive stretching and gentle strengthening. K-tape (if skin healthy), and STM to improve Lower leg circulation. Pt education in pain management. Gait and balance training. Plan of Care Dates Plan of Care Start Date 07/08/23 Plan of Care End Date 09/06/23 Electronically Signed by: Gina June, PT 07/09/23 [id number] If you are in agreement with this Plan of Care, please return a signed and dated copy. I have reviewed this Plan of Care and certify that the skilled therapy services above are required to meet the patient?s needs. Physician Signature Date Printed Name and Credentials Clinical Instructor Signature Printed Name and Credentials
--- NOTE | 2023-07-08 17:06 | PT.OIE ---
Current Diagnoses Other abnormalities of gait and mobility (07/08/23) Unspecified fracture of shaft of right tibia, subsequent encounter for closed fracture with routine healing (07/08/23) Unspecified fracture of shaft of right fibula, subsequent encounter for closed fracture with routine healing (07/08/23) Past Medical History (Last Reviewed 04/19/23 @ 13:59 by Ronna Tyler PA-C) Arthritis HLD (hyperlipidemia) Nerve damage Osteoarthritis Uterine cyst Varicose veins of both lower extremities Past Surgical History (Last Reviewed 04/19/23 @ 13:59 by Ronna Tyler PA-C) Status post appendectomy Status post endometrial ablation Visit Care Team Role Provider Type Jef Hinds MD Family Provider Physician Primary Care Provider Referring Provider Specialty: Family Practice Address: [address], [address], [place], [address] Email: Migdalia Cowan MD Attending Provider Non-Staff Specialty: Orthopedic Surgery Address: [address] [place] [address], [phone] Fax: Email: Physical Therapy Initial Evaluation PT-OP-A Visit Information Start: 07/02/23 19:31 Freq: Status: Active Protocol: Document 07/08/23 12:35 LRN (Rec: 07/08/23 18:08 LRN [id number]) Out-Patient Physical Therapy Visit Information Visit Information Visit Type Initial Evaluation Visit Start Time 12:35 Visit Stop Time 13:19 Total Visit Minutes 44 Visit Number 1 Evaluation Information Evaluation Date 07/08/23 Precautions Precautions 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 PT-OP-B Current Condition Start: 07/02/23 19:31 Freq: Status: Active Protocol: Document 07/08/23 12:35 LRN (Rec: 07/08/23 18:08 LRN [id number]) Current Condition History of Current Condition Onset Date 03/01/23 Current Complaints Catches her R foot on ground wth gait. History of Current Condition Pt is s/p 4 months fracture of R distal Tibia/proximal Fibula after falling at home outside with subsequent surgery at [facility]. Fell backwards but foot caught under the plantar box. States she was sent to [facility] to have to have a rosa elena placed to support Tibia. R TKA prothesis was in place. Last [facility] visit was in April and was referred to PT to check gait because strength and mobility of knee is good. Pt states she doesn't lift her R toes when she walks causing her to trip. States she catches her R toes daily, especially on long walks. Able to catch herself with LOB . [place]. Prior Treatments and Tests X-ray 03/01/23: Oblique displaced fractures proximal fibula and distal tibial diaphysis Future Testing and Treatments Planned None Treatment Goals Patient/Caregiver Goals Pt goal is to assess gait and address deviations on mainly a home program, but would like to correct her gait. Personal Factors Other Personal Factors That May Effect Blood clot behind the L knee - Therapy/Recovery 03/2023 (taking Eliquis) R TKA ~5 yrs ago, PT-OP-C Subjective Start: 07/02/23 19:31 Freq: Status: Active Protocol: Document 07/08/23 12:35 LRN (Rec: 07/08/23 18:08 LRN [id number]) OP-PT Subjective Patient Comments Patient Comments States she feels her R leg has healed well. Patient Questionnaires Lower Extremity Functional Scale LEFS Score 62 LEFS Impairment 20 to 39% Impaired (Score 48- 62) OP-PT Pain Assessment Pain Assessment Grid Paper Pain Assessment Grid Completed Yes Location Right Knee Pain Location Details Lateral knee pain below joint line Intensity 2 Scale Used Numeric (0 - 10) PT-OP-G Mobility & Gait Start: 07/02/23 19:31 Freq: Status: Active Protocol: Document 07/08/23 12:35 LRN (Rec: 07/08/23 18:08 LRN [id number]) OP Gait Assessment Gait Gait Assistance Required: Independent Distance (Feet) 75 Able to Maintain Weight Bearing Status Yes During Gait Assistive Devices Assistive Device None Gait Deviations General Gait Pattern Decreased Stride Length, Decreased Feet Clearance, Flexed Trunk,Lateral Trunk Lean Comments Gait Comments R LE WBing causes medial collapse of knee and Calcaneal EV, poor hip IR with trunk held in L rotated on stance phase. PT-OP-H Neuro Start: 07/02/23 19:31 Freq: Status: Active Protocol: Document 07/08/23 12:35 LRN (Rec: 07/08/23 18:08 LRN [id number]) Sensation Evaluation Gross Sensation Gross Sensation Right LE Impaired Sensation Description Numbness Comments Summary Comments R Lower Leg: Decreased sensation to soft touch and sharp/dull in rectangular section of lateral lower leg ~ a couple inches below the knee and 7.5 cm and above the ankle in the anterolateral lower leg. PT-OP-J Posture/Palpation/Skin Start: 07/02/23 19:31 Freq: Status: Active Protocol: Document 07/08/23 12:35 LRN (Rec: 07/08/23 18:08 LRN [id number]) Posture Evaluation Position Standing Head/C-Spine Posture Forward Head Hip Posture (L) Flexed,(R) Flexed Knee Posture (L) Genu Valgus,(R) Genu Valgus Ankle/Foot Posture (R) Calcaneal Inversion Comments Posture Comments Hips flex 5 deg's, R knee valgus 10 deg's, L knee 5 deg' s. Skin Assessment Edema Assessment Left Leg Edema Type Pitting Right Leg Edema Type Pitting Edema Degree 4+ Edema Appearance Discolored,Firm Comments Pitting edema in lower portion of lower leg. PT-OP-K Range of Motion Start: 07/02/23 19:31 Freq: Status: Active Protocol: Document 07/08/23 12:35 LRN (Rec: 07/08/23 18:08 LRN [id number]) Knee Goniometric Range of Motion Knee Right Patient Position Sitting Flexion Active (degrees) 120 Extension Active (degrees) 0 Left Patient Position Sitting Flexion Active (degrees) 120 Extension Active (degrees) 0 Comments Painfree AROM Ankle and Foot Goniometric Range of Motion Ankle and Foot Right Active Ankle/Foot ROM WFL No Testing Position Supine Dorsiflexion with Knee Extended 2 Plantarflexion 50 Inversion 12 Eversion 15 Comments Painfree AROM Left Active Ankle/Foot ROM WFL Yes Testing Position Supine Dorsiflexion with Knee Extended 8 Plantarflexion 50 Inversion 35 Eversion 30 PT-OP-M Strength Start: 07/02/23 19:31 Freq: Status: Active Protocol: Document 07/08/23 12:35 LRN (Rec: 07/08/23 18:08 LRN [id number]) Knee Strength Knee Manual Muscle Testing Left Comments Strength is 5/5 Right Comments Strength is 5/5 Ankle/Foot Strength Ankle and Foot Manual Muscle Testing Right Dorsiflexion (L4) 4 Good Plantarflexion (S1) 5 Normal Inversion 4 Good Eversion (S1) 3 Fair Comments Eversion is limited due to pain. Left Comments Strength is 5/5. PT-OP-Q Treatments Start: 07/02/23 19:31 Freq: Status: Active Protocol: Document 07/08/23 12:35 LRN (Rec: 07/08/23 18:08 LRN [id number]) Self-Care/Home Management Treatment Education Other Education Discussed results of evaluation, goals, and plan of care (POC). Pt agreeable to goals and POC. Activities Self-Care/Home Management Activities I/S HEP: ankle AROM 10 SH stretch (DF/PF/IV/EV) PT-OP-T Assessment and Plan Start: 07/02/23 19:31 Freq: Status: Active Protocol: Document 07/08/23 12:35 LRN (Rec: 07/08/23 18:08 LRN [id number]) Physical Therapy Assessment Rehab Potential Rehabilitation Potential Excellent Evaluation Complexity Number of Personal Factors/Comorbidities 1-2 Number of Body Systems Impaired 4 or More Clinical Presentation at Evaluation Evolving Impairments Impairments Activity Tolerance,Balance, Gait,ROM,Sensation,Strength Goals Three Impairment Dysfunctional gait with catching of toes during gait. Impairment Gait: Decreased stride length , feet clearance, hips flexed 5 deg's, excessive trunk sway, RLE WBing with knee valgus/ calcaneal EV, trunk in L rotation on stance phase. Short Term Goal (STG) Normalize gait pattern/core positioning with gait (improve hip IR). STG Duration 4 wks-08/05/23 Reprographics Technician Goal (LTG) Walk w/o catching R toes on the ground. LTG Duration 8 wks-09/06/23 Two Impairment Decreased R Ankle AROM Impairment AROM in deg's: DF (knees extended): 2 R , 8 L; PF 50 bilaterally, IV 12 R, 35 L; EV 15 R, 30 L. LEFS score 62 (120-39% impaired, score 48-62). Short Term Goal (STG) Improve R ankle AROM with improved function per LEFS score of 64 or greater (1-19% impaired, score 63-79). STG Duration 4 wks-08/05/23 Reprographics Technician Goal (LTG) Improve R ankle AROM with decreased episodes of LOB to no more than 1 after long walks. LTG Duration 8 wks-09/06/23 One Impairment Lacks appropriate self care HEP Short Term Goal (STG) Pt will be educated self care pain and edema management. STG Duration 1 wk-07/15/23 Detention Goal (LTG) Pt will be independent with a self care HEP to improve R ankle mobility and strength. LTG Duration 8 wks-09/06/23 Assessment Summary Assessment Pt is a 73 yo female s/p 4 months R distal Tibia/proximal Fibula fx with subsequent surgery with rosa elena placed in tibia. Pt demonstrates decreased R ankle AROM, decreased balance with gait and dysfunctional gait with her R toes catching on the ground daily resulting in LOB that she thus far has been able to maintain. The pt has weakness of R ankle EV due to ankle pain, otherwise R LE strengh is normal. The pt does demonstrate pitting edema in lower legs towards the ankles bilaterally. The pt will benefit from skilled physical therapy for therapeutic exercise, manual therapy, possible K-taping to improve tissue mobility, neuro -reducation and self care for pain and HEP. Physical Therapy Plan Frequency and Duration Frequency of Treatment 2x/Week Duration of treatment (weeks) 8 Plan of Care Start Date 07/08/23 Plan of Care End Date 09/06/23 Therapeutic Interventions Therapeutic Interventions Balance Training,Coordination Training,Home Exercise Program ,Manual Therapy,Neuromuscular Re-education,Self-Care/Home Management,Soft Tissue Mobilization,Taping, Therapeutic Exercises Modalities Cold Pack/Ice Massage,Hot Packs Next Visit Focus/Plan Next Note Type Treatment Note Next Visit Plan POC: Progress pt towards primarily HEP in 3 weeks. Next: Assess TUG, stair ambulation, hip ER/IR. Start HEP: Aerobic ex, f/b ankle passive stretching and gentle strengthening. K-tape (if skin healthy), and STM to improve Lower leg circulation. Pt education in pain management. Gait and balance training.
--- NOTE | 2023-07-12 15:01 | PT.OTN ---
Current Diagnoses Other abnormalities of gait and mobility (07/12/23) Unspecified fracture of shaft of right tibia, subsequent encounter for closed fracture with routine healing (07/12/23) Unspecified fracture of shaft of right fibula, subsequent encounter for closed fracture with routine healing (07/12/23) Physical Therapy Treatment Note PT-OP-A Visit Information Start: 07/02/23 19:31 Freq: Status: Active Protocol: Document 07/12/23 14:06 LRN (Rec: 07/12/23 15:01 LRN [id number]) Out-Patient Physical Therapy Visit Information Visit Information Visit Type Treatment Note Visit Start Time 14:06 Visit Stop Time 14:44 Total Visit Minutes 38 Visit Number 2 Evaluation Information Evaluation Date 07/08/23 Precautions Precautions 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 PT-OP-B Current Condition Start: 07/02/23 19:31 Freq: Status: Active Protocol: Document 07/08/23 12:35 LRN (Rec: 07/08/23 18:08 LRN [id number]) Current Condition History of Current Condition Onset Date 03/01/23 Current Complaints Catches her R foot on ground wth gait. History of Current Condition Pt is s/p 4 months fracture of R distal Tibia/proximal Fibula after falling at home outside with subsequent surgery at [facility]. Fell backwards but foot caught under the plantar box. States she was sent to [facility] to have to have a rosa elena placed to support Tibia. R TKA prothesis was in place. Last [facility] visit was in April and was referred to PT to check gait because strength and mobility of knee is good. Pt states she doesn't lift her R toes when she walks causing her to trip. States she catches her R toes daily, especially on long walks. Able to catch herself with LOB . States [place] walks [place]. Prior Treatments and Tests X-ray 03/01/23: Oblique displaced fractures proximal fibula and distal tibial diaphysis Future Testing and Treatments Planned None Treatment Goals Patient/Caregiver Goals Pt goal is to assess gait and address deviations on mainly a home program, but would like to correct her gait. Personal Factors Other Personal Factors That May Effect Blood clot behind the L knee - Therapy/Recovery 03/2023 (taking Eliquis) R TKA ~5 yrs ago, PT-OP-C Subjective Start: 07/02/23 19:31 Freq: Status: Active Protocol: Document 07/12/23 14:06 LRN (Rec: 07/12/23 15:01 LRN [id number]) OP-PT Subjective Patient Comments Patient Comments No change. Keeps walking. PT-OP-E Functional Tests Start: 07/02/23 19:31 Freq: Status: Active Protocol: Document 07/12/23 14:06 LRN (Rec: 07/12/23 15:01 LRN [id number]) Functional Tests Timed Up and Go (TUG) Score 11 Comments No use of hands or AD TUG Impairment Rating 1 to <20% Impaired (Score 11) PT-OP-G Mobility & Gait Start: 07/02/23 19:31 Freq: Status: Active Protocol: Document 07/12/23 14:06 LRN (Rec: 07/12/23 15:01 LRN [id number]) Stair Climbing Evaluation Evaluation Level of Assist On Stairs Independent Devices Stair Climbing Assistive Devices Right Railing Technique/Endurance Stair Climbing Direction Ascend and Descend Stair Climbing Technique Step Over Step Number of Steps Climbed 4 Stair Climbing Set # Repetitions (reps) 4 Comments Stair Climbing Comments Pt has less control with descending leading with L LE. Ascending has weakness with stepping up with RLE. PT-OP-H Neuro Start: 07/02/23 19:31 Freq: Status: Active Protocol: Document 07/08/23 12:35 LRN (Rec: 07/08/23 18:08 LRN [id number]) Sensation Evaluation Gross Sensation Gross Sensation Right LE Impaired Sensation Description Numbness Comments Summary Comments R Lower Leg: Decreased sensation to soft touch and sharp/dull in rectangular section of lateral lower leg ~ a couple inches below the knee and 7.5 cm and above the ankle in the anterolateral lower leg. PT-OP-J Posture/Palpation/Skin Start: 07/02/23 19:31 Freq: Status: Active Protocol: Document 07/08/23 12:35 LRN (Rec: 07/08/23 18:08 LRN [id number]) Posture Evaluation Position Standing Head/C-Spine Posture Forward Head Hip Posture (L) Flexed,(R) Flexed Knee Posture (L) Genu Valgus,(R) Genu Valgus Ankle/Foot Posture (R) Calcaneal Inversion Comments Posture Comments Hips flex 5 deg's, R knee valgus 10 deg's, L knee 5 deg' s. Skin Assessment Edema Assessment Left Leg Edema Type Pitting Right Leg Edema Type Pitting Edema Degree 4+ Edema Appearance Discolored,Firm Comments Pitting edema in lower portion of lower leg. PT-OP-K Range of Motion Start: 07/02/23 19:31 Freq: Status: Active Protocol: Document 07/08/23 12:35 LRN (Rec: 07/08/23 18:08 LRN [id number]) Knee Goniometric Range of Motion Knee Right Patient Position Sitting Flexion Active (degrees) 120 Extension Active (degrees) 0 Left Patient Position Sitting Flexion Active (degrees) 120 Extension Active (degrees) 0 Comments Painfree AROM Ankle and Foot Goniometric Range of Motion Ankle and Foot Right Active Ankle/Foot ROM WFL No Testing Position Supine Dorsiflexion with Knee Extended 2 Plantarflexion 50 Inversion 12 Eversion 15 Comments Painfree AROM Left Active Ankle/Foot ROM WFL Yes Testing Position Supine Dorsiflexion with Knee Extended 8 Plantarflexion 50 Inversion 35 Eversion 30 PT-OP-M Strength Start: 07/02/23 19:31 Freq: Status: Active Protocol: Document 07/08/23 12:35 LRN (Rec: 07/08/23 18:08 LRN [id number]) Knee Strength Knee Manual Muscle Testing Left Comments Strength is 5/5 Right Comments Strength is 5/5 Ankle/Foot Strength Ankle and Foot Manual Muscle Testing Right Dorsiflexion (L4) 4 Good Plantarflexion (S1) 5 Normal Inversion 4 Good Eversion (S1) 3 Fair Comments Eversion is limited due to pain. Left Comments Strength is 5/5. PT-OP-Q Treatments Start: 07/02/23 19:31 Freq: Status: Active Protocol: Document 07/12/23 14:06 LRN (Rec: 07/12/23 15:01 LRN [id number]) Gym Equipment Shuttle Recovery unilateral squat Details R LE Step descending ROM squat Resistance 25# Shuttle Recovery Platform Stable Reps/Time 5' Bilateral Squats Details Benny Squat Resistance 25# 50# Shuttle Recovery Platform Stable Reps/Time 5' Therapeutic Exercises Standing Exercises TUG Standing Exercise Name TUG Reps/Minutes x2 Comments Pt did not drag R toe on ground with walk Gastroc/Soleus stretch Standing Exercise Name Gastroc/Soleus stretch Side right Reps/Minutes 6' Comments Cuing to not overstretch-not into pain, and keep heel on floor Step ups Standing Exercise Name Step ups Side bilateral Equipment Used Stairs Reps/Minutes 11' Manual Therapy Treatment Joint Mobilizations R ankle Joint R ankle Direction PA, AP glides Grade I Body Position Longsit Reps/Duration 3' Self-Care/Home Management Treatment Education Patient Education Home Exercise Program Other Education Discussed & educated pt in self care edema management with contrast bath. Activities Self-Care/Home Management Activities Issued & reviewed HEP: Gastroc and Soleus stretch, step ups. Issued handout: Contrast Bath for edema management. PT-OP-T Assessment and Plan Start: 07/02/23 19:31 Freq: Status: Active Protocol: Document 07/12/23 14:06 LRN (Rec: 07/12/23 15:01 LRN [id number]) Physical Therapy Assessment Goals Three Impairment Dysfunctional gait with catching of toes during gait. Impairment Gait: Decreased stride length , feet clearance, hips flexed 5 deg's, excessive trunk sway, RLE WBing with knee valgus/ calcaneal EV, trunk in L rotation on stance phase. Short Term Goal (STG) Normalize gait pattern/core positioning with gait (improve hip IR). STG Duration 4 wks-08/05/23 [employer] Stained Glass Goal (LTG) Walk w/o catching R toes on the ground. LTG Duration 8 wks-09/06/23 Two Impairment Decreased R Ankle AROM Impairment AROM in deg's: DF (knees extended): 2 R , 8 L; PF 50 bilaterally, IV 12 R, 35 L; EV 15 R, 30 L. LEFS score 62 (120-39% impaired, score 48-62). Short Term Goal (STG) Improve R ankle AROM with improved function per LEFS score of 64 or greater (1-19% impaired, score 63-79). STG Duration 4 wks-08/05/23 [employer] Stained Glass Goal (LTG) Improve R ankle AROM with decreased episodes of LOB to no more than 1 after long walks. LTG Duration 8 wks-09/06/23 One Impairment Lacks appropriate self care HEP Short Term Goal (STG) Pt will be educated self care pain and edema management. 07/12/23: Pt educated in hot/ cold contrast bath for edema management. STG Duration 1 wk-07/15/23 progressed 07/12 (need pain mgmt self care ) [employer] Goal (LTG) Pt will be independent with a self care HEP to improve R ankle mobility and strength. 07/12/23: HEP of gastroc/ soleus stretch, steps. LTG Duration 8 wks-09/06/23 progressed Assessment Summary Assessment 1<20% impaired per TUG score of 11. Pt able to perform step ups and ankle stretches w /o pain. Pitting edema in R Lower leg/ankle; PROM at ankle helped to improve tissue mobility. Physical Therapy Plan Frequency and Duration Frequency of Treatment 2x/Week Duration of treatment (weeks) 8 Plan of Care Start Date 07/08/23 Plan of Care End Date 09/06/23 Next Visit Focus/Plan Next Note Type Treatment Note Next Visit Plan POC: Progress pt towards primarily HEP in next 2 weeks. Next: Assess hip ER/IR. Try K -tape (if skin healthy) Start HEP: Aerobic ex, f/b ankle passive stretching and gentle strengthening. Try STM to improve Lower leg circulation. Pt education in pain management. Gait and balance training.
--- NOTE | 2023-07-15 13:40 | PT.OTN ---
Current Diagnoses Other abnormalities of gait and mobility (07/15/23) Unspecified fracture of shaft of right tibia, subsequent encounter for closed fracture with routine healing (07/15/23) Unspecified fracture of shaft of right fibula, subsequent encounter for closed fracture with routine healing (07/15/23) Physical Therapy Treatment Note PT-OP-A Visit Information Start: 07/02/23 19:31 Freq: Status: Active Protocol: Document 07/15/23 12:34 LRN (Rec: 07/15/23 13:40 LRN [id number]) Out-Patient Physical Therapy Visit Information Visit Information Visit Type Treatment Note Visit Start Time 12:34 Visit Stop Time 13:19 Total Visit Minutes 45 Visit Number 3 Evaluation Information Evaluation Date 07/08/23 Precautions Precautions 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 PT-OP-B Current Condition Start: 07/02/23 19:31 Freq: Status: Active Protocol: Document 07/08/23 12:35 LRN (Rec: 07/08/23 18:08 LRN [id number]) Current Condition History of Current Condition Onset Date 03/01/23 Current Complaints Catches her R foot on ground wth gait. History of Current Condition Pt is s/p 4 months fracture of R distal Tibia/proximal Fibula after falling at home outside with subsequent surgery at [facility]. Fell backwards but foot caught under the plantar box. States she was sent to [facility] to have to have a rosa elena placed to support Tibia. R TKA prothesis was in place. Last [facility] visit was in April and was referred to PT to check gait because strength and mobility of knee is good. Pt states she doesn't lift her R toes when she walks causing her to trip. States she catches her R toes daily, especially on long walks. Able to catch herself with LOB . [place]. Prior Treatments and Tests X-ray 03/01/23: Oblique displaced fractures proximal fibula and distal tibial diaphysis Future Testing and Treatments Planned None Treatment Goals Patient/Caregiver Goals Pt goal is to assess gait and address deviations on mainly a home program, but would like to correct her gait. Personal Factors Other Personal Factors That May Effect Blood clot behind the L knee - Therapy/Recovery 03/2023 (taking Eliquis) R TKA ~5 yrs ago, PT-OP-C Subjective Start: 07/02/23 19:31 Freq: Status: Active Protocol: Document 07/15/23 12:34 LRN (Rec: 07/15/23 13:40 LRN [id number]) OP-PT Subjective Patient Comments Patient Comments C[place] toe [place] [facility] [employer] this past week and was visiting grandkids, so didn't do a lot of walking. PT-OP-E Functional Tests Start: 07/02/23 19:31 Freq: Status: Active Protocol: Document 07/12/23 14:06 LRN (Rec: 07/12/23 15:01 LRN [id number]) Functional Tests Timed Up and Go (TUG) Score 11 Comments No use of hands or AD TUG Impairment Rating 1 to <20% Impaired (Score 11) PT-OP-G Mobility & Gait Start: 07/02/23 19:31 Freq: Status: Active Protocol: Document 07/12/23 14:06 LRN (Rec: 07/12/23 15:01 LRN [id number]) Stair Climbing Evaluation Evaluation Level of Assist On Stairs Independent Devices Stair Climbing Assistive Devices Right Railing Technique/Endurance Stair Climbing Direction Ascend and Descend Stair Climbing Technique Step Over Step Number of Steps Climbed 4 Stair Climbing Set # Repetitions (reps) 4 Comments Stair Climbing Comments Pt has less control with descending leading with L LE. Ascending has weakness with stepping up with RLE. PT-OP-H Neuro Start: 07/02/23 19:31 Freq: Status: Active Protocol: Document 07/08/23 12:35 LRN (Rec: 07/08/23 18:08 LRN [id number]) Sensation Evaluation Gross Sensation Gross Sensation Right LE Impaired Sensation Description Numbness Comments Summary Comments R Lower Leg: Decreased sensation to soft touch and sharp/dull in rectangular section of lateral lower leg ~ a couple inches below the knee and 7.5 cm and above the ankle in the anterolateral lower leg. PT-OP-J Posture/Palpation/Skin Start: 07/02/23 19:31 Freq: Status: Active Protocol: Document 07/08/23 12:35 LRN (Rec: 07/08/23 18:08 LRN [id number]) Posture Evaluation Position Standing Head/C-Spine Posture Forward Head Hip Posture (L) Flexed,(R) Flexed Knee Posture (L) Genu Valgus,(R) Genu Valgus Ankle/Foot Posture (R) Calcaneal Inversion Comments Posture Comments Hips flex 5 deg's, R knee valgus 10 deg's, L knee 5 deg' s. Skin Assessment Edema Assessment Left Leg Edema Type Pitting Right Leg Edema Type Pitting Edema Degree 4+ Edema Appearance Discolored,Firm Comments Pitting edema in lower portion of lower leg. PT-OP-K Range of Motion Start: 07/02/23 19:31 Freq: Status: Active Protocol: Document 07/08/23 12:35 LRN (Rec: 07/08/23 18:08 LRN [id number]) Knee Goniometric Range of Motion Knee Right Patient Position Sitting Flexion Active (degrees) 120 Extension Active (degrees) 0 Left Patient Position Sitting Flexion Active (degrees) 120 Extension Active (degrees) 0 Comments Painfree AROM Ankle and Foot Goniometric Range of Motion Ankle and Foot Right Active Ankle/Foot ROM WFL No Testing Position Supine Dorsiflexion with Knee Extended 2 Plantarflexion 50 Inversion 12 Eversion 15 Comments Painfree AROM Left Active Ankle/Foot ROM WFL Yes Testing Position Supine Dorsiflexion with Knee Extended 8 Plantarflexion 50 Inversion 35 Eversion 30 PT-OP-M Strength Start: 07/02/23 19:31 Freq: Status: Active Protocol: Document 07/08/23 12:35 LRN (Rec: 07/08/23 18:08 LRN [id number]) Knee Strength Knee Manual Muscle Testing Left Comments Strength is 5/5 Right Comments Strength is 5/5 Ankle/Foot Strength Ankle and Foot Manual Muscle Testing Right Dorsiflexion (L4) 4 Good Plantarflexion (S1) 5 Normal Inversion 4 Good Eversion (S1) 3 Fair Comments Eversion is limited due to pain. Left Comments Strength is 5/5. PT-OP-Q Treatments Start: 07/02/23 19:31 Freq: Status: Active Protocol: Document 07/15/23 12:34 LRN (Rec: 07/15/23 13:40 LRN [id number]) Cardio Equipment Recumbent Stepper (Sci-Fit) Duration (Minutes) 5 Resistance 1 Seat Position 9 Other Extra time taken to determine position for max stretch Gym Equipment Shuttle Recovery unilateral squat Details R LE Step descending ROM squat Resistance 37# Shuttle Recovery Platform Stable Reps/Time 15x 2 Bilateral Squats Details Benny Squat Resistance 62# 50# Shuttle Recovery Platform Stable Reps/Time 15x each Therapeutic Exercises Standing Exercises Ankle DF Standing Exercise Name Toe ups Side bilateral Reps/Minutes 4' Gastroc/Soleus stretch Standing Exercise Name Gastroc/Soleus stretch Side right Reps/Minutes 6' Comments Cuing to not overstretch-not into pain, and keep heel on floor Manual Therapy Treatment Taping Posterior lower leg Body Location Posterior leg Treatment Focus edema mgmt Type of Tape Kinesio Tape Skin Inspection Good Comments 1 Fan strip: distal to popliteal fossa to ankle, 15- 25% tension. Ankle Body Location R ankle/foot in PF Treatment Focus Chronic Swelling of the feet Type of Tape Kinesio Tape Skin Inspection Good Comments 2 Fan tapes with 3 tails. Refugio @ posterior aspect of ankle to dorsum of toe web spaces toes 1-3, 2nd 3 tail strip: anchor posterior aspect of medial side to dorum of toe web spaces toe 3-5. 15-25% tension. PT-OP-T Assessment and Plan Start: 07/02/23 19:31 Freq: Status: Active Protocol: Document 07/15/23 12:34 LRN (Rec: 07/15/23 13:40 LRN [id number]) Physical Therapy Assessment Goals Three Impairment Dysfunctional gait with catching of toes during gait. Impairment Gait: Decreased stride length , feet clearance, hips flexed 5 deg's, excessive trunk sway, RLE WBing with knee valgus/ calcaneal EV, trunk in L rotation on stance phase. Short Term Goal (STG) Normalize gait pattern/core positioning with gait (improve hip IR). STG Duration 4 wks-08/05/23 Nursing Home Goal (LTG) Walk w/o catching R toes on the ground. LTG Duration 8 wks-09/06/23 Two Impairment Decreased R Ankle AROM Impairment AROM in deg's: DF (knees extended): 2 R , 8 L; PF 50 bilaterally, IV 12 R, 35 L; EV 15 R, 30 L. LEFS score 62 (120-39% impaired, score 48-62). Short Term Goal (STG) Improve R ankle AROM with improved function per LEFS score of 64 or greater (1-19% impaired, score 63-79). STG Duration 4 wks-08/05/23 Rivet Thrower Goal (LTG) Improve R ankle AROM with decreased episodes of LOB to no more than 1 after long walks. LTG Duration 8 wks-09/06/23 One Impairment Lacks appropriate self care HEP Short Term Goal (STG) Pt will be educated self care pain and edema management. 07/12/23: Pt educated in hot/ cold contrast bath for edema management. STG Duration 1 wk-07/15/23 progressed 07/12 (need pain mgmt self care ) Rivet Thrower Goal (LTG) Pt will be independent with a self care HEP to improve R ankle mobility and strength. 07/12/23: HEP of gastroc/ soleus stretch, steps. LTG Duration 8 wks-09/06/23 progressed Assessment Summary Assessment Pt is s/p 4 months R distal Tibia/proximal Fibula fx with subsequent surgery with rosa elena placed in tibia. Good tolerance to ex with no c/o pain. Next will try Weak DF/ foot drop to R foot if no improvement in swelling. Physical Therapy Plan Frequency and Duration Frequency of Treatment 2x/Week Duration of treatment (weeks) 8 Plan of Care Start Date 07/08/23 Plan of Care End Date 09/06/23 Next Visit Focus/Plan Next Note Type Treatment Note Next Visit Plan POC: Progress pt towards primarily HEP next week. Next: Assess hip ER/IR. Assess response to K-tape to R foot. Try weak DF/foot drop to R foot if no improvement in swelling. Start HEP: Aerobic ex, f/b ankle passive stretching and gentle strengthening. Try STM to improve Lower leg circulation. Pt education in pain management. Gait and balance training.
--- NOTE | 2023-07-18 14:15 | PT.OTN ---
Current Diagnoses Other abnormalities of gait and mobility (07/18/23) Unspecified fracture of shaft of right tibia, subsequent encounter for closed fracture with routine healing (07/18/23) Unspecified fracture of shaft of right fibula, subsequent encounter for closed fracture with routine healing (07/18/23) Physical Therapy Treatment Note PT-OP-A Visit Information Start: 07/02/23 19:31 Freq: Status: Active Protocol: Document 07/18/23 13:35 SP (Rec: 07/18/23 13:45 SP [id number]) Out-Patient Physical Therapy Visit Information Visit Information Visit Type Treatment Note Visit Start Time 13:35 Visit Stop Time 14:15 Total Visit Minutes 40 Visit Number 4 Number of COSTUME SPECIALIST Visits 1 Evaluation Information Evaluation Date 07/08/23 Precautions Precautions 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 PT-OP-B Current Condition Start: 07/02/23 19:31 Freq: Status: Active Protocol: Document 07/08/23 12:35 LRN (Rec: 07/08/23 18:08 LRN [id number]) Current Condition History of Current Condition Onset Date 03/01/23 Current Complaints Catches her R foot on ground wth gait. History of Current Condition Pt is s/p 4 months fracture of R distal Tibia/proximal Fibula after falling at home outside with subsequent surgery at [facility]. Fell backwards but foot caught under the plantar box. States she was sent to [facility] to have to have a rosa elena placed to support Tibia. R TKA prothesis was in place. Last [facility] visit was in April and was referred to PT to check gait because strength and mobility of knee is good. Pt states she doesn't lift her R toes when she walks causing her to trip. States she catches her R toes daily, especially on long walks. Able to catch herself with LOB . States [place]. Prior Treatments and Tests X-ray 03/01/23: Oblique displaced fractures proximal fibula and distal tibial diaphysis Future Testing and Treatments Planned None Treatment Goals Patient/Caregiver Goals Pt goal is to assess gait and address deviations on mainly a home program, but would like to correct her gait. Personal Factors Other Personal Factors That May Effect Blood clot behind the L knee - Therapy/Recovery 03/2023 (taking Eliquis) R TKA ~5 yrs ago, PT-OP-C Subjective Start: 07/02/23 19:31 Freq: Status: Active Protocol: Document 07/18/23 13:35 SP (Rec: 07/18/23 13:45 SP [id number]) OP-PT Subjective Patient Comments Patient Comments Pt reports the exercises have been helpful and compliant with them. She states wants to work on balance to be sure her foot doesn't catch when she is walking. Pt reported took Ktaping off foot yesterday as instructed, no adverse to skin integrity, was fine. She stated didn't seem to notice a significant change. PT-OP-E Functional Tests Start: 07/02/23 19:31 Freq: Status: Active Protocol: Document 07/12/23 14:06 LRN (Rec: 07/12/23 15:01 LRN [id number]) Functional Tests Timed Up and Go (TUG) Score 11 Comments No use of hands or AD TUG Impairment Rating 1 to <20% Impaired (Score 11) PT-OP-G Mobility & Gait Start: 07/02/23 19:31 Freq: Status: Active Protocol: Document 07/12/23 14:06 LRN (Rec: 07/12/23 15:01 LRN [id number]) Stair Climbing Evaluation Evaluation Level of Assist On Stairs Independent Devices Stair Climbing Assistive Devices Right Railing Technique/Endurance Stair Climbing Direction Ascend and Descend Stair Climbing Technique Step Over Step Number of Steps Climbed 4 Stair Climbing Set # Repetitions (reps) 4 Comments Stair Climbing Comments Pt has less control with descending leading with L LE. Ascending has weakness with stepping up with RLE. PT-OP-H Neuro Start: 07/02/23 19:31 Freq: Status: Active Protocol: Document 07/08/23 12:35 LRN (Rec: 07/08/23 18:08 LRN [id number]) Sensation Evaluation Gross Sensation Gross Sensation Right LE Impaired Sensation Description Numbness Comments Summary Comments R Lower Leg: Decreased sensation to soft touch and sharp/dull in rectangular section of lateral lower leg ~ a couple inches below the knee and 7.5 cm and above the ankle in the anterolateral lower leg. PT-OP-J Posture/Palpation/Skin Start: 07/02/23 19:31 Freq: Status: Active Protocol: Document 07/08/23 12:35 LRN (Rec: 07/08/23 18:08 LRN [id number]) Posture Evaluation Position Standing Head/C-Spine Posture Forward Head Hip Posture (L) Flexed,(R) Flexed Knee Posture (L) Genu Valgus,(R) Genu Valgus Ankle/Foot Posture (R) Calcaneal Inversion Comments Posture Comments Hips flex 5 deg's, R knee valgus 10 deg's, L knee 5 deg' s. Skin Assessment Edema Assessment Left Leg Edema Type Pitting Right Leg Edema Type Pitting Edema Degree 4+ Edema Appearance Discolored,Firm Comments Pitting edema in lower portion of lower leg. PT-OP-K Range of Motion Start: 07/02/23 19:31 Freq: Status: Active Protocol: Document 07/08/23 12:35 LRN (Rec: 07/08/23 18:08 LRN [id number]) Knee Goniometric Range of Motion Knee Right Patient Position Sitting Flexion Active (degrees) 120 Extension Active (degrees) 0 Left Patient Position Sitting Flexion Active (degrees) 120 Extension Active (degrees) 0 Comments Painfree AROM Ankle and Foot Goniometric Range of Motion Ankle and Foot Right Active Ankle/Foot ROM WFL No Testing Position Supine Dorsiflexion with Knee Extended 2 Plantarflexion 50 Inversion 12 Eversion 15 Comments Painfree AROM Left Active Ankle/Foot ROM WFL Yes Testing Position Supine Dorsiflexion with Knee Extended 8 Plantarflexion 50 Inversion 35 Eversion 30 PT-OP-M Strength Start: 07/02/23 19:31 Freq: Status: Active Protocol: Document 07/08/23 12:35 LRN (Rec: 07/08/23 18:08 LRN [id number]) Knee Strength Knee Manual Muscle Testing Left Comments Strength is 5/5 Right Comments Strength is 5/5 Ankle/Foot Strength Ankle and Foot Manual Muscle Testing Right Dorsiflexion (L4) 4 Good Plantarflexion (S1) 5 Normal Inversion 4 Good Eversion (S1) 3 Fair Comments Eversion is limited due to pain. Left Comments Strength is 5/5. PT-OP-Q Treatments Start: 07/02/23 19:31 Freq: Status: Active Protocol: Document 07/18/23 13:35 SP (Rec: 07/18/23 13:46 SP [id number]) Cardio Equipment Recumbent Stepper (Sci-Fit) Duration (Minutes) 5 Resistance 1 Seat Position 9 Other Extra time taken to determine position for max stretch Gym Equipment Shuttle Recovery unilateral squat Details R LE Step descending ROM squat Resistance 37# (old bands) Shuttle Recovery Platform Stable Reps/Time 15, 12 reps R, 15x2 L (RLE tiring last 2 reps 1st & 2nd set) Bilateral Squats Details Benny Squat Resistance 50# (old bands) Shuttle Recovery Platform Stable Reps/Time 15x Therapeutic Exercises Sitting Exercises ankle DF & EV Sitting Exercise Name added to HEP Side right Resistance TB #2 orange Reps/Minutes 2x10 reps Comments cued heel contact, heel under/ front knee, painfree but efforted range- good Standing Exercises Ankle DF Standing Exercise Name DF Side bilateral Resistance AROM Reps/Minutes x10 Comments cued heel still, AROM motion. Gastroc/Soleus stretch Standing Exercise Name Gastroc & Soleus stretch Side right Equipment Used off bottom step c/ R HR (has post home) Reps/Minutes 20 SH Comments cued tall, demonstrates good stability- good response stretch painfree Step ups Standing Exercise Name Step ups Side bilateral Equipment Used 6 step c/ R HR Reps/Minutes 12 reps each LE lead Comments cued glut firing lift, improved less/almost no momentum hop Gait Training Gait Activity stairs Description asc/desc Device Used R HR Level of Assistance S/Mod I Distance/Duration 4 stairs x5 reps Treatment Focus eccentric knee flexion descend , concentric glut & quad firing ascend Comments cued wt shift sit back glut/ quad support improved eccentric R knee flexion control and less pain over anterior R knee Neuro Re-Education Treatment Balance Activities hurdles Details step to, receiprocal stepping Surface 6 hurdles, foam, pods Equipment rail PRN (x3 LOB trail LE caught alvaro) Reps/Duration 6 laps total Comments Cued posturing, scap retraction,core fac, COG over SLS time LE, trail LE clearance- trail LE caught x3 reps- contact rail recovery x2 reps self, Marifer x1. PT-OP-T Assessment and Plan Start: 07/02/23 19:31 Freq: Status: Active Protocol: Document 07/18/23 13:35 SP (Rec: 07/18/23 13:45 SP [id number]) Physical Therapy Assessment Goals Three Impairment Dysfunctional gait with catching of toes during gait. Impairment Gait: Decreased stride length , feet clearance, hips flexed 5 deg's, excessive trunk sway, RLE WBing with knee valgus/ calcaneal EV, trunk in L rotation on stance phase. Short Term Goal (STG) Normalize gait pattern/core positioning with gait (improve hip IR). STG Duration 4 wks-08/05/23 Upper Leather Sorter Goal (LTG) Walk w/o catching R toes on the ground. LTG Duration 8 wks-09/06/23 Two Impairment Decreased R Ankle AROM Impairment AROM in deg's: DF (knees extended): 2 R , 8 L; PF 50 bilaterally, IV 12 R, 35 L; EV 15 R, 30 L. LEFS score 62 (120-39% impaired, score 48-62). Short Term Goal (STG) Improve R ankle AROM with improved function per LEFS score of 64 or greater (1-19% impaired, score 63-79). STG Duration 4 wks-08/05/23 Upper Leather Sorter Goal (LTG) Improve R ankle AROM with decreased episodes of LOB to no more than 1 after long walks. LTG Duration 8 wks-09/06/23 One Impairment Lacks appropriate self care HEP Short Term Goal (STG) Pt will be educated self care pain and edema management. 07/12/23: Pt educated in hot/ cold contrast bath for edema management. STG Duration 1 wk-07/15/23 progressed 07/12 (need pain mgmt self care ) Senior Care Goal (LTG) Pt will be independent with a self care HEP to improve R ankle mobility and strength. 07/12/23: HEP of gastroc/ soleus stretch, steps. 07/18/23: resisted ankle DF& EV LTG Duration 8 wks-09/06/23 progressed Assessment Summary Assessment Pt improved eccentric heel toe stepping uneven hurdles and with DF cuing to support foot clearance. She demonstrated decreased momentum ascend repeated step ups post cuing for heel press/glut firing carryover as instructed on shuttle recovery. Education provided for taller posturing c/ core awareness and soft stepping noted increased more consistant foot clearance end tx leaving. Physical Therapy Plan Frequency and Duration Frequency of Treatment 2x/Week Duration of treatment (weeks) 8 Plan of Care Start Date 07/08/23 Plan of Care End Date 09/06/23 Therapeutic Interventions Therapeutic Interventions Balance Training,Coordination Training,Home Exercise Program ,Manual Therapy,Neuromuscular Re-education,Self-Care/Home Management,Soft Tissue Mobilization,Taping, Therapeutic Exercises Modalities Cold Pack/Ice Massage,Hot Packs Next Visit Focus/Plan Next Note Type Treatment Note Next Visit Plan Assess response to added resisted DF, asc/desc stairs/ repeated step ups, uneven hurdles. POC: Progress pt towards primarily HEP next week. Next: Assess hip ER/IR. Repeat K-tape to R foot if needed. Try weak DF/foot drop to R foot if no improvement in swelling. Start HEP: Aerobic ex, f/b ankle passive stretching and gentle strengthening. Try STM to improve Lower leg circulation. Pt education in pain management. Gait and balance training.
--- NOTE | 2023-07-22 16:38 | PT.OTN ---
Current Diagnoses Other abnormalities of gait and mobility (07/22/23) Unspecified fracture of shaft of right tibia, subsequent encounter for closed fracture with routine healing (07/22/23) Unspecified fracture of shaft of right fibula, subsequent encounter for closed fracture with routine healing (07/22/23) Physical Therapy Treatment Note PT-OP-A Visit Information Start: 07/02/23 19:31 Freq: Status: Active Protocol: Document 07/22/23 14:41 LRN (Rec: 07/22/23 15:25 LRN [id number]) Out-Patient Physical Therapy Visit Information Visit Information Visit Type Treatment Note Visit Start Time 14:41 Visit Stop Time 15:21 Total Visit Minutes 40 Visit Number 5 Evaluation Information Evaluation Date 07/08/23 Precautions Precautions 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 PT-OP-B Current Condition Start: 07/02/23 19:31 Freq: Status: Active Protocol: Document 07/08/23 12:35 LRN (Rec: 07/08/23 18:08 LRN [id number]) Current Condition History of Current Condition Onset Date 03/01/23 Current Complaints Catches her R foot on ground wth gait. History of Current Condition Pt is s/p 4 months fracture of R distal Tibia/proximal Fibula after falling at home outside with subsequent surgery at [facility]. Fell backwards but foot caught under the plantar box. States she was sent to [facility] to have to have a rosa elena placed to support Tibia. R TKA prothesis was in place. Last [facility] visit was in April and was referred to PT to check gait because strength and mobility of knee is good. Pt states she doesn't lift her R toes when she walks causing her to trip. States she catches her R toes daily, especially on long walks. Able to catch herself with LOB . [place]. Prior Treatments and Tests X-ray 03/01/23: Oblique displaced fractures proximal fibula and distal tibial diaphysis Future Testing and Treatments Planned None Treatment Goals Patient/Caregiver Goals Pt goal is to assess gait and address deviations on mainly a home program, but would like to correct her gait. Personal Factors Other Personal Factors That May Effect Blood clot behind the L knee - Therapy/Recovery 03/2023 (taking Eliquis) R TKA ~5 yrs ago, PT-OP-C Subjective Start: 07/02/23 19:31 Freq: Status: Active Protocol: Document 07/22/23 14:41 LRN (Rec: 07/22/23 15:25 LRN [id number]) OP-PT Subjective Patient Comments Patient Comments Foot catching less on the ground. Now everyother day, is more conscious and careful. Sore after last session, but thought it was good. PT-OP-E Functional Tests Start: 07/02/23 19:31 Freq: Status: Active Protocol: Document 07/12/23 14:06 LRN (Rec: 07/12/23 15:01 LRN [id number]) Functional Tests Timed Up and Go (TUG) Score 11 Comments No use of hands or AD TUG Impairment Rating 1 to <20% Impaired (Score 11) PT-OP-G Mobility & Gait Start: 07/02/23 19:31 Freq: Status: Active Protocol: Document 07/12/23 14:06 LRN (Rec: 07/12/23 15:01 LRN [id number]) Stair Climbing Evaluation Evaluation Level of Assist On Stairs Independent Devices Stair Climbing Assistive Devices Right Railing Technique/Endurance Stair Climbing Direction Ascend and Descend Stair Climbing Technique Step Over Step Number of Steps Climbed 4 Stair Climbing Set # Repetitions (reps) 4 Comments Stair Climbing Comments Pt has less control with descending leading with L LE. Ascending has weakness with stepping up with RLE. PT-OP-H Neuro Start: 07/02/23 19:31 Freq: Status: Active Protocol: Document 07/08/23 12:35 LRN (Rec: 07/08/23 18:08 LRN [id number]) Sensation Evaluation Gross Sensation Gross Sensation Right LE Impaired Sensation Description Numbness Comments Summary Comments R Lower Leg: Decreased sensation to soft touch and sharp/dull in rectangular section of lateral lower leg ~ a couple inches below the knee and 7.5 cm and above the ankle in the anterolateral lower leg. PT-OP-J Posture/Palpation/Skin Start: 07/02/23 19:31 Freq: Status: Active Protocol: Document 07/08/23 12:35 LRN (Rec: 07/08/23 18:08 LRN [id number]) Posture Evaluation Position Standing Head/C-Spine Posture Forward Head Hip Posture (L) Flexed,(R) Flexed Knee Posture (L) Genu Valgus,(R) Genu Valgus Ankle/Foot Posture (R) Calcaneal Inversion Comments Posture Comments Hips flex 5 deg's, R knee valgus 10 deg's, L knee 5 deg' s. Skin Assessment Edema Assessment Left Leg Edema Type Pitting Right Leg Edema Type Pitting Edema Degree 4+ Edema Appearance Discolored,Firm Comments Pitting edema in lower portion of lower leg. PT-OP-K Range of Motion Start: 07/02/23 19:31 Freq: Status: Active Protocol: Document 07/08/23 12:35 LRN (Rec: 07/08/23 18:08 LRN [id number]) Knee Goniometric Range of Motion Knee Right Patient Position Sitting Flexion Active (degrees) 120 Extension Active (degrees) 0 Left Patient Position Sitting Flexion Active (degrees) 120 Extension Active (degrees) 0 Comments Painfree AROM Ankle and Foot Goniometric Range of Motion Ankle and Foot Right Active Ankle/Foot ROM WFL No Testing Position Supine Dorsiflexion with Knee Extended 2 Plantarflexion 50 Inversion 12 Eversion 15 Comments Painfree AROM Left Active Ankle/Foot ROM WFL Yes Testing Position Supine Dorsiflexion with Knee Extended 8 Plantarflexion 50 Inversion 35 Eversion 30 PT-OP-M Strength Start: 07/02/23 19:31 Freq: Status: Active Protocol: Document 07/08/23 12:35 LRN (Rec: 07/08/23 18:08 LRN [id number]) Knee Strength Knee Manual Muscle Testing Left Comments Strength is 5/5 Right Comments Strength is 5/5 Ankle/Foot Strength Ankle and Foot Manual Muscle Testing Right Dorsiflexion (L4) 4 Good Plantarflexion (S1) 5 Normal Inversion 4 Good Eversion (S1) 3 Fair Comments Eversion is limited due to pain. Left Comments Strength is 5/5. PT-OP-Q Treatments Start: 07/02/23 19:31 Freq: Status: Active Protocol: Document 07/22/23 14:41 LRN (Rec: 07/22/23 15:25 LRN [id number]) Cardio Equipment Recumbent Stepper (Sci-Fit) Duration (Minutes) 8 Resistance 1 Seat Position 9 Other Cuing to allow Gym Equipment Shuttle Recovery unilateral squat Details R LE Step descending ROM squat Resistance 37# (old bands) Shuttle Recovery Platform Stable Reps/Time 15x2 L Bilateral Squats Details Benny Squat Resistance 50# (old bands) Shuttle Recovery Platform Stable Reps/Time 15x 2 Therapeutic Exercises Sitting Exercises ankle DF & EV Sitting Exercise Name added to HEP Side right Resistance TB #2 orange Reps/Minutes 2x10 reps Comments cued heel contact, heel under/ front knee, painfree but efforted range- good Standing Exercises Ankle PF Standing Exercise Name Heel lifts Side bilateral Reps/Minutes 15x Comments Phys assist to keep heel stable. Ankle DF Standing Exercise Name Toe lifts Reps/Minutes 15x Comments Cuing not to rock back, hand hold for balance Gastroc/Soleus stretch Standing Exercise Name Gastroc & Soleus stretch Side right Equipment Used off bottom step w/R handrail ( has post home) Reps/Minutes 20 SH Comments cued tall, demonstrates good stability- good response stretch painfree Step ups Standing Exercise Name Step ups Side bilateral Equipment Used 6 step w/R Handrail Reps/Minutes 15 reps each, LE lead Comments cued glut firing lift, improved less/almost no momentum hop Gait Training Gait Activity stairs Description asc/desc Device Used R HR Level of Assistance S/Mod I Distance/Duration 4 stairs x5 reps Treatment Focus eccentric knee flexion descend , concentric glut & quad firing ascend Comments cued to PF to touchdown on toes on descent. Cues to wt shift sit back glut/quad support improved eccentric R knee flexion control and less pain over anterior R knee Self-Care/Home Management Treatment Education Other Education Educated & discussed self care for pain management with RICE technique. Activities Self-Care/Home Management Activities Issued handout for RICE self treatment or pain. PT-OP-T Assessment and Plan Start: 07/02/23 19:31 Freq: Status: Active Protocol: Document 07/22/23 14:41 LRN (Rec: 07/22/23 15:25 LRN [id number]) Physical Therapy Assessment Goals Three Impairment Dysfunctional gait with catching of toes during gait. Impairment Gait: Decreased stride length , feet clearance, hips flexed 5 deg's, excessive trunk sway, RLE WBing with knee valgus/ calcaneal EV, trunk in L rotation on stance phase. Short Term Goal (STG) Normalize gait pattern/core positioning with gait (improve hip IR). STG Duration 4 wks-08/05/23 Tutorial Laboratory Supervisor Goal (LTG) Walk w/o catching R toes on the ground. 07/22/23: Catching 1x daily. LTG Duration 8 wks-09/06/23 Two Impairment Decreased R Ankle AROM Impairment AROM in deg's: DF (knees extended): 2 R , 8 L; PF 50 bilaterally, IV 12 R, 35 L; EV 15 R, 30 L. LEFS score 62 (120-39% impaired, score 48-62). Short Term Goal (STG) Improve R ankle AROM with improved function per LEFS score of 64 or greater (1-19% impaired, score 63-79). STG Duration 4 wks-08/05/23 Tutorial Laboratory Supervisor Goal (LTG) Improve R ankle AROM with decreased episodes of LOB to no more than 1 after long walks. LTG Duration 8 wks-09/06/23 One Impairment Lacks appropriate self care HEP Short Term Goal (STG) Pt will be educated self care pain and edema management. 07/12/23: Pt educated in hot/ cold contrast bath for edema management. 07/22/23: Educated & discussed self care for pain management with RICE technique . STG Duration 1 wk-07/15/23 (07/22/23: MET GOAL) Alf Goal (LTG) Pt will be independent with a self care HEP to improve R ankle mobility and strength. 07/12/23: HEP of gastroc/ soleus stretch, steps. 07/18/23: resisted ankle DF& EV LTG Duration 8 wks-09/06/23 progressed Assessment Summary Assessment Good tolerance to new home exers, pt able to do w/o pain, but getting a R ankle stretch with SciFit and strengthening on stairs. Pt has weakness with last couple inches on descending each step. Pt receptive to education on self care for pain. Physical Therapy Plan Frequency and Duration Frequency of Treatment 2x/Week Duration of treatment (weeks) 8 Plan of Care Start Date 07/08/23 Plan of Care End Date 09/06/23 Next Visit Focus/Plan Next Note Type Treatment Note Next Visit Plan Review & assess response to uneven hurdles. Next: progress towards therapy 1x/wk when on a HEP for R ankle ROM/strength, balance, (clinic for balance & gait training). Assess hip ER/IR. Repeat K-tape to R foot if needed, for Ktape for weak DF/foot drop to R foot, if K- tape doesn't help reduce swelling. Start HEP: Aerobic ex, f/b ankle passive stretching and gentle strengthening. If needed, try STM to improve Lower leg circulation. Gait and balance training. POC: Progress pt towards primarily HEP next week.
--- NOTE | 2023-07-24 10:33 | PT.OTN ---
Current Diagnoses Other abnormalities of gait and mobility (07/24/23) Unspecified fracture of shaft of right tibia, subsequent encounter for closed fracture with routine healing (07/24/23) Unspecified fracture of shaft of right fibula, subsequent encounter for closed fracture with routine healing (07/24/23) Physical Therapy Treatment Note PT-OP-A Visit Information Start: 07/02/23 19:31 Freq: Status: Active Protocol: Document 07/24/23 09:55 SP (Rec: 07/24/23 10:33 SP [id number]) Out-Patient Physical Therapy Visit Information Visit Information Visit Type Treatment Note Visit Start Time 09:55 Visit Stop Time 10:33 Total Visit Minutes 38 Visit Number 6 Number of CAMPUS EXECUTIVE DIRECTOR Visits 1 Evaluation Information Evaluation Date 07/08/23 Precautions Precautions 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 PT-OP-B Current Condition Start: 07/02/23 19:31 Freq: Status: Active Protocol: Document 07/08/23 12:35 LRN (Rec: 07/08/23 18:08 LRN [id number]) Current Condition History of Current Condition Onset Date 03/01/23 Current Complaints Catches her R foot on ground wth gait. History of Current Condition Pt is s/p 4 months fracture of R distal Tibia/proximal Fibula after falling at home outside with subsequent surgery at [facility]. Fell backwards but foot caught under the plantar box. States she was sent to [facility] to have to have a rosa elena placed to support Tibia. R TKA prothesis was in place. Last [facility] visit was in April and was referred to PT to check gait because strength and mobility of knee is good. Pt states she doesn't lift her R toes when she walks causing her to trip. States she catches her R toes daily, especially on long walks. Able to catch herself with LOB . States [place] walks [place] lot [place] beach. Prior Treatments and Tests X-ray 03/01/23: Oblique displaced fractures proximal fibula and distal tibial diaphysis Future Testing and Treatments Planned None Treatment Goals Patient/Caregiver Goals Pt goal is to assess gait and address deviations on mainly a home program, but would like to correct her gait. Personal Factors Other Personal Factors That May Effect Blood clot behind the L knee - Therapy/Recovery 03/2023 (taking Eliquis) R TKA ~5 yrs ago, PT-OP-C Subjective Start: 07/02/23 19:31 Freq: Status: Active Protocol: Document 07/24/23 09:55 SP (Rec: 07/24/23 10:33 SP [id number]) OP-PT Subjective Patient Comments Patient Comments Pt reports little sore after last tx but felt good work. She reports she has noticed her foot hasn't caught the ground at all. PT-OP-E Functional Tests Start: 07/02/23 19:31 Freq: Status: Active Protocol: Document 07/12/23 14:06 LRN (Rec: 07/12/23 15:01 LRN [id number]) Functional Tests Timed Up and Go (TUG) Score 11 Comments No use of hands or AD TUG Impairment Rating 1 to <20% Impaired (Score 11) PT-OP-G Mobility & Gait Start: 07/02/23 19:31 Freq: Status: Active Protocol: Document 07/12/23 14:06 LRN (Rec: 07/12/23 15:01 LRN [id number]) Stair Climbing Evaluation Evaluation Level of Assist On Stairs Independent Devices Stair Climbing Assistive Devices Right Railing Technique/Endurance Stair Climbing Direction Ascend and Descend Stair Climbing Technique Step Over Step Number of Steps Climbed 4 Stair Climbing Set # Repetitions (reps) 4 Comments Stair Climbing Comments Pt has less control with descending leading with L LE. Ascending has weakness with stepping up with RLE. PT-OP-H Neuro Start: 07/02/23 19:31 Freq: Status: Active Protocol: Document 07/08/23 12:35 LRN (Rec: 07/08/23 18:08 LRN [id number]) Sensation Evaluation Gross Sensation Gross Sensation Right LE Impaired Sensation Description Numbness Comments Summary Comments R Lower Leg: Decreased sensation to soft touch and sharp/dull in rectangular section of lateral lower leg ~ a couple inches below the knee and 7.5 cm and above the ankle in the anterolateral lower leg. PT-OP-J Posture/Palpation/Skin Start: 07/02/23 19:31 Freq: Status: Active Protocol: Document 07/08/23 12:35 LRN (Rec: 07/08/23 18:08 LRN [id number]) Posture Evaluation Position Standing Head/C-Spine Posture Forward Head Hip Posture (L) Flexed,(R) Flexed Knee Posture (L) Genu Valgus,(R) Genu Valgus Ankle/Foot Posture (R) Calcaneal Inversion Comments Posture Comments Hips flex 5 deg's, R knee valgus 10 deg's, L knee 5 deg' s. Skin Assessment Edema Assessment Left Leg Edema Type Pitting Right Leg Edema Type Pitting Edema Degree 4+ Edema Appearance Discolored,Firm Comments Pitting edema in lower portion of lower leg. PT-OP-K Range of Motion Start: 07/02/23 19:31 Freq: Status: Active Protocol: Document 07/08/23 12:35 LRN (Rec: 07/08/23 18:08 LRN [id number]) Knee Goniometric Range of Motion Knee Right Patient Position Sitting Flexion Active (degrees) 120 Extension Active (degrees) 0 Left Patient Position Sitting Flexion Active (degrees) 120 Extension Active (degrees) 0 Comments Painfree AROM Ankle and Foot Goniometric Range of Motion Ankle and Foot Right Active Ankle/Foot ROM WFL No Testing Position Supine Dorsiflexion with Knee Extended 2 Plantarflexion 50 Inversion 12 Eversion 15 Comments Painfree AROM Left Active Ankle/Foot ROM WFL Yes Testing Position Supine Dorsiflexion with Knee Extended 8 Plantarflexion 50 Inversion 35 Eversion 30 PT-OP-M Strength Start: 07/02/23 19:31 Freq: Status: Active Protocol: Document 07/08/23 12:35 LRN (Rec: 07/08/23 18:08 LRN [id number]) Knee Strength Knee Manual Muscle Testing Left Comments Strength is 5/5 Right Comments Strength is 5/5 Ankle/Foot Strength Ankle and Foot Manual Muscle Testing Right Dorsiflexion (L4) 4 Good Plantarflexion (S1) 5 Normal Inversion 4 Good Eversion (S1) 3 Fair Comments Eversion is limited due to pain. Left Comments Strength is 5/5. PT-OP-Q Treatments Start: 07/02/23 19:31 Freq: Status: Active Protocol: Document 07/24/23 09:55 SP (Rec: 07/24/23 10:33 SP [id number]) Cardio Equipment Recumbent Elliptical (Biodex) Duration (Minutes) 6 Resistance 2 Seat Position 9 Other LEs only 40 PRMs, 489 steps Gym Equipment Shuttle Recovery unilateral squat Details R LE Step descending ROM squat Resistance 37# (new band) Shuttle Recovery Platform Stable Reps/Time 15x2 eac Bilateral Squats Details Benny Squat Resistance 50# (1 new band) Shuttle Recovery Platform Stable Reps/Time 20x 2 Therapeutic Exercises Prone Exercises hip IR & ER AROM Prone Exercise Name added to HEP Side bilateral Resistance AROM Reps/Minutes 2 min x 5 SH each direction x2 sets Comments occasional cue set up/form, pelvis stay on table. Standing Exercises hip IR/ ER AROM Standing Exercise Name initiated in PT Side right Resistance AROM Reps/Minutes x10, 3>5 SH x5 each direction Comments good feedback, gained IR AROM with reps PT-OP-T Assessment and Plan Start: 07/02/23 19:31 Freq: Status: Active Protocol: Document 07/24/23 09:55 SP (Rec: 07/24/23 10:33 SP [id number]) Physical Therapy Assessment Goals Three Impairment Dysfunctional gait with catching of toes during gait. Impairment Gait: Decreased stride length , feet clearance, hips flexed 5 deg's, excessive trunk sway, RLE WBing with knee valgus/ calcaneal EV, trunk in L rotation on stance phase. Short Term Goal (STG) Normalize gait pattern/core positioning with gait (improve hip IR). STG Duration 4 wks-08/05/23 Victorian Literature Professor Goal (LTG) Walk w/o catching R toes on the ground. 07/22/23: Catching 1x daily. 09/23/22: Progressing: no R foot catching ground past 2 days. LTG Duration 8 wks-09/06/23 almost met progressing 07/24/23 Two Impairment Decreased R Ankle AROM Impairment AROM in deg's: DF (knees extended): 2 R , 8 L; PF 50 bilaterally, IV 12 R, 35 L; EV 15 R, 30 L. LEFS score 62 (120-39% impaired, score 48-62). Short Term Goal (STG) Improve R ankle AROM with improved function per LEFS score of 64 or greater (1-19% impaired, score 63-79). STG Duration 4 wks-08/05/23 Usp Goal (LTG) Improve R ankle AROM with decreased episodes of LOB to no more than 1 after long walks. LTG Duration 8 wks-09/06/23 One Impairment Lacks appropriate self care HEP Short Term Goal (STG) Pt will be educated self care pain and edema management. 07/12/23: Pt educated in hot/ cold contrast bath for edema management. 07/22/23: Educated & discussed self care for pain management with RICE technique . STG Duration 1 wk-07/15/23 (07/22/23: MET GOAL) Victorian Literature Professor Goal (LTG) Pt will be independent with a self care HEP to improve R ankle mobility and strength. 07/12/23: HEP of gastroc/ soleus stretch, steps. 07/18/23: resisted ankle DF& EV 07/24/23: added hip IR & ER to assist increase hip mobility. LTG Duration 8 wks-09/06/23 progressed Assessment Summary Assessment Scifit unavailable. Hosea increase resistance on Biodex using LEs only. Pt tolerated increase resistance Shuttle recovery, LLE stronger endurance than R. Good feedback response to trialed hip IR&ER standing AROM and carryover prone for home aplication to assist ROM support stability positioning stance time on R LE during gait and step ups home HEP. Pt reports ankle feels better, suprised her hip ROM can affect my ankle. Physical Therapy Plan Frequency and Duration Frequency of Treatment 2x/Week Duration of treatment (weeks) 8 Plan of Care Start Date 07/08/23 Plan of Care End Date 09/06/23 Therapeutic Interventions Therapeutic Interventions Balance Training,Coordination Training,Home Exercise Program ,Manual Therapy,Neuromuscular Re-education,Self-Care/Home Management,Soft Tissue Mobilization,Taping, Therapeutic Exercises Modalities Cold Pack/Ice Massage,Hot Packs Next Visit Focus/Plan Next Note Type Treatment Note Next Visit Plan Recheck added prone hip IR/ ER , continue alvaro and step ups for increase SLS time and functional mobility. Next: progress towards therapy 1x/wk when on a HEP for R ankle ROM/strength, balance, (clinic for balance & gait training). Assess hip ER/IR. for Ktape for weak DF/ foot drop to R foot. Start HEP: Aerobic ex, f/b ankle passive stretching and gentle strengthening. If needed, try STM to improve Lower leg circulation. Gait and balance training. POC: Progress pt towards primarily HEP next week.
--- NOTE | 2023-07-29 16:09 | PT.OTN ---
Current Diagnoses Other abnormalities of gait and mobility (07/29/23) Unspecified fracture of shaft of right tibia, subsequent encounter for closed fracture with routine healing (07/29/23) Unspecified fracture of shaft of right fibula, subsequent encounter for closed fracture with routine healing (07/29/23) Physical Therapy Treatment Note PT-OP-A Visit Information Start: 07/02/23 19:31 Freq: Status: Active Protocol: Document 07/29/23 15:52 AB (Rec: 07/29/23 16:08 AB [id number]) Out-Patient Physical Therapy Visit Information Visit Information Visit Type Treatment Note Visit Start Time 13:45 Visit Stop Time 14:25 Total Visit Minutes 40 Visit Number 7 Evaluation Information Evaluation Date 07/08/23 Precautions Precautions 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 PT-OP-B Current Condition Start: 07/02/23 19:31 Freq: Status: Active Protocol: Document 07/08/23 12:35 LRN (Rec: 07/08/23 18:08 LRN [id number]) Current Condition History of Current Condition Onset Date 03/01/23 Current Complaints Catches her R foot on ground wth gait. History of Current Condition Pt is s/p 4 months fracture of R distal Tibia/proximal Fibula after falling at home outside with subsequent surgery at [facility]. Fell backwards but foot caught under the plantar box. States she was sent to [facility] to have to have a rosa elena placed to support Tibia. R TKA prothesis was in place. Last [facility] visit was in April and was referred to PT to check gait because strength and mobility of knee is good. Pt states she doesn't lift her R toes when she walks causing her to trip. States she catches her R toes daily, especially on long walks. Able to catch herself with LOB . [place] beach. Prior Treatments and Tests X-ray 03/01/23: Oblique displaced fractures proximal fibula and distal tibial diaphysis Future Testing and Treatments Planned None Treatment Goals Patient/Caregiver Goals Pt goal is to assess gait and address deviations on mainly a home program, but would like to correct her gait. Personal Factors Other Personal Factors That May Effect Blood clot behind the L knee - Therapy/Recovery 03/2023 (taking Eliquis) R TKA ~5 yrs ago, PT-OP-C Subjective Start: 07/02/23 19:31 Freq: Status: Active Protocol: Document 07/29/23 15:52 AB (Rec: 07/29/23 16:08 AB [id number]) OP-PT Subjective Patient Comments Patient Comments The pt reports she had increased soreness in her hips after last session which lasted a couple of days. Otherwise, she reports doing better overall. PT-OP-E Functional Tests Start: 07/02/23 19:31 Freq: Status: Active Protocol: Document 07/12/23 14:06 LRN (Rec: 07/12/23 15:01 LRN [id number]) Functional Tests Timed Up and Go (TUG) Score 11 Comments No use of hands or AD TUG Impairment Rating 1 to <20% Impaired (Score 11) PT-OP-G Mobility & Gait Start: 07/02/23 19:31 Freq: Status: Active Protocol: Document 07/12/23 14:06 LRN (Rec: 07/12/23 15:01 LRN [id number]) Stair Climbing Evaluation Evaluation Level of Assist On Stairs Independent Devices Stair Climbing Assistive Devices Right Railing Technique/Endurance Stair Climbing Direction Ascend and Descend Stair Climbing Technique Step Over Step Number of Steps Climbed 4 Stair Climbing Set # Repetitions (reps) 4 Comments Stair Climbing Comments Pt has less control with descending leading with L LE. Ascending has weakness with stepping up with RLE. PT-OP-H Neuro Start: 07/02/23 19:31 Freq: Status: Active Protocol: Document 07/08/23 12:35 LRN (Rec: 07/08/23 18:08 LRN [id number]) Sensation Evaluation Gross Sensation Gross Sensation Right LE Impaired Sensation Description Numbness Comments Summary Comments R Lower Leg: Decreased sensation to soft touch and sharp/dull in rectangular section of lateral lower leg ~ a couple inches below the knee and 7.5 cm and above the ankle in the anterolateral lower leg. PT-OP-J Posture/Palpation/Skin Start: 07/02/23 19:31 Freq: Status: Active Protocol: Document 07/08/23 12:35 LRN (Rec: 07/08/23 18:08 LRN [id number]) Posture Evaluation Position Standing Head/C-Spine Posture Forward Head Hip Posture (L) Flexed,(R) Flexed Knee Posture (L) Genu Valgus,(R) Genu Valgus Ankle/Foot Posture (R) Calcaneal Inversion Comments Posture Comments Hips flex 5 deg's, R knee valgus 10 deg's, L knee 5 deg' s. Skin Assessment Edema Assessment Left Leg Edema Type Pitting Right Leg Edema Type Pitting Edema Degree 4+ Edema Appearance Discolored,Firm Comments Pitting edema in lower portion of lower leg. PT-OP-K Range of Motion Start: 07/02/23 19:31 Freq: Status: Active Protocol: Document 07/08/23 12:35 LRN (Rec: 07/08/23 18:08 LRN [id number]) Knee Goniometric Range of Motion Knee Right Patient Position Sitting Flexion Active (degrees) 120 Extension Active (degrees) 0 Left Patient Position Sitting Flexion Active (degrees) 120 Extension Active (degrees) 0 Comments Painfree AROM Ankle and Foot Goniometric Range of Motion Ankle and Foot Right Active Ankle/Foot ROM WFL No Testing Position Supine Dorsiflexion with Knee Extended 2 Plantarflexion 50 Inversion 12 Eversion 15 Comments Painfree AROM Left Active Ankle/Foot ROM WFL Yes Testing Position Supine Dorsiflexion with Knee Extended 8 Plantarflexion 50 Inversion 35 Eversion 30 PT-OP-M Strength Start: 07/02/23 19:31 Freq: Status: Active Protocol: Document 07/08/23 12:35 LRN (Rec: 07/08/23 18:08 LRN [id number]) Knee Strength Knee Manual Muscle Testing Left Comments Strength is 5/5 Right Comments Strength is 5/5 Ankle/Foot Strength Ankle and Foot Manual Muscle Testing Right Dorsiflexion (L4) 4 Good Plantarflexion (S1) 5 Normal Inversion 4 Good Eversion (S1) 3 Fair Comments Eversion is limited due to pain. Left Comments Strength is 5/5. PT-OP-Q Treatments Start: 07/02/23 19:31 Freq: Status: Active Protocol: Document 07/29/23 15:52 AB (Rec: 07/29/23 16:08 AB [id number]) Cardio Equipment Recumbent Bicycle Duration (Minutes) 5 Resistance 1 Gym Equipment Shuttle Recovery unilateral squat Details R LE Step descending ROM squat Resistance 37# (new band) Shuttle Recovery Platform Stable Reps/Time 15x2 eac Bilateral Squats Details Benny Squat Resistance 50# (1 new band) Shuttle Recovery Platform Stable Reps/Time 15x 2 Therapeutic Exercises Sitting Exercises ankle DF & EV Sitting Exercise Name added to HEP Side right Resistance TB #2 orange Reps/Minutes 2x10 reps Comments cued heel contact, heel under/ front knee, painfree but efforted range- good Standing Exercises Ankle PF Standing Exercise Name Heel lifts Side bilateral Reps/Minutes 15x2 Ankle DF Standing Exercise Name Toe lifts Reps/Minutes 15x2 Comments Cuing not to rock back, hand hold for balance Gastroc/Soleus stretch Standing Exercise Name Gastroc & Soleus stretch Side right Equipment Used off bottom step w/R handrail ( has post home) Reps/Minutes 20 SH x2 ea Comments cued tall, demonstrates good stability- good response stretch painfree Step ups Standing Exercise Name Step ups Side bilateral Equipment Used 6 step w/R Handrail Reps/Minutes 2x10 reps each, LE lead Self-Care/Home Management Treatment Education Patient Education Pain Management Other Education Educated on use of ice vs heat . PT-OP-T Assessment and Plan Start: 07/02/23 19:31 Freq: Status: Active Protocol: Document 07/29/23 15:52 AB (Rec: 07/29/23 16:08 AB [id number]) Physical Therapy Assessment Goals Three Impairment Dysfunctional gait with catching of toes during gait. Impairment Gait: Decreased stride length , feet clearance, hips flexed 5 deg's, excessive trunk sway, RLE WBing with knee valgus/ calcaneal EV, trunk in L rotation on stance phase. Short Term Goal (STG) Normalize gait pattern/core positioning with gait (improve hip IR). STG Duration 4 wks-08/05/23 Correction Goal (LTG) Walk w/o catching R toes on the ground. 07/22/23: Catching 1x daily. 09/23/22: Progressing: no R foot catching ground past 2 days. LTG Duration 8 wks-09/06/23 almost met progressing 07/24/23 Two Impairment Decreased R Ankle AROM Impairment AROM in deg's: DF (knees extended): 2 R , 8 L; PF 50 bilaterally, IV 12 R, 35 L; EV 15 R, 30 L. LEFS score 62 (120-39% impaired, score 48-62). Short Term Goal (STG) Improve R ankle AROM with improved function per LEFS score of 64 or greater (1-19% impaired, score 63-79). STG Duration 4 wks-08/05/23 Correction Goal (LTG) Improve R ankle AROM with decreased episodes of LOB to no more than 1 after long walks. LTG Duration 8 wks-09/06/23 One Impairment Lacks appropriate self care HEP Short Term Goal (STG) Pt will be educated self care pain and edema management. 07/12/23: Pt educated in hot/ cold contrast bath for edema management. 07/22/23: Educated & discussed self care for pain management with RICE technique . STG Duration 1 wk-07/15/23 (07/22/23: MET GOAL) Morphologist Goal (LTG) Pt will be independent with a self care HEP to improve R ankle mobility and strength. 07/12/23: HEP of gastroc/ soleus stretch, steps. 07/18/23: resisted ankle DF& EV 07/24/23: added hip IR & ER to assist increase hip mobility. LTG Duration 8 wks-09/06/23 progressed Assessment Summary Assessment Scifit was unavailable today, therefore pt warmed up on recumbent bike with good tolerance. Continued with therex focusing on LE strengthening and mobility. The pt demonstrates good carry over of education provided in previous sessions, as she performs exercises without using momentum or other compensations. Hip therex was not performed today d/t complaints of increased hip symptoms, however should be reintroduced as indicated. The pt continues to benefit from skilled PT at this time with progression as tolerated. Physical Therapy Plan Frequency and Duration Frequency of Treatment 2x/Week Duration of treatment (weeks) 8 Plan of Care Start Date 07/08/23 Plan of Care End Date 09/06/23 Therapeutic Interventions Therapeutic Interventions Balance Training,Coordination Training,Home Exercise Program ,Manual Therapy,Neuromuscular Re-education,Self-Care/Home Management,Soft Tissue Mobilization,Taping, Therapeutic Exercises Modalities Cold Pack/Ice Massage,Hot Packs Next Visit Focus/Plan Next Note Type Treatment Note Next Visit Plan Recheck added prone hip IR/ ER , continue alvaro and step ups for increase SLS time and functional mobility. Next: progress towards therapy 1x/wk when on a HEP for R ankle ROM/strength, balance, (clinic for balance & gait training). Assess hip ER/IR. for Ktape for weak DF/ foot drop to R foot. Start HEP: Aerobic ex, f/b ankle passive stretching and gentle strengthening. If needed, try STM to improve Lower leg circulation. Gait and balance training. POC: Progress pt towards primarily HEP next week.
--- NOTE | 2023-08-05 11:22 | PT.OTN ---
Current Diagnoses Other abnormalities of gait and mobility (08/05/23) Unspecified fracture of shaft of right tibia, subsequent encounter for closed fracture with routine healing (08/05/23) Unspecified fracture of shaft of right fibula, subsequent encounter for closed fracture with routine healing (08/05/23) Physical Therapy Treatment Note PT-OP-A Visit Information Start: 07/02/23 19:31 Freq: Status: Active Protocol: Document 08/05/23 10:36 SP (Rec: 08/05/23 11:52 SP [id number]) Out-Patient Physical Therapy Visit Information Visit Information Visit Type Treatment Note Visit Start Time 10:36 Visit Stop Time 11:22 Total Visit Minutes 46 Visit Number 8 Number of SAND BOBBER Visits 1 Evaluation Information Evaluation Date 07/08/23 Precautions Precautions 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 PT-OP-B Current Condition Start: 07/02/23 19:31 Freq: Status: Active Protocol: Document 07/08/23 12:35 LRN (Rec: 07/08/23 18:08 LRN [id number]) Current Condition History of Current Condition Onset Date 03/01/23 Current Complaints Catches her R foot on ground wth gait. History of Current Condition Pt is s/p 4 months fracture of R distal Tibia/proximal Fibula after falling at home outside with subsequent surgery at [facility]. Fell backwards but foot caught under the plantar box. States she was sent to [facility] to have to have a rosa elena placed to support Tibia. R TKA prothesis was in place. Last [facility] visit was in April and was referred to PT to check gait because strength and mobility of knee is good. Pt states she doesn't lift her R toes when she walks causing her to trip. States she catches her R toes daily, especially on long walks. Able to catch herself with LOB . States [place] walks [place] lot [place] walked [place] the beach. Prior Treatments and Tests X-ray 03/01/23: Oblique displaced fractures proximal fibula and distal tibial diaphysis Future Testing and Treatments Planned None Treatment Goals Patient/Caregiver Goals Pt goal is to assess gait and address deviations on mainly a home program, but would like to correct her gait. Personal Factors Other Personal Factors That May Effect Blood clot behind the L knee - Therapy/Recovery 03/2023 (taking Eliquis) R TKA ~5 yrs ago, PT-OP-C Subjective Start: 07/02/23 19:31 Freq: Status: Active Protocol: Document 08/05/23 10:36 SP (Rec: 08/05/23 11:52 SP [id number]) OP-PT Subjective Patient Comments Patient Comments Pt reports has to use rail for stairs still, nervous not contact. stated heard her toe catch x1 but she didn' t realize and didn't affect her walking on pavement trails . She is really pleased with progress making. Patient Reported Progress Improving PT-OP-E Functional Tests Start: 07/02/23 19:31 Freq: Status: Active Protocol: Document 07/12/23 14:06 LRN (Rec: 07/12/23 15:01 LRN [id number]) Functional Tests Timed Up and Go (TUG) Score 11 Comments No use of hands or AD TUG Impairment Rating 1 to <20% Impaired (Score 11) PT-OP-G Mobility & Gait Start: 07/02/23 19:31 Freq: Status: Active Protocol: Document 07/12/23 14:06 LRN (Rec: 07/12/23 15:01 LRN [id number]) Stair Climbing Evaluation Evaluation Level of Assist On Stairs Independent Devices Stair Climbing Assistive Devices Right Railing Technique/Endurance Stair Climbing Direction Ascend and Descend Stair Climbing Technique Step Over Step Number of Steps Climbed 4 Stair Climbing Set # Repetitions (reps) 4 Comments Stair Climbing Comments Pt has less control with descending leading with L LE. Ascending has weakness with stepping up with RLE. PT-OP-H Neuro Start: 07/02/23 19:31 Freq: Status: Active Protocol: Document 07/08/23 12:35 LRN (Rec: 07/08/23 18:08 LRN [id number]) Sensation Evaluation Gross Sensation Gross Sensation Right LE Impaired Sensation Description Numbness Comments Summary Comments R Lower Leg: Decreased sensation to soft touch and sharp/dull in rectangular section of lateral lower leg ~ a couple inches below the knee and 7.5 cm and above the ankle in the anterolateral lower leg. PT-OP-J Posture/Palpation/Skin Start: 07/02/23 19:31 Freq: Status: Active Protocol: Document 07/08/23 12:35 LRN (Rec: 07/08/23 18:08 LRN [id number]) Posture Evaluation Position Standing Head/C-Spine Posture Forward Head Hip Posture (L) Flexed,(R) Flexed Knee Posture (L) Genu Valgus,(R) Genu Valgus Ankle/Foot Posture (R) Calcaneal Inversion Comments Posture Comments Hips flex 5 deg's, R knee valgus 10 deg's, L knee 5 deg' s. Skin Assessment Edema Assessment Left Leg Edema Type Pitting Right Leg Edema Type Pitting Edema Degree 4+ Edema Appearance Discolored,Firm Comments Pitting edema in lower portion of lower leg. PT-OP-K Range of Motion Start: 07/02/23 19:31 Freq: Status: Active Protocol: Document 07/08/23 12:35 LRN (Rec: 07/08/23 18:08 LRN [id number]) Knee Goniometric Range of Motion Knee Right Patient Position Sitting Flexion Active (degrees) 120 Extension Active (degrees) 0 Left Patient Position Sitting Flexion Active (degrees) 120 Extension Active (degrees) 0 Comments Painfree AROM Ankle and Foot Goniometric Range of Motion Ankle and Foot Right Active Ankle/Foot ROM WFL No Testing Position Supine Dorsiflexion with Knee Extended 2 Plantarflexion 50 Inversion 12 Eversion 15 Comments Painfree AROM Left Active Ankle/Foot ROM WFL Yes Testing Position Supine Dorsiflexion with Knee Extended 8 Plantarflexion 50 Inversion 35 Eversion 30 PT-OP-M Strength Start: 07/02/23 19:31 Freq: Status: Active Protocol: Document 07/08/23 12:35 LRN (Rec: 07/08/23 18:08 LRN [id number]) Knee Strength Knee Manual Muscle Testing Left Comments Strength is 5/5 Right Comments Strength is 5/5 Ankle/Foot Strength Ankle and Foot Manual Muscle Testing Right Dorsiflexion (L4) 4 Good Plantarflexion (S1) 5 Normal Inversion 4 Good Eversion (S1) 3 Fair Comments Eversion is limited due to pain. Left Comments Strength is 5/5. PT-OP-Q Treatments Start: 07/02/23 19:31 Freq: Status: Active Protocol: Document 08/05/23 10:36 SP (Rec: 08/05/23 11:52 SP [id number]) Gym Equipment Shuttle Recovery unilateral squat Details R LE Step descending ROM squat Resistance 37# (dark band) Shuttle Recovery Platform Stable Reps/Time 15x2 each LE Bilateral Squats Details Benny Squat- good effort reported Resistance 50# (dark band)- unlocked ROM tolerant (see approx 90 deg) Shuttle Recovery Platform Stable Reps/Time 15x 2 Therapeutic Exercises Sitting Exercises ankle DF & EV Sitting Exercise Name reviewed HEP: DF, added IV Side right Resistance TB #2 aqua latex Reps/Minutes 2x10 reps Comments cued heel contact, opp LE still Standing Exercises arch lift Standing Exercise Name added to HEP Side bilateral Resistance R>L Reps/Minutes discussed & provide HO Comments recheck next tx Step ups Standing Exercise Name Step ups: level and uneven Side bilateral Resistance no UE support Equipment Used 6 step, 4 + foam Reps/Minutes 20 reps 6 step, 10 reps 4 + blue foam Comments Cued elongated posture, core& glut firing, TKE- less sways Gait Training Gait Activity stairs Description asc/desc Device Used no HR Level of Assistance Mod I Distance/Duration 4 stairs x4 reps, 2 sets carrying 4# laundry baske, MAP bldg stairs 28 step Treatment Focus eccentric knee flexion & DF descend, concentric glut & quad firing ascend Comments cued to PF to touchdown on toes on descent, less focus as performed reps/sets. Improved stability and ease of performance with reps and able add carrying laundry basket 4 # leg wt inside. Neuro Re-Education Treatment Balance Activities uneven step ups Equipment BOSU dome stance, rail light PRN support Reps/Duration 2x10 each LE Comments cued ft positioning, R LE TKE and glut firing COG over DELGADO improve stability with reps this is hard, so weak, tiring SLS Details assess, added to HEP Surface floor, discussed can add folded towel home Equipment rail nearby for safety- not needed on floor in PT Reps/Duration 1 rep each Comments LLE 30sec stable RLR 27sec Cued PT-OP-T Assessment and Plan Start: 07/02/23 19:31 Freq: Status: Active Protocol: Document 08/05/23 10:36 SP (Rec: 08/05/23 11:52 SP [id number]) Physical Therapy Assessment Goals Three Impairment Dysfunctional gait with catching of toes during gait. Impairment Gait: Decreased stride length , feet clearance, hips flexed 5 deg's, excessive trunk sway, RLE WBing with knee valgus/ calcaneal EV, trunk in L rotation on stance phase. Short Term Goal (STG) Normalize gait pattern/core positioning with gait (improve hip IR). STG Duration 4 wks-08/05/23 Ultrasound Technol Goal (LTG) Walk w/o catching R toes on the ground. 07/22/23: Catching 1x daily. 09/23/22: Progressing: no R foot catching ground past 2 days. 08/05/23: almost met noticed caught toe x1 but she didn't notice/didnt affect her . LTG Duration 8 wks-09/06/23 almost met progressing 08/05/23 Two Impairment Decreased R Ankle AROM Impairment AROM in deg's: DF (knees extended): 2 R , 8 L; PF 50 bilaterally, IV 12 R, 35 L; EV 15 R, 30 L. LEFS score 62 (120-39% impaired, score 48-62). Short Term Goal (STG) Improve R ankle AROM with improved function per LEFS score of 64 or greater (1-19% impaired, score 63-79). STG Duration 4 wks-08/05/23 Half-Way Goal (LTG) Improve R ankle AROM with decreased episodes of LOB to no more than 1 after long walks. 08/05/23: GOAL MET: reports no off balance or LOB out for walks. LTG Duration 8 wks-09/06/23 GOAL MET One Impairment Lacks appropriate self care HEP Short Term Goal (STG) Pt will be educated self care pain and edema management. 07/12/23: Pt educated in hot/ cold contrast bath for edema management. 07/22/23: Educated & discussed self care for pain management with RICE technique . STG Duration 1 wk-07/15/23 (07/22/23: MET GOAL) Ultrasound Technol Goal (LTG) Pt will be independent with a self care HEP to improve R ankle mobility and strength. 07/12/23: HEP of gastroc/ soleus stretch, steps. 07/18/23: resisted ankle DF& EV 07/24/23: added hip IR & ER to assist increase hip mobility. 08/05/23: PT added resisted ankle ther ex. Added resisted IV, SLS, uneven step ups, arch lifts standing. LTG Duration 8 wks-09/06/23 progressed Assessment Summary Assessment Pt improved RLE efforted TKE and glut firing with increased uneven surface (foam step/ BOSU) to allow increase SLS time end tx and understanding postural corrections to support stability. She was able to asc/desc stairs receiprocal stepping and carrying wt crate to allow carryover home more confidence . Physical Therapy Plan Frequency and Duration Frequency of Treatment 2x/Week Duration of treatment (weeks) 8 Plan of Care Start Date 07/08/23 Plan of Care End Date 09/06/23 Therapeutic Interventions Therapeutic Interventions Balance Training,Coordination Training,Home Exercise Program ,Manual Therapy,Neuromuscular Re-education,Self-Care/Home Management,Soft Tissue Mobilization,Taping, Therapeutic Exercises Modalities Cold Pack/Ice Massage,Hot Packs Next Visit Focus/Plan Next Note Type Treatment Note Next Visit Plan Next tx: ET warm up, TM incline, add uneven surface gait to allow community gait on beach, personal goal. Update POC or DC on 08/29 appt . Progress uneven stepping: sport cord, obstacle course like a beach. Increase SLS time and functional mobility. Next: progress towards therapy 1x/wk when on a HEP for R ankle ROM/strength, balance, (clinic for balance & gait training). Assess hip ER/IR. Start HEP: Aerobic ex, f/b ankle passive stretching and gentle strengthening. Gait and balance training. .
--- NOTE | 2023-08-08 14:30 | PT.OTN ---
Current Diagnoses Other abnormalities of gait and mobility (08/08/23) Unspecified fracture of shaft of right tibia, subsequent encounter for closed fracture with routine healing (08/08/23) Unspecified fracture of shaft of right fibula, subsequent encounter for closed fracture with routine healing (08/08/23) Physical Therapy Treatment Note PT-OP-A Visit Information Start: 07/02/23 19:31 Freq: Status: Active Protocol: Document 08/08/23 13:51 SP (Rec: 08/08/23 14:33 SP [id number]) Out-Patient Physical Therapy Visit Information Visit Information Visit Type Treatment Note Visit Note 05/19 post eval Visit Start Time 13:51 Visit Stop Time 14:30 Total Visit Minutes 39 Visit Number 9 Number of SENIOR CATEGORY MANAGER Visits 2 Evaluation Information Evaluation Date 07/08/23 Precautions Precautions 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 PT-OP-B Current Condition Start: 07/02/23 19:31 Freq: Status: Active Protocol: Document 07/08/23 12:35 LRN (Rec: 07/08/23 18:08 LRN [id number]) Current Condition History of Current Condition Onset Date 03/01/23 Current Complaints Catches her R foot on ground wth gait. History of Current Condition Pt is s/p 4 months fracture of R distal Tibia/proximal Fibula after falling at home outside with subsequent surgery at [facility]. Fell backwards but foot caught under the plantar box. States she was sent to [facility] to have to have a rosa elena placed to support Tibia. R TKA prothesis was in place. Last [facility] visit was in April and was referred to PT to check gait because strength and mobility of knee is good. Pt states she doesn't lift her R toes when she walks causing her to trip. States she catches her R toes daily, especially on long walks. Able to catch herself with LOB . States [place] lot [place] beach. Prior Treatments and Tests X-ray 03/01/23: Oblique displaced fractures proximal fibula and distal tibial diaphysis Future Testing and Treatments Planned None Treatment Goals Patient/Caregiver Goals Pt goal is to assess gait and address deviations on mainly a home program, but would like to correct her gait. Personal Factors Other Personal Factors That May Effect Blood clot behind the L knee - Therapy/Recovery 03/2023 (taking Eliquis) R TKA ~5 yrs ago, PT-OP-C Subjective Start: 07/02/23 19:31 Freq: Status: Active Protocol: Document 08/08/23 13:51 SP (Rec: 08/08/23 14:33 SP [id number]) OP-PT Subjective Patient Comments Patient Comments Pt reports muscles sore after last tx but didn't take long recover, not achy as can be. Patient Reported Progress Improving PT-OP-E Functional Tests Start: 07/02/23 19:31 Freq: Status: Active Protocol: Document 07/12/23 14:06 LRN (Rec: 07/12/23 15:01 LRN [id number]) Functional Tests Timed Up and Go (TUG) Score 11 Comments No use of hands or AD TUG Impairment Rating 1 to <20% Impaired (Score 11) PT-OP-G Mobility & Gait Start: 07/02/23 19:31 Freq: Status: Active Protocol: Document 07/12/23 14:06 LRN (Rec: 07/12/23 15:01 LRN [id number]) Stair Climbing Evaluation Evaluation Level of Assist On Stairs Independent Devices Stair Climbing Assistive Devices Right Railing Technique/Endurance Stair Climbing Direction Ascend and Descend Stair Climbing Technique Step Over Step Number of Steps Climbed 4 Stair Climbing Set # Repetitions (reps) 4 Comments Stair Climbing Comments Pt has less control with descending leading with L LE. Ascending has weakness with stepping up with RLE. PT-OP-H Neuro Start: 07/02/23 19:31 Freq: Status: Active Protocol: Document 07/08/23 12:35 LRN (Rec: 07/08/23 18:08 LRN [id number]) Sensation Evaluation Gross Sensation Gross Sensation Right LE Impaired Sensation Description Numbness Comments Summary Comments R Lower Leg: Decreased sensation to soft touch and sharp/dull in rectangular section of lateral lower leg ~ a couple inches below the knee and 7.5 cm and above the ankle in the anterolateral lower leg. PT-OP-J Posture/Palpation/Skin Start: 07/02/23 19:31 Freq: Status: Active Protocol: Document 07/08/23 12:35 LRN (Rec: 07/08/23 18:08 LRN [id number]) Posture Evaluation Position Standing Head/C-Spine Posture Forward Head Hip Posture (L) Flexed,(R) Flexed Knee Posture (L) Genu Valgus,(R) Genu Valgus Ankle/Foot Posture (R) Calcaneal Inversion Comments Posture Comments Hips flex 5 deg's, R knee valgus 10 deg's, L knee 5 deg' s. Skin Assessment Edema Assessment Left Leg Edema Type Pitting Right Leg Edema Type Pitting Edema Degree 4+ Edema Appearance Discolored,Firm Comments Pitting edema in lower portion of lower leg. PT-OP-K Range of Motion Start: 07/02/23 19:31 Freq: Status: Active Protocol: Document 07/08/23 12:35 LRN (Rec: 07/08/23 18:08 LRN [id number]) Knee Goniometric Range of Motion Knee Right Patient Position Sitting Flexion Active (degrees) 120 Extension Active (degrees) 0 Left Patient Position Sitting Flexion Active (degrees) 120 Extension Active (degrees) 0 Comments Painfree AROM Ankle and Foot Goniometric Range of Motion Ankle and Foot Right Active Ankle/Foot ROM WFL No Testing Position Supine Dorsiflexion with Knee Extended 2 Plantarflexion 50 Inversion 12 Eversion 15 Comments Painfree AROM Left Active Ankle/Foot ROM WFL Yes Testing Position Supine Dorsiflexion with Knee Extended 8 Plantarflexion 50 Inversion 35 Eversion 30 PT-OP-M Strength Start: 07/02/23 19:31 Freq: Status: Active Protocol: Document 07/08/23 12:35 LRN (Rec: 07/08/23 18:08 LRN [id number]) Knee Strength Knee Manual Muscle Testing Left Comments Strength is 5/5 Right Comments Strength is 5/5 Ankle/Foot Strength Ankle and Foot Manual Muscle Testing Right Dorsiflexion (L4) 4 Good Plantarflexion (S1) 5 Normal Inversion 4 Good Eversion (S1) 3 Fair Comments Eversion is limited due to pain. Left Comments Strength is 5/5. PT-OP-Q Treatments Start: 07/02/23 19:31 Freq: Status: Active Protocol: Document 08/08/23 13:51 SP (Rec: 08/08/23 14:33 SP [id number]) Gym Equipment Shuttle Recovery unilateral squat Details R LE Step descending ROM squat Resistance 37# (dark band) Shuttle Recovery Platform Stable Reps/Time x20 each LE Bilateral Squats Details Benny Squat- good effort reported Resistance 50# (dark band)- unlocked ROM tolerant (see approx 90 deg) Shuttle Recovery Platform Stable Reps/Time x20 Therapeutic Exercises Sidelying Exercises clamshells Sidelying Exercise Name added to HEP: assist R knee valgus correction Side right Resistance Tb #2 Reps/Minutes 2x10 Comments good form, hip abd effort Standing Exercises arch lift Standing Exercise Name reviewed HEP Side bilateral Resistance R>L Reps/Minutes 10 repsx 5SH periodically during day (brushing teeth and dishes) Comments good form, provided HO Step ups Standing Exercise Name Step ups: level and uneven Side bilateral Resistance no UE support Equipment Used 6 step, 4 + foam Reps/Minutes x20 each LE4 + blue foam Comments Cued elongated posture, core& glut firing, TKE- less sways Neuro Re-Education Treatment Balance Activities hurdles Details step to, receiprocal stepping Surface 6 hurdles, foam, pods, 4 step /wedges obstacle couse hill Equipment rail PRN (x2 trail LE caught alvaro) Reps/Duration 6 laps total Comments Cued posturing, scap retraction,core fac, COG over SLS time LE, trail LE clearance- trail LE caught x3 reps- contact rail recovery x2 reps self, Marifer x1. PT-OP-T Assessment and Plan Start: 07/02/23 19:31 Freq: Status: Active Protocol: Document 08/08/23 13:51 SP (Rec: 08/08/23 14:33 SP [id number]) Physical Therapy Assessment Goals Three Impairment Dysfunctional gait with catching of toes during gait. Impairment Gait: Decreased stride length , feet clearance, hips flexed 5 deg's, excessive trunk sway, RLE WBing with knee valgus/ calcaneal EV, trunk in L rotation on stance phase. Short Term Goal (STG) Normalize gait pattern/core positioning with gait (improve hip IR). 08/08/23: progressing: slight valgus R knee improved foot clearance, TM challenging Max cues posture/soft stepping heel toe, arms swing. STG Duration 4 wks-08/05/23 progressing Community Relations Advisor Goal (LTG) Walk w/o catching R toes on the ground. 07/22/23: Catching 1x daily. 09/23/22: Progressing: no R foot catching ground past 2 days. 08/05/23: almost met noticed caught toe x1 but she didn't notice/didnt affect her . 08/08/23: GOAL MET: hasn't caught toe. LTG Duration 8 wks-09/06/23 goal met progressing 08/08/23 Two Impairment Decreased R Ankle AROM Impairment AROM in deg's: DF (knees extended): 2 R , 8 L; PF 50 bilaterally, IV 12 R, 35 L; EV 15 R, 30 L. LEFS score 62 (20-39% impaired , score 48-62). Short Term Goal (STG) Improve R ankle AROM with improved function per LEFS score of 64 or greater (1-19% impaired, score 63-79). STG Duration 4 wks-08/05/23 Penitentiary Goal (LTG) Improve R ankle AROM with decreased episodes of LOB to no more than 1 after long walks. 08/05/23: GOAL MET: reports no off balance or LOB out for walks. LTG Duration 8 wks-09/06/23 GOAL MET One Impairment Lacks appropriate self care HEP Short Term Goal (STG) Pt will be educated self care pain and edema management. 07/12/23: Pt educated in hot/ cold contrast bath for edema management. 07/22/23: Educated & discussed self care for pain management with RICE technique . STG Duration 1 wk-07/15/23 (07/22/23: MET GOAL) Community Relations Advisor Goal (LTG) Pt will be independent with a self care HEP to improve R ankle mobility and strength. 07/12/23: HEP of gastroc/ soleus stretch, steps. 07/18/23: resisted ankle DF& EV 07/24/23: added hip IR & ER to assist increase hip mobility. 08/05/23: PT added resisted ankle ther ex. Added resisted IV, SLS, uneven step ups, arch lifts standing. 08/08/23: added TB #2 clamshell, standing arch lift. LTG Duration 8 wks-09/06/23 progressed Assessment Summary Assessment Pt responded well to ther ex. Tx focused on hip abd and arch support with good understanding carryover receiprocal alvaro and stair stepping uneven then added incline/decline, her trial toe caught (due to opposite LE on uneven pod) alvaro x3, 5%A via therapist at [facility] and UE support needed for safety. Pt responded well to added clamshell to support RLE slight valgus. Physical Therapy Plan Frequency and Duration Frequency of Treatment 2x/Week Duration of treatment (weeks) 8 Plan of Care Start Date 07/08/23 Plan of Care End Date 09/06/23 Therapeutic Interventions Therapeutic Interventions Balance Training,Coordination Training,Home Exercise Program ,Manual Therapy,Neuromuscular Re-education,Self-Care/Home Management,Soft Tissue Mobilization,Taping, Therapeutic Exercises Modalities Cold Pack/Ice Massage,Hot Packs Next Visit Focus/Plan Next Note Type Treatment Note Next Visit Plan PT Update POC or DC on 08/29 appt. Next tx: ET warm up, TM incline, add uneven surface gait to allow community gait on beach, personal goal. Recheck added clamshell. Progress uneven stepping: sport cord, obstacle course like a beach. Increase SLS time and functional mobility. Next: progress towards therapy 1x/wk when on a HEP for R ankle ROM/strength, balance, (clinic for balance & gait training). Assess hip ER/IR. Start HEP: Aerobic ex, f/b ankle passive stretching and gentle strengthening. Gait and balance training. .
--- NOTE | 2023-08-13 10:18 | PT.OTN ---
Current Diagnoses Other abnormalities of gait and mobility (08/13/23) Unspecified fracture of shaft of right tibia, subsequent encounter for closed fracture with routine healing (08/13/23) Unspecified fracture of shaft of right fibula, subsequent encounter for closed fracture with routine healing (08/13/23) Physical Therapy Treatment Note PT-OP-A Visit Information Start: 07/02/23 19:31 Freq: Status: Active Protocol: Document 08/13/23 08:53 LRN (Rec: 08/13/23 09:39 LRN [id number]) Out-Patient Physical Therapy Visit Information Visit Information Visit Type Progress Note Visit Note 06/18 post eval Visit Start Time 08:54 Visit Stop Time 09:39 Total Visit Minutes 45 Visit Number 10 Evaluation Information Evaluation Date 07/08/23 Precautions Precautions 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 PT-OP-B Current Condition Start: 07/02/23 19:31 Freq: Status: Active Protocol: Document 07/08/23 12:35 LRN (Rec: 07/08/23 18:08 LRN [id number]) Current Condition History of Current Condition Onset Date 03/01/23 Current Complaints Catches her R foot on ground wth gait. History of Current Condition Pt is s/p 4 months fracture of R distal Tibia/proximal Fibula after falling at home outside with subsequent surgery at [facility]. Fell backwards but foot caught under the plantar box. States she was sent to [facility] to have to have a rosa elena placed to support Tibia. R TKA prothesis was in place. Last [facility] visit was in April and was referred to PT to check gait because strength and mobility of knee is good. Pt states she doesn't lift her R toes when she walks causing her to trip. States she catches her R toes daily, especially on long walks. Able to catch herself with LOB . States [place] walked [place] the beach. Prior Treatments and Tests X-ray 03/01/23: Oblique displaced fractures proximal fibula and distal tibial diaphysis Future Testing and Treatments Planned None Treatment Goals Patient/Caregiver Goals Pt goal is to assess gait and address deviations on mainly a home program, but would like to correct her gait. Personal Factors Other Personal Factors That May Effect Blood clot behind the L knee - Therapy/Recovery 03/2023 (taking Eliquis) R TKA ~5 yrs ago, PT-OP-C Subjective Start: 07/02/23 19:31 Freq: Status: Active Protocol: Document 08/13/23 08:53 LRN (Rec: 08/13/23 09:39 LRN [id number]) OP-PT Subjective Patient Comments Patient Comments States she doesn't catch her toe anymore and is aware of how she walks and isn't losing her balance with walking or after long walks. Patient Questionnaires Lower Extremity Functional Scale LEFS Score 67 LEFS Impairment 1 to 19% Impaired (Score 63-79 ) PT-OP-E Functional Tests Start: 07/02/23 19:31 Freq: Status: Active Protocol: Document 07/12/23 14:06 LRN (Rec: 07/12/23 15:01 LRN [id number]) Functional Tests Timed Up and Go (TUG) Score 11 Comments No use of hands or AD TUG Impairment Rating 1 to <20% Impaired (Score 11) PT-OP-G Mobility & Gait Start: 07/02/23 19:31 Freq: Status: Active Protocol: Document 07/12/23 14:06 LRN (Rec: 07/12/23 15:01 LRN [id number]) Stair Climbing Evaluation Evaluation Level of Assist On Stairs Independent Devices Stair Climbing Assistive Devices Right Railing Technique/Endurance Stair Climbing Direction Ascend and Descend Stair Climbing Technique Step Over Step Number of Steps Climbed 4 Stair Climbing Set # Repetitions (reps) 4 Comments Stair Climbing Comments Pt has less control with descending leading with L LE. Ascending has weakness with stepping up with RLE. PT-OP-H Neuro Start: 07/02/23 19:31 Freq: Status: Active Protocol: Document 07/08/23 12:35 LRN (Rec: 07/08/23 18:08 LRN [id number]) Sensation Evaluation Gross Sensation Gross Sensation Right LE Impaired Sensation Description Numbness Comments Summary Comments R Lower Leg: Decreased sensation to soft touch and sharp/dull in rectangular section of lateral lower leg ~ a couple inches below the knee and 7.5 cm and above the ankle in the anterolateral lower leg. PT-OP-J Posture/Palpation/Skin Start: 07/02/23 19:31 Freq: Status: Active Protocol: Document 07/08/23 12:35 LRN (Rec: 07/08/23 18:08 LRN [id number]) Posture Evaluation Position Standing Head/C-Spine Posture Forward Head Hip Posture (L) Flexed,(R) Flexed Knee Posture (L) Genu Valgus,(R) Genu Valgus Ankle/Foot Posture (R) Calcaneal Inversion Comments Posture Comments Hips flex 5 deg's, R knee valgus 10 deg's, L knee 5 deg' s. Skin Assessment Edema Assessment Left Leg Edema Type Pitting Right Leg Edema Type Pitting Edema Degree 4+ Edema Appearance Discolored,Firm Comments Pitting edema in lower portion of lower leg. PT-OP-K Range of Motion Start: 07/02/23 19:31 Freq: Status: Active Protocol: Document 08/13/23 08:53 LRN (Rec: 08/13/23 09:39 LRN [id number]) Hip Goniometric Range of Motion Hip Left Passive Testing Position Supine Internal Rotation 15 External Rotation 60 Right Passive Testing Position Supine Internal Rotation 25 External Rotation 40 Ankle and Foot Goniometric Range of Motion Ankle and Foot Right Active Testing Position Supine Dorsiflexion with Knee Extended 13 Plantarflexion 55 Inversion 23 Eversion 23 Comments Painfree AROM Left Active Testing Position Supine Dorsiflexion with Knee Extended 8 Plantarflexion 45 Inversion 27 Eversion 23 PT-OP-M Strength Start: 07/02/23 19:31 Freq: Status: Active Protocol: Document 07/08/23 12:35 LRN (Rec: 07/08/23 18:08 LRN [id number]) Knee Strength Knee Manual Muscle Testing Left Comments Strength is 5/5 Right Comments Strength is 5/5 Ankle/Foot Strength Ankle and Foot Manual Muscle Testing Right Dorsiflexion (L4) 4 Good Plantarflexion (S1) 5 Normal Inversion 4 Good Eversion (S1) 3 Fair Comments Eversion is limited due to pain. Left Comments Strength is 5/5. PT-OP-Q Treatments Start: 07/02/23 19:31 Freq: Status: Active Protocol: Document 08/13/23 08:53 LRN (Rec: 08/13/23 09:39 LRN [id number]) Cardio Equipment Recumbent Elliptical ([employer]) Duration (Minutes) 5 Resistance 1 Seat Position 11 Other Phys & v cuing to keep R knee from moving inward. Gym Equipment Shuttle Recovery unilateral squat Details R LE Step descending ROM squat Resistance 37#, 25# Shuttle Recovery Platform Stable Reps/Time 10x 2, 10x, respectively Bilateral Squats Details Benny Squat Resistance 62#, 50# Shuttle Recovery Platform Stable Reps/Time 10x 2, 10x, respectively Therapeutic Exercises Supine Exercises Hip IR/ER Supine Exercise Name Hip IR/ER stretching (singel & benny BKFO, & lateral hip) Side bilateral Reps/Minutes 10' Comments ROM taken Ankle ROM Supine Exercise Name Ankle AROM (PF, DF, EV, IV) Side bilateral Comments ROM taken Standing Exercises Gastroc/Soleus stretch Standing Exercise Name Gastroc & Soleus stretch Side right Equipment Used off bottom step w/R handrail ( has post home) Reps/Minutes 20 SH x2 ea Comments Cuing to stretch both w/knee straight and knee flexed a little. Self-Care/Home Management Treatment Education Patient Education Home Exercise Program Activities Self-Care/Home Management Activities I/S pt in ankle AROM of PF/DF in bed for return of R ankle PF ROM, & to correct her standing stretch on R to include straight leg Gastroc stretch. Issued HEP: Lateral hip stretch and Hip ER stretch. PT-OP-T Assessment and Plan Start: 07/02/23 19:31 Freq: Status: Active Protocol: Document 08/13/23 08:53 LRN (Rec: 08/13/23 09:39 LRN [id number]) Physical Therapy Assessment Goals Three Impairment Dysfunctional gait with catching of toes during gait. Impairment Gait: Decreased stride length , feet clearance, hips flexed 5 deg's, excessive trunk sway, RLE WBing with knee valgus/ calcaneal EV, trunk in L rotation on stance phase. Short Term Goal (STG) Normalize gait pattern/core positioning with gait (improve hip IR). 08/08/23: progressing: slight valgus R knee improved foot clearance, TM challenging Max cues posture/soft stepping heel toe, arms swing. 08/13/23: Normal gait on level. STG Duration 4 wks-08/05/23 (08/13/23: MET GOAL) Skilled Nursing Goal (LTG) Walk w/o catching R toes on the ground. 07/22/23: Catching 1x daily. 09/23/22: Progressing: no R foot catching ground past 2 days. 08/05/23: almost met noticed caught toe x1 but she didn't notice/didnt affect her . 08/08/23: GOAL MET: hasn't caught toe. 08/13/23: Able to walk without catching toes on ground LTG Duration 8 wks-09/06/23 (08/13/23: MET GOAL) Two Impairment Decreased R Ankle AROM Impairment AROM in deg's: DF (knees extended): 2 R , 8 L; PF 50 bilaterally, IV 12 R, 35 L; EV 15 R, 30 L. LEFS score 62 (20-39% impaired , score 48-62). Short Term Goal (STG) Improve R ankle AROM with improved function per LEFS score of 64 or greater (1-19% impaired, score 63-79). 08/13/23: LEFS score is 67 (1 -19% impaired) STG Duration 4 wks-08/05/23 (08/13/23: MET GOAL) Skilled Nursing Goal (LTG) Improve R ankle AROM with decreased episodes of LOB to no more than 1 after long walks. 08/05/23: GOAL MET: reports no off balance or LOB out for walks. LTG Duration 8 wks-09/06/23 (GOAL MET ) One Impairment Lacks appropriate self care HEP Short Term Goal (STG) Pt will be educated self care pain and edema management. 07/12/23: Pt educated in hot/ cold contrast bath for edema management. 07/22/23: Educated & discussed self care for pain management with RICE technique . STG Duration 1 wk-07/15/23 (07/22/23: MET GOAL) Technical Assoc Goal (LTG) Pt will be independent with a self care HEP to improve R ankle mobility and strength. 07/12/23: HEP of gastroc/ soleus stretch, steps. 07/18/23: resisted ankle DF& EV 07/24/23: added hip IR & ER to assist increase hip mobility. 08/05/23: PT added resisted ankle ther ex. Added resisted IV, SLS, uneven step ups, arch lifts standing. 08/08/23: added TB #2 clamshell, standing arch lift. 08/13/23: HEP issued: hip ER (benny BKFO) & lateral hip stretch. LTG Duration 8 wks-09/06/23 (08/13/23: MET GOAL) Assessment Summary Assessment Pt has made very good progress with therapy and has met all her goals. Her R ankle AROM is more restricted than her affected L side for PF/DF/EV and her hip rotation is restricted with IR mobility; therefore her HEP included ex' s to address the areas of reduced mobility. She is ready for discharge today onto her HEP. No further therapy is planned. Physical Therapy Plan Discharge Physical Therapy Discharge Reasons Goals Met Discharge Comments Thank you for your referral.
== END 2023-08-19 14:00 | disposition home or self-care (01) ==
LOC: PHYS 09:00
PROVIDERS: Family Provider Family Medicine; PCP Family Medicine; Referring Provider Family Medicine; Visit Provider Orthopaedic Surgery
DX: S82.201D Unspecified fracture of shaft of right tibia, subsequent encounter for closed fracture with routine healing (principal); S82.401D Unspecified fracture of shaft of right fibula, subsequent encounter for closed fracture with routine healing; R26.89 Other abnormalities of gait and mobility
CPT/HCPCS: 97110; 97112; 97116; 97140; 97162; 97535

== ENCOUNTER → 2023-08-21 07:58 | Outpatient (CLI) | payer MEDICARE, OTHER, SELFPAY ==
[2023-04-29 15:15] VITALS: BMI 25.8
== END ==
PROVIDERS: Family Provider Family Medicine; PCP Family Medicine; Visit Provider Nurse Practitioner Family
DX: R30.0 Dysuria (principal)
CPT/HCPCS: 87086

== ENCOUNTER → 2024-03-14 08:39 | Outpatient (CLI) | payer MEDICARE, OTHER, SELFPAY ==
[2023-04-29 15:15] VITALS: BMI 25.8
[2024-03-14 09:33] LABS: Hematocrit 39.5 % (36-46); Hemoglobin 13.5 g/dL (12.0-16.0); Mean Corpuscular HGB Conc 34.1 % (30-36); Mean Corpuscular Hemoglobin 30.3 PG (26-34); Mean Corpuscular Volume 88.9 fL (80-100); Platelet Count 205 X10^3/uL (150-400); Red Blood Cell Count 4.44 X10^6/uL (4.0-5.2); Red Cell Distribution Width 14.4 % (11.6-14.8); White Blood Cell Count 4.7 X10^3/uL (4.5-11.0)
[2024-03-14 09:46] LABS: Alanine Aminotransferase 19 IU/L (<35); Albumin 3.8 g/dL (3.5-5.0); Albumin Globulin Ratio 1.5 (1.0-2.8); Alkaline Phosphatase 93 U/L (38-126); Aspartate Aminotransferase 28 IU/L (14-36); BUN Creatinine Ratio 18.8 (6-22); Bilirubin Total 1.1 mg/dL (0.2-1.3); Blood Urea Nitrogen 13 mg/dL (7-17); Calcium 9.4 mg/dL (8.4-10.2); Carbon Dioxide 27 mmol/L (22-32); Chloride 109 mmol/L (98-107); Cholesterol 187 mg/dL (140-199); Estimated Glomerular Filt Rate > 60 mL/min (>60); Globulin 2.5 g/dL (1.7-4.1); Glucose 108 mg/dL (80-110); HDL Cholesterol 80 mg/dL (40-60); HEMOLYSIS < 15 (0-50); LDL Cholesterol Calculated 89 mg/dL (<100); Potassium 4.4 mmol/L (3.4-5.1); Sodium 140 mmol/L (137-145); Total Protein 6.3 g/dL (6.3-8.2); Triglycerides 89 mg/dL (35-150)
[2024-03-14 10:03] LABS: Free T4, Direct Thyroxine 0.85 ng/dL (0.78-2.19)
[2024-03-14 10:17] LABS: Thyroid Stimulating Hormone 0.417 uIU/mL (0.47-4.68)
[2024-03-14 10:35] LABS: Vitamin B12 Reflex MMA if <400 850 pg/mL (239-931)
== END ==
PROVIDERS: Family Provider Family Medicine; PCP Registered Nurse Diabetes Educator; Referring Provider Registered Nurse Diabetes Educator; Visit Provider Registered Nurse Diabetes Educator
DX: R41.3 Other amnesia (principal); E78.5 Hyperlipidemia, unspecified; R41.89 Other symptoms and signs involving cognitive functions and awareness; Z51.81 Encounter for therapeutic drug level monitoring
CPT/HCPCS: 36415; 80053; 80061; 82607; 84439; 84443; 85027

== ENCOUNTER → 2025-02-02 11:10 | Outpatient (CLI) | payer MEDICARE, OTHER, SELFPAY ==
[2023-04-29 15:15] VITALS: BMI 25.8
--- NOTE | 2025-02-02 11:11 | DI.RAD.S_ITS ---
PROCEDURE: XR SHOULDER RT MIN 2V INDICATIONS: fall 4 days ago, pain posterior shoulder TECHNIQUE: 4 views of the shoulder were acquired. COMPARISON: None. FINDINGS: Bones: No fractures or dislocations. No suspicious bony lesions. Visualized ribs appear intact. Degenerative changes of the acromioclavicular and glenohumeral joints. Coracoclavicular and acromioclavicular intervals are maintained. Soft tissues: No suspicious soft tissue calcifications. IMPRESSION: Right shoulder without acute fracture or dislocation. Degenerative changes of the glenohumeral and acromioclavicular joints. If there is persistent clinical concern for occult fracture given adequate mechanism of injury, consider repeat imaging in 10-14 days. Immobilization as clinically indicated. Dictated by: Maid Reid M.D. on 02/02/2025 at 11:57 Approved by: Mdai Reid M.D. on 02/02/2025 at 11:59
== END ==
PROVIDERS: Family Provider Family Medicine; PCP Registered Nurse Diabetes Educator; Referring Provider Physician Assistant; Visit Provider Physician Assistant
DX: S49.91XA Unspecified injury of right shoulder and upper arm, initial encounter (principal); W19.XXXA Unspecified fall, initial encounter
CPT/HCPCS: 73030

== ENCOUNTER → 2025-03-15 09:04 | Outpatient (CLI) | payer MEDICARE, OTHER, SELFPAY ==
[2023-04-29 15:15] VITALS: BMI 25.8
[2025-03-15 09:47] LABS: Hemoglobin A1C% w Est Avg Glu 5.5 % (4.0-6.0)
[2025-03-15 10:23] LABS: TSH w/ Reflex to FT4 1.49 uIU/mL (0.47-4.68)
[2025-03-15 10:32] LABS: Hematocrit 41.0 % (36-46); Hemoglobin 13.6 g/dL (12.0-16.0); Mean Corpuscular HGB Conc 33.3 % (30-36); Mean Corpuscular Hemoglobin 29.8 PG (26-34); Mean Corpuscular Volume 89.7 fL (80-100); Platelet Count 222 X10^3/uL (150-400)
[2025-03-15 10:53] LABS: Alanine Aminotransferase 20 IU/L (<35); Albumin 3.9 g/dL (3.5-5.0); Albumin Globulin Ratio 1.5 (1.0-2.8); Alkaline Phosphatase 91 U/L (38-126); Blood Urea Nitrogen 13 mg/dL (7-17); Calcium 10.1 mg/dL (8.4-10.2); Carbon Dioxide 26 mmol/L (22-32); Chloride 106 mmol/L (98-107); Cholesterol 225 mg/dL (140-199); Estimated Glomerular Filt Rate > 60 mL/min (>60); Globulin 2.6 g/dL (1.7-4.1); Glucose 105 mg/dL (70-99); HDL Cholesterol 77 mg/dL (40-60); HEMOLYSIS < 15 (0-50); Potassium 4.4 mmol/L (3.4-5.1); Sodium 139 mmol/L (137-145); Total Protein 6.5 g/dL (6.3-8.2); Triglycerides 134 mg/dL (35-150)
== END ==
PROVIDERS: Family Provider Family Medicine; PCP Registered Nurse Diabetes Educator; Referring Provider Registered Nurse Diabetes Educator; Visit Provider Registered Nurse Diabetes Educator
DX: R73.01 Impaired fasting glucose (principal); E78.5 Hyperlipidemia, unspecified; F41.9 Anxiety disorder, unspecified; R41.3 Other amnesia; R79.89 Other specified abnormal findings of blood chemistry
CPT/HCPCS: 36415; 80053; 80061; 83036; 84443; 85027

== ENCOUNTER → 2025-03-29 14:18 | Outpatient (CLI) | payer MEDICARE, OTHER, SELFPAY ==
[2023-04-29 15:15] VITALS: BMI 25.8
--- NOTE | 2025-03-29 14:19 | DI.RAD.S_ITS ---
PROCEDURE: XR DEXA AXIAL SKELETON INDICATIONS: eval, at risk for osteoporosis COMPARISON: None. FINDINGS: Lumbar Spine: Bone mineral density 1.005 g/cm2, T score -0.4. Left Femoral Neck: Bone mineral density 0.832 g/cm2, T score -0.1. Left Hip: Bone mineral density 0.929 g/cm2, T score -0.1. Fracture Risk Calculation (when applicable): 10-year fracture risk of a major osteoporotic fracture 19 percent and of a hip fracture 2.1 percent. IMPRESSION: Normal Follow-up guidelines as follows: Osteoporosis: Consider a repeat DEXA and Vertebral Fracture Assessment (VFA) exam in 2 years or sooner if medically necessary, to reassess this patient's status. Osteopenia: Consider a repeat DEXA in 2-3 years to reassess this patient's status, or if there is a new clinical indication. Normal: Consider a repeat DEXA in 5 years or sooner, or if there is a new clinical indication. All treatment decisions require clinical judgment and consideration of individual patient factors, including patient preferences, comorbidities, previous drug use, risk factors not captured in the FRAX model (e.g., frailty, falls, vitamin D deficiency, increased bone turnover, interval significant decline in bone density ) and possible under- or over-estimation of fracture risk by FRAX. In addition, the NOF Guide recommends that FDA-approved medical therapies be considered in postmenopausal women and men age >= 50 years with a: * Hip or vertebral (clinical or morphometric) fracture * T-score of <=-2.5 at the spine or hip * Ten-year fracture probability by FRAX of >= 3% for hip fracture or >=20% for major osteoporotic fracture. Dictated by: Samuel Lynch M.D. on 04/02/2025 at 10:33 Approved by: Samuel Lynch M.D. on 04/02/2025 at 10:48
== END ==
PROVIDERS: Family Provider Family Medicine; PCP Registered Nurse Diabetes Educator; Referring Provider Registered Nurse Diabetes Educator; Visit Provider Registered Nurse Diabetes Educator
DX: Z78.0 Asymptomatic menopausal state (principal)
CPT/HCPCS: 77080

== ENCOUNTER → 2025-06-11 13:44 | Outpatient (CLI) | payer MEDICARE, OTHER, SELFPAY ==
[2023-04-29 15:15] VITALS: BMI 25.8
== END ==
LOC: LAB 14:02
PROVIDERS: Family Provider Family Medicine; PCP Registered Nurse Diabetes Educator; Visit Provider Nurse Practitioner Family
DX: R30.0 Dysuria (principal); R35.0 Frequency of micturition; R39.11 Hesitancy of micturition
CPT/HCPCS: 87086